=== PATIENT | female | born 1940 | race Caucasian/White ===

== ENCOUNTER → 2021-08-29 07:08 | Outpatient (REF) | payer MEDICARE, SELFPAY | LOC: ANHLAB 07:08 | PROVIDERS: PCP Internal Medicine; Visit Provider Nurse Practitioner | DX: C44.622 Squamous cell carcinoma of skin of right upper limb, including shoulder (principal); C44.629 Squamous cell carcinoma of skin of left upper limb, including shoulder | CPT/HCPCS: 88305; 88331 ==

== ENCOUNTER → 2021-12-07 10:56 | Outpatient (CLI) | payer MEDICARE, SELFPAY ==
--- NOTE | ~2021-12-07 | XR_ITS ---
XR hip LT min 2V 12/07/2021 11:30 Indication: Left hip pain Procedure: 2 views left hip Comparison: No prior studies for comparison. Findings: Mild osteoarthritis of the left hip. There are extensive vascular calcifications. No acute fracture or traumatic malalignment. Impression: 1: Mild osteoarthritis of the left hip. Reviewed, dictated and finalized at location B. Impression: 1: Mild osteoarthritis of the left hip.
== END ==
PROVIDERS: PCP Internal Medicine; Visit Provider Internal Medicine
DX: M06.09 Rheumatoid arthritis without rheumatoid factor, multiple sites (principal); M16.12 Unilateral primary osteoarthritis, left hip
CPT/HCPCS: 73502

== ENCOUNTER 2021-12-24 16:55 | Inpatient (IN) | payer MEDICARE, SELFPAY ==
[2021-12-24] VITALS (21 sets, daily range): BP systolic 154–179; BP diastolic 53–81; PULSE 75–92; RESP 18–30; TEMP 36.2–36.8; O2SAT 89–98; BMI 24.2
--- NOTE | ~2021-12-24 | US_ITS ---
EXAMINATION: US venous doppler [facility] DATE: 12/25/2021 07:52 INDICATION: Lower limb edema. TECHNIQUE: Grayscale ultrasound images without and with compression and Doppler ultrasound images of the bilateral lower extremity veins were obtained. COMPARISON: None. FINDINGS: The visualized portions of right common femoral vein, profunda (deep) femoral vein, femoral vein, pop liteal vein, peroneal veins, posterior tibial veins, and greater saphenous vein outflow are patent. T here is a moderate-sized Barber's cyst on the right. The visualized portions of left common femoral vein, profunda femoral vein, femoral vein, popliteal v ein, peroneal veins, posterior tibial veins, and greater saphenous vein outflow are patent. There is a small Barber's cyst on the left. IMPRESSION: 1. No deep venous thrombosis. 2. Moderate-sized Barber's cyst. Small left Barber's cyst. Reviewed, dictated and finalized at location A.
--- NOTE | ~2021-12-24 | XR_ITS ---
EXAMINATION: XR chest 2V Exam Date/Time: 12/24/2021 17:43 CDT HISTORY: dyspnea, bilat pedal edema; hx of HTN Comparison: None available. RESULT: Lines, tubes, and devices: None. Lungs and pleura: Senescent change. Diffuse reticular opacities. Linear and subsegmental ill-defined opacities in the lung bases, greater on the left. Minimal bilateral angle blunting. Cardiomediastinal silhouette: Stable. Other: No acute osseous or upper abdominal finding. IMPRESSION: Pulmonary opacities may reflect mild interstitial edema overlying senescent change. Bibasilar atelect asis/consolidation worse on the left. Small left and trace right effusions versus chronic pleural jeanne nting. Reviewed, dictated and finalized at location K. IMPRESSION: Pulmonary opacities may reflect mild interstitial edema overlying senescent rio nge. Bibasilar atelectasis/consolidation worse on the left. Small left and trac e right effusions versus chronic pleural blunting.
--- NOTE | 2021-12-24 17:11 | ECG_ITS ---
Measurements Intervals [place] Rate: 85 P: 37 TX: 146 QRS: -26 QRSD: 141 T: 105 QT: 412 QTc: 492 Interpretive Statements SINUS RHYTHM LEFT ATRIAL ENLARGEMENT LEFT BUNDLE BRANCH BLOCK BASELINE ARTIFACT- I, II, III, AVR, AVL, AVF, V2 ABNORMAL ECG NO PREVIOUS ECG AVAILABLE FOR COMPARISON Electronically Signed On 12-24-2021 18:47:05 CDT by Flynn Batres D.O.
--- NOTE | 2021-12-24 17:27 | ED.SOB ---
HPI - SOB/Dyspnea General Chief Complaint: Shortness of Breath/Dyspnea Stated Complaint: bilateral feet and leg swelling, sob Time Seen by Provider: 12/24/21 17:19 History of Present Illness HPI Narrative: 81-year-old female history of hypertension and atrial fibrillation presents the emergency room with a sudden onset of shortness of breath and bilateral lower extremity swelling. Patient states that she woke up this morning and was experiencing some mild shortness of breath. Also endorses bilateral lower extremity edema. She does report an occasional lower extremity edema, but that usually resolves. Has a history of atrial fibrillation, stating that she had an ablation 40 years ago, and is being managed with Cardizem. Denies any chest pain. No known history of CHF. Denies fever. Has a productive cough. Related Data Home Medications Medication Instructions Recorded Confirmed abatacept (with maltose) 250 mg IV 09/28/20 09/28/20 intravenous solution (Orencia (with maltose)) acetaminophen 500 mg capsule 500 mg PO TID 09/28/20 09/28/20 amlodipine 10 mg tablet 10 mg PO DAILY 09/28/20 09/28/20 aspirin 81 mg tablet,delayed 81 mg PO DAILY 09/28/20 09/28/20 release atorvastatin 10 mg tablet 10 mg PO DAILY 09/28/20 09/28/20 cephalexin 500 mg capsule 500 mg PO Q8H 09/28/20 09/28/20 citalopram 40 mg tablet 20 mg PO DAILY 09/28/20 09/28/20 digoxin 125 mcg (0.125 mg) tablet 125 mcg PO .EVERY OTHER DAY 09/28/20 09/28/20 leflunomide 20 mg tablet 20 mg PO DAILY 09/28/20 09/28/20 losartan 100 1 tablet PO DAILY 09/28/20 09/28/20 mg-hydrochlorothiazide 12.5 mg tablet metformin 500 mg tablet 500 mg PO TID 09/28/20 09/28/20 montelukast 10 mg tablet 10 mg PO DAILY 09/28/20 09/28/20 nebivolol 10 mg tablet (Bystolic) 10 mg PO DAILY 09/28/20 09/28/20 prednisone 2.5 mg tablet 2.5 mg PO TID 09/28/20 09/28/20 tramadol 50 mg tablet 50 mg PO Q6H PRN 09/28/20 09/28/20 trazodone 50 mg tablet 50 mg PO QHS PRN 09/28/20 09/28/20 venlafaxine 75 mg tablet 75 mg PO DAILY 09/28/20 09/28/20 vibegron 75 mg tablet (Gemtesa) 75 mg PO DAILY 09/28/20 09/28/20 Allergies Allergy/AdvReac Type Severity Reaction Status Date / Time ciprofloxacin [From Cipro] Allergy Mild Rash Verified 09/08/21 14:13 Review of Systems Review of Systems: CONSTITUTIONAL: Denies fever, chills, or sweats. EYES: Denies visual changes, redness, or discharge. ENT: Denies rhinorrhea, congestion, sore throat, or otalgia. CARDIOVASCULAR: Denies chest pain, palpitations. Reports lower extremity edema RESPIRATORY: Reports shortness of breath and cough GASTROINTESTINAL: Denies abdominal pain, nausea, vomiting, or diarrhea. GENITOURINARY: Denies dysuria or hematuria. SKIN: Denies rash or itching. MUSCULOSKELETAL: Denies back pain, joint pain, or myalgia. NEUROLOGIC: Denies headache, numbness, dizziness, or weakness. PSYCHIATRIC: Denies anxiety or depression. [facility] Past Medical History Medical History Hypertension Surgical History Surgical History History of bladder repair surgery History of foot surgery History of hysterectomy History of knee surgery Social History Social History Smoking status: Never smoker Alcohol intake: never Substance use: never Exam Narrative: GENERAL: Well-appearing, well-nourished, no physical limitations, and in no acute distress. HEAD: Normocephalic, atraumatic. EYES: Conjunctivae normal, PERRLA and EOMI. NECK: No carotid bruits or JVD CHEST: Crackles at bases HEART: Regular rate and rhythm. No murmur heard. Normal peripheral pulses. EXTREMITIES: Normal range of motion. +2 pitting edema bilateral lower extremities SKIN: Warm, dry, no rash. No noted wounds NEURO: No focal deficits. Alert and oriented x3. MAEW. CN's II-XI intact bilaterally, normal gait PSYCH: Cooperative. N
[2021-12-24 17:37] LABS: Basophils Percent Auto 0.4 % (0.2-1.2); Eosinophils Absolute Auto 0.1 K/mm3 (0-0.3); Eosinophils Percent Auto 0.9 % (0-4.4); Hematocrit 37.9 % (37.0-47.0); Hemoglobin 12.1 g/dL (12.0-15.0); Immature Granulocyte Absolute 0.03 K/mm3 (0.00-0.031); Immature Granulocyte Percent A 0.4 % (0-0.5); Lymphocytes Absolute Auto 1.38 K/mm3 (0.9-3.2); Lymphocytes Percent Auto 18.5 % (18.3-44.2); Mean Corpuscular HGB Conc 31.9 g/dl (32-36); Mean Corpuscular Hemoglobin 29.3 pg (26-34); Mean Corpuscular Volume 91.8 fl (80-100); Mean Platelet Volume 10.9 fl (7.4-10.4); Monocytes Absolute Auto 0.7 K/mm3 (0.1-0.6); Neutrophils Absolute Auto 5.3 K/mm3 (1.3-6.7); Neutrophils Percent Auto 70.8 % (45.5-73.1); Platelet Count Result 167 k/mm3 (150-375); Red Blood Count 4.13 M/mm3 (4.2-5.4); Red Cell Distribution Width 13.1 % (11.5-14.5); White Blood Count 7.5 K/mm3 (4.5-10.0)
[2021-12-24 17:44] LABS: Alanine Aminotransferase 34 U/L (6-35); Albumin Level 3.9 g/dL (3.5-5.1); Alkaline Phosphatase 74 U/L (38-126); Anion Gap 12 mmol/L (8-16); Aspartate Amino Transferase 38 U/L (14-36); Bilirubin,Total 0.3 mg/dL (0.2-1.3); Blood Urea Nitrogen 15 mg/dL (7-17); Calcium 8.8 mg/dL (8.4-10.2); Carbon Dioxide 31 mmol/L (22-30); Chloride 93 mmol/L (98-107); Estimated CRCL calculation 38 ml/min; Estimated Glomerular Filt Rate > 60; Glucose 141 mg/dL (65-110); Potassium 3.6 mmol/L (3.4-5.0); Sodium 136 mmol/L (137-145)
[2021-12-24 17:51] LABS: INR 1.1; Prothrombin Time 13.7 Seconds (11.1-14.7)
[2021-12-24 17:53] LABS: Partial Thromboplastin Time 27.9 SECONDS (22.3-36.8)
[2021-12-24 17:57] LABS: NT Pro B Type Natriuretic Pept 6320 pg/mL (5-100); Troponin I 0.015 ng/mL (0.000-0.034)
[2021-12-24] MEDS: FUROSEMIDE INJ 40 MG/4 ML VIAL IV PUSH (18:12)
--- NOTE | 2021-12-24 19:49 | ADMGEN ---
This patient, Chelsea Zamarripa, was admitted to Medical Room 342-01. Patient/family oriented to hospital policies and general routines including ID bracelet, bed and alarms, visiting hours, pain management, procedures, bathroom and other care routines, personal items, smoking policy, room service/diet, and visiting hours. Information on how to activate the Rapid Response Team has been discussed. Patient/Family are encouraged to report perceived risks to care and to ask questions if they do not understand what they are told or what they should do.
--- NOTE | 2021-12-24 20:15 | PM.IMHP ---
H&P: HPI History of Present Illness Date/Time: 12/24/21 20:15 Chief Complaint: Shortness of breath and lower extremity swelling. Narrative: This is a very pleasant 81-year-old female with hypertension, hyperlipidemia, paroxysmal atrial fibrillation, and rheumatoid arthritis who presented to the emergency department for evaluation of shortness of breath and lower extremity swelling. The last several days she has noticed swelling in her ankles and progressive dyspnea on lesser and lesser exertion. This morning she was wakened from sleep at about 05:30 with feelings of shortness of breath; she felt much better when she was sitting up and leaning forward. On presentation to the emergency department she was tachypneic though in no respiratory distress and her blood pressures have been running pretty consistently in the 160s to 170s. X-ray showed findings of probable interstitial edema and her BNP was elevated at 6320. EKG showed sinus rhythm with a left bundle branch block and her initial troponin was normal. She has never had EKGs done at this facility before thus it is unclear whether not this bundle branch block is old. She has no known history of coronary artery disease and reports that her only cardiac issue was that of paroxysmal atrial fibrillation for which she was cardioverted 40 years ago. She has remained on digoxin since that time and she has never had recurrence to her knowledge. According to the patient she had an echocardiogram done in September [address] Harvey's office prior to him retiring and she was never told that there were any significant abnormalities. She has not had any episodes of chest pain or discomfort, nausea, vomiting, sweats, syncope, or presyncope. of note, she has had several medication changes recently related to her rheumatoid arthritis. Her prednisone dose has been tapered, leflunomide discontinued, and her biologic has changed from Orencia to Aria of which she had her 1st dose a couple of weeks ago. Review of Systems Review of Systems: 12 systems were reviewed. No recent cold or flu symptoms. No sick contacts. No sensations of racing heart and palpitations. Orthopnea as detailed above. No paroxysmal nocturnal dyspnea. Appetite has been okay, may be a bit decreased. Except as documented, all other systems were reviewed and are negative. [facility] Past Medical History Medical History (Updated 12/24/21 @ 21:27 by Irina Ace PA-C) Chronic pain syndrome Hyperlipidemia Hypertension Paroxysmal atrial fibrillation Prediabetes Rheumatoid arthritis Squamous cell carcinoma of skin Surgical History Surgical History (Updated 12/24/21 @ 21:22 by Irina Ace PA-C) History of bladder repair surgery History of foot surgery History of hysterectomy History of knee surgery History of squamous cell carcinoma excision Social History Social History (Updated 12/24/21 @ 21:23 by Irina Ace PA-C) Social History: Surrogate medical decision maker: Marci Zacarias, daughter. Code status: Full code. Smoking status: Never smoker Alcohol intake: never Substance use: never Additional living arrangements comments: with 3 grown daughters. Lives in her own home in [place]. Meds Home Medications and Allergies Home Medications Medication Instructions Recorded Confirmed Type abatacept (with maltose) 250 mg See Rx Instructions .Route .COMPLEX 09/28/20 09/28/20 History intravenous solution (Orencia (with maltose)) amlodipine 10 mg tablet 10 mg PO DAILY 09/28/20 12/24/21 History aspirin 81 mg tablet,delayed 81 mg PO DAILY 09/28/20 12/24/21 History release atorvastatin 10 mg tablet 10 mg PO DAILY 09/28/20 12/24/21 History cephalexin 500 mg capsule 500 mg PO QHS 09/28/20 12/24/21 History citalopram 40 mg tablet 40 mg PO DAILY 09/28/20 12/24/21 History digoxin 125 mcg (0.125 mg) tablet 125 mcg PO .EVERY OTHER DAY 09/28/20 12/24/21 History losartan 100 1 tablet PO DAILY 09/28/20
[2021-12-25] VITALS (12 sets, daily range): BP systolic 141–162; BP diastolic 57–72; PULSE 69–86; RESP 16–18; TEMP 35.8–36.7; O2SAT 91–97
[2021-12-25 05:26] LABS: Hematocrit 37.2 % (37.0-47.0); Hemoglobin 11.8 g/dL (12.0-15.0); Mean Corpuscular HGB Conc 31.7 g/dl (32-36); Mean Corpuscular Hemoglobin 29.6 pg (26-34); Mean Corpuscular Volume 93.2 fl (80-100); Mean Platelet Volume 10.2 fl (7.4-10.4); Platelet Count Result 169 k/mm3 (150-375); Red Blood Count 3.99 M/mm3 (4.2-5.4); Red Cell Distribution Width 13.2 % (11.5-14.5); White Blood Count 9.1 K/mm3 (4.5-10.0)
[2021-12-25 05:41] LABS: Hemoglobin A1C 5.7 % (<5.7)
[2021-12-25 05:46] LABS: Anion Gap 10 mmol/L (8-16); Blood Urea Nitrogen 14 mg/dL (7-17); Calcium 8.6 mg/dL (8.4-10.2); Carbon Dioxide 35 mmol/L (22-30); Chloride 91 mmol/L (98-107); Estimated CRCL calculation 43 ml/min; Estimated Glomerular Filt Rate > 60; Glucose 134 mg/dL (65-110); Magnesium 1.1 mg/dL (1.6-2.3); Potassium 3.2 mmol/L (3.4-5.0); Sodium 136 mmol/L (137-145)
[2021-12-25] MEDS: FUROSEMIDE INJ 40 MG/4 ML VIAL 20 MG IV PUSH ×2 (06:15→17:07)
[2021-12-25 06:20] LABS: Digoxin < 0.4 ng/mL (0.8-2.0)
[2021-12-25] MEDS: POTASSIUM CHLORIDE 20 MEQ TABLET.ER PO (08:38)
[2021-12-25] MEDS: ATORVASTATIN 10 MG TABLET PO (08:39)
[2021-12-25] MEDS: CITALOPRAM HYDROBROMIDE 20 MG TABLET 40 MG PO (08:41)
[2021-12-25] MEDS: ASPIRIN 81 MG ENTERIC TABLET PO (08:41)
[2021-12-25] MEDS: predniSONE 2.5 MG TABLET PO (08:41)
[2021-12-25] MEDS: amLODIPine BESYLATE 5 MG TABLET 10 MG PO (08:41)
[2021-12-25] MEDS: DIGOXIN TAB 125 MCG TABLET PO (08:42)
[2021-12-25] MEDS: MONTELUKAST SODIUM 10 MG TABLET PO (08:42)
[2021-12-25] MEDS: LOSARTAN POTASSIUM 100 MG TABLET PO (08:42)
[2021-12-25] MEDS: VENLAFAXINE HCL 75 MG TABLET PO (08:42)
[2021-12-25 08:59] LABS: Glucose Point of Care 140 mg/dl (65-105)
[2021-12-25] MEDS: POTASSIUM CHLORIDE 20 MEQ TABLET PO (10:48)
--- NOTE | 2021-12-25 12:29 | PM.CNCAR ---
Assessment and Plan Assessment and plan (1) CHF (congestive heart failure): Code(s): I50.9 - Heart failure, unspecified Status: Acute (2) Left bundle branch block: Code(s): I44.7 - Left bundle-branch block, unspecified Status: Acute Plan This is an 81 year lady with longstanding hypertension presenting with findings of congestive heart failure for the 1st time in her life. It is unknown to us whether her left bundle branch block is acute or chronic. She has not had any previous care delivered at this hospital. She is feeling better after treatment with intravenous furosemide since admission last evening. She clearly is in no distress at this time. I will order an echocardiogram for our review tomorrow. At manager radiation is not available on Sunday to perform this exam. We will recommend further medical adjustment and or workup as indicated based on those findings. Owen Delgado MD [facility] History of Present Illness History of Present Illness Consult date/time: 12/25/21 12:29 Reason For Visit: CHF exacerbation Narrative: This is an 81-year-old woman I am seeing at the request of the hospitalist because of diagnosed occur of congestive heart failure which would be a new problem for this patient. She does not generally come to [facility] her her medical care. She came here yesterday afternoon/evening because of symptoms of shortness of breath that has been coming for about 7-10 days. She says that she notices shortness of breath in the early intervention specialist hours that tend to awaken her from sleep in the morning. She interestingly does not have the symptoms during the day after she gets up and sits up for a while. She also noticed over the same period of time some noticeable lower extremity edema. She does not have any chest pain she does not have any history of palpitations or syncope. She states she has never been known to have a cardiac problem in the past other than atrial fibrillation which she states occurred about 40 years ago but not since then. She was followed by another physician in [place] who has retired recently and has generally been doing well in good health to the best of her knowledge. She does have longstanding hypertension for which she takes a multi-drug regimen and 4th treatment including amlodipine, losartan with hydrochlorothiazide, nebivolol. She has never had palpitations or syncope. On arrival in the emergency room last evening for evaluation she appeared to be in mild distress with shortness of breath she was given some intravenous furosemide. Chest x-ray shows modest enlargement of her cardiac silhouette on x-ray and some very subtle interstitial edema. She has been given some intravenous furosemide last night and this morning she feels better today she is sitting bedside chair eating her lunch visiting with family she does not believe there is any edema present at this time at all. Electrocardiogram shows sinus rhythm with a left bundle branch block. There are no old ECGs available in our record for comparison. Review of Systems Constitutional: Constitutional: Reports no additional constitutional complaints Eyes: Eyes: Reports no additional eye complaints ENT: Reports system reviewed and no additional complaints, except as documented Cardiovascular: Cardiovascular: Reports as per HPI Respiratory: Respiratory: Reports dyspnea Comments: Early warning dyspnea as per above Gastrointestinal: Gastrointestinal: Reports no additional gastrointestinal complaints Musculoskeletal: Musculoskeletal: Reports no additional musculoskeletal complaints Integumentary/Breasts: Skin/Breast: Reports system reviewed and no additional complaints, except as docu Neurologic: Reports system reviewed and no additional complaints, except as documented Endocrine: Endocrine: Reports no additional endocrine complaints Hematologic/Lymphatic: Hematologic/Lymphatic: Reports no additional hemato
[2021-12-25 12:31] LABS: Glucose Point of Care 148 mg/dl (65-105)
[2021-12-25] MEDS: MORPHINE SULFATE (*CRX) 15 MG TABCR PO ×2 (12:36→20:14)
[2021-12-25 17:53] LABS: Glucose Point of Care 133 mg/dl (65-105)
--- NOTE | 2021-12-25 17:59 | PM.IMPN ---
Progress Note: A&P Assessment and Plan (1) Acute exacerbation of congestive heart failure: Code(s): I50.9 - Heart failure, unspecified Status: Acute Assessment and Plan: The patient presented for evaluation of shortness of breath, lower extremity edema, and orthopnea. BNP 6320 and CXR showing probably interstitial edema. Workup consistent with CHF exacerbation. She was started on IV lasix and clinically feels better. Wean off O2 as toelrated. Started PT/OT. Daily weights. CHF teaching. Echo ordered. Cardiology consulted. (2) Left bundle branch block: Code(s): I44.7 - Left bundle-branch block, unspecified Status: Acute Assessment and Plan: She has not had an EKG tracing done at this facility before. She has no known history of coronary artery disease and she gives no history to suggest a recent cardiac event. Echo ordered as above. Records requested from Dr. Harvey is office (he recently retired) for review as she reportedly had an EKG and echocardiogram done several months ago. She plans to follow up with new Automobile Salesman here. (3) Hypertension: Code(s): I10 - Essential (primary) hypertension Status: Acute Assessment and Plan: Blood pressures have been running in the 150-170s systolic and hopefully these will improve with diuresis. Continue antihypertensives (except HCTZ) and monitor closely. Adjustments will be made accordingly. (4) Paroxysmal atrial fibrillation: Code(s): I48.0 - Paroxysmal atrial fibrillation Status: Acute Assessment and Plan: Patient reports having a cardioversion 40 years ago and to her knowledge she has never been back in AFib. She was reportedly very symptomatic and she feels that she would be aware if she was in an irregular heart rhythm. Dig level <0.4. Continue digoxin. Continue tele. (5) Hyperlipidemia: Code(s): E78.5 - Hyperlipidemia, unspecified Status: Acute Assessment and Plan: LFTs okay. We continued atorvastatin. (6) Rheumatoid arthritis: Code(s): M06.9 - Rheumatoid arthritis, unspecified Status: Acute Assessment and Plan: She has had several recent changes to her medication regimen. She is being tapered off of prednisone and her leflunomide was discontinued. She had her 1st infusion of golimumab 2 weeks ago which has replaced Orencia. She has also been started on morphine 15 mg b.i.d. due to chronic pain related to such. Golimumab can contribute to CHF. (7) Prediabetes: Code(s): R73.03 - Prediabetes Status: Acute Assessment and Plan: A1c 5.7. Glucose well controlled. Continue to hold metformin while hospitalized. Continue sliding scale insulin, Accu-Cheks, and hypoglycemic protocol. Plan DVT Prophylaxis: Lovenox Code status: Full Diet: Diab Disposition: Home. Add PT/OT Subjective Date/time seen: 12/25/21 17:59 Interval history: 81yo female with pAFib, HTn and RA here for SOB and LE edema. Patient feels well today. She does not wear oxygen at home. Shortness of breath is improved. She denies any cough or chest pain. She does admit to adhering to a high salt diet Exam Narrative: AF 96.5 152/65 74 16 97% 2L Gen - NARD sitting at the side of the bed Chest - few basilar rhonchi. nml RR CV - RRR S1/S2 Abd - Soft, NT/ND, Positive BS Ext - trace-1+pedal edema Psych - Nml mood and affect Skin - Warm and dry Objective Data Vital Signs Vital Signs: Vital Signs - 24 hr 12/24/21 18:00 12/24/21 18:14 12/24/21 18:15 Temperature Pulse Rate 83 81 81 Respiratory Rate 26 H 26 H 26 H Blood Pressure 166/81 H Pulse Oximetry 94 91 93 Oxygen Delivery Oxygen Flow Rate 12/24/21 18:16 12/24/21 18:30 12/24/21 18:32 Temperature Pulse Rate 83 83 81 Respiratory Rate 30 H 20 24 H Blood Pressure 178/78 H 179/81 H Pulse Oximetry 92 91 94 Oxygen Delivery Oxygen Flow Rate 12/24/21 18:45 09/0
[2021-12-25] MEDS: ENOXAPARIN 40 MG/0.4 ML SYRINGE SUB-Q (19:15)
[2021-12-25] MEDS: NEBIVOLOL HCL 5 MG TABLET 20 MG PO (20:13)
[2021-12-25] MEDS: CEPHALEXIN 500 MG CAPSULE PO (20:14)
[2021-12-25] MEDS: traZODone HCL 50 MG TABLET PO (20:14)
[2021-12-25] MEDS: MAGNESIUM SULF 2 GM/WATER 50ML 2 GM/50 ML BAG IVPB (20:16)
[2021-12-25 21:27] LABS: Glucose Point of Care 160 mg/dl (65-105)
[2021-12-26] VITALS (10 sets, daily range): BP systolic 112–144; BP diastolic 51–82; PULSE 62–86; RESP 14–18; TEMP 36.7; O2SAT 92–96
[2021-12-26] MEDS: FUROSEMIDE INJ 40 MG/4 ML VIAL 20 MG IV PUSH (05:05)
[2021-12-26 06:03] LABS: Basophils Absolute Auto 0.1 K/mm3 (0.0-0.1); Basophils Percent Auto 0.7 % (0.2-1.2); Eosinophils Absolute Auto 0.2 K/mm3 (0-0.3); Eosinophils Percent Auto 2.8 % (0-4.4); Hematocrit 36.4 % (37.0-47.0); Hemoglobin 11.4 g/dL (12.0-15.0); Immature Granulocyte Absolute 0.02 K/mm3 (0.00-0.031); Immature Granulocyte Percent A 0.3 % (0-0.5); Lymphocytes Absolute Auto 2.26 K/mm3 (0.9-3.2); Mean Corpuscular HGB Conc 31.3 g/dl (32-36); Mean Corpuscular Hemoglobin 29.2 pg (26-34); Mean Corpuscular Volume 93.3 fl (80-100); Mean Platelet Volume 11.6 fl (7.4-10.4); Neutrophils Percent Auto 53.2 % (45.5-73.1); Platelet Count Result 155 k/mm3 (150-375); Red Cell Distribution Width 13.3 % (11.5-14.5); White Blood Count 7.5 K/mm3 (4.5-10.0)
[2021-12-26 08:15] LABS: Glucose Point of Care 112 mg/dl (65-105)
[2021-12-26 09:13] LABS: Albumin Level 3.4 g/dL (3.5-5.1); Anion Gap 10 mmol/L (8-16); Blood Urea Nitrogen 15 mg/dL (7-17); Calcium 8.8 mg/dL (8.4-10.2); Carbon Dioxide 36 mmol/L (22-30); Chloride 89 mmol/L (98-107); Estimated CRCL calculation 38 ml/min; Estimated Glomerular Filt Rate > 60; Glucose 119 mg/dL (65-110); Magnesium 1.6 mg/dL (1.6-2.3); Phosphorus 4.2 mg/dL (2.5-4.5); Potassium 3.2 mmol/L (3.4-5.0); Sodium 135 mmol/L (137-145)
[2021-12-26] MEDS: ASPIRIN 81 MG ENTERIC TABLET PO (09:36)
[2021-12-26] MEDS: ATORVASTATIN 10 MG TABLET PO (09:36)
[2021-12-26] MEDS: VENLAFAXINE HCL 75 MG TABLET PO (09:36)
[2021-12-26] MEDS: POTASSIUM CHLORIDE 20 MEQ TABLET.ER PO (09:36)
[2021-12-26] MEDS: predniSONE 2.5 MG TABLET PO (09:36)
[2021-12-26] MEDS: LOSARTAN POTASSIUM 100 MG TABLET PO (09:36)
[2021-12-26] MEDS: MONTELUKAST SODIUM 10 MG TABLET PO (09:37)
[2021-12-26] MEDS: ENOXAPARIN 40 MG/0.4 ML SYRINGE SUB-Q (09:37)
[2021-12-26] MEDS: amLODIPine BESYLATE 5 MG TABLET 10 MG PO (09:37)
[2021-12-26] MEDS: CITALOPRAM HYDROBROMIDE 20 MG TABLET 40 MG PO (09:37)
[2021-12-26 11:39] LABS: Glucose Point of Care 104 mg/dl (65-105)
--- NOTE | 2021-12-26 12:22 | PM.PNCARD ---
Progress Note: A&P Assessment and Plan (1) Acute exacerbation of congestive heart failure: Code(s): I50.9 - Heart failure, unspecified Status: Acute Plan 81-year-old lady with longstanding hypertension now presents with heart failure. Echocardiogram gives her diagnosis of heart failure with reduced ejection fraction. I am going to suggest the following changes: Transition her beta-dimple from nebivolol to Coreg Discontinue amlodipine Transition from losartan to Entresto Will discontinue IV furosemide as she appears to be euvolemic at this time Start spironolactone Expected keep this patient in the hospital at least another 24-48 hours while we make these wholesale changes in her regimen. Owen Delgado MD [facility] Subjective Date/time seen: Date of service: 12/26/21 12:22 Interval history: Follow-up visit in this 81-year-old woman with: New onset of congestive heart failure with left bundle branch block. Patient feels well today and does not describe any residual shortness of breath. Enjoying her lunch in visiting with her family. Discussed with the patient and the family the results of this morning's echocardiogram. She has significant systolic left ventricular dysfunction and will need significant changes in her medical regimen to establish appropriate guideline directed medical therapy for this. Exam Const: General: comfortable and no acute distress Other: Very pleasant elderly lady comfortable eating her lunch HENMT: Mouth: Yes moist mucous membranes Eyes: Sclera: sclerae normal Neck: Neck: supple and no JVD Cardio: Rate: regular rate Rhythm: regular rhythm Other: S3 is audible GI: GI Palp: Yes Soft to palpation Auscultation: normal bowel sounds Skin: General skin exam: normal color Neuro: Other: Alert and oriented x3 Extrem: Other: No residual edema Objective Data Vital Signs Vital Signs: Vital Signs - 24 hr 12/25/21 16:30 12/25/21 16:00 12/25/21 19:39 Temperature 35.8 C L 36.5 C Pulse Rate 74 72 69 Respiratory Rate 16 18 Blood Pressure 152/65 H 141/57 H Pulse Oximetry 97 94 Oxygen Flow Rate 12/25/21 20:13 12/25/21 20:00 12/26/21 00:00 Temperature Pulse Rate 71 69 62 Respiratory Rate Blood Pressure Pulse Oximetry Oxygen Flow Rate 12/26/21 04:00 12/26/21 06:00 12/26/21 09:37 Temperature 36.7 C Pulse Rate 69 65 Respiratory Rate 18 Blood Pressure 144/51 H Pulse Oximetry 93 93 Oxygen Flow Rate 1 12/26/21 08:00 12/26/21 12:00 Temperature Pulse Rate 72 86 Respiratory Rate Blood Pressure Pulse Oximetry Oxygen Flow Rate Intake/Output Intake/Output: Intake & Output 12/23/21 12/24/21 12/25/21 12/26/21 23:59 23:59 23:59 23:59 Intake Total 720 240 Output Total 2350 550 Balance -1630 -310 Meds/Results Medications: Active Medications Generic Name Dose Route Start Last Admin Trade Name Freq PRN Reason Stop Dose Admin Aspirin 81 mg 12/25/21 09:00 12/26/21 09:36 Aspirin 81 Mg Enteric Tablet PO 81 mg DAILY JENNY Administration Atorvastatin Calcium 10 mg 12/25/21 09:00 12/26/21 09:36 Atorvastatin 10 Mg Tablet PO 10 mg DAILY JENNY Administration Carvedilol 25 mg 12/26/21 21:00 Carvedilol 25 Mg Tablet PO Q12HR JENNY Cephalexin HCl 500 mg 12/24/21 21:45 12/25/21 20:14 Cephalexin 500 Mg Capsule PO 500 mg QHS JENNY Administration Citalopram Hydrobromide 40 mg 12/25/21 09:00 12/26/21 09:37 Citalopram Hydrobromide 20 Mg Tablet PO 40 mg DAILY JENNY Administration Dextrose 12.5 gm 12/24/21 21:35 Dextrose 50% 25 Gm/50 Ml Syringe IV PUSH PRN PRN Hypoglycemia Protocol Enoxaparin Sodium 40 mg 12/26/21 09:00 12/26/21 09:37 Enoxaparin 40 Mg/0.4 Ml Syringe SUB-Q 40 mg DAILY JENNY Administration Glucagon 1 mg 12/24/21 21:35 Glucagon For Inj 1 Mg Vial IM PRN PRN Hypoglycemia Protocol Glucose 1
--- NOTE | 2021-12-26 12:36 | PM.IMPN ---
Progress Note: A&P Assessment and Plan (1) Acute exacerbation of congestive heart failure: Code(s): I50.9 - Heart failure, unspecified Status: Acute Assessment and Plan: The patient presented for evaluation of shortness of breath, lower extremity edema, and orthopnea. BNP 6320 and CXR showing probably interstitial edema. Workup consistent with CHF exacerbation. She was started on IV lasix and clinically feels better. Echocardiogram has returned showing EF of 25-30% with grade 1 diastolic dysfunction. Wean off O2 as tolerated. Continue daily weights. Cardiology following and appreciate their input. Medications to be adjusted. Potassium is low which will replace. IV Lasix stopped. Monitor to see if she will need oral Lasix at discharge (2) Left bundle branch block: Code(s): I44.7 - Left bundle-branch block, unspecified Status: Acute Assessment and Plan: She has not had an EKG tracing done at this facility before. She has no known history of coronary artery disease and she gives no history to suggest a recent cardiac event. Echo as above. Records requested from Dr. Harvey is office (he recently retired) for review. She plans to follow up with new Band Scroll Saw Operator here. (3) Hypertension: Code(s): I10 - Essential (primary) hypertension Status: Acute Assessment and Plan: Blood pressures have been running in the 140-160s systolic and hopefully these will improve with diuresis and adjustment of her medications. Adjustments will be made accordingly. (4) Paroxysmal atrial fibrillation: Code(s): I48.0 - Paroxysmal atrial fibrillation Status: Acute Assessment and Plan: Patient reports having a cardioversion 40 years ago and states she has never been back in AFib. She was reportedly very symptomatic and she feels that she would be aware if she was in an irregular heart rhythm. Dig level <0.4. Digoxin stopped. Bystolic changed to Coreg. Continue tele. (5) Hyperlipidemia: Code(s): E78.5 - Hyperlipidemia, unspecified Status: Acute Assessment and Plan: LFTs okay. We continued atorvastatin. (6) Rheumatoid arthritis: Code(s): M06.9 - Rheumatoid arthritis, unspecified Status: Acute Assessment and Plan: She has had several recent changes to her medication regimen. She is being tapered off of prednisone and her leflunomide was discontinued. She had her 1st infusion of golimumab 2 weeks ago which has replaced Orencia. She has also been started on morphine 15 mg b.i.d. due to chronic pain. Golimumab can contribute to CHF. (7) Prediabetes: Code(s): R73.03 - Prediabetes Status: Acute Assessment and Plan: A1c 5.7. Glucose well controlled. Continue to hold metformin while hospitalized. Continue sliding scale insulin, Accu-Cheks, and hypoglycemic protocol. Plan DVT Prophylaxis: Lovenox Code status: Full Diet: Diab Disposition: Home. Continue PT/OT Subjective Date/time seen: 12/26/21 12:36 Interval history: 81yo female with pAFib, HTN and RA here for CHF exacerbation. Shortness of breath is better. No chest pain. Slept well. No orthopnea. Feeling better overall. Exam Narrative: AF 98.1 144/51 86 18 93% 1L Gen - NARD Chest -decreased breath sounds in the bases otherwise clear. CV - RRR S1/S2 with a II/ systolic murmur heard loudest at right upper sternal border Abd - Soft, NT/ND, Positive BS Ext - trace pedal edema Psych - Nml mood and affect Skin - Warm and dry Objective Data Vital Signs Vital Signs: Vital Signs - 24 hr 12/25/21 16:30 12/25/21 16:00 12/25/21 19:39 Temperature 96.5 F L 97.7 F Pulse Rate 74 72 69 Respiratory Rate 16 18 Blood Pressure 152/65 H 141/57 H Pulse Oximetry 97 94 Oxygen Flow Rate 12/25/21 20:13 12/25/21 20:00 12/26/21 00:00 Temperature Pulse Rate 71 69 62 Respiratory Rate Blood Pressure Pulse Oximetry
[2021-12-26] MEDS: MORPHINE SULFATE (*CRX) 15 MG TABCR PO ×2 (13:06→20:32)
[2021-12-26] MEDS: MAGNESIUM SULF 2 GM/WATER 50ML 2 GM/50 ML BAG IVPB (13:30)
[2021-12-26] MEDS: POTASSIUM CHLORIDE 20 MEQ TABLET PO (13:30)
[2021-12-26 16:43] LABS: Glucose Point of Care 118 mg/dl (65-105)
[2021-12-26] MEDS: CEPHALEXIN 500 MG CAPSULE PO (20:32)
[2021-12-26] MEDS: traZODone HCL 50 MG TABLET PO (20:32)
[2021-12-26 20:37] LABS: Glucose Point of Care 133 mg/dl (65-105)
--- NOTE | 2021-12-26 21:35 | ECHO_ITS ---
Patient Info Name: Chelsea Zamarripa Age: 81 years : 1940 Gender: Female Ht: 62 in Wt: 132 lbs BSA: 1.63 m2 HR: 70 bpm BP: 144 / 51 mmHg Heart Rhythm: Sinus Rhythm Technical Quality: Good Exam Date: 12/26/2021 8:01 AM Exam Location: [facility] Exam Room: 342 Patient Status: Inpatient Admit Date: 12/24/2021 Staff Ordering Physician: Irina Ace PA-C Material Handler: Shira Fung RDCS Attending Provider: Fernando Rueda MD Referring Physician: Db PHAM; Exam Type: CA echo doppler color flow Study Info Indications - LBBB HTN AFIB CHF Complete two-dimensional, color flow and Doppler transthoracic echocardiogram is performed. Summary 1. Complete two-dimensional, color flow and Doppler transthoracic echocardiogram is performed. 2. Left ventricular chamber dimension is moderately enlarged. 3. Left ventricular systolic function is severely reduced, estimated at 25-30%. 4. Left atrial chamber dimension is moderately enlarged. 5. There is mild mitral valve regurgitation. Left Ventricle Left ventricular chamber dimension is moderately enlarged. Left ventricular systolic function is severely reduced, estimated at 25-30%. There is mild concentric increased left ventricular wall thickness. The left ventricular diastolic function is grade I diastolic dysfunction. Right Ventricle Right ventricular chamber dimension is normal. Left Atria Left atrial chamber dimension is moderately enlarged. Right Atria Right atrial chamber dimension is normal. Aortic Valve The aortic valve is normal. Pulmonic Valve The pulmonic valve is normal. There is trace pulmonic regurgitation. Mitral Valve The mitral valve has normal leaflets. There is mild mitral valve regurgitation. Tricuspid Valve The tricuspid valve leaflets are normal. There is mild tricuspid valve regurgitation. Pericardium/Pleural The pericardium appears increased echogenicity of the pericardium. Aorta The aortic root size at the sinus of Valsalva is normal. Left Ventricular Outflow Tract Name Value Normal LVOT 2D LVOT Diameter 2.0 cm LVOT Doppler LVOT Peak Gradient 5 mmHg LVOT Mean Gradient 3 mmHg LVOT VTI 22 cm LVOT VTI/AV VTI Ratio 0.8 LVOT Stroke Volume 71 ml LVOT CO 15.2 l/min LVOT CI 9.3 l/min/m2 Pulmonic Valve Name Value Normal PV Doppler PV Peak Gradient 2 mmHg Mitral Valve Name Value Normal MV Doppler
[2021-12-26] MEDS: SACUBITRIL/VALSARTAN 24-26 MG TABLET 1 TAB PO (22:00)
[2021-12-26] MEDS: carvediloL 25 MG TABLET PO (22:00)
[2021-12-27] VITALS (7 sets, daily range): BP systolic 126–148; BP diastolic 51–60; PULSE 67–74; RESP 16–18; TEMP 36.5–36.6; O2SAT 95–96
[2021-12-27 05:59] LABS: Albumin Level 2.9 g/dL (3.5-5.1); Anion Gap 9 mmol/L (8-16); Blood Urea Nitrogen 15 mg/dL (7-17); Calcium 8.1 mg/dL (8.4-10.2); Carbon Dioxide 33 mmol/L (22-30); Chloride 92 mmol/L (98-107); Estimated CRCL calculation 43 ml/min; Estimated Glomerular Filt Rate > 60; Glucose 119 mg/dL (65-110); Magnesium 1.9 mg/dL (1.6-2.3); Potassium 3.3 mmol/L (3.4-5.0); Sodium 134 mmol/L (137-145)
[2021-12-27 08:06] LABS: Glucose Point of Care 112 mg/dl (65-105)
--- NOTE | 2021-12-27 08:54 | PM.IMPN ---
Progress Note: A&P Assessment and Plan (1) Acute exacerbation of congestive heart failure: Code(s): I50.9 - Heart failure, unspecified Status: Acute Assessment and Plan: The patient presented for evaluation of shortness of breath, lower extremity edema, and orthopnea. BNP 6320 and CXR showing probably interstitial edema. Workup consistent with Acute on chronic systolic and diastolic CHF exacerbation. She was started on IV lasix and clinically improved. Echo has returned showing EF of 25-30% with grade 1 diastolic dysfunction. Weaned off O2 now. Continue daily weights. Cardiology following and appreciate their input. Medications have been adjusted. Potassium is low end of normal which will replace. IV Lasix stopped. Continue to monitor to see if she will need oral Lasix at discharge. Continue Coreg, Entresto and Aldactone. (2) Left bundle branch block: Code(s): I44.7 - Left bundle-branch block, unspecified Status: Acute Assessment and Plan: She has not had an EKG tracing done at this facility before. She has no known history of coronary artery disease and she gives no history to suggest a recent cardiac event. Echo as above. Records requested from Dr. Harvey is office (he recently retired) for review. She plans to follow up with new Light Out Examiner here. (3) Hypertension: Code(s): I10 - Essential (primary) hypertension Status: Acute Assessment and Plan: Blood pressures have been running in the 140's systolic mostly (112 last night). She appears to be toelrating the changes in her medications. Continue to follow. (4) Paroxysmal atrial fibrillation: Code(s): I48.0 - Paroxysmal atrial fibrillation Status: Acute Assessment and Plan: Patient reports having a cardioversion 40 years ago and states she has never been back in AFib. She was reportedly very symptomatic and she feels that she would be aware if she was in an irregular heart rhythm. Dig level <0.4. Digoxin stopped. Bystolic changed to Coreg. Continue tele. (5) Hyperlipidemia: Code(s): E78.5 - Hyperlipidemia, unspecified Status: Acute Assessment and Plan: LFTs okay. We continued atorvastatin. (6) Rheumatoid arthritis: Code(s): M06.9 - Rheumatoid arthritis, unspecified Status: Acute Assessment and Plan: She has had several recent changes to her medication regimen. She is being tapered off of prednisone and her leflunomide was discontinued. She had her 1st infusion of golimumab 2 weeks ago which has replaced Orencia. She has also been started on morphine 15 mg b.i.d. due to chronic pain. Golimumab can contribute to CHF. Follow (7) Prediabetes: Code(s): R73.03 - Prediabetes Status: Acute Assessment and Plan: A1c 5.7. Glucose well controlled. Continue to hold metformin while hospitalized. Continue sliding scale insulin, Accu-Cheks, and hypoglycemic protocol. Plan DVT Prophylaxis: Lovenox Code status: Full Diet: Diab Disposition: Home. Continue PT/OT Subjective Date/time seen: 12/27/21 08:54 Interval history: 81yo female with pAFib, HTN and RA here for CHF exacerbation. Feels well today. No complaints today. She came off oxygen last night. No problems overnight. Denies chest pain or shortness of breath. No nausea or vomiting. Exam Narrative: AF 97.9 148/60 74 16 96% ra Gen - NARD sitting up in a chair Chest -clear to auscultation bilaterally. CV - RRR S1/S2. Telemetry showing no alarms Abd - Soft, NT/ND, Positive BS Ext - no pedal edema Psych - Nml mood and affect Skin - Warm and dry Objective Data Vital Signs Vital Signs: Vital Signs - 24 hr 12/26/21 09:37 12/26/21 12:00 12/26/21 14:00 Temperature 98.1 F Pulse Rate 86 76 Respiratory Rate 14 Blood Pressure 140/51 L Pulse Oximetry 93 96 Oxygen Delivery Oxygen Flow Rate 1 12/26/21 20:00 12/26/21 20:00 12/26/21
[2021-12-27] MEDS: carvediloL 25 MG TABLET PO (08:58)
[2021-12-27] MEDS: VENLAFAXINE HCL 75 MG TABLET PO (09:00)
[2021-12-27] MEDS: ATORVASTATIN 10 MG TABLET PO (09:00)
[2021-12-27] MEDS: CITALOPRAM HYDROBROMIDE 20 MG TABLET 40 MG PO (09:00)
[2021-12-27] MEDS: ENOXAPARIN 40 MG/0.4 ML SYRINGE SUB-Q (09:00)
[2021-12-27] MEDS: MONTELUKAST SODIUM 10 MG TABLET PO (09:00)
[2021-12-27] MEDS: predniSONE 2.5 MG TABLET PO (09:00)
[2021-12-27] MEDS: ASPIRIN 81 MG ENTERIC TABLET PO (09:00)
[2021-12-27] MEDS: SACUBITRIL/VALSARTAN 24-26 MG TABLET 1 TAB PO (09:00)
[2021-12-27] MEDS: POTASSIUM CHLORIDE 20 MEQ TABLET 40 MEQ PO (09:00)
[2021-12-27] MEDS: SPIRONOLACTONE 25 MG TABLET PO (10:28)
[2021-12-27 12:10] LABS: Glucose Point of Care 134 mg/dl (65-105)
[2021-12-27] MEDS: MORPHINE SULFATE (*CRX) 15 MG TABCR PO (12:29)
--- NOTE | 2021-12-27 15:03 | PM.PNCARD ---
Progress Note: A&P Assessment and Plan (1) Acute exacerbation of congestive heart failure: Code(s): I50.9 - Heart failure, unspecified Status: Acute Assessment and Plan: Systolic CHF: Continue carvedilol, Entresto, spironolactone, furosemide. Will increase her Entresto to 49/51 mg p.o. b.i.d. She needs outpatient ischemic workup. She may eventually benefit for resynchronization (2) Left bundle branch block: Code(s): I44.7 - Left bundle-branch block, unspecified Status: Acute Assessment and Plan: As detailed above. Possible candidate for resynchronization in the future depending on how she response to the above treatment strategy (3) Paroxysmal atrial fibrillation: Code(s): I48.0 - Paroxysmal atrial fibrillation Status: Acute (4) Hypertension: Code(s): I10 - Essential (primary) hypertension Status: Acute Assessment and Plan: Reasonably controlled Subjective Date/time seen: 12/27/21 15:03 Interval history: 81yo female with pAFib, HTN and RA here for CHF exacerbation. Feels well today. No complaints today. She came off oxygen last night. No problems overnight. Denies chest pain or shortness of breath. No nausea or vomiting. Date of service 12/27/2021: She feels well and wants to go home. No chest pain, shortness of breath, syncope Review of Systems Constitutional: Constitutional: Reports no additional constitutional complaints Eyes: Eyes: Reports no additional eye complaints ENT: Reports system reviewed and no additional complaints, except as documented Cardiovascular: Cardiovascular: Reports as per HPI and Reports dyspnea Respiratory: Respiratory: Reports dyspnea Gastrointestinal: Gastrointestinal: Reports no additional gastrointestinal complaints Musculoskeletal: Musculoskeletal: Reports no additional musculoskeletal complaints Integumentary/Breasts: Skin/Breast: Reports system reviewed and no additional complaints, except as docu Neurologic: Reports system reviewed and no additional complaints, except as documented Endocrine: Endocrine: Reports no additional endocrine complaints Hematologic/Lymphatic: Hematologic/Lymphatic: Reports no additional hematologic/lymphatic complaints Allergic/Immunologic: Allergic/Immunologic: Reports no additional allergic/immunologic complaints Exam Const: General: comfortable and no acute distress Other: Very pleasant elderly lady comfortable eating her lunch HENMT: Mouth: Yes moist mucous membranes Eyes: Sclera: sclerae normal Pupils: Equal, round and reactive pupils present Neck: Neck: supple and no JVD Other: Carotid impulses are intact bilaterally normal in character no bruits, no significant JVD Resp: Effort & Inspection: normal respiratory effort Other: This time I do not appreciate any pulmonary rales or wheezing Cardio: Rate: regular rate Rhythm: regular rhythm Other: S3 is audible GI: Auscultation: normal bowel sounds Skin: General skin exam: normal color Neuro: Cranial nerves: Yes Equal, round and reactive pupils present Other: Alert and oriented x3 Extrem: Other: No residual edema Objective Data Vital Signs Vital Signs: Vital Signs - 24 hr 12/26/21 20:00 12/26/21 20:00 12/26/21 21:39 Temperature 36.7 C Pulse Rate 81 78 Respiratory Rate 16 Blood Pressure 112/82 Pulse Oximetry 92 95 Oxygen Delivery Room Air 12/26/21 22:00 12/27/21 00:00 12/27/21 04:00 Temperature Pulse Rate 72 71 70 Respiratory Rate Blood Pressure Pulse Oximetry Oxygen Delivery 12/27/21 06:00 12/27/21 08:58 12/27/21 08:00 Temperature 36.6 C Pulse Rate 74 67 71 Respiratory Rate 16 Blood Pressure 148/60 H Pulse Oximetry 96 Oxygen Delivery 12/27/21 12:00 Temperature Pulse Rate 67 Respiratory Rate Blood Pressure Pulse Oximetry Oxygen Delivery Intake/Output Intake/Output: Intake & Output 12/24/21
[2021-12-27 17:02] LABS: Glucose Point of Care 132 mg/dl (65-105)
--- NOTE | 2021-12-27 18:15 | PM.DS ---
DS: Admitting Diagnosis Discharge Date 12/27/21 Admitting Diagnosis Shortness of breath and lower extremity swelling. DS: Discharge Diagnosis Discharge Diagnosis (1) Acute exacerbation of congestive heart failure: Code(s): I50.9 - Heart failure, unspecified Status: Acute (2) Left bundle branch block: Code(s): I44.7 - Left bundle-branch block, unspecified Status: Acute (3) Hypertension: Code(s): I10 - Essential (primary) hypertension Status: Acute (4) Paroxysmal atrial fibrillation: Code(s): I48.0 - Paroxysmal atrial fibrillation Status: Acute (5) Hyperlipidemia: Code(s): E78.5 - Hyperlipidemia, unspecified Status: Acute (6) Rheumatoid arthritis: Code(s): M06.9 - Rheumatoid arthritis, unspecified Status: Acute (7) Prediabetes: Code(s): R73.03 - Prediabetes Status: Acute DS: Summary Hospital Course Reason for hospitalization: 81yo female with pAFib, HTN and RA here for CHF exacerbation. Please see H&P for details Hospital Course: The patient presented for evaluation of shortness of breath, lower extremity edema, and orthopnea. BNP 6320 and CXR showing probably interstitial edema. Workup consistent with?Acute on chronic systolic and diastolic CHF exacerbation. She was started on IV lasix and clinically improved.? Echo has returned showing EF of 25-30% with grade 1 diastolic dysfunction.? Weaned off O2.? Cardiology following and appreciate their input.? Medications were adjusted.?Left BBB noted. She has not had an EKG tracing done at this facility before. She has no known history of coronary artery disease and she gives no history to suggest a recent cardiac event. Blood pressures have been stable and she tolerated the changes in her medications. Patient has a hx of AFib and reports having a cardioversion 40 years ago and states she has never been back in AFib.? She was reportedly very symptomatic and she feels that she would be aware if she was in an irregular heart rhythm. Digoxin was stopped. Bystolic changed to Coreg. She had clinical improvement. She overall did well was able discharged home on 12/27/2021 Status at Discharge Cognitive/behavioral status at discharge: Stable Time Spent with Patient Time attestation: Total time spent providing and/or coordinating discharge services: 34 minutes Time spent: Greater than 30 minutes Exam Narrative: AF 97.9 148/60 74 16 96% ra Gen - NARD sitting up in a chair Chest -clear to auscultation bilaterally. CV - RRR S1/S2. Telemetry showing no alarms Abd - Soft, NT/ND, Positive BS Ext - no pedal edema Psych - Nml mood and affect Skin - Warm and dry DS: Data Data Completed and Pending Labs on day of discharge: Labs from last 24 hours 12/27/21 12/27/21 12/27/21 16:57 11:59 08:01 Sodium Potassium Chloride Carbon Dioxide Anion Gap BUN Creatinine Estim Creat Clear Calc Estimated GFR Glucose POC Capillary Glucose 132 H 134 H 112 H Calcium Phosphorus Magnesium Albumin 12/27/21 12/26/21 05:25 20:24 Sodium 134 L Potassium 3.3 L Chloride 92 L Carbon Dioxide 33 H Anion Gap 9 BUN 15 Creatinine 0.70 Estim Creat Clear Calc 43 Estimated GFR > 60 Glucose 119 H POC Capillary Glucose 133 H Calcium 8.1 L Phosphorus 4.0 Magnesium 1.9 Albumin 2.9 L Discharge Plan Discharge Attending physician on discharge: Fernando Rueda Consulting providers: Nyaeli Cabrales Discharging Clinician: Fernando Rueda Anticipated Discharge Date/Time: 12/27/21 18:19 Patient Disposition: Home, Self-Care Activity: as tolerated Diet: heart healthy and diabetic Discharge Instructions: Please check glucose before meals and before bed. Record and bring into your doctor for review. Check blood pressure 1 to 2 times a day. Record and bring into your doctor for revie
== END 2021-12-27 18:00 | disposition home or self-care (01) | DRG 291 ==
LOC: ANHED 18:17 → ANH3MED 18:35
PROVIDERS: Emergency Medicine; Physician Assistant; Admitting Provider Internal Medicine; Emergency Provider Nurse Practitioner Family; PCP Internal Medicine; Visit Provider Internal Medicine
DX: I11.0 Hypertensive heart disease with heart failure (principal); I50.43 Acute on chronic combined systolic (congestive) and diastolic (congestive) heart failure; I44.7 Left bundle-branch block, unspecified; I48.0 Paroxysmal atrial fibrillation; E78.5 Hyperlipidemia, unspecified; M06.9 Rheumatoid arthritis, unspecified; R73.03 Prediabetes; G89.4 Chronic pain syndrome; Z79.82 Long term (current) use of aspirin; Z79.52 Long term (current) use of systemic steroids; Z85.828 Personal history of other malignant neoplasm of skin; Z90.710 Acquired absence of both cervix and uterus
CPT/HCPCS: 36415; 71046; 80048; 80053; 80069; 80162; 82948; 83036; 83735; 83880; 84443; 84484; 85025; 85027; 85610; 85730; 93005; 93306; 93970; 97161; 97165; 99285; A9270; J1650; J1940; J3475

== ENCOUNTER 2021-12-30 10:52 | Outpatient (CLI) | payer MEDICARE, SELFPAY ==
[2021-12-30 12:13] LABS: Anion Gap 10 mmol/L (8-16); Blood Urea Nitrogen 16 mg/dL (7-17); Calcium 8.5 mg/dL (8.4-10.2); Carbon Dioxide 29 mmol/L (22-30); Chloride 99 mmol/L (98-107); Estimated Glomerular Filt Rate 60; Glucose 122 mg/dL (65-110); Sodium 138 mmol/L (137-145)
== END 2021-12-30 10:53 | disposition home or self-care (01) ==
LOC: ANHLAB 10:56
PROVIDERS: PCP Internal Medicine; Referring Provider Specialist; Visit Provider Internal Medicine
DX: I50.9 Heart failure, unspecified (principal)
CPT/HCPCS: 36415; 80048

== ENCOUNTER 2021-12-31 18:14 | Emergency (ER) | payer MEDICARE, SELFPAY ==
[2021-12-31] VITALS (20 sets, daily range): BP systolic 145–161; BP diastolic 56–68; PULSE 72–83; RESP 14–27; TEMP 36.5; O2SAT 92–100
--- NOTE | ~2021-12-31 | XR_ITS ---
EXAMINATION: XR chest 2V Exam Date/: 12/31/2021 19:15 CDT HISTORY: chest tightness,HX CHF Comparison: 12/24/2021. RESULT: Lines, tubes, and devices: None. Lungs and pleura: Senescent change. Minimal bibasilar linear opacities, with improved aeration of th e lung bases to the left. Minimal bilateral angle blunting. Cardiomediastinal silhouette: Stable. Other: No acute osseous or upper abdominal finding. IMPRESSION: Small bilateral pleural effusions versus chronic pleural blunting and mild bibasilar scar/atelectasis . Reviewed, dictated and finalized at [facility]. IMPRESSION: Small bilateral pleural effusions versus chronic pleural blunting and mild biba silar scar/atelectasis.
--- NOTE | 2021-12-31 19:13 | ED.GENADULT ---
HPI - General Adult General Chief complaint: Unspecified Stated complaint: lower extremity swelling Time Seen by Provider: 12/31/21 18:55 History of Present Illness HPI narrative: 81-year-old female with history of congestive heart failure presented to the emergency department for evaluation of lower extremity edema. Patient had a recent hospitalization last week for fluid overload. Patient had been started on Lasix and has significant improvement. Patient was started on spironolactone. Patient states that when she was first admitted her legs were extremely swollen but did improve during her hospital stay. Patient states that this afternoon her legs were more swollen but they have since improved. Patient denies any current chest pain or shortness of breath at this time. Patient has history of congestive heart failure, hyperlipidemia, diabetes and a left bundle branch, paroxysmal atrial fibrillation Related Data Home Medications Medication Instructions Recorded Confirmed abatacept (with maltose) 250 mg See Rx Instructions .Route .COMPLEX 09/28/20 12/25/21 intravenous solution (Orencia (with maltose)) aspirin 81 mg tablet,delayed 81 mg PO DAILY 09/28/20 12/24/21 release atorvastatin 10 mg tablet 10 mg PO DAILY 09/28/20 12/24/21 cephalexin 500 mg capsule 500 mg PO QHS 09/28/20 12/24/21 citalopram 40 mg tablet 40 mg PO DAILY 09/28/20 12/24/21 metformin 500 mg tablet 500 mg PO BID 09/28/20 12/24/21 montelukast 10 mg tablet 10 mg PO DAILY 09/28/20 12/24/21 prednisone 2.5 mg tablet 2.5 mg PO DAILY 09/28/20 12/24/21 trazodone 50 mg tablet 50 mg PO QHS PRN Insomnia 09/28/20 12/24/21 venlafaxine 75 mg tablet 75 mg PO DAILY 09/28/20 12/24/21 Allergies Allergy/AdvReac Type Severity Reaction Status Date / Time ciprofloxacin [From Cipro] Allergy Mild Rash Verified 12/24/21 20:50 Review of Systems Review of Systems: CONSTITUTIONAL: Denies fever, chills, or sweats. EYES: Denies visual changes, redness, or discharge. ENT: Denies rhinorrhea, congestion, sore throat, or otalgia. CARDIOVASCULAR: See HPI RESPIRATORY: Denies cough or dyspnea. GASTROINTESTINAL: Denies abdominal pain, nausea, vomiting, or diarrhea. GENITOURINARY: Denies dysuria or hematuria. SKIN: Denies rash or itching. MUSCULOSKELETAL: Lower extremity edema NEUROLOGIC: Denies headache, numbness, or weakness. [facility] Past Medical History Medical History (Updated 01/01/22 @ 00:00 by Steven Lindsey) Chronic pain syndrome Hyperlipidemia Hypertension Paroxysmal atrial fibrillation Prediabetes Rheumatoid arthritis Squamous cell carcinoma of skin Surgical History Surgical History (Updated 12/24/21 @ 21:22 by Irina Ace PA-C) History of bladder repair surgery History of foot surgery History of hysterectomy History of knee surgery History of squamous cell carcinoma excision Family History Family History (Updated 12/24/21 @ 23:42 by Ara Shin RN) Other Unknown family medical history Social History Social History (Updated 12/24/21 @ 21:23 by Irina Ace PA-C) Social History: Surrogate medical decision maker: Marci Zacarias, daughter. Code status: Full code. Smoking status: Never smoker Alcohol intake: never Substance use: never Additional living arrangements comments: with 3 grown daughters. Lives in her own home in [place]. Spiritual care concerns: No Exam Narrative: APPEARANCE: Well appearing, no pain, no distress, well-nourished. HEAD: normocephalic, atraumatic. EYES: PERRLA/EOMI, conjunctivae clear. NOSE: Normal no drainage THROAT: Pharynx clear, no exudate. NECK: Supple. No adenopathy, no masses. RESPIRATORY: Airway patent, respirations nonlabored. Clear to auscultation bilaterally, no rales, rhonchi, wheezing. CARDIOVASCULAR: Regular rate and rhythm without murmurs rubs or gallops. ABDOMINAL: Soft, nontender, nondistended, normal bowel sounds MUSCULOSKELETAL: Moves all extremities
[2021-12-31 19:33] LABS: Basophils Percent Auto 0.6 % (0.2-1.2); Eosinophils Absolute Auto 0.2 K/mm3 (0-0.3); Eosinophils Percent Auto 2.1 % (0-4.4); Hemoglobin 10.9 g/dL (12.0-15.0); Immature Granulocyte Absolute 0.02 K/mm3 (0.00-0.031); Immature Granulocyte Percent A 0.3 % (0-0.5); Lymphocytes Absolute Auto 1.66 K/mm3 (0.9-3.2); Lymphocytes Percent Auto 23.3 % (18.3-44.2); Mean Corpuscular HGB Conc 32.1 g/dl (32-36); Mean Corpuscular Hemoglobin 29.9 pg (26-34); Mean Corpuscular Volume 93.2 fl (80-100); Mean Platelet Volume 10.2 fl (7.4-10.4); Monocytes Absolute Auto 0.7 K/mm3 (0.1-0.6); Monocytes Percent Auto 9.7 % (2.6-8.5); Neutrophils Absolute Auto 4.6 K/mm3 (1.3-6.7); Platelet Count Result 179 k/mm3 (150-375); Red Blood Count 3.65 M/mm3 (4.2-5.4); Red Cell Distribution Width 13.2 % (11.5-14.5); White Blood Count 7.1 K/mm3 (4.5-10.0)
[2021-12-31 19:53] LABS: Alanine Aminotransferase 19 U/L (6-35); Albumin Level 3.2 g/dL (3.5-5.1); Alkaline Phosphatase 65 U/L (38-126); Anion Gap 7 mmol/L (8-16); Aspartate Amino Transferase 24 U/L (14-36); Bilirubin,Total 0.2 mg/dL (0.2-1.3); Blood Urea Nitrogen 17 mg/dL (7-17); Calcium 8.8 mg/dL (8.4-10.2); Carbon Dioxide 26 mmol/L (22-30); Chloride 101 mmol/L (98-107); Estimated CRCL calculation 34 ml/min; Estimated Glomerular Filt Rate 60; Glucose 127 mg/dL (65-110); NT Pro B Type Natriuretic Pept 5420 pg/mL (5-100); Potassium 4.6 mmol/L (3.4-5.0); Sodium 134 mmol/L (137-145)
--- NOTE | 2021-12-31 20:57 | PC.NURSE ---
2054 Road test performed with pt with 1 lap around the RN station. Pt oxygen sat started off at 94% dropped to 90% 1/[address] around the station. Pt HR remained in the 85-90, but was symptomatic after the test. Dr. Elias was informed of the results.
== END 2021-12-31 22:10 | disposition home or self-care (01) ==
PROVIDERS: Emergency Provider Emergency Medicine; PCP Internal Medicine
DX: R60.0 Localized edema (principal); I50.9 Heart failure, unspecified; E78.5 Hyperlipidemia, unspecified; E11.9 Type 2 diabetes mellitus without complications; I44.7 Left bundle-branch block, unspecified; I48.0 Paroxysmal atrial fibrillation; M06.9 Rheumatoid arthritis, unspecified; G89.4 Chronic pain syndrome; Z79.52 Long term (current) use of systemic steroids; Z79.82 Long term (current) use of aspirin
CPT/HCPCS: 36415; 71046; 80053; 83880; 85025; 99283

== ENCOUNTER 2022-01-24 14:34 | Outpatient (RCR) | payer MEDICARE, SELFPAY ==
[2022-01-24 15:04] VITALS: PULSE 78
== END 2022-01-25 10:17 | disposition home or self-care (01) ==
LOC: ANHCPREHAB 14:34
PROVIDERS: PCP Internal Medicine; Visit Provider Specialist
DX: I50.89 Other heart failure (principal)
CPT/HCPCS: 93798

== ENCOUNTER 2022-02-23 13:11 | Emergency (ER) | payer MEDICARE, SELFPAY ==
[2022-02-23] VITALS (33 sets, daily range): BP systolic 138–159; BP diastolic 58–84; PULSE 73–105; RESP 13–24; TEMP 36.8; O2SAT 93–100
--- NOTE | ~2022-02-23 | CT_ITS ---
EXAMINATION: CT abdomen pelvis w con DATE: 02/23/2022 15:11 INDICATION: Left lower quadrant abdominal pain, nausea. Covid-positive one week ago. History of bladd er repair surgery. TECHNIQUE: Computed tomography (CT) of the abdomen and pelvis was performed with 100 CC Omnipaque 350 intravenous contrast. Automated exposure control and iterative reconstruction technique were employe d. Exam dose: 276.42 mGy-cm total exam DLP. COMPARISON: 10/16/2016 CT abdomen pelvis FINDINGS: There is chronic mild discoid atelectasis or scarring at the bases of the lower lobes. Mini mal dependent bilateral lower lobe atelectasis. Heart size is within normal range. No pericardial or pleural effusion. Small sliding hiatal hernia. The gallbladder is contracted., Spleen, pancreas and adrenal glands are unremarkable. No bile duct or pancreatic duct dilatation. A very small cyst of each kidney is noted. No suspicious renal mass lesion or urinary tract calculus or hydroureteronephrosis is detected. The urinary bladder is unremarkable. Status post hysterectomy. There is prominent atherosclerotic calcification of the abdominal aorta and calcification at the orig ins of the celiac and superior mesenteric and renal arteries. No abdominal aortic aneurysm. No intrap eritoneal or retroperitoneal or pelvic mass lesion or adenopathy or ascites. No bowel obstruction, bowel wall thickening, pneumatosis or intraperitoneal free air. Very small fat-containing umbilical hernia. There is severe degenerative disc disease throughout the lumbar spine with associated mild retrolisth esis at L1-2, L2-3, L3-4. There is severe degenerative changes apophyseal joints with associated grade 1 anterolisthesis at L4- 5. Bilateral hip osteoarthritis. No suspicious osteolytic or osteoblastic lesions are noted. Probable bone island of the right acetabu lum. IMPRESSION: Small sliding hiatal hernia Very small cyst of each kidney Status post hysterectomy Reviewed, dictated and finalized at [facility]. Reviewed, dictated and finalized at location [facility].
[2022-02-23 14:16] LABS: Basophils Percent Auto 0.1 % (0.2-1.2); Eosinophils Absolute Auto 0.1 K/mm3 (0-0.3); Hematocrit 35.4 % (37.0-47.0); Hemoglobin 11.5 g/dL (12.0-15.0); Immature Granulocyte Absolute 0.02 K/mm3 (0.00-0.031); Immature Granulocyte Percent A 0.3 % (0-0.5); Lymphocytes Absolute Auto 1.65 K/mm3 (0.9-3.2); Lymphocytes Percent Auto 23.1 % (18.3-44.2); Mean Corpuscular HGB Conc 32.5 g/dl (32-36); Mean Corpuscular Hemoglobin 29.3 pg (26-34); Mean Corpuscular Volume 90.3 fl (80-100); Mean Platelet Volume 10.8 fl (7.4-10.4); Monocytes Absolute Auto 0.6 K/mm3 (0.1-0.6); Monocytes Percent Auto 8.3 % (2.6-8.5); Neutrophils Absolute Auto 4.8 K/mm3 (1.3-6.7); Neutrophils Percent Auto 67.2 % (45.5-73.1); Platelet Count Result 142 k/mm3 (150-375); Red Blood Count 3.92 M/mm3 (4.2-5.4); Red Cell Distribution Width 14.1 % (11.5-14.5); White Blood Count 7.1 K/mm3 (4.5-10.0)
[2022-02-23 14:26] LABS: Alanine Aminotransferase 25 U/L (6-35); Albumin Level 3.9 g/dL (3.5-5.1); Alkaline Phosphatase 66 U/L (38-126); Anion Gap 10 mmol/L (8-16); Aspartate Amino Transferase 29 U/L (14-36); Bilirubin,Total 0.4 mg/dL (0.2-1.3); Blood Urea Nitrogen 13 mg/dL (7-17); Carbon Dioxide 25 mmol/L (22-30); Chloride 94 mmol/L (98-107); Estimated CRCL calculation 31 ml/min; Estimated Glomerular Filt Rate 53; Glucose 103 mg/dL (65-110); Lipase 114 U/L (23-300); Potassium 4.3 mmol/L (3.4-5.0); Sodium 129 mmol/L (137-145)
--- NOTE | 2022-02-23 14:45 | ED.NAVMDI ---
HPI - Nausea/Vomiting/Diarrhea General Chief complaint: Nausea/Vomiting/Diarrhea Stated complaint: Vomiting, Diarrhea x 1 week Time Seen by Provider: 02/23/22 14:06 History of Present Illness HPI Narrative: Patient is an 81-year-old female with a history of rheumatoid arthritis, hypertension, hyperlipidemia, diabetes presenting with abdominal pain. Patient states that she was diagnosed with COVID-19 approximately 8 days ago. Her PCP prescribed her antivirals which she started taking about 7 days ago. States that around this time she developed persistent nausea. States she has not actually vomited but she has had decreased oral intake. Today she had several episodes of diarrhea so she came in for evaluation. She also complains of left lower quadrant pain. No fevers or chills, headache, chest pain, shortness of breath, cough, lightheadedness, dysuria, urinary frequency, leg swelling. Related Data Home Medications Medication Instructions Recorded Confirmed aspirin 81 mg tablet,delayed 81 mg PO DAILY 09/28/20 01/24/22 release atorvastatin 10 mg tablet 10 mg PO DAILY 09/28/20 01/24/22 cephalexin 500 mg capsule 500 mg PO QHS 09/28/20 01/24/22 citalopram 40 mg tablet 40 mg PO DAILY 09/28/20 01/24/22 metformin 500 mg tablet 500 mg PO BID 09/28/20 01/24/22 montelukast 10 mg tablet 10 mg PO DAILY 09/28/20 01/24/22 prednisone 2.5 mg tablet 2.5 mg PO DAILY 09/28/20 01/24/22 trazodone 50 mg tablet 50 mg PO QHS PRN Insomnia 09/28/20 01/24/22 venlafaxine 75 mg tablet 75 mg PO DAILY 09/28/20 01/24/22 carvedilol 25 mg tablet (Coreg) 25 mg PO DAILY 01/24/22 01/24/22 loratadine 10 mg tablet (Claritin) 10 mg PO DAILY 01/24/22 01/24/22 Allergies Allergy/AdvReac Type Severity Reaction Status Date / Time ciprofloxacin [From Cipro] Allergy Mild Rash Verified 02/25/22 10:28 Review of Systems Review of Systems: All systems reviewed & are unremarkable except as noted in HPI and below PMFSH Past Medical History Medical History Chronic pain syndrome Hyperlipidemia Hypertension Paroxysmal atrial fibrillation Prediabetes Rheumatoid arthritis Squamous cell carcinoma of skin Surgical History Surgical History History of bladder repair surgery History of foot surgery History of hysterectomy History of knee surgery History of squamous cell carcinoma excision Family History Family History Mother Heart disease Heart attack Ovarian cancer Father Emphysema lung Social History Social History Social History: Surrogate medical decision maker: Marci Zacarias, daughter. Code status: Full code. Smoking packs per day: 1 Smoking cigarettes per day: 20.0 Years smoked: 12 Smoking pack-years: 12.00 Smoking status: Former smoker Tobacco type: cigarettes Alcohol intake: never Substance use: never Additional living arrangements comments: with 3 grown daughters. Lives in her own home in [place]. Spiritual care concerns: No Exam Narrative: GENERAL: Well-appearing, well-nourished, and in no acute distress. HEAD: Normocephalic, atraumatic. EYES: PERRLA and EOMI. ENT: Nares clear, no rhinorrhea or epistaxis. Mucous membranes moist. NECK: Supple. CHEST: Clear to auscultation. No respiratory distress. HEART: Regular rate and rhythm. No murmur heard. Normal peripheral pulses. ABDOMEN: Soft, + left lower quadrant tenderness, no rebound or guarding, nondistended, normal active bowel sounds. EXTREMITIES: Normal range of motion. No edema. SKIN: Warm, dry, no rash. NEURO: No focal deficits. Alert and oriented x3. PSYCH: Normal mood and affect. Course Course Emergency Course: Patient is an 81-year-old female presenting with left lower quadrant pain, nausea, and diarrhea. Vitals are within
[2022-02-23 14:49] LABS: Appearance Urine Clear (Clear); Bilirubin Urine Negative (Negative); Blood Urine Negative (Negative); Color Urine Yellow (Yellow); Glucose Urine UA Negative (Negative); Ketones Urine Negative (Negative); Leukocyte Esterase Ur Negative LEU/UL (Negative); Nitrate Urine Negative (Negative); Protein Urine 3+ mg/dL (Negative); Urobilinogen Urine 0.2 mg/dL (<2.0); pH Urine 8.5 (5.0-9.0)
[2022-02-23 14:52] LABS: Bacteria Urine Trace /hpf; Mucus Urine Rare /lpf; RBC Urine 0-2 /hpf (0-2); Squamous Epithelial Cell Urine Few /hpf (Few); WBC Urine 0-3 /hpf
[2022-02-23 14:53] LABS: Add Urine Microscopic? YES
[2022-02-23] MEDS: SODIUM CHLORIDE 0.9% IV 1,000 ML 999 ML IV CONT (15:41)
[2022-02-23] MEDS: ONDANSETRON INJ 4 MG/2 ML VIAL IV PUSH (15:41)
== END 2022-02-23 18:19 | disposition home or self-care (01) ==
PROVIDERS: Emergency Medicine; Emergency Provider Emergency Medicine; PCP Internal Medicine
DX: R11.2 Nausea with vomiting, unspecified (principal); E86.0 Dehydration; E87.1 Hypo-osmolality and hyponatremia; E78.5 Hyperlipidemia, unspecified; I10 Essential (primary) hypertension; I48.0 Paroxysmal atrial fibrillation; M06.9 Rheumatoid arthritis, unspecified; Z85.828 Personal history of other malignant neoplasm of skin; Z79.82 Long term (current) use of aspirin; Z87.891 Personal history of nicotine dependence
CPT/HCPCS: 36415; 74177; 80053; 81001; 83690; 85025; 96361; 96365; 96375; 99284; J0131; J2405; J7030; Q9967

== ENCOUNTER 2022-02-25 08:04 | Inpatient (IN) | payer MEDICARE, SELFPAY ==
[2022-02-25] VITALS (15 sets, daily range): BP systolic 134–175; BP diastolic 79–87; PULSE 77–103; RESP 14–20; TEMP 36.4–36.8; O2SAT 95–100; BMI 22.8
--- NOTE | ~2022-02-25 | CT_ITS ---
EXAMINATION: CTA chest PE protocol DATE: 02/25/2022 10:22 INDICATION: Shortness of breath TECHNIQUE: Computed tomography angiography (CTA) of the chest was performed with 100 mL Omnipaque-350 intravenous contrast timed to evaluate the pulmonary arteries. Coronal maximum intensity projection 3D-reconstructions were created by the technologist. Automated exposure control and iterative reconst ruction technique were employed. Exam dose: 203.36 mGy-cm total exam DLP. COMPARISON: 02/25/2022 portable AP chest FINDINGS: There is diagnostic contrast enhancement of the pulmonary arteries and no evidence of pulmo nary embolism. No thoracic aortic aneurysm. No hilar or mediastinal mass lesion or lymphadenopathy. Calcified right hilar nodes, consistent with old granulomatous disease. Heart size is within normal range. No pericardial effusion. There are mild bilateral pleural effusions. Mild primarily dependent bilateral lower lobe atelectasis. Normal morphology of the adrenal glands. Left shoulder synovial osteochondromatosis. Prominent degenerative disc disease in the lower cervical spine. Prominent degenerative disc disease of the upper lumbar spine. No suspicious osteolytic or osteoblastic lesions are noted. IMPRESSION: No evidence of pulmonary embolism Mild bilateral pleural effusions and mild primarily dependent bilateral lower lobe atelectasis Reviewed, dictated and finalized at [facility]. Reviewed, dictated and finalized at location [facility]. IMPRESSION: No evidence of pulmonary embolism Mild bilateral pleural effusions and mild primarily dependent bilateral lower l obe atelectasis
--- NOTE | ~2022-02-25 | XR_ITS ---
XR chest 1V portable DATE: 02/25/2022 09:12 INDICATION: Cough TECHNIQUE: Portable upright AP chest on 02/25/2022 at 0907 hours COMPARISON: PA and lateral chest on 12/31/2021 FINDINGS: There is mild infiltrate or atelectasis at the lung bases. Heart size appears within upper limits of normal. Is aortic calcification. Slight pleural effusions are suggested. No pulmonary vascular congestion or pneumothorax. Left shoulder synovial osteochondromatosis and bilateral glenohumeral osteoarthritis. Osteopenia. Scoliosis and degenerative change of the thoracic and lumbar spine. IMPRESSION: Mild infiltrate or atelectasis at the lung bases and small pleural effusions Borderline heart size Little interval change since 12/2021 Reviewed, dictated and finalized at location [facility].
--- NOTE | 2022-02-25 08:23 | ECG_ITS ---
Measurements Intervals [place] Rate: 84 P: 61 WI: 176 QRS: -42 QRSD: 138 T: 170 QT: 420 QTc: 497 Interpretive Statements SINUS RHYTHM ATRIAL PREMATURE COMPLEX LEFT AXIS DEVIATION LEFT BUNDLE BRANCH BLOCK BASELINE ARTIFACT- I, II, III, AVR, AVL ABNORMAL ECG COMPARED TO ECG 12/24/2021 17:14:09 NO SIGNIFICANT CHANGES Electronically Signed On 02-25-2022 12:18:40 CDT by Flynn Batres D.O.
--- NOTE | 2022-02-25 08:24 | ED.GENADULT ---
HPI - General Adult General Chief complaint: Shortness of Breath/Dyspnea Stated complaint: SOB,BACK PAIN,NAUSEA Time Seen by Provider: 02/25/22 08:09 Source: RN notes reviewed History of Present Illness HPI narrative: Patient presents emergency room from home for shortness of breath. Patient states she began to feel short of breath last night. She states that at times she feels like she can just not take a deep breath and has to sit upright. She denies any fevers or chills she denies any cough states that she has recently been dealing with nausea vomiting and diarrhea and been in the emergency department 2 days ago for her nausea and vomiting and was dehydrated that time states the nausea is improved at this time but has been having diarrhea she denies any abdominal pain. States she did just get over COVID with her COVID diagnosis on February 14 Related Data Home Medications Medication Instructions Recorded Confirmed aspirin 81 mg tablet,delayed 81 mg PO DAILY 09/28/20 01/24/22 release atorvastatin 10 mg tablet 10 mg PO DAILY 09/28/20 01/24/22 cephalexin 500 mg capsule 500 mg PO QHS 09/28/20 01/24/22 citalopram 40 mg tablet 40 mg PO DAILY 09/28/20 01/24/22 metformin 500 mg tablet 500 mg PO BID 09/28/20 01/24/22 montelukast 10 mg tablet 10 mg PO DAILY 09/28/20 01/24/22 prednisone 2.5 mg tablet 2.5 mg PO DAILY 09/28/20 01/24/22 trazodone 50 mg tablet 50 mg PO QHS PRN Insomnia 09/28/20 01/24/22 venlafaxine 75 mg tablet 75 mg PO DAILY 09/28/20 01/24/22 carvedilol 25 mg tablet (Coreg) 25 mg PO DAILY 01/24/22 01/24/22 loratadine 10 mg tablet (Claritin) 10 mg PO DAILY 01/24/22 01/24/22 Allergies Allergy/AdvReac Type Severity Reaction Status Date / Time ciprofloxacin [From Cipro] Allergy Mild Rash Verified 02/25/22 10:28 Review of Systems Review of Systems: Gen.: Denies fevers or chills ENT: Denies congestion Respiratory: See HPI CV: Denies chest pain or palpitations GI: Denies abdominal pain nausea, emesis reports diarrhea Musculoskeletal: Denies back pain or muscle pain Neuro: Denies numbness, tingling, weakness or focal weakness Skin: Denies rash Except as documented, all other systems reviewed and negative [facility] Past Medical History Medical History Chronic pain syndrome Hyperlipidemia Hypertension Paroxysmal atrial fibrillation Prediabetes Rheumatoid arthritis Squamous cell carcinoma of skin Surgical History Surgical History History of bladder repair surgery History of foot surgery History of hysterectomy History of knee surgery History of squamous cell carcinoma excision Family History Family History Mother Heart disease Heart attack Ovarian cancer Father Emphysema lung Social History Social History Social History: Surrogate medical decision maker: Marci Zacarias, daughter. Code status: Full code. Smoking packs per day: 1 Smoking cigarettes per day: 20.0 Years smoked: 12 Smoking pack-years: 12.00 Smoking status: Former smoker Tobacco type: cigarettes Alcohol intake: never Substance use: never Additional living arrangements comments: with 3 grown daughters. Lives in her own home in [place]. Spiritual care concerns: No Course Course Emergency Course: Discussed with Dr. Hope presentation work-up agrees with consult Discussed with Dr. Real presentation work-up agrees with admission Discussed with patient and family results of workup and diagnosis. Discussed need for admission. Patient and family understand and agree to current treatment plan Vital Signs Vital signs: Vital Signs Temperature 98.2 F 02/25/22 08:11 Pulse Rate 83 02/25/22 08:11 Respiratory Rate 18 02/25/22 08:11 Blood Pressure 164/79 H 02/25/22 08:11
[2022-02-25 08:58] LABS: Basophils Percent Auto 0.2 % (0.2-1.2); Eosinophils Absolute Auto 0.1 K/mm3 (0-0.3); Eosinophils Percent Auto 2.2 % (0-4.4); Hematocrit 32.3 % (37.0-47.0); Hemoglobin 10.6 g/dL (12.0-15.0); Immature Granulocyte Absolute 0.02 K/mm3 (0.00-0.031); Immature Granulocyte Percent A 0.4 % (0-0.5); Immature Platelet Fraction Pct 5.7 % (0.9-11.2); Lymphocytes Absolute Auto 1.43 K/mm3 (0.9-3.2); Lymphocytes Percent Auto 25.9 % (18.3-44.2); Mean Corpuscular HGB Conc 32.8 g/dl (32-36); Mean Corpuscular Hemoglobin 29.8 pg (26-34); Mean Corpuscular Volume 90.7 fl (80-100); Mean Platelet Volume 10.8 fl (7.4-10.4); Monocytes Absolute Auto 0.7 K/mm3 (0.1-0.6); Monocytes Percent Auto 12.1 % (2.6-8.5); Neutrophils Absolute Auto 3.3 K/mm3 (1.3-6.7); Neutrophils Percent Auto 59.2 % (45.5-73.1); Platelet Count Result 131 k/mm3 (150-375); Red Blood Count 3.56 M/mm3 (4.2-5.4); Red Cell Distribution Width 14.3 % (11.5-14.5); White Blood Count 5.5 K/mm3 (4.5-10.0)
[2022-02-25 09:08] LABS: INR 1.2
[2022-02-25 09:09] LABS: Partial Thromboplastin Time 30.3 SECONDS (22.3-36.8)
[2022-02-25 09:11] LABS: Alanine Aminotransferase 33 U/L (6-35); Albumin Level 3.9 g/dL (3.5-5.1); Alkaline Phosphatase 64 U/L (38-126); Anion Gap 14 mmol/L (8-16); Aspartate Amino Transferase 34 U/L (14-36); Bilirubin,Total 0.4 mg/dL (0.2-1.3); Blood Urea Nitrogen 12 mg/dL (7-17); Calcium 8.5 mg/dL (8.4-10.2); Carbon Dioxide 21 mmol/L (22-30); Chloride 101 mmol/L (98-107); Estimated CRCL calculation 34 ml/min; Estimated Glomerular Filt Rate 60; Glucose 121 mg/dL (65-110); Lipase 93 U/L (23-300); Magnesium 1.2 mg/dL (1.6-2.3); Potassium 3.7 mmol/L (3.4-5.0); Sodium 136 mmol/L (137-145)
[2022-02-25 09:24] LABS: NT Pro B Type Natriuretic Pept 11600 pg/mL (5-100); Troponin I 0.049 ng/mL (0.000-0.034)
[2022-02-25] MEDS: MAGNESIUM SULF 2 GM/WATER 50ML 2 GM/50 ML BAG IVPB (10:57)
[2022-02-25] MEDS: ASPIRIN 81 MG CHEWABLE TABLET 324 MG PO (11:01)
--- NOTE | 2022-02-25 14:00 | PM.IMHP ---
H&P: HPI History of Present Illness Date/Time: 02/25/22 14:00 Chief Complaint: Shortness of breath. Narrative: This is a pleasant 81-year-old female with heart failure with reduced ejection fraction (recent EF of 25-30% and grade 1 diastolic dysfunction) hypertension, hyperlipidemia, paroxysmal atrial fibrillation, and rheumatoid arthritis who presented to the emergency department for evaluation of shortness of breath. She was diagnosed with COVID about 10 days ago and was prescribed Paxlovid. Since that time she has been persistently nauseated and several days ago she started to have diarrhea. She has not been eating or drinking much but has been taking Pedialyte to prevent dehydration. She was eventually seen in the ED on 02/23/2022 for evaluation of presumed dehydration at which time she was found to have a sodium of 129 and chloride of 94. She was given a couple of liters of fluid and Zofran and she felt significantly better with that. She was offered admission to the hospital however declined and chose to follow-up with her primary care provider on an outpatient basis. Not long after returning home she had several other episodes of diarrhea. Last night she had difficulties getting comfortable and she did not sleep well due to feelings of shortness of breath with exertion and while lying flat. Workup in the ER was significant for a mild [place] [address] which is doubled from labs drawn last month, and small pleural effusions noted on imaging. Her magnesium was also low and has since been replaced. She is being admitted overnight for cautious diuresis. At the time my evaluation she still has some mild orthopnea but is otherwise resting comfortably. She denies fever, chills, sweats, chest pain, pleuritic pain, palpitations, resting shortness of breath, nausea, vomiting, and diarrhea since arrival. Review of Systems Review of Systems: Twelve systems were reviewed and are negative except for as per HPI. [facility] Past Medical History Medical History (Updated 02/25/22 @ 19:35 by Irina Ace PA-C) Chronic pain syndrome Combined systolic and diastolic congestive heart failure Hyperlipidemia Hypertension Paroxysmal atrial fibrillation Prediabetes Rheumatoid arthritis Squamous cell carcinoma of skin Surgical History Surgical History History of bladder repair surgery History of foot surgery History of hysterectomy History of knee surgery History of squamous cell carcinoma excision Family History Family History Mother Heart disease Heart attack Ovarian cancer Father Emphysema lung Social History Social History Social History: Surrogate medical decision maker: Marci Zacarias, daughter. Code status: Full code. Smoking packs per day: 1 Smoking cigarettes per day: 20.0 Years smoked: 12 Smoking pack-years: 12.00 Smoking status: Former smoker Tobacco type: cigarettes Alcohol intake: never Substance use: never Has the Lack of Transportation Kept You From Medical Appointments or From Getting Medications?: No Within the Past 12 Months, Were You Worried Whether Your Food Would Run Out Before You Got Money to Buy More?: Never True What is Your Housing Situation Today?: I Have Housing Are You Worried That in the Next 2 Months, You May Not Have Your Own Housing to Live In?: No Do You Have Trouble Paying Your Heating Or Electricity Bill?: No Do You Have Trouble Paying For Medicines?: No Are You Currently Unemployed and Looking for Work?: No Highest Level of Education Completed: High School Diploma/GED Do You Have Trouble With Childcare or the Care of a Family Member?: No Additional living arrangements comments: with 3 grown daughters. Lives in her own home in [place]. Spiritual care concerns: No
[2022-02-25] MEDS: FUROSEMIDE INJ 40 MG/4 ML VIAL 20 MG IV PUSH (16:37)
--- NOTE | 2022-02-25 17:16 | ADMGEN ---
This patient, Chelsea Zamarripa, was admitted to IMU Room 203-01 at 1708. Patient/family oriented to hospital policies and general routines including ID bracelet, bed and alarms, visiting hours, pain management, procedures, bathroom and other care routines, personal items, smoking policy, room service/diet, and visiting hours. Information on how to activate the Rapid Response Team has been discussed. Patient/Family are encouraged to report perceived risks to care and to ask questions if they do not understand what they are told or what they should do.
[2022-02-25 17:37] LABS: Troponin I 0.107 ng/mL (0.000-0.034)
[2022-02-25] MEDS: traZODone HCL 50 MG TABLET PO (21:46)
[2022-02-25] MEDS: CEPHALEXIN 500 MG CAPSULE PO (21:46)
[2022-02-25] MEDS: SACUBITRIL/VALSARTAN 49-51 MG TABLET 1 TABLET PO (21:46)
[2022-02-25] MEDS: MORPHINE SULFATE (*CRX) 15 MG TABCR PO (21:48)
[2022-02-25 21:49] LABS: Anion Gap 10 mmol/L (8-16); Blood Urea Nitrogen 14 mg/dL (7-17); Calcium 8.7 mg/dL (8.4-10.2); Carbon Dioxide 24 mmol/L (22-30); Chloride 99 mmol/L (98-107); Estimated CRCL calculation 31 ml/min; Estimated Glomerular Filt Rate 53; Glucose 120 mg/dL (65-110); Magnesium 1.8 mg/dL (1.6-2.3); Potassium 3.9 mmol/L (3.4-5.0); Sodium 133 mmol/L (137-145)
[2022-02-26] VITALS (12 sets, daily range): BP systolic 131–196; BP diastolic 64–78; PULSE 75–113; RESP 16–18; TEMP 36.4–36.6; O2SAT 90–100
--- NOTE | 2022-02-26 01:04 | PC.NURSE ---
Daylight Savings Time For Daylight Savings Time Ending in the Fall - Clocks are moved back. For Daylight Savings Time Beginning in the Spring - Clocks are moved ahead. For [facility], the time of change occurs at 0200 hrs. Time is taken from the room service food server. This entry on the patient's chart recognizes the change in time reflected during documentation. Example: 2 entries for vital signs may be charted for 0200 hrs.
[2022-02-26 05:43] LABS: Basophils Percent Auto 0.4 % (0.2-1.2); Eosinophils Absolute Auto 0.2 K/mm3 (0-0.3); Eosinophils Percent Auto 1.7 % (0-4.4); Hematocrit 35.7 % (37.0-47.0); Hemoglobin 11.6 g/dL (12.0-15.0); Immature Granulocyte Absolute 0.03 K/mm3 (0.00-0.031); Immature Granulocyte Percent A 0.3 % (0-0.5); Lymphocytes Absolute Auto 1.89 K/mm3 (0.9-3.2); Lymphocytes Percent Auto 20.3 % (18.3-44.2); Mean Corpuscular HGB Conc 32.5 g/dl (32-36); Mean Corpuscular Hemoglobin 29.7 pg (26-34); Mean Corpuscular Volume 91.3 fl (80-100); Mean Platelet Volume 11.6 fl (7.4-10.4); Monocytes Absolute Auto 1.3 K/mm3 (0.1-0.6); Monocytes Percent Auto 13.5 % (2.6-8.5); Neutrophils Absolute Auto 5.9 K/mm3 (1.3-6.7); Neutrophils Percent Auto 63.8 % (45.5-73.1); Platelet Count Result 140 k/mm3 (150-375); Red Blood Count 3.91 M/mm3 (4.2-5.4); White Blood Count 9.3 K/mm3 (4.5-10.0)
[2022-02-26 05:50] LABS: Alanine Aminotransferase 31 U/L (6-35); Albumin Level 3.8 g/dL (3.5-5.1); Alkaline Phosphatase 66 U/L (38-126); Anion Gap 14 mmol/L (8-16); Aspartate Amino Transferase 28 U/L (14-36); Bilirubin,Total 0.6 mg/dL (0.2-1.3); Blood Urea Nitrogen 12 mg/dL (7-17); Calcium 8.7 mg/dL (8.4-10.2); Carbon Dioxide 24 mmol/L (22-30); Chloride 98 mmol/L (98-107); Estimated CRCL calculation 34 ml/min; Estimated Glomerular Filt Rate 60; Glucose 128 mg/dL (65-110); Magnesium 1.7 mg/dL (1.6-2.3); Potassium 3.7 mmol/L (3.4-5.0); Sodium 136 mmol/L (137-145)
[2022-02-26] MEDS: SPIRONOLACTONE 25 MG TABLET PO (08:12)
[2022-02-26] MEDS: VENLAFAXINE HCL 75 MG TABLET PO (08:12)
[2022-02-26] MEDS: ATORVASTATIN 10 MG TABLET PO (08:12)
[2022-02-26] MEDS: SACUBITRIL/VALSARTAN 49-51 MG TABLET 1 TABLET PO ×2 (08:12→20:59)
[2022-02-26] MEDS: MONTELUKAST SODIUM 10 MG TABLET PO (08:12)
[2022-02-26] MEDS: LORATADINE 10 MG TABLET PO (08:12)
[2022-02-26] MEDS: CITALOPRAM HYDROBROMIDE 20 MG TABLET 40 MG PO (08:12)
[2022-02-26] MEDS: carvediloL 25 MG TABLET PO (08:12)
[2022-02-26] MEDS: ENOXAPARIN 40 MG/0.4 ML SYRINGE SUB-Q (08:13)
[2022-02-26] MEDS: FUROSEMIDE INJ 40 MG/4 ML VIAL 20 MG IV PUSH (08:13)
[2022-02-26] MEDS: ASPIRIN 81 MG ENTERIC TABLET PO (08:13)
[2022-02-26] MEDS: predniSONE 2.5 MG TABLET PO (08:13)
--- NOTE | 2022-02-26 11:41 | PM.IMPN ---
Progress Note: A&P Assessment and Plan (1) Acute on chronic combined systolic (congestive) and diastolic (congestive) heart failure: Code(s): I50.43 - Acute on chronic combined systolic (congestive) and diastolic (congestive) heart failure Status: Acute Assessment and Plan: Breathing is much better after diuretics. Patient does have ongoing lower extremity edema. Will give another dose of Lasix today. (2) Elevated troponin: Code(s): R77.8 - Other specified abnormalities of plasma proteins Status: Acute Assessment and Plan: Troponin is mildly elevated and they will be trended. Cardiology was consulted by the ED physician and their input is appreciated. (3) Left bundle branch block: Code(s): I44.7 - Left bundle-branch block, unspecified Status: Acute Assessment and Plan: A chronic finding for this patient. (4) Hypertension: Code(s): I10 - Essential (primary) hypertension Status: Acute Assessment and Plan: Monitor (5) Prediabetes: Code(s): R73.03 - Prediabetes Status: Acute Assessment and Plan: Recent A1c was 5.7%. (6) Rheumatoid arthritis: Code(s): M06.9 - Rheumatoid arthritis, unspecified Status: Acute Assessment and Plan: Continue low-dose prednisone 2.5 milligrams daily. (7) Paroxysmal atrial fibrillation: Code(s): I48.0 - Paroxysmal atrial fibrillation Status: Acute (8) Hypomagnesemia: Code(s): E83.42 - Hypomagnesemia Status: Acute Assessment and Plan: Magnesium will be replaced and monitored. Subjective Date/time seen: 02/26/22 11:41 breathing is much improved. Still has some lower extremity edema. Exam Const: Other: Well-developed, nontoxic-appearing female sitting up in bed. Weight: 56.7 kilograms. BMI: 22.9. HENMT: Other: Normocephalic, atraumatic. Moist mucous membranes. Eyes: Other: Pupils reactive, extraocular motions intact. Wearing corrective lenses. Neck: Other: Supple. No significant JVD. Resp: Other: Respirations are nonlabored and she is speaking in full sentences. Lung sounds are a bit diminished at the bases but are otherwise clear to auscultation. Cardio: Other: Regular rate and rhythm with normal S1 and split S2. 2/6 systolic murmur at the lower sternal border/apex. GI: Other: Abdomen is soft, nontender, and nondistended with positive bowel sounds. Skin: Other: Warm and dry. Bruising to the dorsum of the left hand. Neuro: Other: Alert and oriented. Cranial nerves 2-12 grossly intact. No focal deficits to casual conversation. Extrem: Other: No cyanosis or clubbing. Trace chapo ankle edema bilaterally. Arthritic changes of the fingers. Psych: Other: Pleasant and cooperative with appropriate mood and affect. Objective Data Vital Signs Vital Signs: Vital Signs - 24 hr 02/25/22 13:27 02/25/22 16:00 02/25/22 16:56 Temperature Pulse Rate 88 92 94 Respiratory Rate 18 18 18 Blood Pressure 165/85 H 134/85 165/82 H Pulse Oximetry 98 96 96 Oxygen Delivery 02/25/22 17:35 02/25/22 17:30 02/25/22 17:30 Temperature 98.3 F Pulse Rate 98 98 Respiratory Rate 16 Blood Pressure 175/82 H Pulse Oximetry 95 Oxygen Delivery Room Air 02/25/22 18:00 02/25/22 20:00 02/25/22 20:00 Temperature 97.6 F Pulse Rate 101 H 103 H Respiratory Rate 14 Blood Pressure 148/85 H Pulse Oximetry 97 Oxygen Delivery Room Air 02/25/22 20:00 02/25/22 22:00 02/26/22 00:00 Temperature 97.8 F Pulse Rate 101 H 91 94 Respiratory Rate 16 Blood Pressure 196/70 H Pulse Oximetry 90 Oxygen Delivery 02/26/22 00:00 02/26/22 00:00 02/26/22 02:00 Temperature Pulse Rate 93 93 Respiratory Rate Blood Pressure Pulse Oximetry Oxygen Delivery Room Air 02/26/22 04:00 02/26/22 04:00 02/26/22 04:00 Temperature 97.6 F Pulse Rate 99 95 Respirato
--- NOTE | 2022-02-26 13:03 | PM.CNCAR ---
Assessment and Plan Assessment and plan (1) Acute on chronic combined systolic (congestive) and diastolic (congestive) heart failure: Code(s): I50.43 - Acute on chronic combined systolic (congestive) and diastolic (congestive) heart failure Status: Acute Assessment and Plan: Likely exacerbated secondary to IV fluid boluses in the setting of dehydration related poor oral intake, nausea vomiting diarrhea several days prior to admission with no cardiovascular reserve given severe LV systolic dysfunction. Patient is now clinically euvolemic with minimal IV Lasix and tolerating oral medical therapy. At length we discussed options including exacerbation later recent COVID, IV fluid boluses and complicated clinical status of late in conjunction with severe LV systolic dysfunction. Discussed results of her stress test in likelihood of underlying CAD however no ischemia was identified. We discussed the risks and benefits of invasive angiography for delineation of coronary anatomy and the unlikely but possible chance revascularization may be feasible. However, based on the stress test and the lack of clear anginal symptoms this would seem unlikely and elevated troponin is most likely demand ischemia in setting of decompensated heart failure. After extensive discussion with the patient and her daughter patient states she wishes to follow a conservative path an to continue improved clinically on medical therapy and to follow up as an outpatient. She does not wish to proceed with any invasive procedures at this time. We did discuss this at length and she was comfortable with the plan of care. She will notify the office or return to the ER if any new concerns or symptoms arise. In addition to her previous home medical therapy patient is at risk for dehydration as well concerns with regards to adding low-dose Lasix but may consider 20 mg daily. However, given her recent admissions and presentation for dehydration she will continue monitor her weight daily, reports symptoms as counseled and necessary we will add additional diuretic therapy as the more likely reason for her exacerbation of heart failure was related to IV fluid boluses. We did discuss at length how ischemia can also precipitate heart failure decompensations and admission in this regard. If troponin downward trending and patient is asymptomatic and hemodynamically stable consider discharge home to follow-up in the office within the next 1-2 weeks with outpatient BMP in 1 week. (2) Elevated troponin: Code(s): R77.8 - Other specified abnormalities of plasma proteins Status: Acute Assessment and Plan: Mild troponin elevation. Repeat troponin to establish trend. Continue aspirin for now. (3) Cardiomyopathy: Code(s): I42.9 - Cardiomyopathy, unspecified Status: Acute Assessment and Plan: We discussed at length increased risk for sudden cardiac secondary to ventricular tachycardia and or ventricular fibrillation and the role for ICD in this regard. As previously discussed resynchronization therapy may also be consideration. They are aware of these risks. (4) Left bundle branch block: Code(s): I44.7 - Left bundle-branch block, unspecified Status: Acute Assessment and Plan: Chronic. (5) COVID: Code(s): U07.1 - COVID-19 Status: Acute Assessment and Plan: Patient is now 11 days out from initial diagnosis. She received Paxlovid. (6) Paroxysmal atrial fibrillation: Code(s): I48.0 - Paroxysmal atrial fibrillation Status: Acute Assessment and Plan: currently maintaining sinus rhythm. She is not on systemic anticoagulation at this History of Present Illness History of Present Illness Consult date/time: Date of service:02/26/22 13:03 Requesting physician: Irina Ace PA-C Consult reason: congestive heart failure Reason For Visit: CHF, elevated troponin Narrat
[2022-02-26 13:57] LABS: Troponin I 0.325 ng/mL (0.000-0.034)
[2022-02-26] MEDS: MORPHINE SULFATE (*CRX) 15 MG TABCR PO ×2 (14:08→21:00)
[2022-02-26] MEDS: traZODone HCL 50 MG TABLET PO (21:00)
[2022-02-26] MEDS: CEPHALEXIN 500 MG CAPSULE PO (21:00)
[2022-02-27] VITALS (9 sets, daily range): BP systolic 127–150; BP diastolic 53–62; PULSE 70–86; RESP 16–18; TEMP 36.3–37.2; O2SAT 93–100
[2022-02-27] MEDS: CITALOPRAM HYDROBROMIDE 20 MG TABLET 40 MG PO (08:42)
[2022-02-27] MEDS: ASPIRIN 81 MG ENTERIC TABLET PO (08:43)
[2022-02-27] MEDS: ATORVASTATIN 10 MG TABLET PO (08:43)
[2022-02-27] MEDS: SPIRONOLACTONE 25 MG TABLET PO (08:43)
[2022-02-27] MEDS: VENLAFAXINE HCL 75 MG TABLET PO (08:43)
[2022-02-27] MEDS: MONTELUKAST SODIUM 10 MG TABLET PO (08:43)
[2022-02-27] MEDS: LORATADINE 10 MG TABLET PO (08:43)
[2022-02-27] MEDS: predniSONE 2.5 MG TABLET PO (08:43)
[2022-02-27] MEDS: SACUBITRIL/VALSARTAN 49-51 MG TABLET 1 TABLET PO (08:43)
[2022-02-27] MEDS: carvediloL 25 MG TABLET PO (08:43)
[2022-02-27] MEDS: ENOXAPARIN 40 MG/0.4 ML SYRINGE SUB-Q (08:44)
[2022-02-27] MEDS: FUROSEMIDE INJ 40 MG/4 ML VIAL 20 MG IV PUSH (08:44)
--- NOTE | 2022-02-27 11:38 | PM.DS ---
DS: Admitting Diagnosis Discharge Date 02/27/22 Admitting Diagnosis chf DS: Discharge Diagnosis Discharge Diagnosis (1) Acute on chronic combined systolic (congestive) and diastolic (congestive) heart failure: Code(s): I50.43 - Acute on chronic combined systolic (congestive) and diastolic (congestive) heart failure Status: Acute Assessment and Plan: Breathing is much better after diuretics. Patient does have ongoing lower extremity edema. Will give another dose of Lasix today. (2) Elevated troponin: Code(s): R77.8 - Other specified abnormalities of plasma proteins Status: Acute Assessment and Plan: Troponin is mildly elevated and they will be trended. Cardiology was consulted by the ED physician and their input is appreciated. (3) Left bundle branch block: Code(s): I44.7 - Left bundle-branch block, unspecified Status: Acute Assessment and Plan: A chronic finding for this patient. (4) Hypertension: Code(s): I10 - Essential (primary) hypertension Status: Acute Assessment and Plan: Monitor (5) Prediabetes: Code(s): R73.03 - Prediabetes Status: Acute Assessment and Plan: Recent A1c was 5.7%. (6) Rheumatoid arthritis: Code(s): M06.9 - Rheumatoid arthritis, unspecified Status: Acute Assessment and Plan: Continue low-dose prednisone 2.5 milligrams daily. (7) Paroxysmal atrial fibrillation: Code(s): I48.0 - Paroxysmal atrial fibrillation Status: Acute (8) Hypomagnesemia: Code(s): E83.42 - Hypomagnesemia Status: Acute Assessment and Plan: Magnesium will be replaced and monitored. DS: Summary Hospital Course Hospital Course: admitted for acute on chronic systolic chf given iv diuretics, cardiology consult for elevated trop which had fallen after being in hospital no cp no catheterization planned patient can be dc home will give few additional days of lasix on dc fu cardiology Time Spent with Patient Time attestation: Total time spent providing and/or coordinating discharge services: Exam Const: Other: Well-developed, nontoxic-appearing female sitting up in bed. Weight: 56.7 kilograms. BMI: 22.9. HENMT: Other: Normocephalic, atraumatic. Moist mucous membranes. Eyes: Other: Pupils reactive, extraocular motions intact. Wearing corrective lenses. Neck: Other: Supple. No significant JVD. Resp: Other: Respirations are nonlabored and she is speaking in full sentences. Lung sounds are a bit diminished at the bases but are otherwise clear to auscultation. Cardio: Other: Regular rate and rhythm with normal S1 and split S2. 2/6 systolic murmur at the lower sternal border/apex. GI: Other: Abdomen is soft, nontender, and nondistended with positive bowel sounds. Skin: Other: Warm and dry. Bruising to the dorsum of the left hand. Neuro: Other: Alert and oriented. Cranial nerves 2-12 grossly intact. No focal deficits to casual conversation. Extrem: Other: No cyanosis or clubbing. Trace chapo ankle edema bilaterally. Arthritic changes of the fingers. Psych: Other: Pleasant and cooperative with appropriate mood and affect. DS: Data Data Completed and Pending Labs on day of discharge: Labs from last 24 hours 02/27/22 02/26/22 04:22 13:22 Troponin I 0.140 H* 0.325 H* Discharge Plan Discharge Attending physician on discharge: Owen Donaldson Consulting providers: Juan Hope Discharging Clinician: Owen Donaldson Patient Disposition: Home, Self-Care Activity: no preference Diet: as tolerated Patient Instructions: Antibiotic Form, Heart Failure (DC), Heart Healthy Diet (DC), High Troponin Levels (GEN) Stand Alone Forms: General Discharge Information Follow-up/Referrals: Carol,Nando Fernandez MD [Primary Care Provider] - Discharge Medications: New furosemide 20 mg
== END 2022-02-27 13:15 | disposition home or self-care (01) | DRG 291 ==
LOC: ANHED 14:37 → ANHIMU 17:04
PROVIDERS: Internal Medicine Cardiovascular Disease; Physician Assistant; Admitting Provider Family Medicine; Emergency Provider Emergency Medicine; PCP Internal Medicine; Visit Provider Chiropractor
DX: I11.0 Hypertensive heart disease with heart failure (principal); I50.43 Acute on chronic combined systolic (congestive) and diastolic (congestive) heart failure; R77.8 Other specified abnormalities of plasma proteins; I44.7 Left bundle-branch block, unspecified; R73.03 Prediabetes; M06.9 Rheumatoid arthritis, unspecified; I48.0 Paroxysmal atrial fibrillation; E83.42 Hypomagnesemia; E78.5 Hyperlipidemia, unspecified; Z28.21 Immunization not carried out because of patient refusal; Z79.82 Long term (current) use of aspirin; Z79.84 Long term (current) use of oral hypoglycemic drugs; Z86.16 Personal history of COVID-19; Z87.891 Personal history of nicotine dependence
CPT/HCPCS: 36415; 71045; 71275; 74177; 80048; 80053; 81001; 83605; 83690; 83735; 83880; 84484; 85025; 85055; 85610; 85730; 93005; 96361; 96365; 96372; 96375; 96376; 99284; 99285; A9270; G0378; J0131; J1650; J1940; J2405; J3475; J7030; Q9967

== ENCOUNTER → 2022-06-20 13:21 | Outpatient (CLI) | payer MEDICARE, SELFPAY ==
--- NOTE | ~2022-06-20 | MR_ITS ---
MRI of the lumbar spine Clinical History: Radiculopathy Technique: Axial T2-weighted images, and sagittal T1-weighted, T2-weighted, and T2 fat-sat images wer e acquired. Findings: There is no fracture of the lumbar spine. 4 mm retrolisthesis of L1 over L2 present. 3 mm r etrolisthesis of L2 over L3 present. 7 mm retrolisthesis of L3 over L4 noted. 8 mm anterolisthesis of L4 over L5 present. No suspicious bone marrow signal reality seen. There are reactive marrow signal changes due to underlying degenerative disc disease, particularly about the L3-L4 disc space. At L1-L2, there is severe degenerative disc narrowing. There is a small central disc herniation. Ther e is mild facet joint hypertrophy. There is minimal central canal stenosis. There is severe right izabel ral foraminal narrowing. There is mild left neural foraminal narrowing. At L2-L3, there is severe degenerative disc narrowing. Diffuse disc bulge is present with facet arthr opathy. There is moderate central canal stenosis. There is bilateral lateral recess stenosis. There i s severe bilateral neural foraminal narrowing. At L3-L4, there is diffuse disc bulge and facet arthropathy, with focal moderate central canal stenos is/thecal sac compression. There is marked lateral recess stenosis on the left side. There is severe bilateral neural foraminal narrowing, left worse than right. At L4-L5, disc uncovering/bulge and facet arthropathy contribute to focal severe spinal canal stenosi s/thecal sac compression. There is severe bilateral neural foraminal narrowing. There is prominent bi lateral lateral recess stenosis. At L5-S1, there is mild diffuse disc bulge with severe degenerative disc narrowing. There is mild fac et arthropathy. There is right lateral recess stenosis. There is severe right neural foraminal narrow ing and moderate left neural foraminal narrowing. Paravertebral soft tissues are unremarkable. Impression: Severe degenerative spondylosis, as detailed above. There is multilevel neural foraminal narrowing, l ateral recess stenosis, and central canal stenosis, probably worst at L4-L5. Multiple listheses of the lumbar spine, as detailed above. Reviewed, dictated and finalized at location . [employer] Impression: Severe degenerative spondylosis, as detailed above. There is multilevel neural foraminal narrowing, lateral recess stenosis, and central canal stenosis, proba josh worst at L4-L5. Multiple listheses of the lumbar spine, as detailed above.
== END ==
PROVIDERS: PCP Internal Medicine; Visit Provider Nurse Practitioner Family
DX: M51.16 Intervertebral disc disorders with radiculopathy, lumbar region (principal); M43.06 Spondylolysis, lumbar region; M48.061 Spinal stenosis, lumbar region without neurogenic claudication
CPT/HCPCS: 72148

== ENCOUNTER 2023-12-21 08:16 | Emergency (ER) | payer MEDICARE, SELFPAY ==
--- NOTE | ~2023-12-21 | XR_ITS ---
Right Shoulder Technique: AP and scapular Y views were obtained. Clinical History: Pain Findings: No fracture or dislocation is seen. Osseous alignment is anatomic. The glenohumeral and acr omioclavicular joints demonstrate moderate degenerative change. Soft tissues are unremarkable. Impression: Moderate degenerative change, as above. Reviewed, dictated and finalized at location . Impression: Moderate degenerative change, as above.
--- NOTE | ~2023-12-21 | XR_ITS ---
Portable chest x-ray Comparison: 02/25/2022 Clinical History: Pain Findings: Lungs are clear, without focal consolidation or pleural effusion. Cardiomediastinal silho uette is stable. Bones and soft tissues are unremarkable, aside from loose body at the left subscapul jil recess. Impression: Clear lungs. Reviewed, dictated and finalized at location . Impression: Clear lungs.
--- NOTE | ~2023-12-21 | XR_ITS ---
Left Shoulder Technique: AP and scapular Y views were obtained. Clinical History: Pain Findings: No fracture or dislocation is seen. Osseous alignment is anatomic. There is mild to moderat e glenohumeral joint degenerative change. There is a 1.9 cm loose body in the subscapularis recess. S oft tissues are unremarkable. Impression: Degenerative changes of glenohumeral joint, with 1.9 cm loose body at the subscapularis recess. Reviewed, dictated and finalized at location M. Impression: Degenerative changes of glenohumeral joint, with 1.9 cm loose body at the subsc apularis recess.
[2023-12-21 08:21] VITALS: BP 185/98; PULSE 77; RESP 16; TEMP 37.1; O2SAT 96
[2023-12-21 08:25] VITALS: BP 185/98; O2SAT 94
--- NOTE | 2023-12-21 08:28 | ECG_ITS ---
Test Date: 2023-12-21 08:39:13 Measurements Intervals [place] Rate: 71 P: 58 NE: 179 QRS: -32 QRSD: 146 T: 253 QT: 433 QTc: 473 Interpretive Statements SINUS RHYTHM WITH SINUS ARRHYTHMIA MARKED LEFT AXIS DEVIATION [QRS AXIS < -30] INTRAVENTRICULAR CONDUCTION DELAY [130+ ms QRS DURATION] No previous ECG available for comparison Electronically Signed On 12-22-2023 14:18:55 CDT by Yoav Daly M.D.
--- NOTE | 2023-12-21 08:36 | ED.EXTPRO ---
HPI - Extremity Problem General Chief complaint: Extremity Problem,Nontraumatic Stated complaint: BILATERAL SHOULDER PAIN R>L Time Seen by Provider: 12/21/23 08:19 History of Present Illness HPI Narrative: 83-year-old female presents to the emergency department for evaluation for right shoulder pain. Patient does have history of osteoarthritis and does have chronic left shoulder pain. Patient states when she woke up she started having right shoulder pain. Patient denies any chest pain or shortness of breath with this. Patient denies any falls or injuries. Patient does already take OxyContin for her arthritic pain. Patient states Tylenol does not help her. Related Data Home Medications Medication Instructions Recorded Confirmed aspirin 81 mg tablet,delayed 81 mg PO DAILY 09/28/20 02/25/22 release atorvastatin 10 mg tablet 10 mg PO DAILY 09/28/20 02/25/22 cephalexin 500 mg capsule 500 mg PO QHS 09/28/20 02/25/22 citalopram 40 mg tablet 40 mg PO DAILY 09/28/20 02/25/22 metformin 500 mg tablet 500 mg PO DAILY 09/28/20 02/25/22 montelukast 10 mg tablet 10 mg PO DAILY 09/28/20 02/25/22 prednisone 2.5 mg tablet 2.5 mg PO DAILY 09/28/20 02/25/22 trazodone 50 mg tablet 50 mg PO QHS 09/28/20 02/25/22 venlafaxine 75 mg tablet 75 mg PO DAILY 09/28/20 02/25/22 carvedilol 25 mg tablet (Coreg) 25 mg PO DAILY 01/24/22 02/25/22 loratadine 10 mg tablet (Claritin) 10 mg PO DAILY 01/24/22 02/25/22 metformin 500 mg tablet 1,000 mg PO HS 02/25/22 02/25/22 morphine 15 mg tablet,extended 15 mg PO DIRECTED 02/25/22 02/25/22 release Allergies Allergy/AdvReac Type Severity Reaction Status Date / Time ciprofloxacin [From Cipro] Allergy Mild Rash Verified 02/25/22 10:28 Review of Systems Review of Systems: All systems reviewed & are unremarkable except as noted in HPI and below PMFSH Past Medical History Medical History Chronic pain syndrome Combined systolic and diastolic congestive heart failure Hyperlipidemia Hypertension Paroxysmal atrial fibrillation Prediabetes Rheumatoid arthritis Squamous cell carcinoma of skin Surgical History Surgical History History of bladder repair surgery History of foot surgery History of hysterectomy History of knee surgery History of squamous cell carcinoma excision Family History Family History Mother Heart disease Heart attack Ovarian cancer Father Emphysema lung Social History Social History Social History: Surrogate medical decision maker: Marci Zacarias, daughter. Code status: Full code. Smoking packs per day: 1 Smoking cigarettes per day: 20.0 Years smoked: 12 Smoking pack-years: 12.00 Smoking status: Former smoker Tobacco type: cigarettes Alcohol intake: never Substance use: never Lack of Transportation: No Lack of Food: Never True Current Housing: I Have Housing Concerned About Future Housing: No Difficulty Paying Gas/Electric Bills: No Difficulty Paying for Meds: No Currently Unemployed: No Education: High School Diploma/GED Difficulty w/ Childcare or Family Care: No Additional living arrangements comments: with 3 grown daughters. Lives in her own home in [place]. Spiritual care concerns: No Exam Narrative: APPEARANCE: Well appearing, no pain, no distress, well-nourished. HEAD: normocephalic, atraumatic. EYES: PERRLA/EOMI, conjunctivae clear. NOSE: Normal no drainage EARS:TMS clear with good light reflex. THROAT: Pharynx clear, no exudate. NECK: Supple. No adenopathy, no masses. RESPIRATORY: Airway patent, respirations nonlabored. Clear to auscultation bilaterally, no rales, rhonchi, wheezing. CARDIOVASCULAR: Regular rate and rhythm without murmurs rubs or gallops. ABDOMINAL: Soft, nonten
[2023-12-21 08:47] VITALS: BP 180/79; O2SAT 96
[2023-12-21 09:02] VITALS: BP 162/70; O2SAT 98
[2023-12-21] MEDS: HYDROcodone/acetaminophen (*CRX) 5-325 MG TABLET 1 TAB PO (09:28)
[2023-12-21] MEDS: CYCLOBENZAPRINE HCL 10 MG TABLET PO (09:28)
--- NOTE | 2023-12-21 09:39 | PC.NURSE ---
0930 Spoke with poison control and gave updated pt vitals. She states she will clear pt after the 12 hour binh.
== END 2023-12-21 10:05 | disposition home or self-care (01) ==
PROVIDERS: Emergency Provider Emergency Medicine; PCP Internal Medicine
DX: M25.511 Pain in right shoulder (principal); I48.0 Paroxysmal atrial fibrillation; I11.0 Hypertensive heart disease with heart failure; I50.30 Unspecified diastolic (congestive) heart failure; E78.5 Hyperlipidemia, unspecified; M06.9 Rheumatoid arthritis, unspecified; G89.4 Chronic pain syndrome; R73.03 Prediabetes; M19.90 Unspecified osteoarthritis, unspecified site; Z85.828 Personal history of other malignant neoplasm of skin; Z87.891 Personal history of nicotine dependence; Z90.710 Acquired absence of both cervix and uterus; I45.9 Conduction disorder, unspecified; Z79.84 Long term (current) use of oral hypoglycemic drugs; Z79.899 Other long term (current) drug therapy; Z79.82 Long term (current) use of aspirin; Z79.891 Long term (current) use of opiate analgesic
CPT/HCPCS: 71045; 73030; 93005; 99284; A9270

== ENCOUNTER 2024-10-26 12:41 | Emergency (ER) | payer MEDICARE, SELFPAY ==
--- NOTE | ~2024-10-26 | CT_ITS ---
EXAMINATION: CT abdomen pelvis wo con DATE: 10/26/2024 14:05 INDICATION: Hematuria and flank pain TECHNIQUE: Computed tomography (CT) of the abdomen and pelvis was performed without intravenous contr ast. Automated exposure control and iterative reconstruction technique were employed. The dose-length product was 409.91 mGy-cm. COMPARISON: 02/23/2022. FINDINGS: Lower thorax: Heavy coronary artery calcification. Aortic valve calcification. Right lower lobe granu sylvain. Liver: Normal. Biliary/Gallbladder: Gallbladder is normal. No bile duct dilation. Pancreas: No mass or duct dilation. Spleen: Normal. Adrenals:No mass. Kidneys: No suspicious mass, obstructing stone, or hydronephrosis. GI tract: Small hiatal hernia. No small or large bowel dilation. Normal appendix. Mesentery/Peritoneum: No ascites, mass, or free air. Retroperitoneum: No mass. Atherosclerotic calcifications of intra-abdominal arterial vessels. Pelvis: Normal urinary bladder. Absent uterus. Bilateral ovaries not confidently identified. Soft Tissues: Small fat-containing uncomplicated umbilical hernia. Bones: No acute osseous finding. Multilevel degenerative listheses and severe degenerative disc dise ase in the lumbar spine. IMPRESSION: No acute abdominopelvic process detected. Reviewed, dictated and finalized at location K.
--- OUTSIDE RECORDS SUMMARY | 2024-10-26 12:43 | XMS_ITS | Continuity of Care Document ---
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, [address], [place], [place], [id number], [place] tel:[phone] [facility] No Information 2 3-201 0 Doijessy Ni. [facility] , [address], [place], [address], [place]. tel:[phone] [facility], [address], [place], [place], [id number], [place] tel:[phone] SEC [facility] [place] No Information 0 2-200 9 Avila Ni. [address] [place], [place] [address]ate Center , [address], [place], [address], [place]. tel:[phone] [facility] Eye [facility], [address] [place] [address] [address], [place], [place], [address], [place] tel:[phone] SEC [facility] [place] No Information 200 9 [employer]. [address] [facility], [address], [place], [id number], [place]. tel:[phone] Referring Provider: Last Waters, [address] [place], [place] [address]ate Center [address], [place], [address]. tel:[phone] sulting Provider: Shalom Palencia, [address] [place], [place] [address]ate [facility], [place], [address]. tel:[phone] [facility] Eye [facility], [address] [facility] [address], [place], [place], [id number], [place] tel:[phone] SEC [facility] [place] No Information 1200 9 [employer]. [address] [facility], [address], [place], [place], [id number], [place]. tel:[phone] Referring Provider: Last Waters, [address] [place], [place] [address]ate Center [address], [place], [address]. tel:[phone] sulting Provider: Shalom Palencia, [address] [place], [place] [address]ate [facility], [place], [address]. tel:[phone] [facility], [address] [place] [address] [address], [place], [place], [id number], tel:[phone] SEC [facility] [place] No Information 0 [phone] 8 Avila Ni. [address] [facility] [place] , [address], [place], [place], [facility], . tel:[phone] Office/outpat ient Visit, [facility] Eye [facility], [address] [place] [address] [address], [place], [place], [id number], tel:[phone] SEC [facility] No Information 8200 8 Krishnasamy Cole. [address] [place] [address] [place], [place], [facility], . tel:[phone] Office/outpat ient Visit, [facility], [address] [place] [address] [address], [place], [place], [id number], tel:[phone] SEC [facility] No Information 5200 8 Krishnasamy Cole. [address] [place] [address] [place], [place], [facility], . tel:[phone] [facility], [address] [place] [address] [address], [place], [place], [address], tel:[phone] SEC [facility] No Information 200 7 Avila Ni. [facility] , [address], [place], [place], [facility], . tel:[phone] Family History Family Member Type Diagnosis Age At Onset No Information Payers Payer name Insurance type Covered alliance party ID Authoriza tion(s) Medicare [facility] [id number] [employer] [place] [id number] Social History Type Description Quantity Date Captured [...]
--- OUTSIDE RECORDS SUMMARY | 2024-10-26 12:43 | XMS_ITS | Data Portability ---
Author Organization [facility] [employer], Main Office Address [address] [place] [address] Care Team Providers Care Watermaster Name Role Phone TIGRE MEDINA Primary Care Provider TIGRE MEDINA Referring Provider [phone] BARRY PINEDA Primary Care Provider TOPHER STOKES Referring Provider [phone] Assessment No assessment recorded. Plan of Treatment Reminders Order Date Submit Date Provider Last Modified By Organization Details Last Modified Time Details Appointments Medicare Wellness 15 2024 10:15A M Tigre Medina MD Not available Not available Not available Any 15 2024 10:45A M Tigre Medina MD Not available Not available Not available Lab CBC w/ auto diff 2024 025 [facility] (Lab), [address] [place], [address], 05/27/2024 13:00:10 glycohemo globin, total, blood [address] (Lab), [address] [place], [address], 06/04/2024 14:55:49 CMP, serum or plasma [address] (Lab), [address] [place], [address], 06/04/2024 14:55:49 microalbu min, urine 2024 025 [facility] (Lab), [address] [place], [address], 06/02/2024 12:01:45 lipid panel, serum 2024 025 [email or web address] [facility] (Lab), [address] [place], [address], 06/04/2024 14:55:49 Referral rheumatol ogist referral - Please call patient to schedule an appointme nt. Thank you. 2024 025 LINDA Collier MD, [address] [place], [address], 10/21/2024 09:47:21 Procedures None recorded. Surgeries None recorded. Imaging None recorded. Medication Orders OneTouch Ultra Test strips 2024 [facility]25 [id number], [address] [place], [place], [id number], 05/12/2024 13:09:32 Patient TargetsNo targets recorded. Patient Instructions Encounter Date Encounter Id Patient Instructions Last Modified By Organization Details Last Modified Time 01/15/2024 [id number] dementia rating scale-2* Not available 01/15/2024 15:22:08 alcohol misuse* Not available 01/15/2024 15:22:09 depression screening* Not available 01/15/2024 15:22:09 Timed Up and Go test (TUG)* Not available 01/15/2024 15:22:08 multi-dimensiona health assessment questionnaire* Not available 01/15/2024 15:22:08 advance directiv es: care instructions Not available 01/15/2024 15:22:09 advance care planning: care instructions Not available 01/15/2024 15:22:09 [place] Advance Directives Not available 01/15/2024 15:22:09 Personalized Health Plan and Screening Recommendations Advance Directives - Do you have one? No You have indicated that you are capable of preparing your advance care directive Advance Directives - Do we have your advance directive on file in your health record? No, please bring in a copy at your earliest convenience Primary Prevention/Interven tion (prevents or decreases the chance of common diseases from occurring) Smoking Risk: Non Smoker Alcohol Misuse Screening: Negative Weight: Overweight try to lose 10% of your body weight Physical activity: Appropriate physical activity decrease sitting time to no more than 5hr/day Nutrition: Average Fall Risk (screened today): Intermediate Vaccines Pneumococcal: No further needed Influenza: Your next one in the fall of this year Chronic Disease Risks Stroke: Intermediate Risk Active diagnosis, Continue current treatment plan Heart Attack: Intermediate Risk Active diagnosis, Continue current treatment plan Clogging of the Arteries: Intermediate Risk Active diagnosis, Continue current treatment plan Diabetes: Intermediate Risk Active diagnosis, Continue current treatment plan Secondary Prevention/Interven tion (detects treatable diseases before they may cause symptoms, disability, or ) Breast Cancer Screening with mammogram: No screening necessary Cervical/Uterine/Ov jacques Cancer Screening: No screening necessary Osteoporosis Screening: No screening necessary Date Screening Last Performed: Colon Cancer Screening: No screening necessary Date Screening Last Performed: Eye Disease Screening: No Eye exam necessary Dementia Risk: Low I have no recommendations Depression Screening: Negative I have no recommendations. 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 Thank you. Referring Physician: Tigre Medina, Internal Medicine, Encounter Date: 09/22/2024 Results Created Date Observation Date Name Description Value Unit Range Abnormal Flag Note LastModifiedBy Organization Detail LastModifiedTime 06/02/1906/02/2024 MICRO ALBUM IN RANDO M URINE microalbumin , urine 133.2 mg/L 0.0-16 .6 high Not Available [facility] (Lab) [address] [place], [address], 06/02/2024 12:01:45 10/08/19 24 10/08/2023 DEXA, axial skele ton [facility] [address] [place] [address] [address] Patien t Name: JOEY SMITH Access ion #: [id number] Sex: F : 1939 0 Dictat ed By: Diego Mills Attend ing Physic grace: ZANE MEDINA Ordergriselda ng Physic grace: ZANE MEDINA ER Exam Date: 2023 09:25 AM Exam Name: XR DEXA-H IPS PELVIS SPINE Admitt ing Diagno sis(es ): INDICA TION: 83 years old, Female ; postme nopaus al. DEXA SCAN: BONE DENSIT Y REPORT : AP SPINE (L1-L4 ) : T Score: 1.7 LEFT HIP TOTAL : T Score: -2.7 RT HIP TOTAL : T Score: -2.4 TOTAL BILAT HIP AVG: T Score: -2.6 10 YEAR FRACTU RE RISK* Not report ed IMPRES DAVID: osteop erosis left hip osteop enia right hip Normal spine ------ ------ ------ ------ ------ ------ ------ ------ ----- *FRAX versio n 3.08. Fractu re probab ility calcul ated for an untrea isaura patien t. Fractu re probab ility may be lower if the patien t has receiv ed treatm ent. T-scor e: compar dwain by brie pozo ion (SD) to a young adult popula tion, Page 1 [facility] [address], [place] [id number] Patien t Name: JOEY SMITH Access ion #: [id number] Sex: F : 1939 0 Dictat ed By: Diego Mills Attend ing Physic grace: ROLF CARBAJAL Ordergriselda ng Physic grace: ZANE MEDINA ER Exam Date: 2023 09:25 AM Exam Name: XR DEXA-H IPS PELVIS SPINE Admitt ing Diagno sis(es ): matche d for sex and ethnic ity (used for postme nopaus al women and men >50 years) and classi fied by WHO criter ia. -1.0: normal <-1.0 to >-2.5: osteop enia -2.5: osteop orosis -2.5 plus fragil ity fractu re: severe osteop orosis Z-scor e: compar ed by SD to an age, sex, and ethnic ity popula tion (used for premen opausa l women, men <50 years, and childr en instea d of T-scor e WHO criter ia 4) <-2.0: below expect ed range/ low bone densit y for age, and a cause should be sought Electr onical ly Signed by: Diego Mills at 2023 10:09: 52 AM Page 2 [email or web address] [facility] (Imaging) [address] [place], [address], 10/09/2023 13:53:13 12/26/19 24 12/21/2023 XR, shoul joe No observ ation record ed. BARCODE Not Available 2023 17:48:11 Result Notes None recorded. Problems Name Problem SNOMED Code Status Onset Date Resolution Date Notes Provider Name and Address Organization Details Recorded Time Bilateral carpal tunnel syndrome 26579881452 277068 Active Not Available [facility] 3 18:03:56 Chronic back pain 723095857 Active 2021 Not Available [facility] 3 18:03:57 Constipat ion 30605949 Active 2021 Not Available [facility] 3 18:03:57 Mammograp hy abnormal 581102694 Active Not Available [facility] 3 18:03:57 Insomnia 082884788 Active 2021 Not Available [facility] 3 18:03:57 Recurrent urinary tract infection 798526362 Active 2021 Not Available [facility] 3 18:03:57 Localized , primary osteoarth ritis of the shoulder region 078137197 Active Not Available [facility] 3 18:03:57 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 Not Available [facility] 3 18:03:57 Lichen sclerosus et atrophicu s Active Not Available [facility] 3 18:03:57 Shoulder joint pain 805755043 Completed Not Available [facility] 3 00:58:43 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 119641819 Completed Not Available [facility] 3 00:58:43 Microalbu minuria 021615575 Active 2021 Not Available [facility] 3 18:03:57 Pain of left hip joint 44123384371 9100 Active 2022 Not Available [facility] 3 18:03:57 Vitamin D deficienc y 20782976 Active 2021 Not Available [facility] 3 18:03:57 Depressiv e disorder 55226668 Active 2021 Not Available [facility] 3 18:03:57 Cervical spondylos is 082886954 Active Not Available [facility] 3 18:03:57 Osteoarth ritis 573548926 Active Not Available [facility] 3 18:03:57 Disorder of rotator cuff 810914519 Completed Not Available [facility] 3 00:58:44 Nausea 237229320 Completed 202103/01/2022 Not Available [facility] 3 00:58:44 Congestiv e heart failure 73992514 Active 2021 Not Available [facility] 3 18:03:57 Anxiety 19147914 Active 2021 Not Available [facility] 3 18:03:57 Hyperlipi demia 56789288 Active 2021 Not Available [facility] 3 18:03:57 Disorder of bursa of shoulder region 05531809 Completed Not Available [facility] 3 00:58:44 Carpal tunnel syndrome 70293723 Active Not Available [facility] 3 18:03:57 Essential hypertens ion 54745692 Active 2021 Not Available [facility] 3 18:03:57 Allergic rhinitis 03775742 Active 2021 Not Available [facility] 3 18:03:57 Degenerat ion of cervical intervert ebral disc 83891818 Completed Not Available [facility] 3 00:58:45 Rheumatoi d arthritis 54956226 Active 2021 Not Available [facility] 3 18:03:57 Brachial neuritis 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 Active Not Available [facility] 3 18:03:57 Diabetes mellitus 16072681 Active 2021 YUDITH Martino, [employer] 5 12:42:17 Degenerat ion of intervert ebral disc 64089940 Active Not Available [facility] 3 18:03:57 Neck pain 54253434 Completed 201810/28/2021 Not Available [facility] 3 00:58:45 Aseptic necrosis of head of humerus 01727081 Completed Not Available [facility] 3 00:58:45 Spinal stenosis in cervical region 54664411 Active Not Available [facility] 3 18:03:57 COVID-19 386223753 Active 2021 Not Available [facility] 3 18:03:57 COVID-19 920073864 Completed 202103/01/2022 Not Available [facility] 3 00:58:46 Pain in limb 42012406 Completed Not Available [facility] 3 00:58:46 Pain of left knee joint 71260778091 4107 Active 2022 Not Available [facility] 3 18:03:57 Urinary symptoms 378742045 Active 2022 Not Available [facility] 3 18:03:57 Type 2 diabetes mellitus 11152375 Active 2022 YUDITH Martino, [facility] [employer] 5 11:09:51 Kidney disease 47800452 Active 2022 Tigre Medina MD [address], [place], [address] , [facility] 3 12:25:00 Type 2 diabetes mellitus without complicat ion 710852537 Active 2022 Orin Tripp CMA null, [place] - [facility] 3 17:03:05 Vaginitis 03154327 Active 2022 Orin Tripp CMA null, [place] - [facility] 3 15:50:54 Incontine nce of feces 00316941 Active 2022 Tigre Medina MD [address], [address], [place], [address] , [facility] 3 14:46:51 Pain of bilateral knee joints 63805063290 4104 Active 2023 GAB Ocasio null, [place] - [facility] 4 10:25:23 Pain of left shoulder joint 68437698145 631845 Active 2023 Martina Jauregui CMA null, [facility] 4 11:22:20 Osteoporo sis 39692032 Active 2023 Shana Springer LPN null, [facility] 4 13:53:28 Pain of shoulder region 27393327 Active 2023 Bee Jane [facility] null, [facility] 4 15:07:51 Candidias is of vagina 92257130 Active 2024 Marci Borrero MA null, [facility] 5 17:21:41 Liver function test above reference range 206274261 Active 2024 Tigre Medina MD [address], [place], [address] , [facility] 5 14:25:16 Problem Notes None recorded. Procedures Surgical History Date Name Laterality Status Provider Name and Address Organization Details Recorded Time 05/12/19 Medicare Wellness CPT Code, subsequent completed Jeannie Black Jt [facility] 05/12/2024 11:54:34 05/12/19 Advanced Care Planning completed Jeannie Black Jt [facility] 05/12/2024 11:54:34 01/15/20 Medicare Wellness CPT Code, subsequent completed Lyndsay Tabor RN [facility] 01/15/2024 13:58:39 01/15/20 Advanced Care Planning completed Lyndsay Tabor RN [facility] 01/15/2024 14:09:52 11/29/19 Chronic care management services completed Bee Jane [facility] 11/29/2023 15:51:29 10/29/19 Chronic care management services completed Bee Jane [facility] 11/21/2023 14:39:00 11/10/19 Medicare Wellness CPT Code, Initial completed Rupal Trujillo RN [facility] 11/09/2022 12:35:47 09/06/19 Most Recent Mammogram completed Not Available [facility] 06/21/2022 00:53:15 05/15/19 17 Cataract Surgery completed Not Available [facility] 06/21/2022 00:53:19 06/17/19 15 Date of Last Colonoscopy completed Not Available [facility] 06/21/2022 00:53:15 04/23/18 98 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 Procedure Notes None recorded. Medical Equipment None Reported. Allergies Allergen ID Allergen Name Allergen Category Reaction Reaction Severity Criticality Documentation Date Start Date Code Code System Note Provider Name and Address Organization Details Recorded Time 1606 Substance with sulfonami de structure and antibacte rial mechanism of action (substanc e) medicatio n rash Not available Not available 06/21/2022 04297 8003 SNOMED Not Available [facility] 3 01:09:07 1607 Cipro medicatio n rash Not available Not available 06/21/2022 63825 3 RxNorm Not Available [facility] 3 01:09:07 Medications Name Sig Start Date Stop Date Status Note LastModified by Organization Details LastModified Time Prescript ion - Change 11/21 completed Not Available Not Available Not Available quetiapin e 25 mg tablet TAKE 1 TO 3 TABLETS BY MOUTH AT BEDTIME 06/13 completed Not Available Not Available Not Available celecoxib 200 mg capsule 03/02 completed Not Available Not Available Not Available cyclobenz aprine 10 mg tablet TAKE 1 TABLET BY MOUTH THREE TIMES DAILY NEEDED 09/23 completed Not Available Not Available Not Available amoxicill in 500 mg capsule TAKE 1 CAPSULE BY MOUTH 3 TIMES A DAY FOR 8 DAYS 11/02 completed Not Available Not Available Not Available fluconazo le 100 mg tablet active Not Available Not Available Not Available buspirone 5 mg tablet TAKE 1 TABLET BY MOUTH TWICE A DAY 09/23 completed Not Available Not Available Not Available silver sulfadiaz ine 1 % topical cream 06/13 completed Not Available Not Available Not Available metformin 500 mg tablet TAKE 1 TABLET BY MOUTH AFTER LUNCH AND 2 TABLETS AT BEDTIME 11/09 completed Not Available Not Available Not Available terconazo le 0.4 % vaginal cream active Not Available Not Available Not Available carvedilo l 25 mg tablet TAKE 1 TABLET BY MOUTH EVERY 12 HOURS active Not Available Not Available No t Available nystatin 100,000 unit/mL oral suspensio n SHAKE LIQUID AND TAKE 4 ML BY MOUTH FOUR TIMES DAILY FOR 10 DAYS active Not Available Not Available No t Available venlafaxi ne ER 75 mg capsule,e xtended release 24 hr active Not Available Not Available Not Available nitrofura ntoin macrocrys aravind 50 mg capsule TAKE 1 CAPSULE TWICE A DAY FOR 7 DAYS, THEN 1 CAPSULE DAILY THEREAFT ER. 04/21 completed Not Available Not Available Not Available cefuroxim e axetil 250 mg tablet TAKE ONE TABLET TWICE DAILY UNTIL ALL TAKEN active Not Available Not Available No t Available venlafaxi ne 75 mg tablet TAKE 1 TABLET BY MOUTH EVERY DAY active Not Available Not Available No t Available clonidine 0.1 mg/24 hr weekly transderm al patch active Not Available Not Available Not Available citalopra m 40 mg tablet TAKE 1 TABLET BY MOUTH EVERY DAY 11/09 completed Not Available Not Available Not Available trazodone 50 mg tablet TAKE 2 TABLETS EVERY NIGHT AT BEDTIME active Not Available Not Available No t Available cetirizin e 10 mg tablet TK 1 T PO QD FOR 10 DAYS 06/12 completed Not Available Not Available Not Available atorvasta tin 10 mg tablet TAKE 1 TABLET BY MOUTH EVERY DAY active Not Available Not Available No t Available oxybutyni n chloride ER 10 mg tablet,ex tended release 24 hr TK 1 T PO HS active Not Available Not Available No t Available azithromy rocio 250 mg tablet active Not Available Not Available No t Available alprazola m 1 mg tablet TAKE ONE TABLET TWICE DAILY 06/13 completed Not Available Not Available Not Available fluconazo le 150 mg tablet TAKE 1 TABLET BY MOUTH FOR 1 DAY DIRECTED 09/22 completed Not Available Not Available Not Available cephalexi n 250 mg capsule TAKE 1 CAPSULE AT BEDTIME 04/21 completed Not Available Not Available Not Available hydrocodo ne 5 mg-acetam inophen 325 mg tablet 06/13 completed Not Available Not Available Not Available ondansetr on HCl 4 mg tablet Take 1 tablet 3 times a day by oral route as needed. active Not Available Not Available No t Available alendrona te 70 mg tablet TAKE 1 TABLET BY MOUTH EVERY WEEK active Not Available Not Available No t Available prednison e 5 mg tablet TAKE 1 TO 3 TABLETS BY MOUTH DAILY NEEDED 11/09 completed Not Available Not Available Not Available sulfasala zine 500 mg tablet,de layed release TAKE 2 TABLETS BY MOUTH TWICE DAILY 04/07 completed Not Available Not Available Not Available glipizide ER 5 mg tablet, extended release 24 hr TAKE 1 TABLET BY MOUTH TWICE DAILY 06/12 completed Not Available Not Available Not Available clobetaso l 0.05 % topical cream APPLY TO THE AFFECTED AREA TWICE DAILY NEEDED (HAND RASH) active Not Available Not Available No t Available diphenoxy late-atro pine 2.5 mg-0.025 mg tablet active Not Available Not Available No t Available potassium chloride ER 10 mEq tablet,ex tended release TAKE 1 TABLET BY MOUTH TWICE DAILY 11/02 completed Not Available Not Available Not Available azathiopr ine 50 mg tablet TAKE 2 TABLETS BY MOUTH DAILY 09/10 completed Not Available Not Available Not Available levofloxa rocio 250 mg tablet 06/12 completed Not Available Not Available Not Available trimethop rim 100 mg tablet TAKE 1 TABLET BY MOUTH EVERYDAY AT BEDTIME 02/17 completed Not Available Not Available Not Available sulfameth oxazole 800 mg-trimet hoprim 160 mg tablet 06/13 completed Not Available Not Available Not Available hydrocodo ne 10 mg-acetam inophen 325 mg tablet TAKE 1 TABLET EVERY SIX HOURS NEEDED 06/13 completed Not Available Not Available Not Available leflunomi de 20 mg tablet TAKE 1 TABLET BY MOUTH EVERY DAY DIRECTED 06/13 completed Not Available Not Available Not Available tramadol 50 mg tablet TAKE 1 TABLET BY MOUTH THREE TIMES DAILY NEEDED 09/10 completed Not Available Not Available Not Available quetiapin e 100 mg tablet active Not Available Not Available Not Available triamcino lone acetonide 0.1 % topical cream 09/10 completed Not Available Not Available Not Available spironola ctone 25 mg tablet TAKE 1 TABLET BY MOUTH EVERY MORNING 11/09 completed Not Available Not Available Not Available mycopheno late mofetil 500 mg tablet Take 2 tablets twice a day by oral route. active Not Available Not Available No t Available meloxicam 7.5 mg tablet TAKE 1 TABLET BY MOUTH DAILY FOR 7 DAYS FOR FLARE UPS OF ARTHRITI S 02/17 completed Not Available Not Available Not Available losartan 100 mg-hydroc hlorothia zide 25 mg tablet TAKE 1 TABLET BY MOUTH EVERY DAY 01/03 completed Not Available Not Available Not Available hydrocodo ne 10 mg-acetam inophen 500 mg tablet active Not Available Not Available Not Available famotidin e 20 mg tablet TAKE 1 TABLET BY MOUTH EVERY DAY DIRECTED 02/17 completed Not Available Not Available Not Available methotrex ate sodium 2.5 mg tablet TAKE 8 TABLETS BY MOUTH EVERY 7 DAYS 06/24 completed Not Available Not Available Not Available oxycodone -acetamin ophen 10 mg-325 mg tablet TAKE 1 TABLET BY MOUTH 3 TIMES A DAY NEEDED X30 DAYS active Not Available Not Available No t Available [employer] Ultra Test strips USE DIRECTED TO TEST BLOOD SUGAR TWICE DAILY active Not Available Not Available No t Available Kenalog 10 mg/mL suspensio n for injection In office injectio n administ ered by the provider 06/27 completed [facility]: [id number] [id number] Not Available Not Available Not Available baclofen 10 mg tablet TAKE 1/2 TO 1 TABLET TWICE DAILY NEEDED 06/12 completed Not Available Not Available Not Available amlodipin e 10 mg tablet TAKE 1 TABLET BY MOUTH EVERY DAY 01/03 completed Not Available Not Available Not Available desoximet asone 0.25 % topical ointment active Not Available Not Available Not Available glipizide ER 2.5 mg tablet, extended release 24 hr TAKE 1 TABLET BY MOUTH TWICE A DAY active Not Available Not Available No t Available hydrocodo ne 7.5 mg-acetam inophen 325 mg tablet TAKE 1 TABLET BY MOUTH THREE TIMES DAILY FOR 21 DAYS NEEDED 11/02 completed Not Available Not Available Not Available prednison e 2.5 mg tablet TAKE 3 TABLETS BY MOUTH DAILY DIRECTED active Not Available Not Available No t Available cephalexi n 500 mg capsule TAKE 1 CAPSULE BY MOUTH EVERY DAY AT BEDTIME 09/22 completed Not Available Not Available Not Available venlafaxi ne 37.5 mg tablet 06/13 completed Not Available Not Available Not Available ferrous sulfate 325 mg (65 mg iron) tablet TAKE ONE TABLET DAILY . WILL MAKE STOOLS BLACK 02/02 completed Not Available Not Available Not Available metformin 1,000 mg tablet TK 1 T PO D active Not Available Not Available No t Available nitrofura ntoin macrocrys aravind 100 mg capsule TK ONE C PO BID active Not Available Not Available No t Available hydrochlo rothiazid e 12.5 mg capsule 02/02 completed Not Available Not Available Not Available betametha sone dipropion ate 0.05 % topical cream APPLY TO THE AFFECTED AREA 2 TIMES DAILY NEEDED FOR RASH 06/08 completed Not Available Not Available Not Available diclofena c sodium 75 mg tablet,de layed release 04/21 completed Not Available Not Available Not Available cephalexi n 500 mg tablet Take 1 tablet every 6 hours by oral route. 06/27 completed Not Available Not Available Not Available folic acid 1 mg tablet TAKE ONE TABLET DAILY 01/13 completed Not Available Not Available Not Available hydrocort isone 2.5 % topical cream APPLY TO AFFECTED AREA ONCE A DAY AT BEDTIME NEEDED FOR RASH OR ITCH. active Not Available Not Available No t Available amoxicill in 250 mg capsule 06/13 completed Not Available Not Available Not Available monteluka st 10 mg tablet TAKE 1 TABLET BY MOUTH EVERY DAY active Not Available Not Available No t Available hydroxyzi ne HCl 25 mg tablet active Not Available Not Available No t Available morphine ER 15 mg tablet,ex tended release TAKE 1 TABLET BY MOUTH TWICE DAILY 06/08 completed Not Available Not Available Not Available codeine 10 mg-guaife nesin 100 mg/5 mL oral liquid TAKE 1 TEASPOON FUL (5 ML) BY MOUTH 3 TIMES DAILY NEEDED FOR COUGH 11/02 completed Not Available Not Available Not Available clonidine 0.3 mg/24 hr weekly transderm al patch active Not Available Not Available Not Available mupirocin 2 % topical ointment APPLY TOPICALL Y TO THE AFFECTED AREA TWICE DAILY FOR 10 DAYS APPLY A THIN LAYER TO THE AFFECTED AREA ON TO RIGHT EAR 11/09 completed Not Available Not Available Not Available digoxin 125 mcg (0.125 mg) tablet TAKE 1 TABLET BY MOUTH EVERY OTHER DAY 06/08 completed Not Available Not Available Not Available zolpidem 5 mg tablet TAKE 1 TABLET EVERY NIGHT AT BEDTIME 04/21 completed Not Available Not Available Not Available furosemid e 20 mg tablet TAKE 1 TABLET BY MOUTH EVERY DAY active Not Available Not Available No t Available ergocalci ferol (vitamin D2) 1,250 mcg (50,000 unit) capsule TAKE 1 CAPSULE every week for 12 weeks active Not Available Not Available No t Available hydroxych loroquine 200 mg tablet TAKE 2 TABLETS (400MG) BY MOUTH EVERY DAY active Not Available Not Available No t Available cefuroxim e axetil 500 mg tablet active Not Available Not Available Not Available oxycodone -acetamin ophen 7.5 mg-325 mg tablet TAKE 1 TABLET BY MOUTH TWICE DAILY NEEDED 09/22 completed Not Available Not Available Not Available methylpre dnisolone 4 mg tablets in a dose pack TAKE 6 TABLETS ON DAY 1 DIRECTED ON PACKAGE AND DECREASE BY 1 TAB EACH DAY FOR A TOTAL OF 6 DAYS 09/22 completed Not Available Not Available Not Available colchicin e 0.6 mg tablet TAKE ONE TABLET TWICE DAILY active Not Available Not Available No t Available ketoconaz ole 2 % topical cream APPLY TO RASHY NOSE AREA TWICE A DAY NEEDED 09/22 completed Not Available Not Available Not Available fluocinon torie 0.05 % topical cream 06/13 completed Not Available Not Available Not Available methadone 5 mg tablet TAKE 1 TABLET BY ORAL ROUTE THREE TIMES DAILY NEEDED FOR PAIN 11/02 completed Not Available Not Available Not Available clobetaso l 0.05 % scalp solution 06/12 completed Not Available Not Available Not Available Lanoxin 250 mcg (0.25 mg) tablet active Not Available Not Available Not Available metformin ER 500 mg tablet,ex tended release 24 hr TAKE 1 TABLET BY MOUTH TWICE DAILY IN THE MORNING 09/28 completed Not Available Not Available Not Available doxycycli ne hyclate 100 mg tablet TAKE 1 TABLET BY MOUTH TWICE DAILY FOR 7 DAYS WITH A MEAL 09/28 completed Not Available Not Available Not Available loratadin e 10 mg tablet TAKE 1 TABLET BY MOUTH EVERY DAY 11/02 completed Not Available Not Available Not Available glipizide 5 mg tablet that one tablet in the am and 2 in the pm 04/28 completed pt takes the 2.5mg dose Not Available Not Available Not Available amoxicill in 875 mg-potass ium clavulana te 125 mg tablet 04/21 completed Not Available Not Available Not Available Vitamin B-12 1,000 mcg tablet TAKE ONE TABLET DAILY 02/02 completed Not Available Not Available Not Available amoxicill in 500 mg-potass ium clavulana te 125 mg tablet 04/21 completed Not Available Not Available Not Available Estrace 0.01% (0.1 mg/gram) vaginal cream INSERT 04/26 APPLICAT ORFUL VAGINALL Y EVERY OTHER DAY 06/13 completed Not Available Not Available Not Available escitalop toma 10 mg tablet TAKE 1 TABLET BY MOUTH EVERY DAY active Not Available Not Available No t Available Zetia 10 mg tablet active Not Available Not Available No t Available methotrex ate sodium (PF) 25 mg/mL injection solution INJECT 0.5 ML INTO THE SKIN TWICE WEEKLY ON SUNDAY AND SUNDAY (SINGLE USE VIAL DISCARD AFTER USE) 02/17 completed Not Available Not Available Not Available Restasis 0.05 % eye drops in a dropperet te INSTILL 1 DROP IN BOTH EYES TWICE DAILY active Not Available Not Available No t Available Vigamox 0.5 % eye drops 06/12 completed Not Available Not Available Not Available mirtazapi ne 7.5 mg tablet TAKE 1 TABLET BY MOUTH EVERY NIGHT AT BEDTIME 11/09 completed Not Available Not Available Not Available nitrofura ntoin monohydra te/macroc rystals 100 mg capsule TAKE 1 CAPSULE BY MOUTH TWICE DAILY FOR 5 DAYS 07/07 completed Not Available Not Available Not Available losartan 100 mg-hydroc hlorothia zide 12.5 mg tablet 06/24 completed Not Available Not Available Not Available morphine 06/27 completed Not Available Not Available Not Available aspirin 2022 active Not Available Not Available Not Avai lable Zyrtec 09/22 completed Not Available Not Available Not Available lubiprost one 24 mcg capsule 09/22 completed Not Available Not Available Not Available lidocaine (PF) 10 mg/mL (1 %) injection solution In office injectio n administ ered by the provider 04/18 completed [facility]: [id number] 10-07 Not Available Not Available Not Available BD Ultra-Fin e Short Pen Needle 31 gauge x /16 USE ONCE DAILY WITH TRESIBA active Not Available Not Available No t Available Orencia (with maltose) 250 mg intraveno us solution Inject by intraven ous route. 11/02 completed Not Available Not Available Not Available Januvia 50 mg tablet 02/02 completed Not Available Not Available Not Available Januvia 100 mg tablet 04/07 completed Not Available Not Available Not Available Bystolic 5 mg tablet active Not Available Not Available Not Available nebivolol 10 mg tablet TAKE 1 TABLET BY MOUTH DAILY 11/02 completed Not Available Not Available Not Available nebivolol 20 mg tablet TAKE 1 TABLET BY MOUTH DAILY IN THE EVENING active Not Available Not Available No t Available ropivacai ne (PF) 5 mg/mL (0.5 %) injection solution In office injectio n administ ered by the provider 06/27 completed [facility] [id number] 07-22 Not Available Not Available Not Available mirabegro n ER 25 mg tablet,ex tended release 24 hr TAKE 1 TABLET BY MOUTH DAILY 09/23 completed Maria Guadalupe garcia Not Available Not Available Not Available BD Insulin Syringe Ultra-Fin e 1 mL 31 gauge x /16 USE DIRECTED TWICE WEEKLY WITH METHOTRE XATE 02/17 completed Not Available Not Available Not Available Invokana 100 mg tablet TAKE 1 TABLET BY MOUTH IN THE MORNING active Not Available Not Available No t Available Farxiga 5 mg tablet TAKE 1 TABLET BY MOUTH EVERY DAY IN THE MORNING active Not Available Not Available No t Available Monovisc 88 mg/4 mL intra-art icular syringe Injectio ns given in the office by the doctor 01/13 completed ND: [id number] Not Available Not Available Not Available Jardiance 10 mg tablet One daily 12/06 completed Not Available Not Available Not Available Movantik 25 mg tablet TAKE 1 TABLET BY MOUTH EVERY DAY IN THE MORNING active Not Available Not Available No t Available Entresto 49 mg-51 mg tablet TAKE 1 TABLET BY MOUTH EVERY 12 HOURS active Not Available Not Available No t Available Tresiba FlexTouch U-100 insulin 100 unit/mL (3 mL) subcutane ous pen INJECT 6 UNITS EVERY DAY BY SUBCUTAN EOUS ROUTE. DISCARD PEN 56 DAYS AFTER USE active Not Available Not Available No t Available naloxone 4 mg/actuat ion nasal spray CALL 911. SPR CONTENTS OF ONE SPRAYER (0.1ML) INTO ONE NOSTRIL. REPEAT IN 2-3 MIN IF SYMPTOMS OF OPIOID EMERGENC Y PERSIST, ALTERNAT E NOSTRILS active Not Available Not Available No t Available Xtampza ER 13.5 mg capsule sprinkle TAKE 1 CAPSULE BY MOUTH EVERY 12 HOURS 06/08 completed Not Available Not Available Not Available Relistor 150 mg tablet 09/23 completed Not Available Not Available Not Available OneTouch Ultra Blue Test Strip TEST BLOOD SUGAR FOUR TIMES A WEEK 06/08 completed Not Available Not Available Not Available Tremfya 100 mg/mL subcutane ous auto-inje ctor INJECT 100MG UNDER THE SKIN EVERY 8 WEEKS 10/28 completed Not Available Not Available Not Available Gemtesa 75 mg tablet TAKE 1 TABLET BY MOUTH EVERY DAY 2024 active Not Available Not Available Not Avai yusuf Squires COVID-19 Ag Self Test kit TEST DIRECTED TODAY 11/09 completed Not Available Not Available Not Available Paxlovid 300 mg (150 mg x 2)-100 mg tablets in a dose pack TK 2 NIRMATRE LVIR TS AND 1 RITONAVI R T TOGETHER PO BID FOR 5 DAYS BID FOR 5 DAYS 06/27 completed Not Available Not Available Not Available Vitals Date Recorded Body weight Body mass index (BMI) Body height Body temperature Heart rate Oxygen saturation Oxygen saturation in Arterial blood by Pulse oximetry Systolic And Diastolic Provider Name and Address Organization Details Last Updated DateTime 5 43089.2 6 g 28.2 kg/m2 154.94 cm 97.4 [degF] 60 /min 94 % 94 % 118/60 mm[Hg] Jeannie calderon [facility] [employer] [facility] [employer] 5 12:00:44 Date Recorded Body height Body mass index (BMI) Body weight Body temperature Heart rate Oxygen saturation Oxygen saturation in Arterial blood by Pulse oximetry Systolic And Diastolic Provider Name and Address Organization Details Last Updated DateTime 5 154.94 cm 29.9 kg/m2 95880.5 9 g 97.4 [degF] 87 /min 93 % 93 % 156/74 mm[Hg] Jeannie calderon Jt [employer] [facility] [employer] 5 11:50:04 Date Recorded Body height Provider Name an d Address Organization Details Last Updated DateTime 10/29/2023 154.94 cm Bee Jane [facility] [employer] [facility] [employer] 10/29/2023 15:16:37 Date Recorded Body height Provider Name an d Address Organization Details Last Updated DateTime 11/29/2023 154.94 cm Bee Jane [facility] [employer] [facility] [employer] [facility] 11/29/2023 15:29:08 Date Recorded Body height Body mass index (BMI) Body weight Body temperature Heart rate Oxygen saturation Oxygen saturation in Arterial blood by Pulse oximetry Systolic And Diastolic Provider Name and Address Organization Details Last Updated DateTime 4 154.94 cm 30.4 kg/m2 79338.3 7 g 97.2 [degF] 74 /min 97 % 97 % 118/70 mm[Hg] GAB Lopez [place] - [facility] [employer] [facility] 12:13:41 Social History Question Answer Notes LastModified by Organization Details LastModified Time Tobacco Smoking Status Former Smoker quit 1972 Not Available [employer] 06/21/2022 00:45:40 Do You Have An Advance Directive? No Paperwork Provided 01/15/2024 [email or web address] Information not available 01/15/2024 Do You Wear A Helmet When Biking? No Covarrubias Not Ride Bicycle [email or web address] Information not available 01/15/2024 Are You Blind Or Do You Have Difficulty Seeing? No Wears Glasses [email or web address] Information not available 01/15/2024 Is Blood Transfusion Acceptable In An Emergency? Yes [email or web address] Information not available 01/15/2024 What Is Your Level Of Caffeine Consumption? None MIGRATION.030 [id number] Information not available 06/21/2022 In The 14 Days Before Symptom Onset, Have You Had Close Contact With A Laboratory-conf irmed COVID-19 While That Case Was Ill? No Not Applicable [email or web address] Information not available 01/15/2024 In The 14 Days Before Symptom Onset, Have You Had Close Contact With A Person Who Is Under Investigation For COVID-19 While That Person Was Ill? No Not Applicable [email or web address] Information not available 01/15/2024 Are You Deaf Or Do You Have Serious Difficulty Hearing? No MIGRATION.0301 [id number] Information not available 06/21/2022 What Type Of Diet Are You Following? REGULAR MIGRATION.030 071746 Information not available 06/21/2022 Which Illicit Or Recreational Drugs Have You Used? None MIGRATION.030 619506 Information not available 06/21/2022 What Is The Highest Grade Or Level Of School You Have Completed Or The Highest Degree You Have Received? [id number] MIGRATION.030 [id number] Information not available 06/21/2022 How Many Days Of Moderate To Strenuous Exercise, Like A Brisk Walk, Did You Do In The Last 7 Days? 0 [email or web address] Information not available 01/15/2024 Have There Been Any Changes To Your Family Or Social Situation? No MIGRATION.0301 [id number] Information not available 06/21/2022 What Is The Fluoride Status Of Your Home? Fluoridated [email or web address] Information not available 01/15/2024 When Did You Quit Smoking? 16+yearssincelastc igarette Information not available 11/09/2022 Are There Any Guns Present In Your Home? No MIGRATION.0301 [id number] Information not available 06/21/2022 Do You Use Insect Repellent Routinely? Yes MIGRATION.0301 [id number] Information not available 06/21/2022 Where Do You Live? SingleLevelHouse Information not available 10/29/2023 Presence Of Domestic Violence No [email or web address] Information not available 11/09/2022 Are You Able To Care For Yourself? Yes [email or web address] Information not available 11/09/2022 Are You Blind Or Do Yo Have Difficulty Seeing? No Wears Glasses [email or web address] Information not available 11/09/2022 Are You Deaf Or Do You Have Serious Difficulty Hearing? No Information not available 11/09/2022 General Stress Level? Moderate [email or web address] Information not available 01/15/2024 Live Alone Of With Others? Alone [email or web address] Information not available 11/09/2022 Do You Have A Medical Power Of Career Technical Supervisor? No [email or web address] Information not available 01/15/2024 What Was The Date Of Your Most Recent Tobacco Screening? 01/15/2024 [email or web address] Information not available 01/15/2024 How Many Children Do You Have? 3 [email or web address] Information not available 01/15/2024 What Is Your Current Pack Years? 10packyears [email or web address] Information not available 01/15/2024 Do You Have Any Pets? No MIGRATION.0301 [id number] Information not available 06/21/2022 What Is Your Relationship Status? MIGRATION.0301 [id number] Information not available 06/21/2022 Do You Use Your Seat Belt Or Car Seat Routinely? Yes MIGRATION.0301 [id number] Information not available 06/21/2022 Are You Sexually Active? No [email or web address] Information not available 01/15/2024 Do You Have Smoke And Carbon Monoxide Detectors In Your Home? Yes MIGRATION.0301 924053 Information not available 06/21/2022 At What Age Did You Start Smoking Tobacco? 21 [email or web address] Information not available 01/15/2024 Are You Passively Exposed To Smoke? No MIGRATION.0301 [id number] Information not available 06/21/2022 Are There Any Smokers In Your House? No MIGRATION.0301 939132 Information not available 06/21/2022 How Much Tobacco Do You Smoke? 1 PPW [email or web address] Information not available 01/15/2024 What Types Of Sporting Activities Do You Participate In? None [email or web address] Information not available 01/15/2024 Do You Use Sunscreen Routinely? Yes MIGRATION.0301 [id number] Information not available 06/21/2022 Has Tobacco Cessation Counseling Been Provided? No [email or web address] Information not available 01/15/2024 How Many Years Have You Smoked Tobacco? 10 [email or web address] Information not available 01/15/2024 Have You Recently Traveled Abroad? No MIGRATION.0301 [id number] Information not available 06/21/2022 Do You Have Difficulty Walking Or Climbing Stairs? No MIGRATION.0301 [id number] Information not available 06/21/2022 Do You Have Any Dietary Restrictions? No MIGRATION.0301 801805 Information not available 06/21/2022 Sex: Unknown Functional Status Question Answer Note LastModified by [employer] Details LastModified Time Do you use any illicit or recreational drugs? No [email or web address] Information not available 01/15/2024 Do you or have you ever used any other forms of tobacco or nicotine? No [email or web address] Information not available 01/15/2024 What is your level of alcohol consumption? None MIGRATION.48058 48061 Information not available 06/21/2022 Are you currently employed? No Information not available 10/29/2023 Do you have transportation difficulties? No family gives rides Information not available 11/29/2023 Are you able to walk? [email or web address] Information not available 11/29/2023 Do you have difficulty doing errands alone? No MIGRATION.61502 37965 Information not available 06/21/2022 Are you able to care for yourself? Yes MIGRATION.60955 80399 Information not available 06/21/2022 What is your occupation? retired MIGRATION.35704 90522 Information not available 06/21/2022 Do you have difficulty dressing or bathing? No MIGRATION.25969 67077 Information not available 06/21/2022 Do you or have you ever used e-cigarettes or vape? Never used electronic cigarettes MIGRATION.86936 17596 Information not available 06/21/2022 What is your exercise level? None MIGRATION.65814 28812 Information not available 06/21/2022 Mental Status Question Answer Note LastModified by Organizat ion Details LastModified Time Do you feel stressed (tense, restless, nervous, or anxious, or unable to sleep at night)? [id number] [email or web address] Information not available 01/15/2024 Do you have difficulty concentrating, remembering or making decisions? No MIGRATION.[id number] 26 Information not available 06/21/2022 Family History Relationship Description Onset Age of this Age Resolved Age Notes LastModified by Organization Details LastModified Time Mother Family history of malignant neoplasm MIGRATION.564 [id number] Not available 06/21/2022 00:53:20 Mother Heart disease MIGRATION.332 [id number] Not available 06/21/2022 00:53:20 Daughter Factor V deficiency MIGRATION.445 [id number] Not available 06/21/2022 00:53:20 Daughter Malignant tumor of breast MIGRATION.056 [id number] Not available 06/21/2022 00:53:20 Notes:FAMILY HISTORY OF DIAB ETIES AND HYPERTENTION Medical History Condition Response HEART ARRHYTHMIA Y HIGH CHOLESTEROL / HYPERLIPIDEMIA Y BOWEL PROBLEMS DEPRESSION (INCLUDING POST ) Y URINARY/BLADDER/KIDNEY PROBLEMS Y ARTHRITIS Y DIABETES, TYPE Y SKIN PROBLEMS Y HEART DISEASE/HEART PROBLEMS Y HYPERTENSION Y ANXIETY DISORDER ATRIAL FIBRILLATION Y Gynecological History Statement/Question Response Abnormal Pap Y Date of Last Colonoscopy 06/17/2014 Date of Last Pap Smear Current Control Method Hysterectom y Age at Menarche 12 Most Recent Mammogram 09/05/2018 Obstetrics History GPAL:G 3 P 3 0 0 3 Type Value Full Term 3 Living 3 Total 3 Immunizations Vaccine Type Date Status Note Provider Nam e and Address Organization Details Recorded Time Influenza, high-dose, quadrivalent, PF 01/29/2021 completed Bee Jane CCM null, [facility] [employer] [facility] 10/29/2023 15:17:09 Influenza, high-dose, quadrivalent, PF 02/03/2022 completed Bee Jane CCM null, [facility] [employer] [facility] 10/29/2023 15:17:09 COVID-19, mRNA, LNP-S, PF, 100 mcg/0.5mL dose or 50 mcg/0.25mL dose 06/01/2020 completed Bee Jane CCM null, [facility] [employer] [facility] 10/29/2023 15:17:09 COVID-19, mRNA, LNP-S, PF, 100 mcg/0.5mL dose or 50 mcg/0.25mL dose 06/29/2020 completed Bee Jane CCM null, [facility] [employer] [facility] 10/29/2023 15:17:09 COVID-19, mRNA, LNP-S, PF, 100 mcg/0.5mL dose or 50 mcg/0.25mL dose 11/01/2021 completed Bee Jane CCM null, [place] [employer] [facility] [employer] [facility] 10/29/2023 15:17:09 COVID-19, mRNA, LNP-S, PF, 100 mcg/0.5mL dose or 50 mcg/0.25mL dose 02/23/2021 completed Bee Jane CCM null, [facility] [employer] [facility] 10/29/2023 15:17:09 COVID-19, mRNA, LNP-S, bivalent, PF, 30 mcg/0.3 mL dose 02/10/2022 completed Bee Jane CCM null, [facility] [employer] [facility] 10/29/2023 15:17:09 Influenza, high-dose, quadrivalent, PF 02/06/2023 completed Tigre Medina MD [address] [place] [address], [id number], [facility] [employer] [facility] 02/06/2023 11:06:10 COVID-19, mRNA, LNP-S, PF, 100 mcg/0.5mL dose or 50 mcg/0.25mL dose 05/27/2020 completed Not Available [facility] 18:03:57 Past Encounters Encounter ID Performer Location Encounter Start Date Encounter Closed Date Diagnosis/Indication Diagnosis SNOMED-CT Code Diagnosis ICD10 Code Diagnosis Note [id number] [facility] _ATHENA_M IGRATION_ DEFAULT_1 _1 , 06/24/2020 00:00:00 06/24/2020 15:51:28 [id number] Topher Stokes MD [facility] [address] [place] [address] 01/13/2021 00:00:00 02/06/2021 20:08:10 [id number] Topher Stokes MD [facility] [address] [place] [address] 02/17/2021 00:00:00 02/20/2021 16:50:55 [id number] Topher Stokes MD [facility] [address] [address] 03/03/2021 00:00:00 03/03/2021 16:02:25 [id number] Tigre Medina MD [facility] [address] [address] 11/02/2021 00:00:00 11/02/2021 13:17:22 [id number] Tigre Medina MD [facility] [address] [address] 12/12/2021 00:00:00 12/12/2021 13:36:39 [id number] Tigre Medina MD [facility] [address] [address] 01/03/2022 00:00:00 01/03/2022 15:11:04 [id number] Tigre Medina MD [facility] [address] [address] 03/02/2022 00:00:00 03/02/2022 15:06:25 [id number] Tigre Medina MD [facility] [address] [address] 04/07/2022 00:00:00 04/07/2022 12:46:26 [id number] Topher Stokes MD [facility] [address] [address] 06/08/2022 00:00:00 06/08/2022 11:41:54 [id number] Topher Stokes MD [facility] [address] [place] [address] 06/22/2022 11:53:05 06/22/2022 12:46:40 Pain of left knee joint 8344020002 83208 M25.562 [id number] Tigre Medina MD [facility] Internal Med [facility] [address] [place] [address] 06/27/2022 14:13:59 06/27/2022 14:51:23 Urinary symptoms 506562214 R39.9 possible uti [id number] Tigre Medina MD S_[facility] Internal Med [address] [place] [address] 07/07/2022 11:52:07 07/07/2022 12:27:34 Essential hypertension 06126820 I10 under control Anxiety 43213527 F41.9 under control Depressive disorder 3548 9007 F32.A under control Allergic rhinitis 299442 04 J30.9 otc Rheumatoid arthritis 698 61675 M06.9 seeing Rheumatolo gist Insomnia 117526646 G47.0 0 under control Hyperlipidemia 07463717 E78.5 labs good Chronic back pain 222475 002 G89.29 seeing pain mangement Recurrent urinary tract infection 620003198 N39.0 better since taking daily meds Diabetes mellitus 275546 09 E11.9 cut down the metformin, watch accu checks Congestive heart failure 65860155 I50.9 under control Adult heal th examination 498811796 Z00.00 Mammo-04/24 023 Dexa-NOT DUE Pap- no more needed- hysterecto my COVID- has had 2 shots and 2 boosters Flu- 2021 [id number] Tigre Medina MD S_[facility] Internal Med [facility] [address] [place] [address] 11/09/2022 11:33:37 11/09/2022 12:37:34 Essential hypertension 11028232 I10 under control Anxiety 58136220 F41.9 under control Depressive disorder 3548 9007 F32.A under control Allergic rhinitis 565831 04 J30.9 otc Rheumatoid arthritis 698 58052 M06.9 seeing Rheumatolo gist Insomnia 905400921 G47.0 0 under control with high dose trazodone Hyperlipidemia 74869947 E78.5 labs good Chronic back pain 439502 002 G89.29 seeing pain management Recurrent urinary tract infection N39.0 better since taking daily meds Diabetes mellitus 076349 09 E11.9 stop metformin due to kidney disease, start Farxiga Congestive heart failure 94873771 I50.9 under control Adult heal th examination 059222978 Z00.00 Mammo-04/24 023 Dexa-NOT DUE Pap- no more needed- hysterecto my COVID- has had 2 shots and 2 boosters Flu- 2021 Kidney disease 15156804 N08 start Farxiga Screening for disorder 102703072 Z13.9 [id number] Tigre Medina MD [facility] Internal Med [facility] [address] [place] [address] 12/21/2022 11:39:45 12/21/2022 12:45:46 Diabetes mellitus 37075487 E11.9 UNCONTROLL EDcould not afford Farxigawil l ^ glipizide to bid, keep taking Invokana ( too expensive per pt )send accu checks every 2 weeks to adjust medsinsuli n if not better [id number] Tigre Medina MD [facility] Internal Med [facility] [address] [place] [address] 02/06/2023 10:27:32 02/06/2023 11:36:57 Essential hypertension 58457738 I10 under control Anxiety 24891137 F41.9 under control Depressive disorder 3548 9007 F32.A under control Allergic rhinitis 099632 04 J30.9 [facility] Rheumatoid arthritis 698 71870 M06.9 seeing Rheumatolo gist , fair Insomnia 019269767 G47.0 0 under control with high dose trazodone Hyperlipidemia 55365412 E78.5 labs good Chronic back pain 548078 002 G89.29 was seeing pain management , not any more Recurrent urinary tract infection 434473985 N39.0 better since taking daily meds Diabetes mellitus 673233 09 E11.9 still not under control, need to control better, start Tresiba 10 units daily, sample pen given, first dose given here in the office and pt teaching donesend accu check record every 2 weeks to adjust dosage Congestive heart failure 81601813 I50.9 under control Adult heal th examination 946826983 Z00.00 Mammo-04/24 023Dexa-NO T DUEPap- no more needed- hysterecto myCOVID- has had 2 shots and 2 boostersFl 2021 Kidney disease 88899177 [address] Flores Administra tion of influenza vaccine 66992796 Z23 Incontinence of feces 72 588402 R15.9 metamucil bid [id number] Tigre Medina MD [facility] Internal Med [facility] [address] [place] [address] 2023 11:08:04 2023 11:50:49 Diabetes mellitus 51102549 E11.9 take glipizide to ER bid, ^ tresiba to 14eat dinner at 7 pm [id number] Tigre Medina MD [facility] Internal Med [facility] [address] [place] [address] 06/12/2023 11:54:33 06/12/2023 13:03:50 Diabetes mellitus 04058603 E11.9 getting better, change Glipizide 2.5 bid, take Tresiba 10 units in am INSTEAD of pm Essential hypertension 99021120 I10 under control Anxiety 89257627 F41.9 under control Depressive disorder 3548 9007 F32.A under control Allergic rhinitis 630359 04 J30.9 otc Rheumatoid arthritis 698 64776 M06.9 seeing Rheumatolo gist , Insomnia 427735990 G47.0 0 under control Hyperlipidemia 89937827 E78.5 labs good Chronic back pain 928899 002 G89.29 was seeing pain management , not any more meds Recurrent urinary tract infection 610875244 N39.0 better since taking daily meds Congestive heart failure 37226405 I50.9 under control Adult heal th examination 754366662 Z00.00 Mammo-04/24 023Dexa-Pa p- no more needed- hysterecto myCOVID- has had 2 shots and 2 boostersFl u- 02/06/2023 Kidney disease 04951460 N08 stable GFR Incontinence of feces 72 551635 R15.9 metamucil bid [id number] Topher Stokes MD [facility] Ortho Benita Calvin [address] [place] [address] 06/13/2023 09:50:48 06/18/2023 10:01:07 Pain of bilateral knee joints 1331720511 66656 M25.561 M25.562 Pain of le ft shoulder joint [id number] 7185778 M25.756 [id number] Tigre Medina MD [facility] Internal Med [facility] [address] [place] [address] 09/11/2023 11:52:52 09/11/2023 12:37:44 Diabetes mellitus 00190327 E11.9 getting better Essential hypertension 03990408 I10 under control Anxiety 60570974 F41.9 under control Depressive disorder 3548 9007 F32.A under control Allergic rhinitis 123161 04 J30.9 otc Rheumatoid arthritis 698 02129 M06.9 seeing Rheumatolo gist , Insomnia 604488951 G47.0 0 under control Hyperlipidemia 78730191 E78.5 under control Chronic back pain 024959 002 G89.29 was seeing pain management , not any more meds Recurrent urinary tract infection 509277127 N39.0 better since taking daily meds Congestive heart failure 60108431 I50.9 under control, needs echo, she will discuss with her cardiologi [facility] examination 811473181 Z00.00 Mammo-04/24 023Dexa-Pa p- no more needed- hysterecto myCOVID- has had 2 shots and 2 boostersFl u- 02/06/2023 Kidney disease 36343334 N08 GFR 46 Incontinence of feces 72 461981 R15.9 metamucil bid Postmenopausal state 764 34923 Z78.0 [id number] Tigre Medina MD [facility] Internal Med [facility] [address] [place] [address] 10/29/2023 15:14:59 01/02/2024 17:40:08 Pain of shoulder region 16758809 M25.519 Type 2 shhazad betes mellitus 90386088 E11.9 [id number] Tigre Medina MD [facility] Internal Med [facility] [address] [place] [address] 11/29/2023 15:19:43 01/08/2024 13:15:57 Pain of shoulder region 94766359 M25.519 Rheumatoid arthritis 698 34663 M06.9 Diabetes mellitus 439806 09 E11.9 [id number] Tigre Medina MD [facility] Internal Med [facility] [address] [place] [address] 01/15/2024 11:55:46 01/15/2024 14:03:03 Diabetes mellitus 75655598 E11.9 getting better, cut down the dose to 8 units, take glipizide bid not 2 once a day Essential hypertension 45505090 I10 under control Anxiety 22338577 F41.9 under control Depressive disorder 3548 9007 F32.A under control Allergic rhinitis 488569 04 J30.9 otc Rheumatoid arthritis 698 90775 M06.9 seeing Rheumatolo gist , off prednisone Insomnia 732885753 G47.0 0 under control Hyperlipidemia 36235482 E78.5 under control Chronic back pain 434309 002 G89.29 seeing pain management , Recurrent urinary tract infection 455984618 N39.0 better since taking daily meds Congestive heart failure 00576174 I50.9 under control, Adult heal th examination 842769301 Z00.00 Mammo-04/24 023Dexa- 10/08/23Pa p- no more needed- hysterecto myCOVID- has had 2 shots and 2 boostersFl u- 02/06/2023 Kidney disease 90156417 N08 GFR 44 Incontinence of feces 72 597135 R15.9 BETTER Screening for disorder 657232193 Z13.9 [id number] Tigre Medina MD [facility] Internal Med [address] [place] [address] 05/12/2024 11:42:22 05/12/2024 12:44:46 Diabetes mellitus 17702023 E11.9 much better Essential hypertension 24233559 I10 under control Anxiety 59729091 F41.9 under control Depressive disorder 3548 9007 F32.A under control Allergic rhinitis 778733 04 J30.9 otc Rheumatoid arthritis 698 08053 M06.9 seeing Rheumatolo gist , off prednisone Insomnia 031714343 G47.0 0 under control Hyperlipidemia 46849376 E78.5 under control Chronic back pain 643454 002 G89.29 seeing pain management , Recurrent urinary tract infection 805953351 N39.0 better since taking daily meds Congestive heart failure 06059446 I50.9 under control, to get echo at cardiology Adult [facility] examination 974062626 Z00.00 Mammo-04/24 023Dexa- 10/08/23Pa p- no more needed- hysterecto myCOVID- has had 2 shots and 2 boostersFl u- 2023 Kidney disease 05992008 N08 GFR 48, stable Incontinence of feces 72 148720 R15.9 BETTER [id number] Tigre Medina MD [facility] Internal Med [address] [place] [address] 09/22/2024 11:34:53 09/22/2024 12:52:47 Diabetes mellitus 69613623 E11.9 under control Essential hypertension 73275730 I10 high due to pain Anxiety 95017519 F41.9 under control Depressive disorder 3548 9007 F32.A under control Allergic rhinitis 560717 04 J30.9 otc Rheumatoid arthritis 698 48173 M06.9 wants to see different Rheumatolo gist , Insomnia 099174245 G47.0 0 under control Hyperlipidemia 35722647 E78.5 under control Chronic back pain 248059 002 G89.29 seeing pain management , Recurrent urinary tract infection 682691980 N39.0 better since taking daily meds Congestive heart failure 99305371 I50.9 under control, gets echo at cardiology , EF 35% Adult [facility] examination 740609041 Z00.00 Mammo-2 023Dexa- 10/08/23Pa p- no more needed- hysterecto myCOVID- has had 2 shots and 2 boostersFl u- 2023 Kidney disease 17727429 N08 GFR stable Incontinence of feces 72 597534 R15.9 BETTER Goals Section Goal Description Progress Status Start Date LastModified by Organization Details LastModified Time Patient states improved pain level Finished physical therapy NoChange active 2023 Bee Jane [facility] Information not available 11/29/2023 19:23:50 Patient maintains a blood glucose level at baseline Continue to have normal blood glucose levels, maintain diabetic diet NoChange active 2023 Bee JaneYONG Information not available 11/29/2023 19:24:26 Health Concerns Section Related Observation LastModified by Organization Detai ls LastModified Time None Recorded Concern Status LastModified by Organization Details LastModified Time Type 2 diabetes mellitus Active Bee Jane [facility] Not Available 10/29/2023 19:13 :25 Shoulder pain Active Bee Jane [facility] Not Available 11/2023 19:10:35 Rheumatoid arthritis Active Bee Jane [facility] Not Availa ble 11/29/2023 19:22:33 Advance Directives Directive N: paperwork provided 024 Payers Insurance Date Sequence Insurance Name Policy Number Policy Strong Covered Member ID Strong Member ID Guarantor Name 09/22/2024 2 [place] [id number] Chelsea Zamarripa [id number] Chelsea Zamarripa 09/22/2024 1 [place] Chelsea Zamarripa [id number] Chelsea Zamarripa 09/22/2024 2 [place]) [id number] Chelsea Zamarripa [id number] Chelsea Zamarripa 09/22/2024 [employer] - DMEPOS ASSIGNED (MEDICARE DME REGION B) Chelsea Zamarripa [id number] Chelsea Zamarripa Notes Date Note Type Note Provider Name and Address Organization Details Recorded Time 4 text/html Pt is here today for a routine check up, doing fine, complaint to medsPT IS NOT FASTINGMedicare Wellness Exam C/o arthritis pain, using walker, hard to get up from sitting Ex-smoker- quit in 1971HTN- under controlMed- Carvedilol 25 bidDM-accu checks range from 50's-170, A1c 6.8 (07/07/22)ACCU CHECKS ARE BETTER SINCE OFF PREDNISONEHas had a few in the 50'sMed- Glipizide 5 mg bid , Invokana 100 mg qd, Tresiba 10u daily H/o Afib s/p cardioversion , seen Dr Valdivia, digoxin, losartan , amlodipine has been stoppedAllergic Rhinitis- betterMeds- Montelukast 10 mg, ZyrtecDepression- under control, under control , no anxietyMed- Escitalopram, Venlafaxine 75mgInsomnia- Trazadone 50 mg did not help, on pain meds which gives her good sleephyperlipidemia - on meds, watching diet, labs 01/12med-Atorvastatin 10mgRheumatoid arthritis- better with meds , SEEING Dr. Evans Last seen last week. No longer taking Azathioprine due to upset stomachWas taking Tremfya had her last injection , now on KevzaraMed-Prednisone 7.5mg was stoppedOveractive bladder/ recurrent uti- seen urology, on daily abx, ceftinMeds- was on Gemtesa 75mg daily, did not helpChronic back pain- spinal stenosis, seen neuro surgeon, seeing pain management , Tramadol did not help. on oxycodone any more for few yearsCHF- EF 25%, no symptoms, seen cardiology Had bilateral ankle swelling and is better but still taking medMeds- Furosemide 20mg daily Left hip pain, seeing ortho, had shots Kidney disease-Her kidneys functions are stable 44 Tigre Medina MD [address] [facility] [facility] [address], [place], [address], [place] [facility] [facility] 01/15/2024 15:22:15 5 text/html Pt is here today for a routine check up, doing fine, complaint to medsPT IS NOT FASTING ( Medicare/BCBS ) C/o arthritis pain, using walker, hard to get up from sitting Ex-smoker- quit in 1971HTN- under control with medsMed- Carvedilol 25 bid Osteoporosis- On medMeds- Alendronate 75mg once a weekDM-accu checks range from 80's-107, A1c 6.8 (07/07/22)ACCU CHECKS ARE BETTER SINCE OFF PREDNISONEHas had a few in the 50'sHAS LOST 12 LBS by watching dietMed- Glipizide 5 mg bid , Farxiga 5mg daily, Tresiba 6u daily H/o Afib s/p cardioversion , seen Dr Valdivia, was on digoxin, losartan , amlodipineAllergic Rhinitis- betterMeds- Montelukast 10 mg, ZyrtecDepression- under control, under control , no anxietyMed- Escitalopram, Venlafaxine 75mgInsomnia- Trazadone 50 mg help, on pain meds which gives her good sleephyperlipidemia - on meds, watching diet, labs 01/12med-Atorvastatin 10mgRheumatoid arthritis- better with meds , was SEEING Dr. Evans Last seen last week. No longer taking Azathioprine due to upset stomachWas taking Tremfya had her last injection ,Was given a round of MDPOveractive bladder/ recurrent uti- seen urology, on daily abx, ceftinMeds- was on Gemtesa 75mg daily, did not help now takesMirabegron ER 25mgChronic back pain- spinal stenosis, seen neuro surgeon, seeing pain management , Tramadol did not help. on oxycodone for few yearsCHF- EF 25%, no symptoms, seen cardiology Had bilateral ankle swelling and is better but still taking medMeds- Furosemide 20mg daily Left hip pain, seeing ortho, had shots Kidney disease-Her kidneys functions are stable 48, on Farxiga, Dr Rita Medina MD [address] [facility] [facility] [address], [place], [address], [facility] 05/12/2024 12:46:03 5 text/html Pt is here today for a routine check up, doing fine, complaint to medsPT IS NOT FASTING ( Medicare/BCBS )Pt brought updated med list C/o left shoulder/arm pain. using walker, hard to get up from sittingStates that she has some swelling on the left side pf neck and feels some swelling under the arm. Has been going on for a while Ex-smoker- quit in 1971HTN- under control with medsMed- Carvedilol 25 bid Osteoporosis- On medMeds- Alendronate 75mg once a weekDM-accu checks range from 100-140, A1c 6.1 (05/2024)ACCU CHECKS ARE BETTER SINCE OFF PREDNISONELast eye exam was 05/2024 (Not in chart)Has gained 9 lbsMed- Glipizide 5 mg bid , Farxiga 5mg daily, Tresiba 6u daily H/o Afib s/p cardioversion , seen Dr Valdivia, was on digoxin, losartan , amlodipineAllergic Rhinitis- betterMeds- Montelukast 10 mg, ZyrtecDepression- under control, under control , no anxietyMed- Escitalopram, Venlafaxine 75mgInsomnia- Trazadone 50 mg help, on pain meds which gives her good sleephyperlipidemia - on meds, watching diet, labs 01/12med-Atorvastatin 10mgRheumatoid arthritis- MEDS NOT WORKING, LOOKING FOR NEW ONEbetter with meds , was SEEING Dr. Evans. No longer taking Azathioprine due to upset stomachWas taking Tremfya had her last injection ,Was given a round of MDPMeds- infusions once a month, Mycophenolate 500mg 2 tabs BID. Overactive bladder/ recurrent uti- seen urology, on daily abx, ceftinMeds- was on Gemtesa 75mg daily, did not help now takesMirabegron ER 25mgChronic back pain- spinal stenosis, seen neuro surgeon, seeing pain management , Tramadol did not help. on oxycodone for few yearsCHF- EF 25%, no symptoms, seen cardiology Had bilateral ankle swelling and is better but still taking medMeds- Furosemide 20mg daily Left hip pain, seeing ortho, had shots Kidney disease-Her kidneys functions are stable 48, on Farxiga, Dr Rita Medina MD [address] [facility] [facility] [address], [place], [address], [place] [facility] [employer] [facility] 09/22/2024 12:25:08 OBGyn Episode No OBEpisode recorded.
--- OUTSIDE RECORDS SUMMARY | 2024-10-26 12:43 | XMS_ITS | Encounter Summary ---
Author Organization [facility] Health Address [address] [place] [address] Care Team Providers Care Scrap Kettle Tender Name Role Phone Raheel Harvey MD Primary Care Provider Steve banegas Encounter Details Date Type Department Care Team (Late st Contact Info) Description 01/27/2022 Lab Requisition [facility] DermPath Lab [address] [facility] [place] [address] Burt Regan MD [address] [facility] [place] [address] Social History Tobacco Use Types Packs/Day Years Used Date Smoking Tobacco: Never Assessed Comments Unknown Sex and Gender Information Value Date Recorded Sex Assigned at Not on file 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 Gender Identity Not on file Sexual Orientation Not on file documented as of this encounter Plan of Treatment Not on file documented as of this encounter Procedures Procedure Name Priority Date/Time Associated Diagnosis Comments DERMATOPATHOLOGY Routine 01/25/2022 12:0 0 AM CDT documented in this encounter Results * DERMATOPATHOLOGY (01/25/2022 12:00 AM CDT) Case Report Dermatopathology Report Case: [id number] Authorizing Provider: Burt Regan MD Collected: 01/25/2022 12:00 AM Ordering Location: [facility] DermPath Lab Received: 01/27/2022 09:41 AM Pathologist: Cherry Lunsford MD Specimen: Skin, right lower forearm 4:13 PM CDT DERMATOPATHOLOGY LABORATORY Final Diagnosis Specimen A. SKIN, right lower forearm: HYPERPLASTIC (HYPERTROPHIC) ACTINIC KERATOSIS; EXTENDING TO THE BASE OF THE SPECIMEN, ARISING IN A BENIGN VERRUCOUS KERATOSIS, INFLAMED (L57.0) (see microscopic description and comment) 4:13 PM T DERMATOPATHOLOGY LABORATORY at 1613 CDT 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 Path# [id number] 4:13 PM CDT DERMATOPATHOLOGY LABORATORY Gross Description Specimen A: Received is one formalin filled container labeled with the patient's name and designated right lower forearm. The specimen consists of a shave biopsy measuring [id number]. Jar 0. 4:13 PM T DERMATOPATHOLOGY LABORATORY Microscopic Description Specimen A. SKIN, right lower forearm: There is hyperkeratosis alternating with parakeratosis. There is epidermal hyperplasia with disorderly maturation of keratinocytes with nuclear pleomorphism confined to the lower half of the epidermis. This process extends to the base of the specimen. There is adjacent hyperkeratosis, papillomatosis, hypergranulosis, and acanthosis. Inflammatory cells are present within the dermis. Additional deeper sections were obtained and reviewed. COMMENT: A squamous cell carcinoma cannot be ruled out. 4:13 PM CDT DERMATOPATHOLOGY LABORATORY Disclaimer An external and internal positive and negative controls are appropriate for the histochemical, immunohistochemical and immunofluorescence stain(s) in this case (if any), except where stated explicitly. The performance characteristics of the stain(s) cited in this report were developed and its performance characteristic determined by the Dermatopathology Laboratory at [facility], directed by Dr. Celestine Limon. These tests need not be, and therefore are not, approved by the [place] Food and Drug Administration. The tests are used for clinical purposes. Billing Codes Specimen Charges Stain Charges 55744 1 4:13 PM CDT DERMATOPATHOLOGY LABORATORY Embedded Images 4:13 PM CDT DERMATOPATHOLOGY LABORATORY Pathology/Cytolog y TISSUE SPECIMEN FROM SKIN / Unknown 01/25/2022 01/27/2022 9:41 AM CDT us Burt Regan MD LAB - PATHOLOGY/CYTOLOGY ORDER LUX Final Result DERMATOPATHOLOGY LABORATORY [facility] - Department of Dermatology [facility] Specialized Medicine [address] [place] [address], [address] [phone] documented in this encounter Visit Diagnoses Not on filedocumented in this encounter Care Teams Scrap Kettle Tender Relationship Specialty Start Date End Date Raheel Harvey MD PCP - General 08/31/21 documented as of this encounter
--- OUTSIDE RECORDS SUMMARY | 2024-10-26 12:44 | XMS_ITS | Encounter Summary ---
Author Organization [facility] Health Address [address] [facility] [place] [address] Care Team Providers Care Paper Sheeter Name Role Phone Raheel Harvey MD Primary Care Provider Steve banegas Encounter Details Date Type Department Care Team (Late st Contact Info) Description 01/30/2020 Lab Requisition [facility] DermPath Lab [address] [facility] [place] [address] Burt Regan MD [address] [place] [address] Social History Tobacco Use Types Packs/Day Years Used Date Smoking Tobacco: Never Assessed Comments Unknown Sex and Gender Information Value Date Recorded Sex Assigned at Not on file 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 Gender Identity Not on file Sexual Orientation Not on file documented as of this encounter Plan of Treatment Not on file documented as of this encounter Procedures Procedure Name Priority Date/Time Associated Diagnosis Comments DERMATOPATHOLOGY Routine 01/28/2020 12:0 0 AM CDT documented in this encounter Results * DERMATOPATHOLOGY (01/28/2020 12:00 AM CDT) Case Report Dermatopathology Report Case: [id number] Authorizing Provider: Burt Regan MD Collected: 01/28/2020 12:00 AM Ordering Location: [facility] DermPath Lab Received: 01/30/2020 06:59 AM Pathologist: Ghazal Parmar MD Specimen: Skin, left forearm 0 1:53 PM CDT DERMATOPATHOLOGY LABORATORY Final Diagnosis Specimen A. 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 Path# [id number] 0 1:53 PM CDT DERMATOPATHOLOGY LABORATORY Gross Description Specimen A: Received is one formalin filled container labeled with the patient's name and designated left forearm. The specimen consists of a shave biopsy measuring 9x8x2 mm. Jar 0. 0 1:53 PM CDT DERMATOPATHOLOGY LABORATORY Microscopic Description Specimen A. SKIN, left forearm: The epidermis shows parakeratosis, full thickness disorderly maturation of keratinocytes, mitoses at different levels, and dyskeratotic cells. The lesion extends to the base of the biopsy. COMMENT: An invasive squamous cell carcinoma cannot be ruled out. 0 1:53 PM CDT DERMATOPATHOLOGY LABORATORY Disclaimer An external and internal positive and negative controls are appropriate for the histochemical, immunohistochemical and immunofluorescence stain(s) in this case (if any), except where stated explicitly. The performance characteristics of the stain(s) cited in this report were developed and its performance characteristic determined by the Dermatopathology Laboratory at [facility], directed by Dr. Celestine Limon. These tests need not be, and therefore are not, approved by the [place] Food and Drug Administration. The tests are used for clinical purposes. Billing Codes Specimen Charges Stain Charges 04150 1 0 1:53 PM CDT DERMATOPATHOLOGY LABORATORY Embedded Images 0 1:53 PM CDT DERMATOPATHOLOGY LABORATORY Pathology/Cytolog y TISSUE SPECIMEN FROM SKIN / Unknown 01/28/2020 01/30/2020 6:59 AM CDT us Burt Regan MD LAB - PATHOLOGY/CYTOLOGY ORDER LUX Final Result DERMATOPATHOLOGY LABORATORY [facility] - Department of Dermatology [address], [address] [phone] documented in this encounter Visit Diagnoses Not on filedocumented in this encounter Care Teams Paper Sheeter Relationship Specialty Start Date End Date Harvey, Raheel M, MD PCP - General 08/31/21 documented as of this encounter
--- OUTSIDE RECORDS SUMMARY | 2024-10-26 12:44 | XMS_ITS | Clinical Summary ---
Author Organization [facility] Address [address] [facility] [place] [address] Care Team Providers Care Hazard Mitigation Officer Name Role Phone Raheel Harvey MD Primary Care Provider Steve banegas Source Comments [facility],non-owned Affiliates and Associated Physician Practices is amultiple site organization consisting of ambulatory clinics and hospital sitesin [place], [place], [place] and [place]. This disclosure is being madepursuant to the Care Everywhere program and may not contain all information available regarding this patient. Last updated 18.[facility] Allergies Active Allergy Reactions Criticality Noted Date Comments Ciprofloxacin Hcl Rash Medium 10/09/2023 Medications * Be aware that medications may not be up to date on this document. Alwaysverify current medications with the patient. amLODIPine (Norvasc) 10 MG tabletIndication s:Hypertension Take 10 mg by mouth once daily. Indications: High Blood Pressure Disorder 10/09/19 24 Active Aspirin 81 MG CAPSIndications: Arthritis Take 81 mg by mouth once. Indications: Arthritis 10/09/19 24 Active atorvastatin (Lipitor) 10 MG tabletIndication s:Hyperlipidemia Take 10 mg by mouth once daily. Indications: High Amount of Fats in the Blood 10/09/19 24 Active canagliflozin (Invokana) 100 MG tabletIndication s:Type 2 Diabetes Mellitus Take 100 mg by mouth daily before breakfast. Indications: Type 2 Diabetes 10/09/19 24 Active Multiple Vitamins-Mineral s (Centrum Silver 50+Women) TABSIndications: Other vitamin deficiencies Take 100 mg by mouth every morning. Indications: Other vitamin deficiencies 10/09/19 24 Active sacubitril-valsa rtan (Entresto) 49-51 MG tabletIndication s:Heart Failure Take 1 tablet by mouth 2 times daily. Indications: Cardiac Failure 10/09/19 24 Active escitalopram (Lexapro) 10 MG tabletIndication s:Major Depressive Disorder Take 10 mg by mouth once daily. Indications: Major Depressive Disorder 10/09/19 24 Active furosemide (Lasix) 20 MG tabletIndication s:Heart Failure Take 20 mg by mouth once daily. Indications: Cardiac Failure 10/09/19 24 Active vibegron (Gemtesa) 75 MG tabletIndication s:Urinary Incontinence Take 75 mg by mouth once daily. Indications: Urinary Incontinence 10/09/19 24 Active glipiZIDE (Glucotrol) 5 MG tabletIndication s:Type 2 Diabetes Mellitus Take 5 mg by mouth every evening. Indications: Type 2 Diabetes 10/09/19 24 Active montelukast (Singulair) 10 MG tabletIndication s:Seasonal Allergic Rhinitis Take 10 mg by mouth once daily. Indications: Hayfever 10/09/19 24 Active potassium chloride ER (Klor-Con M) 10 MEQ tabletIndication s:Hypokalemia Take 10 mEq by mouth 3 times daily. Indications: Low Amount of Potassium in the Blood 10/09/19 24 Active predniSONE (Deltasone) 5 MG tabletIndication s:Acute Gouty Arthritis Take 5 mg by mouth once daily. Indications: Acute Joint Inflammation in Gout 10/09/19 24 Active traZODone (Desyrel) 50 MG tabletIndication s:Major Depressive Disorder Take 150 mg by mouth at bedtime. Indications: Major Depressive Disorder 10/09/19 24 Active insulin degludec (Tresiba) 100 UNIT/ML vialIndications: Type 2 Diabetes Mellitus Inject 14 Units subcutaneously once daily. Indications: Type 2 Diabetes 10/09/19 24 Active venlafaxine (Effexor) 75 MG tabletIndication s:Major Depressive Disorder Take 75 mg by mouth once daily. Indications: Major Depressive Disorder 10/09/19 24 Active alendronate (Fosamax) 70 MG tabletIndication s:Osteoporosis Take 70 mg by mouth every 7 days before meal. taking one tablet every dahy Indications: Osteoporosis 10/10/19 24 Active Sarilumab (Kevzara) 200 MG/1.14ML SOAJIndications: Rheumatoid Arthritis Inject 200 mg subcutaneously. once every two weeks. Indications: Rheumatoid Arthritis 11/01/19 24 Active Social History Tobacco Use Types Packs/Day Years Used Date Smoking Tobacco: Never Assessed OASIS D0700: Social Isolation Answer Da te Recorded Frequency of experiencing loneliness or isolatio n Never 11/08/2023 OASIS A1250: Transportation Answer Date Recorded Lack of Transportation (Medical) No 11/08/2023 Lack of Transportation (Non-Medical) No 11/08/2023 Patient Unable or Declines to Respond No 11/08/2023 OASIS B1300: Health Literacy Answer Raj e Recorded Frequency of needing help to read materials from doctor or pharmacy Never 11/08/2023 Comments Unknown Sex and Gender Information Value Date Recorded Sex Assigned at Not on file 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 Gender Identity Not on file Sexual Orientation Not on file Last Filed Vital Signs Vital Sign Reading Time Taken Comments Blood Pressure 118/66 11/08/2023 2:08 PM CDT Pulse 76 11/08/2023 2:08 PM CDT Temperature 36.6 C (97.8 F) 11/08/2023 2:08 PM CDT Respiratory Rate 16 11/08/2023 2:08 PM CDT Oxygen Saturation 98% 11/08/2023 2:08 PM CDT Inhaled Oxygen Concentration - - Weight - - Height - - Body Mass Index - - Plan of Treatment Health Maintenance Due Date Last Done Comments BONE DENSITY TESTING 1940 MEDICARE AWV 12 MONTHS 1940 DTAP/TDAP/TD VACCINES (1 - Tdap) 1959 PNEUMOCOCCAL VACCINE 50+ (1 of 1 - PCV) 1990 ZOSTER VACCINE (1 of 2) 1990 Respiratory Syncytial Virus (RSV) Vaccine Pt: or over 60 yrs (1 - 1-dose 75+ series) 2015 COVID-19 VACCINE ( season) 2023 02/10/2022, 11/01/2021, 02/23/2021, Additional history exists DEPRESSION SCREENING 04/23/2024 INFLUENZA VACCINE (Season Ended) 2024 HEPATITIS B VACCINE Aged Out No longe r eligible based on patient's age to complete this topic HIB VACCINE Aged Out No longer eligi ble based on patient's age to complete this topic HPV VACCINE Aged Out No longer eligi ble based on patient's age to complete this topic MENINGOCOCCAL (Group B) VACCINE SHARED DECISION-MAKING Aged Out No longer eligible based on patient's age to complete this topic MENINGOCOCCAL GROUPS A/C/Y/W VACCINE Aged Out No longer eligible based on patient's age to complete this topic Insurance MEDICARE MEDICARE Care Teams Hazard Mitigation Officer Relationship Specialty Start Date End Date Raheel Harvey MD PCP - General 08/31/21
--- OUTSIDE RECORDS SUMMARY | 2024-10-26 12:44 | XMS_ITS | Encounter Summary ---
Author Organization [facility] Address [address] [place] [address] Care Team Providers Care Lavatory Attendant Name Role Phone Raheel Harvey MD Primary Care Provider Steve banegas Encounter Details Date Type Department Care Team (Late st Contact Info) Description 02/09/2021 Lab Requisition [facility] [address] [place] [address] Burt Regan MD [address] [place] [address] Social History Tobacco Use Types Packs/Day Years Used Date Smoking Tobacco: Never Assessed Comments Unknown Sex and Gender Information Value Date Recorded Sex Assigned at Not on file 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 Gender Identity Not on file Sexual Orientation Not on file documented as of this encounter Plan of Treatment Not on file documented as of this encounter Procedures Procedure Name Priority Date/Time Associated Diagnosis Comments DERMATOPATHOLOGY Routine 02/07/2021 3:33 AM CDT documented in this encounter Results * DERMATOPATHOLOGY (02/07/2021 3:33 AM CDT) Case Report Dermatopathology Report Case: [id number] Authorizing Provider: Burt Regan MD Collected: 02/07/2021 03:33 AM Ordering Location: [facility] Received: 02/09/2021 06:03 AM Pathologist: Melecio Limon MD Specimens: A) - Skin, left forearm distal B) - Skin, right mastoid 4:23 PM CDT DERMATOPATHOLOGY LABORATORY Final Diagnosis Specimen A. SKIN, left forearm distal: SQUAMOUS CELL CARCINOMA, WELL DIFFERENTIATED (C44.629) Specimen B. SKIN, right mastoid: SQUAMOUS CELL CARCINOMA, WELL DIFFERENTIATED (C44.329) 4:23 PM CDT DERMATOPATHOLOGY LABORATORY at 1623 CDT Clinical History A: [place] vs [facility]. Path # [id number]. B: AK vs [facility]A. Path # [id number]. 4:23 PM CDT DERMATOPATHOLOGY LABORATORY Gross Description Specimen A: Received is one formalin filled container labeled with the patient's name and designated left forearm distal. The specimen consists of a shave biopsy measuring [id number]. Jar 0. Specimen B: Received is one formalin filled container labeled with the patient's name and designated right mastoid. The specimen consists of a shave biopsy measuring [id number]. Jar 0. 4:23 PM CDT DERMATOPATHOLOGY LABORATORY Microscopic Description Specimen A. SKIN, left forearm distal: Arising in the epidermis and extending into the dermis there are irregularly shaped aggregates of keratinocytes showing evidence of premature cornification. Specimen B. SKIN, right mastoid: Arising in the epidermis and extending into the dermis there are irregularly shaped aggregates of keratinocytes showing evidence of premature cornification. 4:23 PM CDT DERMATOPATHOLOGY LABORATORY Disclaimer An external and internal positive and negative controls are appropriate for the histochemical, immunohistochemical and immunofluorescence stain(s) in this case (if any), except where stated explicitly. The performance characteristics of the stain(s) cited in this report were developed and its performance characteristic determined by the Dermatopathology Laboratory at [facility], directed by Dr. Celestine Limon. These tests need not be, and therefore are not, approved by the [place] Food and Drug Administration. The tests are used for clinical purposes. Billing Codes Specimen Charges Stain Charges 74941 92502 1 1 4:23 PM CDT DERMATOPATHOLOGY LABORATORY Embedded Images 4:23 PM CDT DERMATOPATHOLOGY LABORATORY Pathology/Cytology TISSUE SPECIMEN FROM SKIN / Unknown 02/07/2021 3:33 AM CDT 02/09/2021 6:03 AM CDT Miscellaneous samples (specimen) TISSUE SPECIMEN FROM SKIN / Unknown 02/07/2021 3:33 AM CDT 02/09/2021 6:03 AM CDT us Burt Regan MD LAB - PATHOLOGY/CYTOLOGY ORDER LUX Final Result DERMATOPATHOLOGY LABORATORY [facility] - Department of Dermatology [facility] [address] [place] [address], [address] [phone] documented in this encounter Visit Diagnoses Not on filedocumented in this encounter Care Teams Lavatory Attendant Relationship Specialty Start Date End Date Raheel Harvey MD PCP - General 08/31/21 documented as of this encounter
--- OUTSIDE RECORDS SUMMARY | 2024-10-26 12:44 | XMS_ITS | Encounter Summary ---
Author Organization [facility] Address [address] [facility] [place] [address] Care Team Providers Care Manager Program Name Role Phone Raheel Harvey MD Primary Care Provider Steve banegas Encounter Details Date Type Department Care Team (Late st Contact Info) Description 07/19/2021 Lab Requisition [facility] [address] [facility] [place] [address] Burt Regan MD [address] [place] [address] Social History Tobacco Use Types Packs/Day Years Used Date Smoking Tobacco: Never Assessed Comments Unknown Sex and Gender Information Value Date Recorded Sex Assigned at Not on file 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 Gender Identity Not on file Sexual Orientation Not on file documented as of this encounter Plan of Treatment Not on file documented as of this encounter Procedures Procedure Name Priority Date/Time Associated Diagnosis Comments DERMATOPATHOLOGY Routine 07/18/2021 12:0 0 AM CDT documented in this encounter Results * DERMATOPATHOLOGY (07/18/2021 12:00 AM CDT) Case Report Dermatopathology Report Case: [id number] Authorizing Provider: Burt Regan MD Collected: 07/18/2021 12:00 AM Ordering Location: [facility] Received: 07/19/2021 03:44 PM Pathologist: Li Diaz MD Specimens: A) - Skin, left forearm B) - Skin, right hand 12:20 PM CDT DERMATOPATHOLOGY LABORATORY Final Diagnosis Specimen A. SKIN, left forearm: SUPERFICIAL ASPECT OF SQUAMOUS CELL CARCINOMA ARISING IN A SQUAMOUS CELL CARCINOMA IN SITU, VERRUCOUS-HYPERTROP HIC TYPE (C44.629) (see microscopic description) Specimen B. SKIN, right hand: SQUAMOUS CELL CARCINOMA, WELL DIFFERENTIATED (C44.622) 2 12:20 PM T DERMATOPATHOLOGY LABORATORY at 1220 CDT Clinical History A: SCCA. Path # [id number]. B: SCCA. Path # [id number]. 2 12:20 PM CDT DERMATOPATHOLOGY LABORATORY Gross Description Specimen A: Received is one formalin filled container labeled with the patient's name and designated left forearm. The specimen consists of a shave biopsy measuring [id number]. Jar 0. Specimen B: Received is one formalin filled container labeled with the patient's name and designated right hand. The specimen consists of a shave biopsy measuring [id number], bisected. Jar 0. 2 12:20 PM T DERMATOPATHOLOGY LABORATORY Microscopic Description Specimen A. SKIN, left forearm: The epidermis is acanthotic and shows full thickness disorderly maturation of keratinocytes, mitoses at different levels, and dyskeratotic cells. There is overlying parakeratosis and hyperkeratosis. Focal nests are present in the dermis. Specimen B. SKIN, right hand: Arising in the epidermis and extending into the dermis there are irregularly shaped aggregates of keratinocytes showing evidence of premature cornification. 2 12:20 PM CDT DERMATOPATHOLOGY LABORATORY Disclaimer An external and internal positive and negative controls are appropriate for the histochemical, immunohistochemical and immunofluorescence stain(s) in this case (if any), except where stated explicitly. The performance characteristics of the stain(s) cited in this report were developed and its performance characteristic determined by the Dermatopathology Laboratory at [facility], directed by Dr. Celestine Limon. These tests need not be, and therefore are not, approved by the [place] Food and Drug Administration. The tests are used for clinical purposes. Billing Codes Specimen Charges Stain Charges 54154 50033 1 1 2 12:20 PM CDT DERMATOPATHOLOGY LABORATORY Embedded Images 2 12:20 PM CDT DERMATOPATHOLOGY LABORATORY Pathology/Cytology TISSUE SPECIMEN FROM SKIN / Unknown 07/18/2021 07/19/2021 3:44 PM CDT Miscellaneous samples (specimen) TISSUE SPECIMEN FROM SKIN / Unknown 07/18/2021 07/19/2021 3:44 PM CDT us Burt Regan MD LAB - PATHOLOGY/CYTOLOGY ORDER LUX Final Result DERMATOPATHOLOGY LABORATORY [facility] - Department of Dermatology [facility] [address] [place] [address], [address] [phone] documented in this encounter Visit Diagnoses Not on filedocumented in this encounter Care Teams Manager Program Relationship Specialty Start Date End Date Raheel Harvey MD PCP - General 08/31/21 documented as of this encounter
--- OUTSIDE RECORDS SUMMARY | 2024-10-26 12:44 | XMS_ITS | Clinical Summary ---
Author Organization [facility] Address [address] [place] [address], [place] [address] Care Team Providers Care Engine Tester Name Role Phone Unavailable Primary Care Provider Unavailabl e Allergies Active Allergy Reactions Criticality Noted Date Comments Ciprofloxacin Rash Medium 01/02/2022 Sulfa Antibiotics Rash Low 12/18/2022 Medications atorvastatin (LIPITOR) 10 MG tablet Take 1 tablet by mouth 1 (one) time each day Active carvedilol (COREG) 25 MG tablet Take 1 tablet by mouth every 12 (twelve) hours 3 Active escitalopram (LEXAPRO) 10 MG tablet Take 1 tablet by mouth 1 (one) time each day Active furosemide (LASIX) 20 MG tablet Take 1 tablet by mouth 1 (one) time each day Active glipiZIDE (GLUCOTROL) 5 MG tablet TAKE 1 TABLET BY MOUTH EVERY EVENING 30 MINUTES BEFORE SUPPER 3 Active montelukast (SINGULAIR) 10 MG tablet Take 1 tablet by mouth 1 (one) time each day Active predniSONE (DELTASONE) 2.5 MG tablet Take 2.5 mg by mouth in the morning and 2.5 mg at noon and 2.5 mg in the evening. 2 Active sacubitril-valsa rtan (Entresto) 49-51 MG per tablet Take 1 tablet by mouth every 12 (twelve) hours 3 Active traZODone (DESYREL) 50 MG tablet TAKE 3 TABLETS BY MOUTH EVERY NIGHT AT BEDTIME 2 Active venlafaxine (EFFEXOR) 75 MG tablet Take 1 tablet by mouth 1 (one) time each day Active aspirin (ST NABEEL) 81 MG EC tablet Take 81 mg by mouth 1 (one) time each day Active POTASSIUM CHLORIDE PO Take 3 tablets by mouth 1 (one) time each day Active Multiple Vitamins-Mineral s (CENTRUM SILVER 50+WOMEN PO) Take 1 tablet by mouth 1 (one) time each day Active Vibegron (Gemtesa) 75 MG tablet Take 1 tablet by mouth 1 (one) time each day Active Insulin Degludec (Tresiba) 100 UNIT/ML solution Inject 14 Units under the skin 1 (one) time each day Active alendronate (FOSAMAX) 70 MG tablet Take 70 mg by mouth every 7 (seven) days Take in the morning with a full glass of water, on an empty stomach, and do not take anything else by mouth or lie down for the next 30 min. Active oxyCODONE-acetam inophen (PERCOCET) 10-325 MG per tablet Take 1 tablet by mouth in the morning and 1 tablet in the evening. Active Naloxegol Oxalate (Movantik) 25 MG tablet Take 25 mg by mouth 1 (one) time each day Active busPIRone (BUSPAR) 5 MG tablet Take 5 mg by mouth in the morning and 5 mg in the evening. 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 Stage 3a chronic kidney disease 12/18/2022 Type 2 diabetes mellitus without complication 12/18/2022 Congestive heart failure 01/03/2022 023 Microalbuminuria 12/29/2021 12/18/2022 Vitamin D deficiency 12/29/2021 12/18/2022 Essential hypertension 11/02/2021 3 Hyperlipidemia 11/02/2021 12/18/2022 Insomnia 11/02/2021 12/18/2022 Encounters Date Type Department Care Team Description 08/06/2024 Refill [facility], [address] [phone] Librado Flores MD 07/29/2024 11:30 AM CDT Office [facility] [address] [facility] [address] [place] [phone] Librado Flores MD Stage 3a chronic kidney disease (HCC) (Primary Dx); Essential hypertension; Type 2 diabetes mellitus without complication (HCC); Systolic congestive heart failure, not otherwise specified (HCC); Mixed hyperlipidemia; Vitamin D deficiency, not otherwise specified; 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) from Last 3 Months Immunizations Immunization Administration Dates Next Due Moderna SARS-COV-2 05/27/2020 Family History Medical History Relation Comments Heart disease Father Anemia Mother Cancer Mother Heart disease Mother Hypertension Mother Relation Status Comments Father Mother Social History Tobacco Use Types Packs/Day Years Used Date Smoking Tobacco: Former Cigarettes Q uit: 1973 Smokeless Tobacco: Never Tobacco Cessation:Counseling Given: Not Answered Alcohol Use Standard Drinks/Week Comments Never 0 (1 standard drink = 0.6 oz pur e alcohol) Comments Unknown Sex and Gender Information Value Date Recorded Sex Assigned at Not on file Legal Sex Female 12:42 PM EDT Gender Identity Not on file Sexual Orientation Not on file Last Filed Vital Signs Vital Sign Reading Time Taken Comments Blood Pressure 122/70 07/29/2024 12:03 PM CDT Pulse 72 07/29/2024 12:03 PM CDT Temperature 36.1 C (97 F) 07/29/2024 12:03 PM CDT Respiratory Rate 18 07/29/2024 12:03 PM CDT Oxygen Saturation 97% 07/29/2024 12:03 PM CDT Inhaled Oxygen Concentration - - Weight 70.8 kg (156 lb) 07/29/2024 12:03 PM CDT Height 157.5 cm (5' 2) 05/29/2023 11:08 AM 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 Body Mass Index 28.53 05/29/2023 11:08 AM SCENIC DESIGNER Plan of Treatment Upcoming Encounters Date Type Department Care Team (Late st Contact Info) Description 02/03/2025 10:30 AM CDT Office Visit [place] [facility] [address] [facility] [address] [place] [phone] [place] [address] [place] [address] [address] [place] [address] Health Maintenance Due Date Last Done Comments Pneumococcal Vaccine: 50+ Years (1 of 2 - PCV) 1959 Diabetes: Ophthalmology Exam 11/16/2022 Diabetes: Pedal Pulse Checked 11/16/2022 Diabetes: Sensory Foot Exam 11/16/2022 Diabetes: Visual Foot Exam 11/16/2022 Diabetes: Hemoglobin A1C 08/30/2024 025, 02/11/2024, 10/08/2023, Additional history exists Influenza Vaccine (Season Ended) 2024 Hepatitis B Vaccine Aged Out No longe r eligible based on patient's age to complete this topic Procedures Procedure Name Priority Date/Time Associated Diagnosis Comments EXT RESULT ENTRY Routine 06/02/2024 from Last 3 Months or Most Recently Relevant to Health Maintenance Results * (ABNORMAL) EXT RESULT ENTRY (06/02/2024) WBC 7.8 3.3 - 10.0 10*3/ML Red Blood Cell Count 4.39 Hemoglobin 14.2 12.0 - 16.0 Hematocrit 43.1 36.0 - 46.0 Platelets 188 150 - 399 10*3/UL MCV 98.2 82.0 - 108.0 Sodium 137 137 - 147 Potassium 4.0 3.4 - 5.5 Chloride 103.0 99.0 - 108.0 Carbon Dioxide 31 mmol/L Anion Gap 7.0 <=30 MMOL/L Glucose 99 60 - 200 BUN 30(A) 4 - 21 mg/dL Creatinine 0.83 0.50 - 1.10 mg/dL Total Protein 6.1(A) 6.4 - 8.2 G/DL Albumin 3.9 3.5 - 5.0 g/dL Calcium 9.3 8.7 - 10.7 mg/dL Phosphorus, Serum 3.7 eGFR Non-Afr Afghan >60 PTH 117.7(H) PG/ML Vitamin D, 25-OH, Total 44.5 ng/mL Hemoglobin A1C 6.1(A) 4.0 - 6.0 Protein Urine Random 34(H) Creatinine, Urine Random 53.70 mg/dL Urine Protein/Creatini ne Ratio 0.6(H) mg/g creat Bilirubin, UA Negative Ketones, UA Negative Urine Specific [place] 1.014 Blood, UA Negative Daniel/ul pH, UA 6.5 Urobilinogen, UA Normal Nitrite, UA Negative Leukocytes, UA 75 WBC, Urine None Seen None Seen, Occasional, 0-2 /HPF RBC, Urine None Seen None Seen, Occasional, 1-5 /HPF Epithelial Cells in Urine Moderate /HPF Bacteria, Urine Occasional None Seen, Occasional /HPF Triglycerides 69 Cholesterol, Total 144 HDL 80 mg/dL LDL-Calculated 50 Protein, Ur 20 Glucose, Urine 150 06/02/2024 us Historical Provider LAB BLOOD ORDERABLES Eunice l Result from Last 3 Months or Most Recently Relevant to Health Maintenance Insurance Medicare [facility]
[2024-10-26 12:49] VITALS: BP 160/64; PULSE 84; RESP 14; O2SAT 97
[2024-10-26 12:57] VITALS: BP 160/64; PULSE 84; RESP 14; O2SAT 97
[2024-10-26 13:31] LABS: Add Urine Microscopic? YES; Appearance Urine Cloudy (Clear); Glucose Urine UA 3+ mg/dL (Negative); Leukocyte Esterase Ur 3+ LEU/UL (Negative); Need Manual Microscopic Reviewed; Nitrate Urine Negative (Negative); Non Pathogenic Casts 0-2; Specific Grav Ur 1.012 (1.001-1.035)
--- OUTSIDE RECORDS SUMMARY | 2024-10-26 13:42 | XMS_ITS | Continuity of Care Document ---
Author Organization Located within [facility] Address [address] [place] [address] Exec [address] [place] [address] Phone Care Team Providers Care Senior Software Quality Engineer Name Role Phone Last Gramajo Unavailable Unavailable [...] Copied on Encounter Office/outpat ient Visit, Est [facility], [address], [place], [place], [id number], [place] tel:[phone] SEC [facility] No Information 2 3-201 0 Doijessy Ni. [facility] , [address], [place], [address], [place]. tel:[phone] [facility], [address], [place], [place], [id number], [place] tel:[phone] SEC [facility] [place] No Information 0 2-200 9 Avila Ni. [address] [place], [place] [address]ate Center , [address], [place], [address], [place]. tel:[phone] [facility], [address] [place] [address] [address], [place], [place], [id number], [place] tel:[phone] SEC [facility] [place] No Information 200 9 [employer]. [address] [facility], [address], [place], [address], [place]. tel:[phone] Referring Provider: Last Waters, [address] [place], [place] [address]ate Center [address], [place], [address]. tel:[phone] sulting Provider: Shalom Palencia, [address] [place], [place] [address]ate [facility], [place], [address]. tel:[phone] [facility] Eye [facility], [address] [facility] [address], [place], [place], [address], [place] tel:[phone] SEC [facility] [place] No Information 1200 9 [employer]. [address] [facility], [address], [place], [place], [address], [place]. tel:[phone] Referring Provider: Last Waters, [address] [place], [place] [address]ate Center [address], [place], [address]. tel:[phone] sulting Provider: Shalom Palencia, [address] [place], [place] [address]ate [facility], [place], [address]. tel:[phone] [facility], [address] [place] [address] [address], [place], [place], [address], tel:[phone] SEC [facility] [place] No Information 0 8200 8 Avila Ni. [address] [facility] [place] , [address], [place], [place], [facility], . tel:[phone] Office/outpat ient Visit, [facility] Eye [facility], [address] [place] [address] [address], [place], [place], [address], tel:[phone] SEC [facility] No Information 8200 8 Krishnasamy Cole. [address] [place] [address], [place], [facility], . tel:[phone] Office/outpat ient Visit, [facility], [address] [place] [address] [address], [place], [place], [address], tel:[phone] SEC [facility] No Information 5200 8 Krishnasamy Cole. [address] [place] [address], [place], [facility], . tel:[phone] [facility], [address] [place] [address] [address], [place], [place], [address], tel:[phone] SEC [facility] No Information 200 7 Avila iN. [facility] , [address], [place], [facility], . tel:[phone] Family History Family Member Type Diagnosis Age At Onset No Information Payers Payer name Insurance type Covered republican ID Authoriza tion(s) Medicare [facility] [id number] [place] [id number] Social History Type Description Quantity Date Captured [...]
--- OUTSIDE RECORDS SUMMARY | 2024-10-26 13:42 | XMS_ITS | Encounter Summary ---
Author Organization [facility] Address [address] [facility] [place] [address] Care Team Providers Care Warranty Clerk Name Role Phone Raheel Harvey MD Primary Care Provider Steve banegas Encounter Details Date Type Department Care Team (Late st Contact Info) Description 01/27/2022 Lab Requisition [facility] DermPath Lab [address] [facility] [place] [address] Burt Regan MD [address] [facility] [place] [address] Social History Tobacco Use Types Packs/Day Years Used Date Smoking Tobacco: Never Assessed Comments Unknown Sex and Gender Information Value Date Recorded Sex Assigned at Not on file 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 Gender Identity Not on file Sexual Orientation Not on file documented as of this encounter Plan of Treatment Not on file documented as of this encounter Procedures Procedure Name Priority Date/Time Associated Diagnosis Comments DERMATOPATHOLOGY Routine 01/25/2022 12:0 0 AM CDT documented in this encounter Results * DERMATOPATHOLOGY (01/25/2022 12:00 AM CDT) Case Report Dermatopathology Report Case: [id number] Authorizing Provider: Burt Regan MD Collected: 01/25/2022 12:00 AM Ordering Location: [facility] DermPath Lab Received: 01/27/2022 09:41 [...] CDT 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 Path# [id number] 4:13 PM CDT DERMATOPATHOLOGY LABORATORY Gross Description Specimen A: Received is one formalin filled container labeled with the patient's name and designated right lower forearm. The specimen consists of a shave biopsy measuring [id number]. Jar 0. 4:13 PM T DERMATOPATHOLOGY LABORATORY [...] characteristic determined by the Dermatopathology Laboratory at [facility], directed by Dr. Celestine Limon. These tests need not be, and therefore are not, approved by the [place] Food and Drug Administration. The tests are used for clinical purposes. Billing Codes Specimen Charges Stain Charges 91135 1 4:13 PM CDT DERMATOPATHOLOGY LABORATORY Embedded Images 4:13 PM CDT DERMATOPATHOLOGY LABORATORY Pathology/Cytolog y TISSUE SPECIMEN FROM SKIN / Unknown 01/25/2022 01/27/2022 9:41 AM CDT us Burt Regan MD LAB - PATHOLOGY/CYTOLOGY ORDER LUX Final Result DERMATOPATHOLOGY LABORATORY [facility] - Department of Dermatology Specialized Medicine [address] [place] [address], [address] [phone] documented in this encounter Visit Diagnoses Not on filedocumented in this encounter Care Teams Warranty Clerk Relationship Specialty Start Date End Date Raheel Harvey MD PCP - General 08/31/21 documented as of this encounter
--- OUTSIDE RECORDS SUMMARY | 2024-10-26 13:43 | XMS_ITS | Encounter Summary ---
Author Organization [facility] Address [address] [facility] [place] [address] Care Team Providers Care Manager Law Name Role Phone Raheel Harvey MD Primary Care Provider Steve banegas Encounter Details Date Type Department Care Team (Late st Contact Info) Description 02/09/2021 Lab Requisition [facility] DermPath Lab [address] [facility] [place] [address] Burt Regan MD [address] [facility] [facility] [place] [address] Social History Tobacco Use Types Packs/Day Years Used Date Smoking Tobacco: Never Assessed Comments Unknown Sex and Gender Information Value Date Recorded Sex Assigned at Not on file 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 Gender Identity Not on file Sexual Orientation Not on file documented as of this encounter Plan of Treatment Not on file documented as of this encounter Procedures Procedure Name Priority Date/Time Associated Diagnosis Comments DERMATOPATHOLOGY Routine 02/07/2021 3:33 AM CDT documented in this encounter Results * DERMATOPATHOLOGY (02/07/2021 3:33 AM CDT) Case Report Dermatopathology Report Case: [id number] Authorizing Provider: Burt Regan MD Collected: 02/07/2021 03:33 AM Ordering Location: [facility] DermPath Lab Received: 02/09/2021 06:03 AM Pathologist: [...] History A: AK vs SCCA. Path # [id number]. B: AK vs SCCA. Path # [id number]. 4:23 PM CDT DERMATOPATHOLOGY LABORATORY Gross Description Specimen A: Received is one formalin filled container labeled with the patient's name and designated left forearm distal. The specimen consists of a shave biopsy measuring [id number]. Jar 0. Specimen B: Received is one formalin filled container labeled with the patient's name and designated right mastoid. The specimen consists of a shave biopsy measuring [id number]. Jar 0. 4:23 PM CDT DERMATOPATHOLOGY LABORATORY [...] characteristic determined by the Dermatopathology Laboratory at [facility], directed by Dr. Celestine Limon. These tests need not be, and therefore are not, approved by the [place] Food and Drug Administration. The tests are used for clinical purposes. Billing Codes Specimen Charges Stain Charges 38368 49360 1 1 4:23 PM CDT DERMATOPATHOLOGY LABORATORY Embedded Images 4:23 PM CDT DERMATOPATHOLOGY LABORATORY Pathology/Cytology TISSUE SPECIMEN FROM SKIN / Unknown 02/07/2021 3:33 AM CDT 02/09/2021 6:03 AM CDT Miscellaneous samples (specimen) TISSUE SPECIMEN FROM SKIN / Unknown 02/07/2021 3:33 AM CDT 02/09/2021 6:03 AM CDT us Burt eRgan MD LAB - PATHOLOGY/CYTOLOGY ORDER LUX Final Result DERMATOPATHOLOGY LABORATORY [facility] - Department of Dermatology [facility] Medicine [address] [place] [address], [address] [phone] documented in this encounter Visit Diagnoses Not on filedocumented in this encounter Care Teams Manager Law Relationship Specialty Start Date End Date Raheel Harvey MD PCP - General 08/31/21 documented as of this encounter
--- OUTSIDE RECORDS SUMMARY | 2024-10-26 13:43 | XMS_ITS | Encounter Summary ---
Author Organization [facility] Address [address] [place] [address] Care Team Providers Care Life Skills Consultant Name Role Phone Raheel Harvey MD Primary Care Provider Steve banegas Encounter Details Date Type Department Care Team (Late st Contact Info) Description 01/30/2020 Lab Requisition [facility] DermPath Lab [address] [facility] [place] [address] Burt Regan MD [address] [facility] [place] [address] Social History Tobacco Use Types Packs/Day Years Used Date Smoking Tobacco: Never Assessed Comments Unknown Sex and Gender Information Value Date Recorded Sex Assigned at Not on file 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 Gender Identity Not on file Sexual Orientation Not on file documented as of this encounter Plan of Treatment Not on file documented as of this encounter Procedures Procedure Name Priority Date/Time Associated Diagnosis Comments DERMATOPATHOLOGY Routine 01/28/2020 12:0 0 AM CDT documented in this encounter Results * DERMATOPATHOLOGY (01/28/2020 12:00 AM CDT) Case Report Dermatopathology Report Case: [id number] Authorizing Provider: Burt Regan MD Collected: 01/28/2020 12:00 AM Ordering Location: [facility] DermPath Lab Received: 01/30/2020 [...] 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 Path# [id number] 0 1:53 PM CDT DERMATOPATHOLOGY LABORATORY Gross [...] characteristic determined by the Dermatopathology Laboratory at [facility], directed by Dr. Celestine Limon. These tests need not be, and therefore are not, approved by the [place] Food and Drug Administration. The tests are used for clinical purposes. Billing Codes Specimen Charges Stain Charges 73293 1 0 1:53 PM CDT DERMATOPATHOLOGY LABORATORY Embedded Images 0 1:53 PM CDT DERMATOPATHOLOGY LABORATORY Pathology/Cytolog y TISSUE SPECIMEN FROM SKIN / Unknown 01/28/2020 01/30/2020 6:59 AM CDT us Burt Regan MD LAB - PATHOLOGY/CYTOLOGY ORDER LUX Final Result DERMATOPATHOLOGY LABORATORY [facility] - Department of Dermatology [address], [address] [phone] documented in this encounter Visit Diagnoses Not on filedocumented in this encounter Care Teams Life Skills Consultant Relationship Specialty Start Date End Date Harvey, Raheel M, MD PCP - General 08/31/21 documented as of this encounter
--- OUTSIDE RECORDS SUMMARY | 2024-10-26 13:43 | XMS_ITS | Clinical Summary ---
Author Organization [facility] Address [address] [place] [address] Care Team Providers Care Horse Farm Manager Name Role Phone Raheel Harvey MD Primary Care Provider Steve banegas Source Comments [facility],non-owned Affiliates and Associated Physician Practices is amultiple site organization consisting of ambulatory clinics and hospital sitesin [place], [place] and [place]. This disclosure is being madepursuant to the Care Everywhere program and may not contain all information available regarding this patient. 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
--- OUTSIDE RECORDS SUMMARY | 2024-10-26 13:43 | XMS_ITS | Clinical Summary ---
Author Organization [facility] Address [address] [place] [address], [place] [address] Care Team Providers Care Parquetry Layer Name Role Phone Unavailable Primary Care Provider [...] Type Department Care Team Description 08/06/[address] [facility], [address] [address] Librado Flores MD 07/29/2024 11:30 AM CDT Office [facility] [address] [facility] [address] [place] [phone] Librado Flores MD Stage 3a chronic kidney [...] 157.5 cm (5' 2) 05/29/2023 11:08 AM SIGNAL TOWER DIRECTOR Body Mass Index 28.53 05/29/2023 11:08 AM SIGNAL TOWER DIRECTOR Plan of Treatment Upcoming Encounters Date Type Department Care Team (Late st Contact Info) Description 02/03/2025 10:30 AM CDT Office Visit [facility], [facility] [address] [facility] [address] [place] [address] [place] [address] [place] [address] 1 [place] [address] Health Maintenance Due Date Last [...] 10.7 mg/dL Phosphorus, Serum 3.7 eGFR Non-Afr Kittitian >60 PTH 117.7(H) PG/ML Vitamin D, 25-OH, Total 44.5 ng/mL Hemoglobin A1C 6.1(A) 4.0 - 6.0 Protein Urine Random 34(H) Creatinine, Urine Random 53.70 mg/dL Urine Protein/Creatini ne Ratio 0.6(H) mg/g creat Bilirubin, UA Negative Ketones, UA Negative Urine Specific [place] 1.014 Blood, UA Negative Daniel/ul pH, UA [...] Recently Relevant to Health Maintenance Insurance Medicare [facility]
--- OUTSIDE RECORDS SUMMARY | 2024-10-26 13:43 | XMS_ITS | Encounter Summary ---
Author Organization [facility] Health Address [address] [place] [address] Care Team Providers Care Computer Numerical Control Operator Name Role Phone Raheel Harvey MD Primary Care Provider Steve banegas Encounter Details Date Type Department Care Team (Late st Contact Info) Description 07/19/2021 Lab Requisition [facility] DermPath Lab [address] [address] Burt Regan MD [address] [facility] [place] [address] Social History Tobacco Use Types Packs/Day Years Used Date Smoking Tobacco: Never Assessed Comments Unknown Sex and Gender Information Value Date Recorded Sex Assigned at Not on file 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 Gender Identity Not on file Sexual Orientation Not on file documented as of this encounter Plan of Treatment Not on file documented as of this encounter Procedures Procedure Name Priority Date/Time Associated Diagnosis Comments DERMATOPATHOLOGY Routine 07/18/2021 12:0 0 AM CDT documented in this encounter Results * DERMATOPATHOLOGY (07/18/2021 12:00 AM CDT) Case Report Dermatopathology Report Case: [id number] Authorizing Provider: Burt Regan MD Collected: 07/18/2021 12:00 AM Ordering Location: [facility] DermPath Lab Received: 07/19/2021 03:44 PM Pathologist: [...] CDT Clinical History A: SCCA. Path # [id number]. B: SCCA. Path # [id number]. 2 12:20 PM CDT DERMATOPATHOLOGY LABORATORY Gross Description Specimen A: Received is one formalin filled container labeled with the patient's name and designated left forearm. The specimen consists of a shave biopsy measuring 9b3h2sm. Jar 0. Specimen B: Received is one formalin filled container labeled with the patient's name and designated right hand. The specimen consists of a shave biopsy measuring [id number], bisected. Jar 0. 2 12:20 PM T [...] characteristic determined by the Dermatopathology Laboratory at [facility], directed by Dr. Celestine Limon. These tests need not be, and therefore are not, approved by the [place] Food and Drug Administration. The tests are used for clinical purposes. Billing Codes Specimen Charges Stain Charges 93890 16905 1 1 2 12:20 PM CDT DERMATOPATHOLOGY LABORATORY Embedded Images 2 12:20 PM CDT DERMATOPATHOLOGY LABORATORY Pathology/Cytology TISSUE SPECIMEN FROM SKIN / Unknown 07/18/2021 07/19/2021 3:44 PM CDT Miscellaneous samples (specimen) TISSUE SPECIMEN FROM SKIN / Unknown 07/18/2021 07/19/2021 3:44 PM CDT us Burt Regan MD LAB - PATHOLOGY/CYTOLOGY ORDER LUX Final Result DERMATOPATHOLOGY LABORATORY [facility] - Department of Dermatology [facility] Specialized Medicine [address] [place] [address], [address] [phone] documented in this encounter Visit Diagnoses Not on filedocumented in this encounter Care Teams Computer Numerical Control Operator Relationship Specialty Start Date End Date Raheel Harvey MD PCP - General 08/31/21 documented as of this encounter
[2024-10-26 14:25] LABS: Hematocrit 44.2 % (37.0-47.0); Hemoglobin 14.1 g/dL (12.0-15.0); Immature Granulocyte Percent A 0.5 % (0-0.5); Lymphocytes Absolute Auto 1.40 K/mm3 (0.9-3.2); Mean Corpuscular HGB Conc 31.9 g/dl (32-36); Mean Corpuscular Hemoglobin 30.7 pg (26-34); Mean Corpuscular Volume 96.3 fl (80-100); Nucleated Red Blood Cells Absolute Auto 0.000 K/mm3 (0.0-0.012); Nucleated Red Blood Cells Perc 0.0 % (0.0-0.2); Platelet Count Result 122 k/mm3 (150-375); Red Blood Count 4.59 M/mm3 (4.2-5.4); White Blood Count 11.4 K/mm3 (4.5-10.0)
[2024-10-26 14:35] LABS: Alanine Aminotransferase 60 U/L (6-35); Albumin Level 4.0 g/dL (3.5-5.1); Alkaline Phosphatase 82 U/L (38-126); Anion Gap 8 mmol/L (4-12); Aspartate Amino Transferase 40 U/L (14-36); Bilirubin,Total 0.6 mg/dL (0.2-1.3); Blood Urea Nitrogen 29 mg/dL (7-17); Calcium 9.1 mg/dL (8.4-10.2); Carbon Dioxide 31 mmol/L (22-30); Chloride 99 mmol/L (98-107); Estimated CRCL calculation 34 ml/min; Estimated Glomerular Filt Rate 53; Glucose 237 mg/dL (65-110); Potassium 4.1 mmol/L (3.4-5.0); Sodium 138 mmol/L (137-145); Total Protein 6.6 g/dL (6.3-8.2)
--- NOTE | 2024-10-26 15:18 | ED.GENADULT ---
HPI - General Adult General Chief complaint: Urogenital-Female Stated complaint: hematuria Time Seen by Provider: 10/26/24 13:33 History of Present Illness HPI narrative: 84 old female present to the emergency department for evaluation for dysuria and hematuria. Patient has been following up with Urology for hematuria and urinary tract infections. Patient have been on Keflex low dose daily for extended period of time in urology stop this in September. Patient then developed a urinary tract infection with blood in her urine and then patient was restarted on the Keflex. Patient had follow-up with Urology again was still found to have blood in her urine and patient did a course of Macrobid on October 16. Patient has since completed this but was having painful urination today. Patient does have follow-up with Urology tomorrow for a cystogram in urogram Related Data Home Medications ?Medication ?Instructions ?Recorded ?Confirmed ?Last Taken ?Type aspirin 81 mg tablet,delayed 81 mg PO DAILY 09/28/20 02/25/22 12/24/21 History release atorvastatin 10 mg tablet 10 mg PO DAILY 09/28/20 02/25/22 12/24/21 History cephalexin 500 mg capsule 500 mg PO QHS 09/28/20 02/25/22 12/24/21 History citalopram 40 mg tablet 40 mg PO DAILY 09/28/20 02/25/22 12/24/21 History metformin 500 mg tablet 500 mg PO DAILY 09/28/20 02/25/22 12/24/21 History montelukast 10 mg tablet 10 mg PO DAILY 09/28/20 02/25/22 12/24/21 History prednisone 2.5 mg tablet 2.5 mg PO DAILY 09/28/20 02/25/22 12/24/21 History trazodone 50 mg tablet 50 mg PO QHS 09/28/20 02/25/22 12/24/21 History venlafaxine 75 mg tablet 75 mg PO DAILY 09/28/20 02/25/22 12/24/21 History carvedilol 25 mg tablet (Coreg) 25 mg PO DAILY 01/24/22 02/25/22 Unknown History loratadine 10 mg tablet (Claritin) 10 mg PO DAILY 01/24/22 02/25/22 Unknown History metformin 500 mg tablet 1,000 mg PO HS 02/25/22 02/25/22 Unknown History morphine 15 mg tablet,extended 15 mg PO DIRECTED 02/25/22 02/25/22 Unknown History release Allergies Allergy/AdvReac Type Severity Reaction Status Date / Time ciprofloxacin (From Cipro) Allergy Mild Rash Verified 10/26/24 12:58 Review of Systems Review of Systems: All systems reviewed & are unremarkable except as noted in HPI and below PMFSH Past Medical History Medical History Chronic pain syndrome Combined systolic and diastolic congestive heart failure Hyperlipidemia Hypertension Paroxysmal atrial fibrillation Prediabetes Rheumatoid arthritis Squamous cell carcinoma of skin Surgical History Surgical History History of bladder repair surgery History of foot surgery History of hysterectomy History of knee surgery History of squamous cell carcinoma excision Family History Family History Mother Heart disease Heart attack Ovarian cancer Father Emphysema lung Social History Social History Social History: Surrogate medical decision maker: Marci Zacarias, daughter. Code status: Full code. Smoking packs per day: 1 Smoking cigarettes per day: 20.0 Years smoked: 12 Smoking pack-years: 12.00 Smoking status: Former smoker Tobacco type: cigarettes Alcohol intake: never Substance use: never Lack of Transportation: No Lack of Food: Never True Current Housing: I Have Housing Concerned About Future Housing: No Difficulty Paying Gas/Electric Bills: No Difficulty Paying for Meds: No Currently Unemployed: No Education: High School Diploma/GED Difficulty w/ Childcare or Family Care: No Additional living arrangements comments: with 3 grown daughters. Lives in her own home in [place]. Spiritual care concerns: No Exam Narrative: APPEARANCE: Well appearing, no pain, no distress, well-nourished. HEAD: normocephalic, atraumatic. EYES: PERRLA/EOMI, conjunctivae clear. NOSE: Normal no drainage EARS:TMS clear with good light reflex. THROAT: Pharynx clear, no exudate. NECK: Supple. No adenopathy, no masses. RESPIRATORY: Airway patent, respirations nonlabored. Clear to auscultation bilaterally, no rales, rhonchi, wheezing. CARDIOVASCULAR: Regular rate and rhythm without murmurs rubs or gallops. ABDOMINAL: Soft, nontender, nondistended, normal bowel sounds MUSCULOSKELETAL: Moves all extremities. Strength/ROM intact, No edema, No calf tenderness. NEURO: Alert. Cranial nerves II through XII intact. Good gait. Good coordination SKIN: Warm, dry. Normal Color Course Vital Signs Vital signs: Vital Signs Pulse Rate 84 10/26/24 12:49 Respiratory Rate 14 10/26/24 12:49 Blood Pressure 160/64 H 10/26/24 12:49 Pulse Oximetry 97 10/26/24 12:49 Oxygen Delivery Room Air 10/26/24 12:49 Pulse Rate 84 10/26/24 12:57 Respiratory Rate 14 10/26/24 12:57 Blood Pressure 160/64 H 10/26/24 12:57 Pulse Oximetry 97 10/26/24 12:57 Oxygen Delivery Room Air 10/26/24 12:49 Medical Decision Making [facility] Narrative Medical decision making narrative: [age] old female presents emergency department evaluation for urinary symptoms. Patient did have a UA done as outpatient a few weeks ago but no urine culture is present in our system. Patient began having dysuria symptoms today. Patient is currently afebrile but does have a leukocytosis of 11.4 hemoglobin 14.1. Patient has kidney function similar to her baseline. Patient does have elevated blood glucose of 237 with no other acute abnormalities on her CMP UA was positive for blood, leukocyte esterase and white blood cells. No bacteria are were seen. Urine culture was ordered. Patient was started on antibiotics the emergency department for complaints of dysuria, recent urinary tract infections. Patient did have a negative CT scan without contrast emergency department which showed no ureteral calculi. Patient does have follow-up with Urology tomorrow to have a urogram ends to g. Patient was started on Bactrim in the emergency department discharged home on Bactrim. All questions concerns were addressed. Differential Diagnosis Differential Diagnosis: Ureteral calculi, urinary tract infection, hematuria, bladder mass Vital Signs Vital Signs: Vital Signs Pulse Rate 84 10/26/24 12:49 Respiratory Rate 14 10/26/24 12:49 Blood Pressure 160/64 H 10/26/24 12:49 Pulse Oximetry 97 10/26/24 12:49 Oxygen Delivery Room Air 10/26/24 12:49 Pulse Rate 84 07/06/25 12:57 Respiratory Rate 14 10/26/24 12:57 Blood Pressure 160/64 H 10/26/24 12:57 Pulse Oximetry 97 10/26/24 12:57 Oxygen Delivery Room Air 10/26/24 12:49 Lab Data Lab results reviewed: Yes I reviewed the patient's lab results. 10/26/24 14:19 10/26/24 14:19 Labs: Lab Results 10/26/24 10/26/24 Range/Units 13:11 14:19 WBC 11.4 H (4.5-10.0) K/mm3 RBC 4.59 (4.2-5.4) M/mm3 Hgb 14.1 (12.0-15.0) g/dL Hct 44.2 (37.0-47.0) % MCV 96.3 (80-100) fl MCH 30.7 (26-34) pg MCHC 31.9 L (32-36) g/dl RDW 12.8 (11.5-14.5) % Plt Count 122 L (150-375) k/mm3 MPV 9.2 (7.4-10.4) fl Immature Gran % (Auto) 0.5 (0-0.5) % Neut % (Auto) 77.9 H (45.5-73.1) % Lymph % (Auto) 12.3 L (18.3-44.2) % Mcdonough % (Auto) 7.9 (2.6-8.5) % Eos % (Auto) 1.1 (0-4.4) % Baso % (Auto) 0.3 (0.2-1.2) % Lymph # (Auto) 1.40 (0.9-3.2) K/mm3 Mcdonough # (Auto) 0.9 H (0.1-0.6) K/mm3 Eos # (Auto) 0.1 (0-0.3) K/mm3 Baso # (Auto) 0.0 (0.0-0.1) K/mm3 Abs Immat Gran (auto) 0.06 H (0.00-0.031) K/mm3 Absolute Neuts (auto) 8.9 H (1.3-6.7) K/mm3 Absolute Nucleated RBC 0.000 (0.0-0.012) K/mm3 Nucleated RBC % 0.0 (0.0-0.2) % Sodium 138 (137-145) mmol/L Potassium 4.1 (3.4-5.0) mmol/L Chloride 99 (98-107) mmol/L Carbon Dioxide 31 H (22-30) mmol/L Anion Gap 8 (4-12) mmol/L BUN 29 H D (7-17) mg/dL Creatinine 0.99 (0.7-1.0) mg/dL Estim Creat Clear Calc 34 ml/min Estimated GFR 53 L (59 - ) Glucose 237 H (65-110) mg/dL Calcium 9.1 (8.4-10.2) mg/dL Total Bilirubin 0.6 (0.2-1.3) mg/dL AST 40 H (14-36) U/L ALT 60 H (6-35) U/L Alkaline Phosphatase 82 (38-126) U/L Total Protein 6.6 (6.3-8.2) g/dL Albumin 4.0 (3.5-5.1) g/dL Urine Color Light red H (Yellow) Urine Appearance Cloudy H (Clear) Urine pH 7.0 (5.0-9.0) Ur Specific Woodruff 1.012 (1.001-1.035) Urine Protein 2+ H (Negative) mg/dL Urine Glucose (UA) 3+ H (Negative) mg/dL Urine Ketones Negative (Negative) mg/dL Ur Blood (Man) 3+ H (Negative) Urine Nitrate Negative (Negative) Urine Bilirubin Negative (Negative) Urine Urobilinogen 0.2 (<2.0) mg/dL Add Ur Microanalysis Reviewed Leukocyte Esterase Rfl 3+ H (Negative) SHONDA/UL Urine RBC >100 H (0-2) /hpf Urine WBC >100 H (0-3) /hpf Ur Squamous Epith Cells None seen (Few) /hpf Urine Bacteria None seen /hpf Urine Casts 0-2 Imaging Data Radiologist's impression: Impressions Abdomen/Pelvis CT 10/26/24 14:09 IMPRESSION: No acute abdominopelvic process detected. Discharge Plan Discharge Clinical Impression: Hematuria, Dysuria, Abnormal urinalysis Clinical Impression: (Ruled Out): Diabetes Patient Disposition: Home Condition: Stable Instructions: Antibiotic Form, Hematuria (ED), Dysuria (ED) Additional Instructions: Antibiotic as directed until completed for suspected urinary tract infection. Continue to have close follow-up with Urology as scheduled tomorrow. If you have any worsening symptoms then please call or return to the emergency department. Patient Language: Cymro Prescriptions: New sulfamethoxazole-trimethoprim [Bactrim DS] 800-160 mg tablet 1 tablet PO Q12H 7 Days Qty: 14 0RF No Action cephalexin 500 mg capsule 500 mg PO QHS aspirin 81 mg tablet,delayed release (DR/EC) 81 mg PO DAILY atorvastatin 10 mg tablet 10 mg PO DAILY citalopram 40 mg tablet 40 mg PO DAILY metformin 500 mg tablet 500 mg PO DAILY montelukast 10 mg tablet 10 mg PO DAILY prednisone 2.5 mg tablet 2.5 mg PO DAILY venlafaxine 75 mg tablet 75 mg PO DAILY trazodone 50 mg tablet 50 mg PO QHS metformin 500 mg tablet 1,000 mg PO HS morphine 15 mg tablet extended release 15 mg PO DIRECTED Rx Instructions: 1330 and 2130 furosemide 20 mg tablet 20 mg PO DAILY Qty: 14 0RF spironolactone 25 mg Tablet 25 mg PO QAM Qty: 30 2RF Entresto 49-51 mg Tablet 1 tablet PO Q12HR Qty: 60 2RF loratadine [Claritin] 10 mg Tablet 10 mg PO DAILY carvedilol [Coreg] 25 mg tablet 25 mg PO DAILY cyclobenzaprine 10 mg tablet 10 mg PO BID PRN (Reason: muscle spasm) Qty: 14 0RF Follow-up/Referrals: Carol,Nando Fernandez MD [Primary Care Provider] -
[2024-10-26] MEDS: SULFAMETHOXAZOLE/TRIMETHOPRIM 800/160 MG DS TABLET 1 TAB PO (15:30)
== END 2024-10-26 15:48 | disposition home or self-care (01) ==
PROVIDERS: Emergency Provider Emergency Medicine; PCP Internal Medicine
DX: R31.9 Hematuria, unspecified (principal); R30.0 Dysuria; R82.90 Unspecified abnormal findings in urine; E78.5 Hyperlipidemia, unspecified; I50.40 Unspecified combined systolic (congestive) and diastolic (congestive) heart failure; I48.0 Paroxysmal atrial fibrillation; M06.9 Rheumatoid arthritis, unspecified; I11.0 Hypertensive heart disease with heart failure; R73.03 Prediabetes; Z87.891 Personal history of nicotine dependence
CPT/HCPCS: 36415; 74176; 80053; 81001; 85025; 87086; 99284; A9270

== ENCOUNTER 2024-10-27 06:31 | Outpatient (CLI) | payer MEDICARE, SELFPAY ==
--- NOTE | ~2024-10-27 | CT_ITS ---
CT of the Abdomen and Pelvis: Indication: Hematuria Technique: 2.5 mm axial scans were obtained through the abdomen and pelvis prior to and following in travenous administration of 130 cc of Omnipaque 350. Dose reduction technique was used on this scan b y utilizing automated exposure control and iterative reconstruction technique. The dose-length produc t (DLP) was 1928.66 mGy-cm. COMPARISON: 10/26/2024 Findings: Scans through the lung bases are unremarkable. The liver, spleen, pancreas, gallbladder, adrenals and kidneys are within normal limits. There are at herosclerotic calcifications of the aorta. No lymphadenopathy. No bowel obstruction or bowel wall thickening. There is no evidence to suggest acute appendicitis. Images through the pelvis were performed. Urinary bladder unremarkable. No pelvic mass seen. No ascit es. Probable prior hysterectomy. Advanced degenerative change of the lumbar spine present. Impression: No acute abnormality. No etiology for hematuria identified. Reviewed, dictated and finalized at location . Impression: No acute abnormality. No etiology for hematuria identified.
--- OUTSIDE RECORDS SUMMARY | 2024-10-27 06:35 | XMS_ITS | Encounter Summary ---
Author Organization [facility] Health Address [address] [place] [address] Care Team Providers Care Darkroom Technician Name Role Phone Raheel Harvey MD Primary Care Provider Steve banegas Encounter Details Date Type Department Care Team (Late st Contact Info) Description 01/27/2022 Lab Requisition [facility] Lab [address] [place] [address] Burt Regan MD [address] [facility] [address] [address] [place] [address] Social History Tobacco Use Types Packs/Day Years Used Date Smoking Tobacco: Never Assessed Comments Unknown Sex and Gender Information Value Date Recorded Sex Assigned at Not on file 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 Gender Identity Not on file Sexual Orientation Not on file documented as of this encounter Plan of Treatment Not on file documented as of this encounter Procedures Procedure Name Priority Date/Time Associated Diagnosis Comments DERMATOPATHOLOGY Routine 01/25/2022 12:0 0 AM CDT documented in this encounter Results * DERMATOPATHOLOGY (01/25/2022 12:00 AM CDT) Case Report Dermatopathology Report Case: [id number] Authorizing Provider: Burt Regan MD Collected: 01/25/2022 12:00 AM Ordering Location: [facility] Lab Received: 01/27/2022 09:41 AM Pathologist: [...] CDT 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 Path# [id number] 4:13 PM CDT DERMATOPATHOLOGY LABORATORY Gross Description Specimen A: Received is one formalin filled container labeled with the patient's name and designated right lower forearm. The specimen consists of a shave biopsy measuring [id number]. Jar 0. 4:13 PM T DERMATOPATHOLOGY LABORATORY [...] characteristic determined by the Dermatopathology Laboratory at [facility], directed by Dr. Celestine Limon. These tests need not be, and therefore are not, approved by the [place] Food and Drug Administration. The tests are used for clinical purposes. Billing Codes Specimen Charges Stain Charges 22694 1 4:13 PM CDT DERMATOPATHOLOGY LABORATORY Embedded Images 4:13 PM CDT DERMATOPATHOLOGY LABORATORY Pathology/Cytolog y TISSUE SPECIMEN FROM SKIN / Unknown 01/25/2022 01/27/2022 9:41 AM CDT us Burt Regan MD LAB - PATHOLOGY/CYTOLOGY ORDER LUX Final Result DERMATOPATHOLOGY LABORATORY [facility] - Department of Dermatology [facility] [address] [place] [address], [address] [phone] documented in this encounter Visit Diagnoses Not on filedocumented in this encounter Care Teams Darkroom Technician Relationship Specialty Start Date End Date Raheel Harvey MD PCP - General 08/31/21 documented as of this encounter
--- OUTSIDE RECORDS SUMMARY | 2024-10-27 06:35 | XMS_ITS | Encounter Summary ---
Author Organization [facility] Health Address [address] [place] [address] Care Team Providers Care Planning Feeder Name Role Phone Raheel Harvey MD Primary Care Provider Steve banegas Encounter Details Date Type Department Care Team (Late st Contact Info) Description 01/30/2020 Lab Requisition [facility] [address] [address] Burt Regan MD [address] [place] [address] Social History Tobacco Use Types Packs/Day Years Used Date Smoking Tobacco: Never Assessed Comments Unknown Sex and Gender Information Value Date Recorded Sex Assigned at Not on file 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 Gender Identity Not on file Sexual Orientation Not on file documented as of this encounter Plan of Treatment Not on file documented as of this encounter Procedures Procedure Name Priority Date/Time Associated Diagnosis Comments DERMATOPATHOLOGY Routine 01/28/2020 12:0 0 AM CDT documented in this encounter Results * DERMATOPATHOLOGY (01/28/2020 12:00 AM CDT) Case Report Dermatopathology Report Case: [id number] Authorizing Provider: Burt Regan MD Collected: 01/28/2020 12:00 AM Ordering Location: [facility] Received: 01/30/2020 06:59 AM Pathologist: Ghazal Parmar MD Specimen: Skin, left forearm 0 1:53 PM CDT DERMATOPATHOLOGY LABORATORY Final Diagnosis Specimen A. 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 Path# [id number] 0 1:53 PM CDT DERMATOPATHOLOGY LABORATORY Gross [...] characteristic determined by the Dermatopathology Laboratory at [facility], directed by Dr. Celestine Limon. These tests need not be, and therefore are not, approved by the [place] Food and Drug Administration. The tests are used for clinical purposes. Billing Codes Specimen Charges Stain Charges 39666 1 0 1:53 PM CDT DERMATOPATHOLOGY LABORATORY Embedded Images 0 1:53 PM CDT DERMATOPATHOLOGY LABORATORY Pathology/Cytolog y TISSUE SPECIMEN FROM SKIN / Unknown 01/28/2020 01/30/2020 6:59 AM CDT us Burt Regan MD LAB - PATHOLOGY/CYTOLOGY ORDER LUX Final Result DERMATOPATHOLOGY LABORATORY [facility] - Department of Dermatology [address], [address] [phone] documented in this encounter Visit Diagnoses Not on filedocumented in this encounter Care Teams Planning Feeder Relationship Specialty Start Date End Date Harvey, Raheel M, MD PCP - General 08/31/21 documented as of this encounter
--- OUTSIDE RECORDS SUMMARY | 2024-10-27 06:35 | XMS_ITS | Continuity of Care Document ---
Author Organization [facility] Address [address] [place] [address] [address] [place] [address] Phone Care Team Providers Care Shaft Repairer Name Role Phone Last Gramajo Unavailable Unavailable [...] Copied on Encounter Office/outpat ient Visit, Est [facility], [address], [place], [place], [id number], [place] tel:[phone] [facility] No Information 2 [phone] 0 Doijessy Ni. [facility] , [address], [place], [address], [place]. tel:[phone] [facility], [address], [place], [place], [id number], [place] tel:[phone] [facility] [place] No Information 0 [phone] 9 Avila Ni. [address] [place], [place] [address]ate Center , [address], [place], [address], [place]. tel:[phone] [facility], [address] [place] [address] [address], [place], [place], [id number], [place] tel:[phone] [facility] [place] No Information 200 9 [employer]. [address] [facility], [address], [place], [id number], [place]. tel:[phone] Referring Provider: Last Waters, [address] [place], [place] [address]ate Center [address], [place], [address]. tel:[phone] sulting Provider: Shalom Palencia, [address] [place], [place] [address]ate [facility], [place], [address]. tel:[phone] [facility], [address], [place], [place], [address], [place] tel:[phone] [facility] [place] No Information 1200 9 [employer]. [address] [facility], [address], [place], [place], [id number], [place]. tel:[phone] Referring Provider: Last Waters, [address] [place], [place] [address]ate Center [address], [place], [address]. tel:[phone] sulting Provider: Shalom Plaencia, [address] [place], [place] [address]ate [facility], [place], [address]. tel:[phone] [facility], [address] [place] [address] [address], [place], [place], [id number], tel:[phone] [facility] [place] No Information 0 [phone] 8 Avila Ni. [address] [facility] [place] , [address], [place], [place], [facility], . tel:[phone] Office/outpat ient Visit, [facility], [address] [place] [address] [address], [place], [place], [id number], tel:[phone] SEC [facility] No Information 8200 [address] Krishnasamy Cole. [address] [place] [address], [place], [facility], . tel:[phone] Office/outpat ient Visit, [facility], [address] [place] [address] [address], [place], [place], [id number], tel:[phone] SEC [facility] No Information 5200 8 Krishnasamy Cole. [address] [place] [address], [place], [facility], . tel:[phone] [facility], [address] [place] [address] [address], [place], [place], [address], tel:[phone] SEC [facility] No Information 200 7 Avila Ni. [facility] , [address], [place], [place], [facility], . tel:[phone] Family History Family Member Type Diagnosis Age At Onset No Information Payers Payer name Insurance type Covered republican ID Authoriza tion(s) Medicare [facility] [id number] [place] [id number] Social History Type Description Quantity Date Captured [...]
--- OUTSIDE RECORDS SUMMARY | 2024-10-27 06:35 | XMS_ITS | Encounter Summary ---
Author Organization [facility] Health Address [address] [facility] [place] [address] Care Team Providers Care Microfiche Camera Operator Name Role Phone Raheel Harvey MD Primary Care Provider Steve banegas Encounter Details Date Type Department Care Team (Late st Contact Info) Description 02/09/2021 Lab Requisition [facility] DermPath Lab [address] [facility] [place] [address] Burt Regan MD [address] [facility] [address] [address] [place] [address] Social History Tobacco Use Types Packs/Day Years Used Date Smoking Tobacco: Never Assessed Comments Unknown Sex and Gender Information Value Date Recorded Sex Assigned at Not on file 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 Gender Identity Not on file Sexual Orientation Not on file documented as of this encounter Plan of Treatment Not on file documented as of this encounter Procedures Procedure Name Priority Date/Time Associated Diagnosis Comments DERMATOPATHOLOGY Routine 02/07/2021 3:33 AM CDT documented in this encounter Results * DERMATOPATHOLOGY (02/07/2021 3:33 AM CDT) Case Report Dermatopathology Report Case: [id number] Authorizing Provider: Burt Regan MD Collected: 02/07/2021 03:33 AM Ordering Location: [facility] Derm[facility] Lab Received: 02/09/2021 06:03 AM Pathologist: [...] History A: [place] vs [facility]. Path # [id number]. B: [place] vs [facility]. Path # [id number]. 4:23 PM CDT DERMATOPATHOLOGY LABORATORY Gross Description Specimen A: Received is one formalin filled container labeled with the patient's name and designated left forearm distal. The specimen consists of a shave biopsy measuring [id number]. Jar 0. Specimen B: Received is one formalin filled container labeled with the patient's name and designated right mastoid. The specimen consists of a shave biopsy measuring 9b1s1tm. Jar 0. 4:23 PM CDT DERMATOPATHOLOGY LABORATORY [...] characteristic determined by the Dermatopathology Laboratory at [facility], directed by Dr. Celestine Limon. These tests need not be, and therefore are not, approved by the [place] Food and Drug Administration. The tests are used for clinical purposes. Billing Codes Specimen Charges Stain Charges 37860 97281 1 1 4:23 PM CDT DERMATOPATHOLOGY LABORATORY Embedded Images 4:23 PM CDT DERMATOPATHOLOGY LABORATORY Pathology/Cytology TISSUE SPECIMEN FROM SKIN / Unknown 02/07/2021 3:33 AM CDT 02/09/2021 6:03 AM CDT Miscellaneous samples (specimen) TISSUE SPECIMEN FROM SKIN / Unknown 02/07/2021 3:33 AM CDT 02/09/2021 6:03 AM CDT us Burt Regan MD LAB - PATHOLOGY/CYTOLOGY ORDER LUX Final Result DERMATOPATHOLOGY LABORATORY [facility] - Department of Dermatology [facility] Medicine [address] [place] [address], [address] [phone] documented in this encounter Visit Diagnoses Not on filedocumented in this encounter Care Teams Microfiche Camera Operator Relationship Specialty Start Date End Date Raheel Harvey MD PCP - General 08/31/21 documented as of this encounter
--- OUTSIDE RECORDS SUMMARY | 2024-10-27 06:35 | XMS_ITS | Clinical Summary ---
Author Organization [facility] [employer] Address [address] [place] [address] Care Team Providers Care Nut Dehydrator Operator Name Role Phone Raheel Harvey MD Primary Care Provider Steve banegas Source Comments [facility] [employer],non-owned Affiliates and Associated Physician Practices is amultiple site organization consisting of ambulatory clinics and hospital sitesin [place], [place], [place] and [place]. This disclosure is being madepursuant to the Care Everywhere program and may not contain all information available regarding this patient. 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
--- OUTSIDE RECORDS SUMMARY | 2024-10-27 06:35 | XMS_ITS | Encounter Summary ---
Author Organization [facility] Health Address [address] [place] [address] Care Team Providers Care Hydrogen Power Plant Manager Name Role Phone Raheel Harvey MD Primary Care Provider Steve banegas Encounter Details Date Type Department Care Team (Late st Contact Info) Description 07/19/2021 Lab Requisition [facility] DermPath Lab [address] [facility] [place] [address] Burt Regan MD [address] [facility] [place] [address] Social History Tobacco Use Types Packs/Day Years Used Date Smoking Tobacco: Never Assessed Comments Unknown Sex and Gender Information Value Date Recorded Sex Assigned at Not on file 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 Gender Identity Not on file Sexual Orientation Not on file documented as of this encounter Plan of Treatment Not on file documented as of this encounter Procedures Procedure Name Priority Date/Time Associated Diagnosis Comments DERMATOPATHOLOGY Routine 07/18/2021 12:0 0 AM CDT documented in this encounter Results * DERMATOPATHOLOGY (07/18/2021 12:00 AM CDT) Case Report Dermatopathology Report Case: [id number] Authorizing Provider: Burt Regan MD Collected: 07/18/2021 12:00 AM Ordering Location: [facility] DermPath Lab Received: 07/19/2021 03:44 PM [...] CDT Clinical History A: SCCA. Path # [id number]. B: SCCA. Path # [id number]. 2 12:20 PM CDT DERMATOPATHOLOGY LABORATORY Gross Description Specimen A: Received is one formalin filled container labeled with the patient's name and designated left forearm. The specimen consists of a shave biopsy measuring 3s5y6nc. Jar 0. Specimen B: Received is one formalin filled container labeled with the patient's name and designated right hand. The specimen consists of a shave biopsy measuring 16c9s0bv, bisected. Jar 0. 2 12:20 PM T [...] characteristic determined by the Dermatopathology Laboratory at [facility], directed by Dr. Celestine Limon. These tests need not be, and therefore are not, approved by the [place] Food and Drug Administration. The tests are used for clinical purposes. Billing Codes Specimen Charges Stain Charges 42422 [id number] 1 1 2 12:20 PM CDT DERMATOPATHOLOGY LABORATORY Embedded Images 2 12:20 PM CDT DERMATOPATHOLOGY LABORATORY Pathology/Cytology TISSUE SPECIMEN FROM SKIN / Unknown 07/18/2021 07/19/2021 3:44 PM CDT Miscellaneous samples (specimen) TISSUE SPECIMEN FROM SKIN / Unknown 07/18/2021 07/19/2021 3:44 PM CDT us Burt Regan MD LAB - PATHOLOGY/CYTOLOGY ORDER LUX Final Result DERMATOPATHOLOGY LABORATORY [facility] - Department of Dermatology [facility] [address] [place] [address], [address] [phone] documented in this encounter Visit Diagnoses Not on filedocumented in this encounter Care Teams Hydrogen Power Plant Manager Relationship Specialty Start Date End Date Raheel Harvey MD PCP - General 08/31/21 documented as of this encounter
--- OUTSIDE RECORDS SUMMARY | 2024-10-27 06:35 | XMS_ITS | Clinical Summary ---
Author Organization [facility] Facility Address [address] [place] [address], [place] [address] Care Team Providers Care Healthcare Technician Name Role Phone Unavailable Primary Care Provider [...] Type Department Care Team Description 08/06/2024 Refill [facility], [address] [address] Librado Flores MD 07/29/2024 11:30 AM CDT [facility] [address] [facility] [address] [place] [phone] Librado Flores MD Stage 3a chronic kidney [...] 157.5 cm (5' 2) 05/29/2023 11:08 AM WOOD VENEER TAPER Body Mass Index 28.53 05/29/2023 11:08 AM WOOD VENEER TAPER Plan of Treatment Upcoming Encounters Date Type Department Care Team (Late st Contact Info) Description 02/03/2025 10:30 AM CDT Office Visit [facility], [facility] [address] [facility] [address] [place] [phone] [place] [address] [place] [address] [address] [place] [address] Health Maintenance Due Date Last [...] 10.7 mg/dL Phosphorus, Serum 3.7 eGFR Non-Afr [place] >60 PTH 117.7(H) PG/ML Vitamin D, 25-OH, Total 44.5 ng/mL Hemoglobin A1C 6.1(A) 4.0 - 6.0 Protein Urine Random 34(H) Creatinine, Urine Random 53.70 mg/dL Urine Protein/Creatini ne Ratio 0.6(H) mg/g creat Bilirubin, UA Negative Ketones, UA Negative Urine Specific [place] 1.014 Blood, UA Negative Daniel/ul pH, UA [...] Recently Relevant to Health Maintenance Insurance Medicare [facility]
== END 2024-10-27 06:32 | disposition home or self-care (01) ==
PROVIDERS: PCP Internal Medicine; Visit Provider Physician Assistant
DX: R31.0 Gross hematuria (principal)
CPT/HCPCS: 74178; Q9967

== ENCOUNTER 2025-01-27 09:39 | Inpatient (IN) | payer MEDICARE, SELFPAY ==
--- OUTSIDE RECORDS SUMMARY | 2009-12-13 07:45 | XMS_ITS | Continuity of Care Document ---
Author Organization 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 Name Role Phone Last Gramajo Unavailable Unavailable Procedures Procedure Date Office/outpatient Visit, Est Dilated Retinal Exam W Interpretation Au Dilated Macular Or Fundus Exam Findings Communicat Macular Or Fundus Exam Performed 2009 Communication Performed Eye Exam & Treatment Dilated Retinal Exam W Interpretation No Dilated Macular Or Fundus Exam Findings Communicat Macular Or Fundus Exam Performed 2008 Communication Performed No Script Progressive Lens, Plastic Tax - Medical Progressive Lens, Plastic Frames Deluxe Tax - Medical Eye Exam & Treatment Dilated Retinal Exam W Interpretation Se Dilated Macular Or Fundus Exam Findings Communicat Macular Or Fundus Exam Performed 2007 Communication Performed Refraction Office/outpatient Visit, Est Office/outpatient Visit, Est Eye Exam & Treatment Visual Functional Status Assessed Macular Or Fundus Exam Performed 2006 Dilated Macular Or Fundus Exam Findings Communicat Advance Directives Directive Yes / No Effective Date File Name No Information Encounters Encounter Description Practice Location Reason(s) For Visit Diagnoses Date Provider Providers Copied on Encounter Office/outpat ient Visit, Est [facility], [address], [place], [place], [id number], [place] tel:[phone] SEC [facility] No Information 2 [phone] Doijessy Ni. [facility] , [address], [place], [address], [place]. tel:[phone] [facility], [address], [place], [place], [id number], [place] tel:[phone] SEC [facility] [place] No Information 0 2-200 9 Avila Ni. [address] [place], [place] [address]ate Center , [address], [place], [address], [place]. tel:[phone] [facility], [address] [place] [address] [address], [place], [place], [id number], [place] tel:[phone] SEC [facility] [place] No Information 200 9 [employer]. [address] [facility], [address], [place], [id number], [place]. tel:[phone] Referring Provider: Last Waters, [address] [place], [place] [address]ate Center [address], [place], [address]. tel:[phone] sulting Provider: Shalom Palencia, [address] [place], [place] [address]ate [facility], [place], [address]. tel:[phone] [facility], [address] [facility] [address], [place], [place], [id number], [place] tel:[phone] SEC [facility] [place] No Information 1200 9 [employer]. [address] [facility], [address], [place], [place], [id number], [place]. tel:[phone] Referring Provider: Last Waters, [address] [place], [place] [address]ate Center [address], [place], [address]. tel:[phone] sulting Provider: Shalom Palencia, [address] [place], [place] [address]ate [facility], [place], [address]. tel:[phone] [facility], [address] [place] [address] [address], [place], [place], [id number], tel:[phone] SEC [facility] [place] No Information 0 [phone] 8 Avila Ni. [address] [facility] [place] , [address], [place], [place], [facility], . tel:[phone] Office/outpat ient Visit, [facility], [address] [place] [address] [address], [place], [place], [id number], tel:[phone] SEC [facility] No Information 8200 8 Krishnasamy Cole. [address] [place] [address], [place], [facility], . tel:[phone] Office/outpat ient Visit, [facility], [address] [place] [address] [address], [place], [place], [id number], tel:[phone] SEC [facility] No Information 5200 8 Krishnasamy Cole. [address] [place] [address], [place], [facility], . tel:[phone] [facility], [address] [place] [address] [address], [place], [place], [id number], tel:[phone] SEC [facility] No Information 200 7 Avila Ni. [facility] , [address], [place], [place], [facility], . tel:[phone] Family History Family Member Type Diagnosis Age At Onset No Information Payers Payer name Insurance type Covered alliance party ID Authoriza tion(s) Medicare [facility] [id number] [place]BS [place] Commercial [place] [id number] Social History Type Description Quantity Date Captured Comments Sex Female Smoking Status No Information Chief Complaint And Reason For Visit No Information Reason For Referral Reason For Referral No Information History Of Present Illness Encounter Date Complaint History Of Prese nt Illness No Information Functional Status Date Functional Assessmen t No Information Instructions Date Instruction Additional Infor mation No Information Assessments Type Assessment Date No Information Patient Care Teams Name Effective Dates (start - stop) Status Members No Information
[2025-01-27] VITALS (11 sets, daily range): BP systolic 143–176; BP diastolic 75–90; PULSE 82–94; RESP 15–21; TEMP 36.6–36.7; O2SAT 91–98; BMI 28.8
--- NOTE | ~2025-01-27 | XR_ITS ---
EXAMINATION: XR chest 2V, 01/27/2025 10:25 CDT HISTORY: SOB WHEEZING WORSE SINCE LAST NIGHT COMPARISON: No comparisons available. Technique: 2 views obtained. Findings: Small basilar infiltrates. No pneumothorax. Heart is normal size. Mediastinal and hilar contours are within normal limits. Bony thorax no acute abnormality. Impression: Early bilateral pneumonia Reviewed, dictated and finalized at location P. Impression: Early bilateral pneumonia
--- NOTE | 2025-01-27 09:51 | ECG_ITS ---
Test Date: 2025-01-27 09:54:47 Measurements Intervals [place] Rate: 84 P: 46 UT: 175 QRS: -39 QRSD: 158 T: 141 QT: 415 QTc: 492 Interpretive Statements SINUS RHYTHM LEFT AXIS DEVIATION LEFT ATRIAL ENLARGEMENT LEFT BUNDLE BRANCH BLOCK BASELINE ARTIFACT- I, II, AVR, AVL, AVF ABNORMAL ECG Compared to ECG 12/21/2023 08:39:13 NO SIGNIFICANT CHANGE Electronically Signed On 01-27-2025 09:57:37 CDT by Flynn Batres D.O.
--- NOTE | 2025-01-27 10:05 | ED.SOB ---
HPI - SOB/Dyspnea General Chief Complaint: Shortness of Breath/Dyspnea Stated Complaint: SOB since last night Time Seen by Provider: 01/27/25 09:50 Source: patient Mode of arrival: ambulatory Limitations: no limitations History of Present Illness HPI Narrative: Patient is an 84-year-old female, with PMH of CHF, HTN, RA, pAFIB not on anticoagulation, who presents the ED with report of shortness of breath. Patient reports having intermittent shortness of breath over the past 1 week, states he became worse last night. Is worse with lying flat. Is unsure if shortness of breath is worse with exertion. Has had a mild cough recently. Denies congestion, fevers, chest pain, pain or swelling in legs. States she has been in increased pain with her arthritis over the past week as she underwent multiple x-rays for her arthritis recently at [facility]. Related Data Home Medications ?Medication ?Instructions ?Recorded ?Confirmed ?Last Taken ?Type aspirin 81 mg tablet,delayed 81 mg PO DAILY 09/28/20 11/24/24 12/24/21 History release atorvastatin 10 mg tablet 10 mg PO DAILY 09/28/20 11/24/24 12/24/21 History montelukast 10 mg tablet 10 mg PO DAILY 09/28/20 11/24/24 12/24/21 History trazodone 50 mg tablet 50 mg PO QHS 09/28/20 11/24/24 12/24/21 History venlafaxine 75 mg tablet 75 mg PO DAILY 09/28/20 11/24/24 12/24/21 History carvedilol 25 mg tablet (Coreg) 25 mg PO DAILY 01/24/22 11/24/24 Unknown History loratadine 10 mg tablet (Claritin) 10 mg PO DAILY 01/24/22 11/24/24 Unknown History alendronate 70 mg tablet 70 mg PO WEEKLY 11/24/24 11/24/24 Unknown History cyclosporine 0.05 % eye drops in a 1 drp EACH EYE Q12H 11/24/24 11/24/24 Unknown History dropperette (Restasis) dapagliflozin propanediol 5 mg 5 mg PO DAILY 11/24/24 11/24/24 Unknown History tablet (Farxiga) escitalopram oxalate 10 mg tablet 10 mg PO DAILY 11/24/24 11/24/24 Unknown History glipizide 2.5 mg tablet 2.5 mg PO BID 11/24/24 11/24/24 Unknown History insulin degludec 100 unit/mL (3 10 unit subcut DAILY 11/24/24 11/24/24 Unknown History mL) subcutaneous pen (Tresiba FlexTouch U-100 insulin) multivitamin with minerals-folic 1 tablet PO DAILY 11/24/24 11/24/24 Unknown History acid 120 mcg chewable tablet (Centrum Adult 50 Plus Fresh-Fruity) naloxegol 25 mg tablet (Movantik) 25 mg PO QAM 11/24/24 11/24/24 Unknown History nitrofurantoin 100 mg capsule 100 mg PO Q12H 11/24/24 11/24/24 Unknown History oxycodone-acetaminophen 10 mg-325 1 tablet PO Q8H PRN 11/24/24 11/24/24 Unknown History mg tablet Allergies Allergy/AdvReac Type Severity Reaction Status Date / Time ciprofloxacin (From Cipro) Allergy Mild Rash Verified 01/27/25 09:55 Review of Systems Review of Systems: All systems reviewed & are unremarkable except as noted in HPI. All systems reviewed & are unremarkable except as noted in HPI and below PMFSH Past Medical History Medical History Combined systolic and diastolic congestive heart failure Prediabetes Chronic pain syndrome Hyperlipidemia Rheumatoid arthritis Paroxysmal atrial fibrillation Squamous cell carcinoma of skin Hypertension Surgical History Surgical History History of squamous cell carcinoma excision History of knee surgery History of foot surgery History of bladder repair surgery History of hysterectomy Family History Family History Mother Heart disease Heart attack Ovarian cancer DVT (deep venous thrombosis) Father Emphysema lung Social History Social History Social History: Surrogate medical decision maker: Marci Zacarias, daughter. Code status: Full code. Smoking packs per day: 1 Smoking cigarettes per day: 20.0 Years smoked: 12 Smoking pack-years: 12.00 Smoking status: Former smoker Tobacco type: cigarettes Alcohol intake: never Substance use: never Lack of Transportation: No Lack of Food: Never True Current Housing: I Have Housing Concerned About Future Housing: No Difficulty Paying Gas/Electric Bills: No Difficulty Paying for Meds: No Currently Unemployed: No Education: High School Diploma/GED Difficulty w/ Childcare or Family Care: No Additional living arrangements comments: with 3 grown daughters. Lives in her own home in [place]. Spiritual care concerns: No Exam Narrative: GENERAL: Elderly, well appearing, well-nourished, non-toxic, in no acute distress. HEAD: Normocephalic, atraumatic. RESPIRATORY: Airway patent, respirations nonlabored. Mild rhonchi RLL, otherwise CTA, no wheezing CARDIOVASCULAR: Regular rate and rhythm without murmurs, rubs, or gallops. MUSCULOSKELETAL: Moves all extremities. No gross deformities. Trace carli peripheral edema. No calf tenderness. SKIN: Warm, dry, normal color. NEURO: A&O X3. Speech clear. Cranial nerves II-XII grossly intact. Steady gait. No ataxic movements. PSYCHIATRIC: Intermittently tearful. Normal interaction. Course Vital Signs Vital signs: Vital Signs Temperature 98.1 F 01/27/25 09:51 Pulse Rate 92 01/27/25 09:51 Respiratory Rate 21 H 01/27/25 09:51 Blood Pressure 162/90 H 01/27/25 09:51 Pulse Oximetry 97 01/27/25 09:51 Oxygen Delivery Room Air 01/27/25 09:51 Temperature 98.1 F 01/27/25 09:51 Pulse Rate 82 01/27/25 10:52 Respiratory Rate 20 01/27/25 10:52 Blood Pressure 143/76 H 01/27/25 10:52 Pulse Oximetry 96 01/27/25 10:52 Oxygen Delivery Room Air 01/27/25 09:51 MDM - SOB/Dyspnea MDM Narrative Medical decision making narrative: Patient presented to ED with increased shortness of breath since last night. Worse with lying flat. Reports recent mild cough. Does have history of CHF. Vital signs are stable upon arrival. O2 stable on room air. Patient in no acute distress. Cbc without leukocytosis or anemia. Chronic mild thrombocytopenia, consistent previous records. CMP is unremarkable. EKG with chronic left bundle. Appears consistent with previous records. Patient denying chest pain. Troponin 0.016. Will continue to trend. D-dimer age [place] [address]. Patient is on Lasix 20 mg daily. Will give dose of IV Lasix now. CXR with evidence of early bilateral pneumonia. Given recent increased shortness breath with recent cough, will treat for such. Blood cultures obtained. Rocephin and azithromycin started in the ED. Patient will be admitted for continued management. Discussed case with Joaquin hospitalist, accepted patient for admission. Patient and family in agreement with plan. Medical Records Attestation: I reviewed the patient's medical records. Lab Data Attestation: I reviewed the patient's lab results. 01/27/25 09:56 01/27/25 09:56 Labs: Lab Results 01/27/25 01/27/25 Range/Units 09:56 10:04 WBC 6.5 (4.5-10.0) K/mm3 RBC 4.24 (4.2-5.4) M/mm3 Hgb 13.0 (12.0-15.0) g/dL Hct 41.1 (37.0-47.0) % MCV 96.9 (80-100) fl MCH 30.7 (26-34) pg MCHC 31.6 L (32-36) g/dl RDW 12.7 (11.5-14.5) % Plt Count 125 L (150-375) k/mm3 MPV 11.3 H (7.4-10.4) fl Immature Gran % (Auto) 0.2 (0-0.5) % Neut % (Auto) 62.6 (45.5-73.1) % Lymph % (Auto) 24.5 (18.3-44.2) % [place] % (Auto) 9.9 H (2.6-8.5) % Eos % (Auto) 2.3 (0-4.4) % Baso % (Auto) 0.5 (0.2-1.2) % Lymph # (Auto) 1.59 (0.9-3.2) K/mm3 [place] # (Auto) 0.6 (0.1-0.6) K/mm3 Eos # (Auto) 0.2 (0-0.3) K/mm3 Baso # (Auto) 0.0 (0.0-0.1) K/mm3 Abs Immat Gran (auto) 0.01 (0.00-0.031) K/mm3 Absolute Neuts (auto) 4.1 (1.3-6.7) K/mm3 Absolute Nucleated RBC 0.000 (0.0-0.012) K/mm3 Nucleated RBC % 0.0 (0.0-0.2) % % Immature Plt Fraction 6.0 (0.9-11.2) % PT 14.4 (11.1-14.7) Seconds INR 1.1 APTT 29.2 (22.3-36.8) Seconds D-Dimer 0.70 H (<0.48) ug/mL Sodium 139 (137-145) mmol/L Potassium 4.0 (3.4-5.0) mmol/L Chloride 100 (98-107) mmol/L Carbon Dioxide 33 H (22-30) mmol/L Anion Gap 6 (4-12) mmol/L BUN 22 H (7-17) mg/dL Creatinine 0.89 (0.7-1.0) mg/dL Estim Creat Clear Calc 38 ml/min Estimated GFR 60 (59 - ) Glucose 106 (65-110) mg/dL Calcium 8.8 (8.4-10.2) mg/dL Total Bilirubin 0.6 (0.2-1.3) mg/dL AST 35 (14-36) U/L ALT 27 (6-35) U/L Alkaline Phosphatase 67 (38-126) U/L Troponin I 0.016 (0.000-0.034) ng/mL NT-Pro-B Natriuret Pep 83466 H (19.9-100) pg/mL Total Protein 6.7 (6.3-8.2) g/dL Albumin 4.1 (3.5-5.1) g/dL Influenza A (RT-PCR) Pending Influenza B (RT-PCR) Pending RSV (RT-PCR) Pending SARS-CoV-2 RNA (RT-PCR) Pending Imaging Data Attestation: I personally reviewed and interpreted this imaging study as follows: Radiologist's impression: ITS Impressions Chest X-Ray 01/27/25 10:35 Impression: Early bilateral pneumonia ECG Data EKG #1: Attestation: I personally reviewed and interpreted this ECG as follows: ECG completion date: 01/27/25 ECG completion time: 09:54 Prior ECG tracings: available for review (LBBB chronic from 02/2022) EKG Interpretation: normal rate (84), sinus rhythm, non-specific ST changes and LBBB Discharge Plan Discharge Clinical Impression: SOB (shortness of breath), Orthopnea Acute exacerbation of CHF (congestive heart failure) Qualifiers: Heart failure type: unspecified Qualified Code(s): I50.9 - Heart failure, unspecified Pneumonia Qualifiers: Pneumonia type: due to unspecified organism Laterality: bilateral Lung location: unspecified part of lung Qualified Code(s): J18.9 - Pneumonia, unspecified organism Patient Disposition: Still a Patient Condition: Stable Patient Language: Kinyarwanda Prescriptions: No Action escitalopram oxalate 10 mg tablet 10 mg PO DAILY dapagliflozin propanediol [Farxiga] 5 mg tablet 5 mg PO DAILY glipizide 2.5 mg tablet 2.5 mg PO BID insulin degludec [Tresiba FlexTouch U-100] 100 unit/mL (3 mL) insulin pen 10 unit subcut DAILY alendronate 70 mg tablet 70 mg PO WEEKLY cyclosporine [Restasis] 0.05 % dropperette 1 drp EACH EYE Q12H oxycodone-acetaminophen 10-325 mg tablet 1 tablet PO Q8H PRN Movantik 25 mg tablet 25 mg PO QAM Rx Instructions: must be taken on empty stomach; no food 1 hr after or 2-3 hrs before dose multivit with min-folic acid [Centrum Adult 50 Fresh-Fruity] 120 mcg tablet,chewable 1 tablet PO DAILY nitrofurantoin 100 mg capsule 100 mg PO Q12H Rx Instructions: must administer with a meal/food aspirin 81 mg tablet,delayed release (DR/EC) 81 mg PO DAILY atorvastatin 10 mg tablet 10 mg PO DAILY montelukast 10 mg tablet 10 mg PO DAILY venlafaxine 75 mg tablet 75 mg PO DAILY trazodone 50 mg tablet 50 mg PO QHS furosemide 20 mg tablet 20 mg PO DAILY Qty: 14 0RF Entresto 49-51 mg Tablet 1 tablet PO Q12HR Qty: 60 2RF loratadine [Claritin] 10 mg Tablet 10 mg PO DAILY carvedilol [Coreg] 25 mg tablet 25 mg PO DAILY Follow-up/Referrals: Carol,Nando Fernandez MD [Primary Care Provider, Unknown]
[2025-01-27 10:08] LABS: Hematocrit 41.1 % (37.0-47.0); Hemoglobin 13.0 g/dL (12.0-15.0); Immature Granulocyte Percent A 0.2 % (0-0.5); Immature Platelet Fraction Pct 6.0 % (0.9-11.2); Lymphocytes Absolute Auto 1.59 K/mm3 (0.9-3.2); Mean Corpuscular HGB Conc 31.6 g/dl (32-36); Mean Corpuscular Hemoglobin 30.7 pg (26-34); Mean Corpuscular Volume 96.9 fl (80-100); Nucleated Red Blood Cells Absolute Auto 0.000 K/mm3 (0.0-0.012); Nucleated Red Blood Cells Perc 0.0 % (0.0-0.2); Platelet Count Result 125 k/mm3 (150-375); Red Blood Count 4.24 M/mm3 (4.2-5.4); White Blood Count 6.5 K/mm3 (4.5-10.0)
--- OUTSIDE RECORDS SUMMARY | 2025-01-27 10:14 | XMS_ITS | Data Portability ---
Author Organization [place] [facility] [employer], Main Office Address [address] [place] [address] Care Team Providers Care Manager Mechanical Name Role Phone TIGRE MEDINA Primary Care Provider TIGRE MEDINA Referring Provider JOANN COLLIER OTHER BARRY PINEDA Primary Care Provider TOPHER STOKES Referring Provider [phone] Assessment No assessment recorded. Plan of Treatment Reminders Order Date Submit Date Provider Last Modified By Organization Details Last Modified Time Details Appointments Any 15 2025 10:30A M Tigre Medina MD Not available Not available Not available Lab glycohemo globin, total, blood 2024 025 [facility] (Lab), [address] [place], [address], 01/21/2025 20:49:39 CBC w/ auto diff 2024 025 [facility] (Lab), [address] [place], [address], 05/27/2024 13:00:10 glycohemo globin, total, blood [address] (Lab), [address] [place], [address], 06/04/2024 14:55:49 CMP, serum or plasma [address] (Lab), [address] [place], [address], 06/04/2024 14:55:49 microalbu min, urine 2024 025 LINDA [facility] (Lab), [address] [place], [address], 06/02/2024 12:01:45 lipid panel, serum 2024 025 [email or web address] [facility] (Lab), [address] [place], [address], 06/04/2024 14:55:49 Referral rheumatol ogist referral - Please call patient to schedule an appointme nt. Thank you. 2024 025 LINDA Collier MD, [address] [place], [address], 10/21/2024 09:47:21 Procedures None recorded. Surgeries None recorded. Imaging None recorded. Medication Orders OneTouch Ultra Test strips 2024 025 [id number], [address] , [place], [place], [id number], 05/12/2024 13:09:32 Patient TargetsNo targets recorded. Patient Instructions Encounter Date Encounter Id Patient Instructions Last Modified By Organization Details Last Modified Time 01/15/2024 [id number] dementia rating scale-2* Not available 01/15/2024 15:22:08 alcohol misuse* Not available 01/15/2024 15:22:09 depression screening* Not available 01/15/2024 15:22:09 Timed Up and Go test (TUG)* Not available 01/15/2024 15:22:08 multi-dimensiona l health assessment questionnaire* Not available 01/15/2024 15:22:08 advance directiv es: care instructions Not available 01/15/2024 15:22:09 advance care planning: care instructions Not available 01/15/2024 15:22:09 [place] Advance Directives Not available 01/15/2024 15:22:09 Personalized [...] Depression Screening: Negative I have no recommendations. [email or web address] Not available 01/15/2024 14:15:56 01/21/2025 [id number] dementia rating scale-2* LINDA Not available 01/21/2025 16:04:35 multi-dimensiona l health assessment questionnaire* LINDA Not available 01/21/2025 16:01:43 care plan* LINDA Not available 01/21 16:04:42 advance directiv es: care instructions Not available 01/21/2025 14:12:24 advance care planning: care instructions Not available 01/21/2025 14:12:25 [place] Advance Directives Not available 01/21/2025 14:12:24 Personalized Hea lth Plan and Screening Recommendations Advance Directives - Do you have one? Yes You have indicated that you are capable of preparing your advance care directive Advance Directives - Do we have your advance directive on file in your health record? No, please bring in a copy at your earliest convenience Primary Prevention/Interven tion (prevents or decreases the chance of common diseases from occurring) Smoking Risk: Non Smoker Alcohol Misuse Screening: Negative Weight: Appropriate Physical activity: Need more exercise/physical activity Nutrition: Average Refer to attached handout Heart-Healthy Diet: After Your Visit Fall Risk (screened today): High Refer to attached handout Preventing Falls: After your Visit Vaccines Pneumococcal: Recommended today Influenza: Recommended today Chronic Disease Risks Stroke: Intermediate Risk Active diagnosis, Continue current treatment plan Heart Attack: Intermediate Risk Active diagnosis, Continue current treatment plan Clogging of the Arteries: Intermediate Risk Active diagnosis, Continue current treatment plan Diabetes: High Risk Active diagnosis, Continue current treatment plan Secondary Prevention/Interven tion (detects treatable diseases before they may cause symptoms, disability, or ) Breast Cancer Screening with mammogram: Recommended today Cervical/Uterine/Ov jacques Cancer Screening: No screening necessary Osteoporosis Screening: Recommended today Date Screening Last Performed: __02/10/22 Colon Cancer Screening: No screening necessary Date Screening Last Performed: Eye Disease Screening: Recommended today Dementia Risk: Intermediate Depression Screening: Negative Active diagnosis, Continue current treatment plan [email or web address] Not available 01/21/2025 13:26:06 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 Thank you. Referring Physician: Tigre Medina, Internal Medicine, Encounter Date: 09/22/2024 Results Created Date Observation Date Name Description Value Unit Range Abnormal Flag Note LastModifiedBy Organization Detail LastModifiedTime 06/02/1906/02/2024 MICRO ALBUM IN RANDO M URINE microalbumin , urine 133.2 mg/L 0.0-16 .6 high Not Available [facility] (Lab) [address] [place], [address], 06/02/2024 12:01:45 11/26/19 25 11/25/2024 RHEUM ATOID FACTO R rf 13.5 IU/mL 0.0-11 .9 high Not Available [facility] (Lab) [address] [place], [address], 11/25/2024 16:50:07 11/26/19 25 11/25/2024 SEDIM ENTAT ION RATE erythrocyte sedimentatio n rate 73 mm/HR 0-20 high Not Available [facility] (Lab) [address] [place], [address], 11/25/2024 17:07:47 11/26/19 25 11/26/2024 ANTI- CCP ANTIB ODIES IGG/I GA ccp antibodies IgG/IgA 14 units 0-19 Negat mau <20 Weak posit mau 20 - 39 Moder ate posit mau 40 - 59 Stron g posit mau >59 Perfo rmed at: [facility] [address] [place] [address] Lab Direc tor: Miguel gaffney PhD, Phone : [phone] Not Available [facility] (Lab) [address] [place], [address], 11/26/2024 14:11:32 11/26/19 25 11/26/2024 SHAE SCREE N RFX TITER /ELAINE AMERICA antinuclear antibodies, ifa Negati ve Negat mau <1:80 Borde rline 1:80 Posit mau >1:80 ICAP nomchris brownlee re: AC-0 For more infor simon banuelos about Hep-2 cell patte rns use ANApa ttern s.org , the offic liudmila carpenter te for the Inter natio nal Conse nsus on Antin uclea r Antib isaiah (SHAE) Patte rns (ICAP ). Perfo rmed at: [facility] [address] [place] [address] Lab Direc tor: Miguel gaffney PhD, Phone : [phone] Not Available [facility] (Lab) [address] [place], [address], 11/26/2024 19:09:29 01/22/20 25 01/21/2025 HEMOG LOBIN A1C HA1C 6.0 % 4.0-6. 0 Diabe augusto Scree sky Crite florecita: <5.7% Consi stent with absen ce of diabe augusto 5.7-6 .4% Consi stent with incre ased risk for diabe augusto (pred iabet es) >OR=6 .5% Consi stent with diabe augusto REFER ENCE: Diabe augusto Care 2015, 39(Rocha ppl.1 ):s13 -s22 Not Available [facility] ([facility]) [address] [place], [address], 01/21/2025 20:49:39 12/26/19 24 12/21/2023 XR, shoul joe No observ ation record ed. BARCODE Not Available 2023 17:48:11 10/28/19 25 10/27/2024 CT, abdom en + pelvi s, w/o contr ast No observ ation record ed. Not Available 2024 16:07:21 10/28/19 25 10/27/2024 CT, abdom en + pelvi s, w/wo contr ast No observ ation record ed. Not Available 2024 15:02:23 Result Notes None recorded. 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 Not Available [facility] 3 18:03:57 Lichen sclerosus et atrophicu s Active Not Available [facility] 3 18:03:57 Shoulder joint pain 271176442 Completed Not Available [facility] 3 00:58:43 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 050665682 Completed Not Available [facility] 3 00:58:43 Cervical spondylos is 793995804 Active Not Available [facility] 3 18:03:57 Osteoarth ritis 304817885 Active Not Available [facility] 3 18:03:57 Disorder of rotator cuff 731304134 Completed Not Available [facility] 3 00:58:44 Disorder of bursa of shoulder region 72497716 Completed Not Available [facility] 3 00:58:44 Carpal tunnel syndrome 51328875 Active Not Available [facility] 3 18:03:57 Degenerat ion of cervical intervert ebral disc 56540184 Completed Not Available [facility] 3 00:58:45 Brachial neuritis 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 Not Available [facility] 3 18:03:57 Degenerat ion of intervert ebral disc 79751030 Active Not Available [facility] 3 18:03:57 Aseptic necrosis of head of humerus 12869097 Completed Not Available [facility] 3 00:58:45 Spinal stenosis in cervical region 91333411 Active Not Available [facility] 3 18:03:57 Pain in limb 14762290 Completed Not Available [facility] 3 00:58:46 Neck pain 89303509 Completed 201810/28/2021 Not Available [facility] 3 00:58:45 Chronic back pain 127966409 Active 2021 GAB More null, [facility] 5 11:44:17 Insomnia 817080951 Active 2021 Tigre Medina MD [address], [place] [address], [place], [address] , [facility] 5 12:14:27 Recurrent urinary tract infection 312984171 Active 2021 Tigre Medina MD [address], [address], [place], [address] , [facility] 5 12:16:41 Depressiv e disorder 96285554 Active 2021 Jeannie banuelos RMA null, [facility] 5 11:44:17 Anxiety 73969452 Active 2021 Jeannie banuelos RMA null, [facility] 5 11:44:17 Hyperlipi demia 15585532 Active 2021 Jeannie banuelos RMA null, [facility] 5 11:44:17 Essential hypertens ion 87568428 Active 2021 Tigre Medina MD [address] [facility], [address], [address] , [facility] 5 12:05:30 Allergic rhinitis 08965236 Active 2021 Jeannie banuelos RMA null, [facility] 5 11:44:17 Rheumatoi d arthritis 26545572 Active 2021 Tigre Medina MD [address] [facility], [address], [address] , [facility] 5 12:05:30 Diabetes mellitus 22316438 Active 2021 Jeannie banuelos RMA null, [facility] 5 11:44:17 Microalbu minuria 608980032 Active 2021 Not Available [facility] 3 18:03:57 Vitamin D deficienc y 38467056 Active 2021 Not Available [facility] 3 18:03:57 Congestiv e heart failure 88888556 Active 2021 Jeannie banuelos RMA null, [facility] 5 11:44:17 Nausea 966470100 Completed 202103/01/2022 Not Available [facility] 3 00:58:44 COVID-19 531217294 Completed 202103/01/2022 Not Available [facility] 3 00:58:46 Constipat ion 73056969 Active 2021 Not Available [facility] 3 18:03:57 COVID-19 390439893 Active 2021 Not Available [facility] 3 18:03:57 Pain of left hip joint 51953609188 9100 Active 2022 Not Available [facility] 3 18:03:57 Pain of left knee joint 84029773981 4107 Active 2022 Not Available [facility] 3 18:03:57 Urinary symptoms 172759664 Active 2022 Not Available [facility] 3 18:03:57 Type 2 diabetes mellitus 98867308 Active 2022 Marci Borrero MA null, [place] [facility] [place] [facility] 5 11:09:51 Kidney disease 38942212 Active 2022 GAB More null, [place] [facility] 5 11:44:18 Type 2 diabetes mellitus without complicat ion 626826893 Active 2022 Orin Tripp CMA null, [place] [facility] 3 17:03:05 Vaginitis 81887757 Active 2022 Orin Tripp CMA null, [place] [facility] 3 15:50:54 Incontine nce of feces 92988226 Active 2022 ZACHARY MoreA null, [place] [facility] 5 11:44:18 Pain of bilateral knee joints 75691017982 4104 Active 2023 GAB Ocasio null, [place] [facility] 4 10:25:23 Pain of left shoulder joint 66145850659 835170 Active 2023 Martina Jauregui CMA null, [place] [facility] 4 11:22:20 Osteoporo sis 67314362 Active 2023 Shana Springer LPN null, [place] [employer] [facility] [employer] [facility] 4 13:53:28 Pain of shoulder region 25285895 Active 2023 Bee Jane CCM null, [facility] [employer] [facility] 4 15:07:51 Candidias is of vagina 67537430 Active 2024 Marci Borrero MA null, [place] [employer] [facility] [employer] [facility] 5 17:21:41 Liver function test above reference range 271714054 Active 2024 Tigre Medina MD [address] [place] [address], [address] , [facility] [employer] [facility] 5 14:25:16 Problem Notes None recorded. Procedures Surgical History Date Name Laterality Status Provider Name and Address Organization Details Recorded Time 01/22/20 Medicare Wellness CPT Code, subsequent completed Joselin Jarvis [facility] [employer] [facility] 01/20/2025 11:21:15 05/12/19 25 Medicare Wellness CPT Code, subsequent completed Jeannie Black [facility] [employer] [facility] [employer] [facility] 05/12/2024 11:54:34 05/12/19 25 Advanced Care Planning completed Jeannie Black Law [facility] [employer] [facility] 05/12/2024 11:54:34 01/15/20 24 Medicare Wellness CPT Code, subsequent completed Lyndsay Tabor RN [facility] [employer] [facility] 01/15/2024 13:58:39 01/15/20 24 Advanced Care Planning completed Lyndsay Tabor RN [facility] [employer] [facility] 01/15/2024 14:09:52 11/29/19 24 Chronic care management services completed Bee Jane CCM [facility] [employer] [facility] 11/29/2023 15:51:29 10/29/19 24 Chronic care management services completed Bee Jane [facility] [employer] [facility] 11/21/2023 14:39:00 11/10/19 23 Medicare Wellness CPT Code, Initial completed Rupal Trujillo RN [place] [facility] [place] [employer] [facility] 11/09/2022 12:35:47 09/06/19 19 Most Recent Mammogram completed Not Available [facility] 06/21/2022 00:53:15 05/15/19 17 Cataract Surgery completed Not Available [facility] 06/21/2022 00:53:19 06/17/19 15 Date of Last Colonoscopy completed Not Available [facility] 06/21/2022 00:53:15 04/23/18 98 FORGE TENDER Surgery completed Not Available [facility] 06/22/19 00:53:19 04/23/18 90 FORGE TENDER Surgery completed Not Available [facility] 06/22/19 00:53:19 04/23/18 74 FORGE TENDER Surgery completed Not Available [facility] 06/22/19 00:53:19 Knee Surgery completed Not Available [facility] 06/21/2022 00:53:19 Foot Surgery completed Not Available [facility] 06/21/2022 00:53:19 Imaging Results None recorded. Procedure Notes None recorded. Medical Equipment None Reported. Allergies Allergen ID Allergen Name Allergen Category Reaction Reaction Severity Criticality Documentation Date Start Date Code Code System Note Provider Name and Address Organization Details Recorded Time 1606 Substance with sulfonami de structure and antibacte rial mechanism of action (substanc e) medicatio n rash Not available Not available 06/21/2022 13467 8003 SNOMED Not Available [facility] 3 01:09:07 1607 Cipro medicatio n rash Not available Not available 06/21/2022 27547 3 RxNorm Not Available [facility] 3 01:09:07 Medications Name Sig Start Date [...] BY MOUTH 3 TIMES A DAY NEEDED active Not Available Not Available No t Available amoxicill in 500 mg capsule TAKE [...] TABLET BY MOUTH EVERY DAY 2024 active ABDIRIZAK 09/22/24 NOV 01/21/25 ok to rf Not Available Not Available Not Available oxybutyni n chloride ER 10 mg [...] TAKE 1 TABLET BY MOUTH EVERY WEEK 2024 active ABDIRIZAK 09/22/24 NOV 01/21/25 ok to rf Not Available Not Available Not Available prednison e 5 mg tablet TAKE [...] oxazole 800 mg-trimet hoprim 160 mg tablet TAKE 1 TABLET BY MOUTH EVERY 12 HOURS FOR 7 DAYS 01/12 completed Not Available Not Available Not Available [...] active Not Available Not Available Not Available methenami ne hippurate 1 gram tablet TAKE 1 TABLET BY MOUTH TWICE A DAY active Not Available Not Available No t Available famotidin e 20 mg tablet TAKE 1 TABLET BY MOUTH EVERY DAY DIRECTED 02/17 completed Not Available Not Available Not Available methotrex ate sodium 2.5 mg tablet TAKE 8 TABLETS BY MOUTH EVERY 7 DAYS 06/24 completed Not Available Not Available Not Available oxycodone -acetamin ophen 10 mg-325 mg tablet TAKE 1 TABLET BY MOUTH THREE TIMES A DAY NEEDED active Not Available Not Available No t Available AcrisureToOpenPortal Ultra Test strips USE DIRECTED TO TEST BLOOD SUGAR TWICE DAILY active Not Available Not Available No t Available Kenalog 10 mg/mL suspensio n for injection In office injectio n administ ered by the provider 06/27 completed ND: [id number] Not Available Not Available Not [...] nitrofura ntoin macrocrys aravind 100 mg capsule TAKE 1 CAPSULE BY MOUTH TWICE A DAY 01/12 completed Not Available Not Available Not Available hydrochlo rothiazid e 12.5 mg capsule [...] TABLET BY MOUTH EVERY DAY 2024 active ABDIRIZAK 09/22/24 NOV 01/21/25 ok to rf Not Available Not Available Not Available hydroxyzi ne HCl 25 mg tablet [...] completed Not Available Not Available Not Available estradiol 0.01% (0.1 mg/gram) vaginal cream / APPLICAT OR PER VAGINA CREAM TO VAGINA EVERY OTHER DAY active Not Available Not Available No t Available methylpre dnisolone 4 mg tablets in [...] capsule TAKE 1 CAPSULE BY MOUTH TWICE A DAY 01/12 completed Not Available Not Available Not Available [...] administ ered by the provider 04/18 completed [facility]: 0409-427 10-07 Not Available Not Available Not Available Orencia (with maltose) 250 mg intraveno [...] administ ered by the provider 06/27 completed [facility] 88403-63 4- Not Available Not Available Not Available mirabegro n ER 25 mg tablet,ex tended release 24 hr TAKE 1 TABLET BY MOUTH DAILY 09/23 completed Myrbetri q Not Available Not Available Not Available BD Insulin Syringe Ultra-Fin e 1 mL 31 gauge x 09/05 USE DIRECTED TWICE WEEKLY WITH METHOTRE XATE [...] the office by the doctor 01/13 completed NDC: [id number] Not Available Not Available Not Available [...] Not Available Not Available No t Available BinaxNOW COVID-19 Ag Self Test kit TEST DIRECTED TODAY 11/09 completed Not Available Not Available Not Available Paxlovid 300 mg (150 mg x 2)-100 mg tablets in a dose pack TK 2 NIRMATRE LVIR TS AND 1 RITONAVI R T TOGETHER PO BID FOR 5 DAYS BID FOR 5 DAYS 06/27 completed Not Available Not Available Not Available Ultra-Fin e Pen Needle 31 gauge x 09/05 USE ONCE DAILY WITH TRESIBA active Not Available Not Available No t Available Vitals Date Recorded Body weight Body mass index (BMI) Body height Body temperature Heart rate Oxygen saturation Oxygen saturation in Arterial blood by Pulse oximetry Systolic And Diastolic Provider Name and Address Organization Details Last Updated DateTime 5 39350.2 6 g 28.2 kg/m2 154.94 cm 97.4 [degF] 60 /min 94 % 94 % 118/60 mm[Hg] Jeannie calderon Law [facility] [employer] [facility] 5 12:00:44 Date Recorded Body height Body mass index (BMI) Body weight Body temperature Heart rate Oxygen saturation Oxygen saturation in Arterial blood by Pulse oximetry Systolic And Diastolic Provider Name and Address Organization Details Last Updated DateTime 5 154.94 cm 29.9 kg/m2 20627.5 9 g 97.4 [degF] 87 /min 93 % 93 % 156/74 mm[Hg] Jeannie calderon [facility] [employer] [facility] 5 11:50:04 Date Recorded Body height Provider Name an d Address Organization Details Last Updated DateTime 11/29/2023 154.94 cm Bee Jane CCM [facility] [employer] [facility] 11/29/2023 15:29:08 Date Recorded Body height Body mass index (BMI) Body weight Body temperature Heart rate Oxygen saturation Oxygen saturation in Arterial blood by Pulse oximetry Systolic And Diastolic Provider Name and Address Organization Details Last Updated DateTime 4 154.94 cm 30.4 kg/m2 03423.3 7 g 97.2 [degF] 74 /min 97 % 97 % 118/70 mm[Hg] Jeannie calderon [facility] [employer] [facility] 4 12:13:41 Date Recorded Pain severity - 0-10 verbal numeric rating [Score] - Reported Provider Name and Address Organization Details Last Updated DateTime 01/15/2024 10 Lyndsay Tabor RN [facility] [facility] 01/15/2024 13:58:59 Date Recorded Body height Body mass index (BMI) Body weight Body temperature Heart rate Oxygen saturation Oxygen saturation in Arterial blood by Pulse oximetry Systolic And Diastolic Provider Name and Address Organization Details Last Updated DateTime 5 154.94 cm 30 kg/m2 09935.1 9 g 97 [degF] 76 /min 92 % 92 % 120/70 mm[Hg] Jeannie calderon [facility] 5 11:43:41 Social History Question Answer Notes LastModified by Organization Details LastModified Time Tobacco Smoking Status Former Smoker quit 1972 Not Available [facility] 06/21/2022 00:45:40 Do You Have An Advance Directive? No Paperwork Provided 01/15/2024 [email or web address] Information not available 01/15/2024 Do You Wear A Helmet When Biking? No Cov[place] Not Ride Bicycle [email or web address] Information not available 01/15/2024 Are You Blind Or Do You Have Difficulty Seeing? No Wears Glasses [email or web address] Information not available 01/15/2024 Is Blood Transfusion Acceptable In An Emergency? Yes [email or web address] Information not available 01/15/2024 What Is Your Level Of Caffeine Consumption? None [id number] Information not available 06/21/2022 In The 14 Days Before Symptom Onset, Have You Had Close Contact With A Laboratory-conf irmed COVID-19 While That Case Was Ill? No Not Applicable [email or web address] Information not available 01/15/2024 In The 14 Days Before Symptom Onset, Have You Had Close Contact With A Person Who Is Under Investigation For COVID-19 While That Person Was Ill? No Not Applicable [email or web address] Information not available 01/15/2024 Are You Deaf Or Do You Have Serious Difficulty Hearing? No [id number] Information not available 06/21/2022 What Type Of Diet Are You Following? REGULAR [id number] Information not available 06/21/2022 Which Illicit Or Recreational Drugs Have You Used? None [id number] Information not available 06/21/2022 What Is The Highest Grade Or Level Of School You Have Completed Or The Highest Degree You Have Received? [id number] Information not available 06/21/2022 How Many Days Of Moderate To Strenuous Exercise, Like A Brisk Walk, Did You Do In The Last 7 Days? 0 [email or web address] Information not available 01/15/2024 Have There Been Any Changes To Your Family Or Social Situation? No MIGRATION.0301 [id number] Information not available 06/21/2022 What Is The Fluoride Status Of Your Home? Fluoridated [email or web address] Information not available 01/15/2024 When Did You Quit Smoking? 16+yearssincelastc igarette [email or web address] Information not available 11/09/2022 Are There Any Guns Present In Your Home? No MIGRATION.0301 [id number] Information not available 06/21/2022 Do You Use Insect Repellent Routinely? Yes MIGRATION.0301 [id number] Information not available 06/21/2022 Where Do You Live? SingleLevelHouse Information not available 10/29/2023 Presence Of Domestic Violence No [email or web address] Information not available 11/09/2022 Are You Able To Care For Yourself? Yes [email or web address] Information not available 11/09/2022 Are You Blind Or Do Yo Have Difficulty Seeing? No Wears Glasses [email or web address] Information not available 11/09/2022 Are You Deaf Or Do You Have Serious Difficulty Hearing? No [email or web address] Information not available 11/09/2022 General Stress Level? Moderate [email or web address] Information not available 01/15/2024 Live Alone Of With Others? Alone Information not available 11/09/2022 Do You Have A Medical Power Of Furniture Assembly Supervisor? No [email or web address] Information not available 01/15/2024 What Was The Date Of Your Most Recent Tobacco Screening? 01/15/2024 [email or web address] Information not available 01/15/2024 How Many Children Do You Have? 3 [email or web address] Information not available 01/15/2024 What Is Your Current Pack Years? 10packyears [email or web address] Information not available 01/15/2024 Do You Have Any Pets? No MIGRATION.0301 [id number] Information not available 06/21/2022 What Is Your Relationship Status? MIGRATION.0301 [id number] Information not available 06/21/2022 Do You Use Your Seat Belt Or Car Seat Routinely? Yes MIGRATION.0301 [id number] Information not available 06/21/2022 Are You Sexually Active? No [email or web address] Information not available 01/15/2024 Do You Have Smoke And Carbon Monoxide Detectors In Your Home? Yes MIGRATION.0301 [id number] Information not available 06/21/2022 At What Age Did You Start Smoking Tobacco? 21 [email or web address] Information not available 01/15/2024 Are You Passively Exposed To Smoke? No MIGRATION.0301 [id number] Information not available 06/21/2022 Are There Any Smokers In Your House? No MIGRATION.0301 815709 Information not available 06/21/2022 How Much Tobacco Do You Smoke? 1 PPW [email or web address] Information not available 01/15/2024 What Types Of Sporting Activities Do You Participate In? None [email or web address] Information not available 01/15/2024 Do You Use Sunscreen Routinely? Yes MIGRATION.0301 [id number] Information not available 06/21/2022 Has Tobacco Cessation Counseling Been Provided? No [email or web address] Information not available 01/15/2024 How Many Years Have You Smoked Tobacco? 10 [email or web address] Information not available 01/15/2024 Have You Recently Traveled Abroad? No MIGRATION.0301 086309 Information not available 06/21/2022 Do You Have Difficulty Walking Or Climbing Stairs? No MIGRATION.0301 898545 Information not available 06/21/2022 Do You Have Any Dietary Restrictions? No MIGRATION.0301 223679 Information not available 06/21/2022 Sex: Unknown Functional Status Question Answer Note LastModified by Organizat ion Details LastModified Time Do you use any illicit or recreational drugs? No [email or web address] Information not available 01/15/2024 Do you or have you ever used any other forms of tobacco or nicotine? No [email or web address] Information not available 01/15/2024 What is your level of alcohol consumption? None MIGRATION.79831 22559 Information not available 06/21/2022 Are you currently employed? No Information not available 10/29/2023 Do you have transportation difficulties? No family gives rides Information not available 11/29/2023 Are you able to walk independently without assistance or assistive devices? [email or web address] walker Information not available 11/29/2023 Do you have difficulty doing errands alone? No MIGRATION.76429 80681 Information not available 06/21/2022 Are you able to care for yourself independently? Yes MIGRATION.37003 17987 Information not available 06/21/2022 What is your occupation? retired MIGRATION.56098 23685 Information not available 06/21/2022 Do you have difficulty dressing, bathing, grooming, or toileting? No MIGRATION.27205 96193 Information not available 06/21/2022 Do you or have you ever used e-cigarettes or vape? Never used electronic cigarettes MIGRATION.37394 71619 Information not available 06/21/2022 What is your exercise level? None MIGRATION.35953 21678 Information not available 06/21/2022 Mental Status Question Answer Note LastModified by Organizat ion Details LastModified Time Do you feel stressed (tense, restless, nervous, or anxious, or unable to sleep at night)? [id number] [email or web address] Information not available 01/15/2024 Do you have difficulty concentrating, remembering or making decisions? No MIGRATION.15180372 26 Information not available 06/21/2022 Family History Relationship Description Onset Age of this Age Resolved Age Notes LastModified by Organization Details LastModified Time Mother Family history of malignant neoplasm MIGRATION.554 [id number] Not available 06/21/2022 00:53:20 Mother Heart disease MIGRATION.735 [id number] Not available 06/21/2022 00:53:20 Daughter Factor V deficiency MIGRATION.533 [id number] Not available 06/21/2022 00:53:20 Daughter Malignant neoplasm of breast MIGRATION.606 [id number] Not available 06/21/2022 00:53:20 Notes:FAMILY HISTORY OF DIAB ETIES AND HYPERTENTION Medical History Condition Response ARTHRITIS Y ANXIETY DISORDER ATRIAL FIBRILLATION Y SKIN PROBLEMS Y DIABETES, TYPE Y HEART DISEASE/HEART PROBLEMS Y URINARY/BLADDER/KIDNEY PROBLEMS Y HEART ARRHYTHMIA Y DEPRESSION (INCLUDING POST ) Y BOWEL PROBLEMS HYPERTENSION Y HIGH CHOLESTEROL / HYPERLIPIDEMIA Y Gynecological History Statement/Question Response Abnormal Pap [...] PF 01/29/2021 completed Bee Jane CCM null, [place] [employer] 10/29/2023 15:17:09 Influenza, high-dose, quadrivalent, PF 02/03/2022 completed Bee Jane CCM null, [place] [employer] 10/29/2023 15:17:09 COVID-19, mRNA, LNP-S, PF, 100 mcg/0.5mL dose or 50 mcg/0.25mL dose 06/01/2020 completed Bee Jane CCM null, [facility] 10/29/2023 15:17:09 COVID-19, mRNA, LNP-S, PF, 100 mcg/0.5mL dose or 50 mcg/0.25mL dose 06/29/2020 completed Bee Jane CCM null, [facility] 10/29/2023 15:17:09 COVID-19, mRNA, LNP-S, PF, 100 mcg/0.5mL dose or 50 mcg/0.25mL dose 11/01/2021 completed Bee Jane CCM null, [facility] 10/29/2023 15:17:09 COVID-19, mRNA, LNP-S, PF, 100 mcg/0.5mL dose or 50 mcg/0.25mL dose 02/23/2021 completed Bee Rudolphlaw CCM null, [facility] 10/29/2023 15:17:09 COVID-19, mRNA, LNP-S, bivalent, PF, 30 mcg/0.3 mL dose 02/10/2022 completed Bee Ronnilaw CCM null, [facility] 10/29/2023 15:17:09 Influenza, high-dose, trivalent, PF 03/03/2024 completed Not Available [facility] 2024 11:36:16 Influenza, high-dose, quadrivalent, PF 02/06/2023 completed Tigre Medina MD [address] [place] [address], [address], [facility] 02/06/2023 11:06:10 COVID-19, mRNA, LNP-S, PF, 100 mcg/0.5mL dose or 50 mcg/0.25mL dose 05/27/2020 completed Not Available [facility] 18:03:57 Past Encounters Encounter ID Performer Location Encounter Start Date Encounter Closed Date Diagnosis/Indication Diagnosis SNOMED-CT Code Diagnosis ICD10 Code Diagnosis IMO Codes Diagnosis Note [id number] S_[facility] _ATHENA_M IGRATION_ DEFAULT_1 _1 , 06/24/2020 00:00:00 06/24/2020 15:51:28 [id number] Topher Stokes MD AHS_[facility] [address] [place] [address] 9 01/13/2021 00:00:00 02/06/2021 20:08:10 [id number] Topher Stokes MD S_GMG [address] [address] 02/17/2021 00:00:00 02/20/2021 16:50:55 [id number] Topher Stokes MD S_GMG [address] [address] 03/03/2021 00:00:00 03/03/2021 16:02:25 [id number] Tigre Medina MD [facility] [address] [address] 11/02/2021 00:00:00 11/02/2021 13:17:22 [id number] MD JOSEPH LouS_[facility] [address] [address] 12/12/2021 00:00:00 12/12/2021 13:36:39 [id number] MD PINEDA Lou_[facility] [address] [address] 01/03/2022 00:00:00 01/03/2022 15:11:04 [id number] Tigre Medina MD [facility] [address] [address] 03/02/2022 00:00:00 03/02/2022 15:06:25 [id number] MD PINEDA Lou_[facility] [address] [address] 04/07/2022 00:00:00 04/07/2022 12:46:26 [id number] Topher Stokes MD A[facility] [address] [address] 06/08/2022 00:00:00 06/08/2022 11:41:54 [id number] Topher Stokes MD [facility] [place] [address] [facility], [address] [place] [address] 06/22/2022 11:53:05 06/22/2022 12:46:40 Pain of left knee joint 4927613889 12170 M25.562 [id number] Tigre Medina MD [facility] Internal Med [address] [address] 06/27/2022 14:13:59 06/27/2022 14:51:23 Urinary symptoms 711376029 R39.9 possible uti [id number] Tigre Medina MD [facility] Internal [address] [place] [address] 07/07/2022 11:52:07 07/07/2022 12:27:34 Essential hypertension 16077179 I10 under control Anxiety 21859189 F41.9 under control Depressive disorder 3548 9007 F32.A under control Allergic rhinitis 500701 04 J30.9 otc Rheumatoid arthritis 698 33037 M06.9 seeing Rheumatolo gist Insomnia 277902979 G47.0 0 under control Hyperlipidemia 02435985 E78.5 labs good Chronic back pain 194340 002 G89.29 seeing pain mangement Recurrent urinary tract infection 677433510 N39.0 better since taking daily meds Diabetes mellitus 734210 09 E11.9 cut down the metformin, watch accu checks Congestive heart failure 25926294 I50.9 under control Adult [facility] th examination 725469532 Z00.00 Mammo-04/24 023 Dexa-NOT DUE Pap- no more needed- hysterecto my COVID- has had 2 shots and 2 boosters Flu- 2021 [id number] Tigre Medina MD [facility] Internal Med [address] [address] 11/09/2022 11:33:37 11/09/2022 12:37:34 Essential hypertension 50142829 I10 under control Anxiety 08325743 F41.9 under control Depressive disorder 3548 9007 F32.A under control Allergic rhinitis 862524 04 J30.9 otc Rheumatoid arthritis 698 22952 M06.9 seeing Rheumatolo gist Insomnia 362121342 G47.0 0 under control with high dose trazodone Hyperlipidemia 44049225 E78.5 labs good Chronic back pain 925197 002 G89.29 seeing pain management Recurrent urinary tract infection 337230819 N39.0 better since taking daily meds Diabetes mellitus 403063 09 E11.9 stop metformin due to kidney disease, start Farxiga Congestive heart failure 47603971 I50.9 under control Adult heal th examination 027001214 Z00.00 Mammo-04/24 023 Dexa-NOT DUE Pap- no more needed- hysterecto my COVID- has had 2 shots and 2 boosters Flu- 2021 Kidney disease 03168784 N08 start Farxiga Screening for disorder 468762965 Z13.9 [id number] Tigre Medina MD [facility] Internal Med [address] [facility] [place] [address] 12/21/2022 11:39:45 12/21/2022 12:45:46 Diabetes mellitus 60779608 E11.9 UNCONTROLL EDcould not afford Farxigawil l ^ glipizide to bid, keep taking Invokana ( too expensive per pt )send accu checks every 2 weeks to adjust medsinsuli n if not better [id number] Tigre Medina MD [facility] Internal Med [address] [facility] [place] [address] 02/06/2023 10:27:32 02/06/2023 11:36:57 Essential hypertension 61211107 I10 under control Anxiety 70592440 F41.9 under control Depressive disorder 3548 9007 F32.A under control Allergic rhinitis 132783 04 J30.9 ot Rheumatoid arthritis 698 10137 M06.9 seeing Rheumatolo gist , fair Insomnia 833692800 G47.0 0 under control with high dose trazodone Hyperlipidemia 83486628 E78.5 labs good Chronic back pain 871455 002 G89.29 was seeing pain management , not any more Recurrent urinary tract infection 120745560 N39.0 better since taking daily meds Diabetes mellitus 009771 09 E11.9 still not under control, need to control better, start Tresiba 10 units daily, sample pen given, first dose given here in the office and pt teaching donesend accu check record every 2 weeks to adjust dosage Congestive heart failure 24121241 I50.9 under control Adult [facility] examination 970814215 Z00.00 Mammo-04/24 023Dexa-NO T DUEPap- no more needed- hysterecto myCOVID- has had 2 shots and 2 boostersFl 2021 Kidney disease 73215257 [address] Flores Administra tion of influenza vaccine 83700778 Z23 Incontinence of feces 72 473445 R15.9 metamucil bid [id number] Tigre Medina MD [facility] Internal Med [address] [facility] [place] [address] 2023 11:08:04 2023 11:50:49 Diabetes mellitus 66320729 E11.9 take glipizide to ER bid, ^ tresiba to 14eat dinner at 7 pm [id number] Tigre Medina MD [facility] Internal Med [address] [facility] [place] [address] 06/12/2023 11:54:33 06/12/2023 13:03:50 Diabetes mellitus 61900866 E11.9 getting better, change Glipizide 2.5 bid, take Tresiba 10 units in am INSTEAD of pm Essential hypertension 80723720 I10 under control Anxiety 54880185 F41.9 under control Depressive disorder 3548 9007 F32.A under control Allergic rhinitis 150371 04 J30.9 otc Rheumatoid arthritis 698 01419 M06.9 seeing Rheumatolo gist , Insomnia 063987293 G47.0 0 under control Hyperlipidemia 94506983 E78.5 labs good Chronic back pain 256692 002 G89.29 was seeing pain management , not any more meds Recurrent urinary tract infection 154338069 N39.0 better since taking daily meds Congestive heart failure 44317382 I50.9 under control Adult [facility] examination 364483950 Z00.00 Mammo-04/24 023Dexa-Pa p- no more needed- hysterecto myCOVID- has had 2 shots and 2 boostersFl u- 02/06/2023 Kidney disease 22491482 N08 stable GFR Incontinence of feces 72 550689 R15.9 metamucil bid [id number] Topher Stokes MD [facility] Ortho [place] [address] [place] [address] 06/13/2023 09:50:48 06/18/2023 10:01:07 Pain of bilateral knee joints 8397023367 05756 M25.561 M25.562 Pain of le ft shoulder joint 6462464614 0538353 M25.110 [id number] Tigre Medina MD [facility] Internal Med [address] [facility] [place] [address] 09/11/2023 11:52:52 09/11/2023 12:37:44 Diabetes mellitus 34715965 E11.9 getting better Essential hypertension 71207999 I10 under control Anxiety 92386458 F41.9 under control Depressive disorder 3548 9007 F32.A under control Allergic rhinitis 649703 04 J30.9 otc Rheumatoid arthritis 698 28351 M06.9 seeing Rheumatolo gist , Insomnia 255396550 G47.0 0 under control Hyperlipidemia 70082676 E78.5 under control Chronic back pain 987273 002 G89.29 was seeing pain management , not any more meds Recurrent urinary tract infection 481932672 N39.0 better since taking daily meds Congestive heart failure 44971761 I50.9 under control, needs echo, she will discuss with her cardiologi [facility] examination 263858454 Z00.00 Mammo-04/24 023Dexa-Pa p- no more needed- hysterecto myCOVID- has had 2 shots and 2 boostersFl u- 02/06/2023 Kidney disease 87003980 N08 GFR 46 Incontinence of feces 72 979038 R15.9 metamucil bid Postmenopausal state 764 41806 Z78.0 [id number] Tigre Medina MD [facility] Internal Med [address] [facility] [place] [address] 10/29/2023 15:14:59 01/02/2024 17:40:08 Pain of shoulder region 28852299 M25.519 Type 2 shahzad betes mellitus 04247219 E11.9 [id number] Tigre Medina MD [facility] Internal Med [address] [facility] [place] [address] 11/29/2023 15:19:43 01/08/2024 13:15:57 Pain of shoulder region 13470313 M25.519 Rheumatoid arthritis 698 93210 M06.9 Diabetes mellitus 576810 09 E11.9 [id number] Tigre Medina MD [facility] Internal Med [address] [facility] [place] [address] 01/15/2024 11:55:46 01/15/2024 14:03:03 Diabetes mellitus 06698813 E11.9 getting better, cut down the dose to 8 units, take glipizide bid not 2 once a day Essential hypertension 98537258 I10 under control Anxiety 34801775 F41.9 under control Depressive disorder 3548 9007 F32.A under control Allergic rhinitis 635335 04 J30.9 otc Rheumatoid arthritis 698 03749 M06.9 seeing Rheumatolo gist , off prednisone Insomnia 570599982 G47.0 0 under control Hyperlipidemia 33713703 E78.5 under control Chronic back pain 203587 002 G89.29 seeing pain management , Recurrent urinary tract infection 200395873 N39.0 better since taking daily meds Congestive heart failure 23193311 I50.9 under control, Adult heal th examination 297801415 Z00.00 Mammo-04/24 023Dexa- 10/08/23Pa p- no more needed- hysterecto myCOVID- has had 2 shots and 2 boostersFl u- 02/06/2023 Kidney disease 59819443 N08 GFR 44 Incontinence of feces 72 864714 R15.9 BETTER Screening for disorder 798031862 Z13.9 [id number] Tigre Medina MD [facility] Internal Med [address] [facility] [place] [address] 05/12/2024 11:42:22 05/12/2024 12:44:46 Diabetes mellitus 26667642 E11.9 much better Essential hypertension 19450637 I10 under control Anxiety 94576317 F41.9 under control Depressive disorder 3548 9007 F32.A under control Allergic rhinitis 758601 04 J30.9 otc Rheumatoid arthritis 698 23391 M06.9 seeing Rheumatolo gist , off prednisone Insomnia 822367288 G47.0 0 under control Hyperlipidemia 53505605 E78.5 under control Chronic back pain 962252 002 G89.29 seeing pain management , Recurrent urinary tract infection 160563933 N39.0 better since taking daily meds Congestive heart failure 44388707 I50.9 under control, to get echo at cardiology Adult [facility] examination 249357663 Z00.00 Mammo-/2 023Dexa- 10/08/23Pa p- no more needed- hysterecto myCOVID- has had 2 shots and 2 boostersFl u- 2023 Kidney disease 94564314 N08 GFR 48, stable Incontinence of feces 72 662628 R15.9 BETTER [id number] Tigre Medina MD [facility] Internal Med [facility] [address] [facility] [place] [address] 09/22/2024 11:34:53 09/22/2024 12:52:47 Diabetes mellitus 80960973 E11.9 under control Essential hypertension 02029958 I10 high due to pain Anxiety 11571591 F41.9 under control Depressive disorder 3548 9007 F32.A under control Allergic rhinitis 683562 04 J30.9 ot Rheumatoid arthritis 698 40112 M06.9 wants to see different Rheumatolo gist , Insomnia 473054438 G47.0 0 under control Hyperlipidemia 31744866 E78.5 under control Chronic back pain 409127 002 G89.29 seeing pain management , Recurrent urinary tract infection 901608683 N39.0 better since taking daily meds Congestive heart failure 72017013 I50.9 under control, gets echo at cardiology , EF 35% Adult [facility] examination 092726213 Z00.00 Mammo-/2 023Dexa- 10/08/23Pa p- no more needed- hysterecto myCOVID- has had 2 shots and 2 boostersFl u- 2023 Kidney disease 24702702 N08 GFR stable Incontinence of feces 72 369623 R15.9 BETTER [id number] Tigre eMdina MD [facility] Internal Med [facility] [address] [facility] [place] [address] 01/21/2025 11:34:12 01/21/2025 12:56:30 Adult health examination 138618666 Z00.00 Mammo-04/24 023Dexa- 10/08/23Pa p- no more needed- hysterecto myCOVID- has had 2 shots and 2 boostersFl u- 2023 Screening for disorder 907836904 Z13.9 Diabetes mellitus 058172 09 E11.9 under control Essential hypertension 12088892 I10 under control Anxiety 21952474 F41.9 under control Depressive disorder 3548 9007 F32.A under control Allergic rhinitis 158378 04 J30.9 otc Rheumatoid arthritis 698 05672 M06.9 treatment plan being made Insomnia 858683524 G47.0 0 take 2 trazodone Hyperlipidemia 92600485 E78.5 under control Chronic back pain 893525 002 G89.29 seeing pain management , Recurrent urinary tract infection 259934681 N39.0 better with current meds Congestive heart failure 87165726 I50.9 under control, gets echo at cardiology , EF 35% Kidney disease 43288683 N08 GFR stable Goals Section Goal Description Progress Status Start Date LastModified by Organization Details LastModified Time Patient states improved pain level Finished physical therapy NoChange active 2023 Bee Jane CCM Information not available 11/29/2023 19:23:50 Patient maintains a blood glucose level at baseline Continue to have normal blood glucose levels, maintain diabetic diet NoChange active 2023 Bee Jane CCM Information not available 11/29/2023 19:24:26 Health Concerns [...] Member ID Strong Member ID Guarantor Name 01/21/2025 2 [place] [id number] Chelsea Zamarripa [id number] Chelsea Zamarripa 01/21/2025 1 [place] Chelsea Zamarripa [id number] Chelsea Zamarripa 01/21/2025 2 [place]PPLE[place]) [id number] Chelsea Zamarripa [id number] Chelsea Zamarripa 01/21/2025 [employer] - DMEPOS ASSIGNED (MEDICARE DME REGION B) Chelsea Zamarripa [id number] Chelsea Zamarripa Notes Date Note Type [...] are stable 44 Tigre Medina MD [address], [address], [place], [address], [place] [employer] 01/15/2024 15:22:15 5 text/html Pt is here today for a routine check up, doing fine, complaint to medsPT IS NOT FASTING ( Medicare/[employer] ) C/o arthritis pain, using walker, hard [...] on Farxiga, Dr Rita Medina MD [address], [address], [place], [address], [place] [employer] 05/12/2024 12:46:03 5 text/html Pt is here today for a routine check up, doing fine, complaint to medsPT IS NOT FASTING ( Medicare/[employer] )Pt brought updated med list C/o left [...] on Farxiga, Dr Rita Medina MD [address] [facility], [address], [place], [address], [place] [employer] 09/22/2024 12:25:08 5 text/html Pt is here today for a routine check up, doing fine, complaint to medsPT IS NOT FASTING ( Medicare/BS ) MEDICARE WELLNESS EXAM Ex-smoker- quit in 1971HTN- under control with medsMed- Carvedilol 25 bid Osteoporosis- On medMeds- Alendronate 75mg once a weekDM-accu checks range from 100-140, A1c 6.1 (05/2024 )Last eye exam was 05/2024 (Not in chart)Med- Glipizide 5 mg bid , Farxiga 5mg daily, Tresiba 6u daily H/o Afib s/p cardioversion , seen Dr Valdivia, was on digoxin, losartan , amlodipineAllergic Rhinitis- betterMeds- Montelukast 10 mg, ZyrtecDepression- under control, under control , no anxietyMed- Escitalopram 10 mg qd , Venlafaxine 75mgInsomnia- Trazadone 50 mg help, on pain meds which gives her good sleephyperlipidemia - on meds, watching diet,med-Atorvastatin 10mgRheumatoid arthritis- Seeing Stephany Vargas, INFUSION PHARMACIST ([facility]) No longer taking Azathioprine due to upset stomachWas taking Tremfya had her last injection ,she has w/u being done from new provider then making plansMeds- Not taking any meds Overactive bladder/ recurrent uti- seen urology, on daily abx, ceftinMeds- was on Gemtesa 75mg daily, did not help now takesMirabegron ER 25mgChronic back pain- spinal stenosis, seen neuro surgeon, seeing pain management , on oxycodone for few yearsCHF- EF 25%, no symptoms, seen cardiology Had bilateral ankle swelling and is better but still taking medMeds- Furosemide 20mg daily Left hip pain, seeing ortho, had shots Kidney disease-Her kidneys functions are stable 48, on Farxiga, Dr Salinas Recurrent UTI- was on daily abx, now on methenamine , Dr Gabriella Medina MD [address] [facility], [facility] [address], [place], [address], [place] [facility] [employer] 01/21/2025 14:12:33 OBGyn Episode No OBEpisode recorded.
--- OUTSIDE RECORDS SUMMARY | 2025-01-27 10:15 | XMS_ITS | Clinical Summary ---
Author Organization [facility] Address [address] [place] [address] Care Team Providers Care Machine Set Up Name Role Phone Raheel Harvey MD Primary Care Provider Steve banegas Source Comments [facility],non-owned Affiliates and Associated Physician Practices is amultiple site organization consisting of ambulatory clinics and hospital sitesin [place], [place], [place] and [place]. This disclosure is being madepursuant to the Care Everywhere program and may not contain all information available regarding this patient. 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
--- OUTSIDE RECORDS SUMMARY | 2025-01-27 10:15 | XMS_ITS | Encounter Summary ---
Author Organization [facility] Health Address [address] [facility] [place] [address] Care Team Providers Care Metal Temperer Name Role Phone Raheel Harvey MD Primary Care Provider Steve banegas Encounter Details Date Type Department Care Team (Late st Contact Info) Description 01/27/2022 Lab Requisition [facility] DermPath Lab [address] [facility], [facility] [place] [address] Burt Regan MD [address] [place] [address] Social History Tobacco Use Types Packs/Day Years Used Date Smoking Tobacco: Never Assessed Comments Unknown Sex and Gender Information Value Date Recorded Sex Assigned at Not on file 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 Gender Identity Not on file Sexual Orientation Not on file documented as of this encounter Plan of Treatment Not on file documented as of this encounter Procedures Procedure Name Priority Date/Time Associated Diagnosis Comments DERMATOPATHOLOGY Routine 01/25/2022 12:0 0 AM CDT documented in this encounter Results * DERMATOPATHOLOGY (01/25/2022 12:00 AM CDT) Case Report Dermatopathology Report Case: [id number] Authorizing Provider: Burt Regan MD Collected: 01/25/2022 12:00 AM Ordering Location: [facility] DermPath Lab Received: 01/27/2022 09:41 AM [...] CDT 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 Path# [id number] 4:13 PM CDT DERMATOPATHOLOGY LABORATORY Gross Description Specimen A: Received is one formalin filled container labeled with the patient's name and designated right lower forearm. The specimen consists of a shave biopsy measuring [id number]. Jar 0. 4:13 PM T DERMATOPATHOLOGY LABORATORY [...] carcinoma cannot be ruled out. 4:13 PM T DERMATOPATHOLOGY LABORATORY Disclaimer An external and internal positive and negative controls are appropriate for the histochemical, immunohistochemical and immunofluorescence stain(s) in this case (if any), except where stated explicitly. The performance characteristics of the stain(s) cited in this report were developed and its performance characteristic determined by the Dermatopathology Laboratory at [facility], directed by Dr. Celestine Limon. These tests need not be, and therefore are not, approved by the [place] Food and Drug Administration. The tests are used for clinical purposes. Billing Codes Specimen Charges Stain Charges 60712 1 4:13 PM CDT DERMATOPATHOLOGY LABORATORY Embedded Images 4:13 PM CDT DERMATOPATHOLOGY LABORATORY Pathology/Cytolog y TISSUE SPECIMEN FROM SKIN / Unknown 01/25/2022 01/27/2022 9:41 AM CDT us Burt Regan MD LAB - PATHOLOGY/CYTOLOGY ORDER LUX Final Result DERMATOPATHOLOGY LABORATORY [facility] - Department of Dermatology [facility] Specialized Medicine [address] [place] [address], [address] [phone] documented in this encounter Visit Diagnoses Not on filedocumented in this encounter Care Teams Metal Temperer Relationship Specialty Start Date End Date Raheel Harvey MD PCP - General 08/31/21 documented as of this encounter
--- OUTSIDE RECORDS SUMMARY | 2025-01-27 10:15 | XMS_ITS | Encounter Summary ---
Author Organization [facility] Health Address [address] [facility] [place] [address] Care Team Providers Care Lever Operator Name Role Phone Raheel Harvey MD Primary Care Provider Steve banegas Encounter Details Date Type Department Care Team (Late st Contact Info) Description 07/19/2021 Lab Requisition [facility] DermPath Lab [address] [facility] [place] [address] Burt Regan MD [address] [place] [address] Social History Tobacco Use Types Packs/Day Years Used Date Smoking Tobacco: Never Assessed Comments Unknown Sex and Gender Information Value Date Recorded Sex Assigned at Not on file Legal Sex Female 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 Gender Identity Not on file Sexual Orientation Not on file documented as of this encounter Plan of Treatment Not on file documented as of this encounter Procedures Procedure Name Priority Date/Time Associated Diagnosis Comments DERMATOPATHOLOGY Routine 07/18/2021 12:0 0 AM CDT documented in this encounter Results * DERMATOPATHOLOGY (07/18/2021 12:00 AM CDT) Case Report Dermatopathology Report Case: [id number] Authorizing Provider: Burt Regan MD Collected: 07/18/2021 12:00 AM Ordering Location: [facility] DermPath Lab Received: 07/19/2021 03:44 [...] CARCINOMA, WELL DIFFERENTIATED (C44.622) 2 12:[address] [facility] DERMATOPATHOLOGY LABORATORY at 1220 CDT Clinical History A: SCCA. Path # [id number]. B: SCCA. Path # [id number]. 2 12:[address] [facility] DERMATOPATHOLOGY LABORATORY Gross Description Specimen A: Received is one formalin filled container labeled with the patient's name and designated left forearm. The specimen consists of a shave biopsy measuring [id number]. Jar 0. Specimen B: Received is one formalin filled container labeled with the patient's name and designated right hand. The specimen consists of a shave biopsy measuring 31w7j0ow, bisected. Jar 0. 2 12:[address] [facility] DERMATOPATHOLOGY LABORATORY Microscopic Description Specimen A. SKIN, [...] evidence of premature cornification. 2 12:[address] [facility] DERMATOPATHOLOGY LABORATORY Disclaimer An external and internal positive and negative controls are appropriate for the histochemical, immunohistochemical and immunofluorescence stain(s) in this case (if any), except where stated explicitly. The performance characteristics of the stain(s) cited in this report were developed and its performance characteristic determined by the Dermatopathology Laboratory at [facility], directed by Dr. Celestine Limon. These tests need not be, and therefore are not, approved by the [place] Food and Drug Administration. The tests are used for clinical purposes. Billing Codes Specimen Charges Stain Charges 53751 88775 1 1 2 12:20 PM T DERMATOPATHOLOGY LABORATORY Embedded Images 12:20 PM CDT DERMATOPATHOLOGY LABORATORY Pathology/Cytology TISSUE SPECIMEN FROM SKIN / Unknown 07/18/2021 07/19/2021 3:44 PM CDT Miscellaneous samples (specimen) TISSUE SPECIMEN FROM SKIN / Unknown 07/18/2021 07/19/2021 3:44 PM CDT Burt Regan MD LAB - PATHOLOGY/CYTOLOGY ORDER LUX Final Result DERMATOPATHOLOGY LABORATORY [facility] - Department of Dermatology Specialized Medicine [address] [place] [address], [address] [phone] documented in this encounter Visit Diagnoses Not on filedocumented in this encounter Care Teams Lever Operator Relationship Specialty Start Date End Date Raheel Harvey MD PCP - General 08/31/21 documented as of this encounter
--- OUTSIDE RECORDS SUMMARY | 2025-01-27 10:15 | XMS_ITS | Clinical Summary ---
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 Stage 3a chronic kidney disease 12/18/2022 Type 2 diabetes mellitus without complication 12/18/2022 Congestive heart failure 01/03/2022 023 Microalbuminuria 12/29/2021 12/18/2022 Vitamin D deficiency 12/29/2021 12/18/2022 Essential hypertension 11/02/2021 3 Hyperlipidemia 11/02/2021 12/18/2022 Insomnia 11/02/2021 12/18/2022 Immunizations Immunization Administration Dates Next Due Moderna [...] 157.5 cm (5' 2) 05/29/2023 11:08 AM LEAD PRODUCER Body Mass Index 28.53 05/29/2023 11:08 AM LEAD PRODUCER Plan of Treatment Upcoming Encounters Date Type Department Care Team (Late st Contact Info) Description 03/24/2025 11:15 AM LEAD PRODUCER Office Visit [facility], [facility] [address] [facility] [address] [place] [address] Librado Flores MD [address] [facility] [address] [place] [address] Health Maintenance Due Date Last Done Comments Pneumococcal Vaccine: 50+ Years (2 of 2 - PPSV23, PCV20, or PCV21) 03/25/2020 01/29/2020 Diabetes: Ophthalmology Exam 11/16/2022 Diabetes: Pedal Pulse Checked 11/16/2022 Diabetes: Sensory Foot Exam 11/16/2022 Diabetes: Visual Foot Exam 11/16/2022 Diabetes: Hemoglobin A1C 08/30/2024 02 025, 02/11/2024, 10/08/2023, Additional history exists Influenza Vaccine (#1) 2024 Hepatitis B Vaccine Aged Out No [...] 10.7 mg/dL Phosphorus, Serum 3.7 eGFR Non-Afr Belarusian >60 PTH 117.7(H) PG/ML Vitamin D, 25-OH, Total 44.5 ng/mL Hemoglobin A1C 6.1(A) 4.0 - 6.0 Protein Urine Random 34(H) Creatinine, Urine Random 53.70 mg/dL Urine Protein/Creatini ne Ratio 0.6(H) mg/g creat Bilirubin, UA Negative Ketones, UA Negative Urine Specific [place] 1.014 Blood, UA Negative Daniel/ul pH, UA [...] Protein, Ur 20 Glucose, Urine 150 06/02/2024 Historical Provider LAB BLOOD ORDERABLES Eunice l Result from Last 3 Months or Most Recently Relevant to Health Maintenance [place] [place] [address] Medicare [facility]
--- OUTSIDE RECORDS SUMMARY | 2025-01-27 10:15 | XMS_ITS | Encounter Summary ---
Author Organization [facility] Health Address [address] [place] [address] Care Team Providers Care Websphere Developer Name Role Phone Raheel Harvey MD Primary Care Provider Steve banegas Encounter Details Date Type Department Care Team (Late st Contact Info) Description 01/30/2020 Lab Requisition [facility] DermPath Lab [address] [facility] [place] [address] Burt Regan MD [address] [facility] [place] [address] Social History Tobacco Use Types Packs/Day Years Used Date Smoking Tobacco: Never Assessed Comments Unknown Sex and Gender Information Value Date Recorded Sex Assigned at Not on file 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 Gender Identity Not on file Sexual Orientation Not on file documented as of this encounter Plan of Treatment Not on file documented as of this encounter Procedures Procedure Name Priority Date/Time Associated Diagnosis Comments DERMATOPATHOLOGY Routine 01/28/2020 12:0 0 AM CDT documented in this encounter Results * DERMATOPATHOLOGY (01/28/2020 12:00 AM CDT) Case Report Dermatopathology Report Case: [id number] Authorizing Provider: Burt Regan MD Collected: 01/28/2020 12:00 AM Ordering Location: [facility] DermPath Lab Received: 01/30/2020 06:59 AM Pathologist: Ghazal Parmar MD Specimen: Skin, left forearm 0 1:53 PM CDT DERMATOPATHOLOGY LABORATORY Final Diagnosis Specimen A. 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 Path# [id number] 0 1:53 PM CDT DERMATOPATHOLOGY LABORATORY Gross [...] determined by the Dermatopathology Laboratory at [facility], directed by Dr. Celestine Limon. These tests need not be, and therefore are not, approved by the [place] Food and Drug Administration. The tests are used for clinical purposes. Billing Codes Specimen Charges Stain Charges 41938 1 0 1:53 PM CDT DERMATOPATHOLOGY LABORATORY Embedded Images 0 1:53 PM CDT DERMATOPATHOLOGY LABORATORY Pathology/Cytolog y TISSUE SPECIMEN FROM SKIN / Unknown 01/28/2020 01/30/2020 6:59 AM CDT us Burt Regan MD LAB - PATHOLOGY/CYTOLOGY ORDER LUX Final Result DERMATOPATHOLOGY LABORATORY [facility] - Department of Dermatology [address], [address] [phone] documented in this encounter Visit Diagnoses Not on filedocumented in this encounter Care Teams Websphere Developer Relationship Specialty Start Date End Date Raheel Harvey MD PCP - General 08/31/21 documented as of this encounter
--- OUTSIDE RECORDS SUMMARY | 2025-01-27 10:15 | XMS_ITS | Encounter Summary ---
Author Organization [facility] Health Address [address] [facility] [place] [address] Care Team Providers Care Snow Shoveler Name Role Phone Raheel Harvey MD Primary Care Provider Steve banegas Encounter Details Date Type Department Care Team (Late st Contact Info) Description 02/09/2021 Lab Requisition 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 DermPath Lab Received: 02/09/2021 06:03 AM Pathologist: Melecio Limon MD Specimens: A) - Skin, left forearm distal B) - Skin, right mastoid 4:23 PM CDT DERMATOPATHOLOGY LABORATORY Final Diagnosis Specimen A. SKIN, left forearm distal: SQUAMOUS CELL CARCINOMA, WELL DIFFERENTIATED (C44.629) Specimen B. SKIN, right mastoid: SQUAMOUS CELL CARCINOMA, WELL DIFFERENTIATED (C44.329) 4:23 PM T DERMATOPATHOLOGY LABORATORY at 1623 CDT Clinical History A: AK vs SCCA. Path # [id number]. B: AK vs SCCA. Path # [id number]. 4:23 PM CDT DERMATOPATHOLOGY LABORATORY Gross Description Specimen A: Received is one formalin filled container labeled with the patient's name and designated left forearm distal. The specimen consists of a shave biopsy measuring 66k5p7sp. Jar 0. Specimen B: Received is one formalin filled container labeled with the patient's name and designated right mastoid. The specimen consists of a shave biopsy measuring 2c1l5ss. Jar 0. 4:23 PM T DERMATOPATHOLOGY LABORATORY Microscopic Description Specimen A. SKIN, left forearm distal: Arising in the epidermis and extending into the dermis there are irregularly shaped aggregates of keratinocytes showing evidence of premature cornification. Specimen B. SKIN, right mastoid: Arising in the epidermis and extending into the dermis there are irregularly shaped aggregates of keratinocytes showing evidence of premature cornification. 4:23 PM T DERMATOPATHOLOGY LABORATORY Disclaimer An external and internal positive and negative controls are appropriate for the histochemical, immunohistochemical and immunofluorescence stain(s) in this case (if any), except where stated explicitly. The performance characteristics of the stain(s) cited in this report were developed and its performance characteristic determined by the Dermatopathology Laboratory at [facility], directed by Dr. Celestine Limon. These tests need not be, and therefore are not, approved by the [place] Food and Drug Administration. The tests are used for clinical purposes. Billing Codes Specimen Charges Stain Charges 77916 64517 1 1 4:23 PM CDT DERMATOPATHOLOGY LABORATORY Embedded Images 4:23 PM T DERMATOPATHOLOGY LABORATORY Pathology/Cytology TISSUE SPECIMEN FROM SKIN / Unknown 02/07/2021 3:33 AM CDT 02/09/2021 6:03 AM CDT Miscellaneous samples (specimen) TISSUE SPECIMEN FROM SKIN / Unknown 02/07/2021 3:33 AM CDT 02/09/2021 6:03 AM CDT us Burt Regan MD LAB - PATHOLOGY/CYTOLOGY ORDER LUX Final Result DERMATOPATHOLOGY LABORATORY [facility] - Department of Dermatology [facility] Specialized Medicine [address] [place] [address], [address] [phone] documented in this encounter Visit Diagnoses Not on filedocumented in this encounter Care Teams Snow Shoveler Relationship Specialty Start Date End Date Raehel Harvey MD PCP - General 08/31/21 documented as of this encounter
[2025-01-27 10:18] LABS: INR 1.1; Prothrombin Time 14.4 Seconds (11.1-14.7)
[2025-01-27 10:19] LABS: Partial Thromboplastin Time 29.2 Seconds (22.3-36.8)
[2025-01-27 10:20] LABS: Alanine Aminotransferase 27 U/L (6-35); Albumin Level 4.1 g/dL (3.5-5.1); Alkaline Phosphatase 67 U/L (38-126); Anion Gap 6 mmol/L (4-12); Aspartate Amino Transferase 35 U/L (14-36); Bilirubin,Total 0.6 mg/dL (0.2-1.3); Blood Urea Nitrogen 22 mg/dL (7-17); Calcium 8.8 mg/dL (8.4-10.2); Carbon Dioxide 33 mmol/L (22-30); Chloride 100 mmol/L (98-107); Estimated CRCL calculation 38 ml/min; Estimated Glomerular Filt Rate 60; Glucose 106 mg/dL (65-110); Potassium 4.0 mmol/L (3.4-5.0); Sodium 139 mmol/L (137-145); Total Protein 6.7 g/dL (6.3-8.2)
[2025-01-27 10:29] LABS: NT Pro B Type Natriuretic Pept 15700 pg/mL (19.9-100); Troponin I 0.016 ng/mL (0.000-0.034)
--- OUTSIDE RECORDS SUMMARY | 2025-01-27 11:51 | XMS_ITS | Encounter Summary ---
Author Organization [facility] Health Address [address] [place] [address] Care Team Providers Care C D Reactor Operator Name Role Phone Raheel Harvey MD Primary Care Provider Steve banegas Encounter Details Date Type Department Care Team (Late st Contact Info) Description 02/09/2021 Lab Requisition [facility] DermPath Lab [address] [facility] [address] Burt Regan MD [address] [place] [address] Social History Tobacco Use Types Packs/Day Years Used Date Smoking Tobacco: Never Assessed Comments Unknown Sex and Gender Information Value Date Recorded Sex Assigned at Not on file 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 Gender Identity Not on file Sexual Orientation Not on file documented as of this encounter Plan of Treatment Not on file documented as of this encounter Procedures Procedure Name Priority Date/Time Associated Diagnosis Comments DERMATOPATHOLOGY Routine 02/07/2021 3:33 AM CDT documented in this encounter Results * DERMATOPATHOLOGY (02/07/2021 3:33 AM CDT) Case Report Dermatopathology Report Case: [id number] Authorizing Provider: Burt Regan MD Collected: 02/07/2021 03:33 AM Ordering Location: [facility] DermPath Lab Received: 02/09/2021 06:03 AM Pathologist: [...] History A: AK vs SCCA. Path # [id number]. B: AK vs SCCA. Path # [id number]. 4:23 PM CDT DERMATOPATHOLOGY LABORATORY Gross Description Specimen A: Received is one formalin filled container labeled with the patient's name and designated left forearm distal. The specimen consists of a shave biopsy measuring 37l7x4qd. Jar 0. Specimen B: Received is one formalin filled container labeled with the patient's name and designated right mastoid. The specimen consists of a shave biopsy measuring 9u3d9si. Jar 0. 4:23 PM T DERMATOPATHOLOGY LABORATORY [...] determined by the Dermatopathology Laboratory at [facility], directed by Dr. Celestine Limon. These tests need not be, and therefore are not, approved by the [place] Food and Drug Administration. The tests are used for clinical purposes. Billing Codes Specimen Charges Stain Charges 21058 38376 1 1 4:23 PM CDT DERMATOPATHOLOGY LABORATORY Embedded Images 4:23 PM T DERMATOPATHOLOGY LABORATORY Pathology/Cytology TISSUE SPECIMEN FROM SKIN / Unknown 02/07/2021 3:33 AM CDT 02/09/2021 6:03 AM CDT Miscellaneous samples (specimen) TISSUE SPECIMEN FROM SKIN / Unknown 02/07/2021 3:33 AM CDT 02/09/2021 6:03 AM CDT us Burt Regan MD LAB - PATHOLOGY/CYTOLOGY ORDER LUX Final Result DERMATOPATHOLOGY LABORATORY [facility] - Department of Dermatology [facility] Specialized Medicine [address] [place] [address], [address] [phone] documented in this encounter Visit Diagnoses Not on filedocumented in this encounter Care Teams C D Reactor Operator Relationship Specialty Start Date End Date Raheel Harvey MD PCP - General 08/31/21 documented as of this encounter
--- OUTSIDE RECORDS SUMMARY | 2025-01-27 11:51 | XMS_ITS | Encounter Summary ---
Author Organization [facility] Health Address [address] [facility] [place] [address] Care Team Providers Care Tunnel Kiln Firer Name Role Phone Raheel Harvey MD Primary Care Provider Steve banegas Encounter Details Date Type Department Care Team (Late st Contact Info) Description 01/27/2022 Lab Requisition [facility] DermPath Lab [address] [facility] [place] [address] Burt Regan MD [address] [facility] [place] [address] Social History Tobacco Use Types Packs/Day Years Used Date Smoking Tobacco: Never Assessed Comments Unknown Sex and Gender Information Value Date Recorded Sex Assigned at Not on file 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 Gender Identity Not on file Sexual Orientation Not on file documented as of this encounter Plan of Treatment Not on file documented as of this encounter Procedures Procedure Name Priority Date/Time Associated Diagnosis Comments DERMATOPATHOLOGY Routine 01/25/2022 12:0 0 AM CDT documented in this encounter Results * DERMATOPATHOLOGY (01/25/2022 12:00 AM CDT) Case Report Dermatopathology Report Case: [id number] Authorizing Provider: Burt Regan MD Collected: 01/25/2022 12:00 AM Ordering Location: [facility] DermPath Lab Received: 01/27/2022 09:41 AM [...] CDT 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 Path# [id number] 4:13 PM CDT DERMATOPATHOLOGY LABORATORY Gross Description Specimen A: Received is one formalin filled container labeled with the patient's name and designated right lower forearm. The specimen consists of a shave biopsy measuring 38l56h2ta. Jar 0. 4:13 PM T DERMATOPATHOLOGY LABORATORY [...] determined by the Dermatopathology Laboratory at [facility], directed by Dr. Celestine Limon. These tests need not be, and therefore are not, approved by the [place] Food and Drug Administration. The tests are used for clinical purposes. Billing Codes Specimen Charges Stain Charges 01677 1 4:13 PM CDT DERMATOPATHOLOGY LABORATORY Embedded Images 4:13 PM CDT DERMATOPATHOLOGY LABORATORY Pathology/Cytolog y TISSUE SPECIMEN FROM SKIN / Unknown 01/25/2022 01/27/2022 9:41 AM CDT us Burt Regan MD LAB - PATHOLOGY/CYTOLOGY ORDER LUX Final Result DERMATOPATHOLOGY LABORATORY [facility] - Department of Dermatology [facility] Specialized Medicine [address] [place] [address], [address] [phone] documented in this encounter Visit Diagnoses Not on filedocumented in this encounter Care Teams Tunnel Kiln Firer Relationship Specialty Start Date End Date Raheel Harvey MD PCP - General 08/31/21 documented as of this encounter
--- OUTSIDE RECORDS SUMMARY | 2025-01-27 11:51 | XMS_ITS | Encounter Summary ---
Author Organization [facility] Health Address [address] [place] [address] Care Team Providers Care Lap Layer Name Role Phone Raheel Harvey MD Primary Care Provider Steve banegas Encounter Details Date Type Department Care Team (Late st Contact Info) Description 07/19/2021 Lab Requisition [facility] DermPath Lab [address] [facility] [place] [address] Burt Regan MD [address] [place] [address] Social History Tobacco Use Types Packs/Day Years Used Date Smoking Tobacco: Never Assessed Comments Unknown Sex and Gender Information Value Date Recorded Sex Assigned at Not on file 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 Gender Identity Not on file Sexual Orientation Not on file documented as of this encounter Plan of Treatment Not on file documented as of this encounter Procedures Procedure Name Priority Date/Time Associated Diagnosis Comments DERMATOPATHOLOGY Routine 07/18/2021 12:0 0 AM CDT documented in this encounter Results * DERMATOPATHOLOGY (07/18/2021 12:00 AM CDT) Case Report Dermatopathology Report Case: [id number] Authorizing Provider: Burt Regan MD Collected: 07/18/2021 12:00 AM Ordering Location: [facility] DermPath Lab Received: 07/19/2021 03:44 [...] CARCINOMA, WELL DIFFERENTIATED (C44.622) 2 12:20 PM [facility] DERMATOPATHOLOGY [facility]ORATORY at 1220 CDT Clinical History A: SCCA. Path # [id number]. B: SCCA. Path # [id number]. 2 12:20 PM [facility] DERMATOPATHOLOGY [facility]OR[facility] Gross Description Specimen A: Received is one formalin filled container labeled with the patient's name and designated left forearm. The specimen consists of a shave biopsy measuring [id number]. Jar 0. Specimen B: Received is one formalin filled container labeled with the patient's name and designated right hand. The specimen consists of a shave biopsy measuring [id number], bisected. Jar 0. 2 12:20 PM [facility] DERMATOPATHOLOGY [facility]ORATORY Microscopic Description Specimen A. SKIN, [...] evidence of premature cornification. 2 12:20 PM [facility] DERMATOPATHOLOGY [facility]ORATORY Disclaimer An external and internal positive and negative controls are appropriate for the histochemical, immunohistochemical and immunofluorescence stain(s) in this case (if any), except where stated explicitly. The performance characteristics of the stain(s) cited in this report were developed and its performance characteristic determined by the Dermatopathology Laboratory at [facility], directed by Dr. Celestine Limon. These tests need not be, and therefore are not, approved by the [place] Food and Drug Administration. The tests are used for clinical purposes. Billing Codes Specimen Charges Stain Charges 37042 41779 1 1 2 12:20 PM T DERMATOPATHOLOGY LABORATORY Embedded Images 12:20 PM CDT DERMATOPATHOLOGY LABORATORY Pathology/Cytology TISSUE SPECIMEN FROM SKIN / Unknown 07/18/2021 07/19/2021 3:44 PM CDT Miscellaneous samples (specimen) TISSUE SPECIMEN FROM SKIN / Unknown 07/18/2021 07/19/2021 3:44 PM CDT Burt Regan MD LAB - PATHOLOGY/CYTOLOGY ORDER LUX Final Result DERMATOPATHOLOGY LABORATORY [facility] - Department of Dermatology [facility] [address] [place] [address], [address] [phone] documented in this encounter Visit Diagnoses Not on filedocumented in this encounter Care Teams Lap Layer Relationship Specialty Start Date End Date Raheel Harvey MD PCP - General 08/31/21 documented as of this encounter
--- OUTSIDE RECORDS SUMMARY | 2025-01-27 11:51 | XMS_ITS | Encounter Summary ---
Author Organization [facility] Address [address] [place] [address] Care Team Providers Care Fire Prevention Forester Name Role Phone Raheel Harvey MD Primary Care Provider Steve banegas Encounter Details Date Type Department Care Team (Late st Contact Info) Description 01/30/2020 Lab Requisition [facility] DermPath Lab [address] [facility] [place] [address] Burt Regan MD [address] [place] [address] Social History Tobacco Use Types Packs/Day Years Used Date Smoking Tobacco: Never Assessed Comments Unknown Sex and Gender Information Value Date Recorded Sex Assigned at Not on file 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 Gender Identity Not on file Sexual Orientation Not on file documented as of this encounter Plan of Treatment Not on file documented as of this encounter Procedures Procedure Name Priority Date/Time Associated Diagnosis Comments DERMATOPATHOLOGY Routine 01/28/2020 12:0 0 AM CDT documented in this encounter Results * DERMATOPATHOLOGY (01/28/2020 12:00 AM CDT) Case Report Dermatopathology Report Case: [id number] Authorizing Provider: Burt Regan MD Collected: 01/28/2020 12:00 AM Ordering Location: [facility] DermPath Lab Received: 01/30/2020 06:59 AM Pathologist: Ghazal aPrmar MD Specimen: Skin, left forearm 0 1:53 PM CDT DERMATOPATHOLOGY LABORATORY Final Diagnosis Specimen A. 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 Path# [id number] 0 1:53 PM CDT DERMATOPATHOLOGY LABORATORY Gross [...] determined by the Dermatopathology Laboratory at [facility], directed by Dr. Celestine Limon. These tests need not be, and therefore are not, approved by the [place] Food and Drug Administration. The tests are used for clinical purposes. Billing Codes Specimen Charges Stain Charges 38337 1 0 1:53 PM CDT DERMATOPATHOLOGY LABORATORY Embedded Images 0 1:53 PM CDT DERMATOPATHOLOGY LABORATORY Pathology/Cytolog y TISSUE SPECIMEN FROM SKIN / Unknown 01/28/2020 01/30/2020 6:59 AM CDT us Burt Regan MD LAB - PATHOLOGY/CYTOLOGY ORDER LUX Final Result DERMATOPATHOLOGY LABORATORY [facility] - Department of Dermatology [address], [address] [phone] documented in this encounter Visit Diagnoses Not on filedocumented in this encounter Care Teams Fire Prevention Forester Relationship Specialty Start Date End Date Raheel Harvey MD PCP - General 08/31/21 documented as of this encounter
--- OUTSIDE RECORDS SUMMARY | 2025-01-27 11:51 | XMS_ITS | Clinical Summary ---
Author Organization [facility] Address [address] [place] [address] Care Team Providers Care Java J2Ee Software Engineer Name Role Phone Raheel Harvey MD Primary Care Provider Steve banegas Source Comments [facility],non-owned Affiliates and Associated Physician Practices is amultiple site organization consisting of ambulatory clinics and hospital sitesin [place], [place], [place] and [place]. This disclosure is being madepursuant to the Care Everywhere program and may not contain all information available regarding this patient. 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
--- OUTSIDE RECORDS SUMMARY | 2025-01-27 11:51 | XMS_ITS | Clinical Summary ---
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 [address] [facility] [address] [place] [address] Librado Flores MD [address] [facility] [address] [place] [address] Health Maintenance Due Date Last [...] 10.7 mg/dL Phosphorus, Serum 3.7 eGFR Non-Afr Stateless >60 PTH 117.7(H) PG/ML Vitamin D, 25-OH, Total 44.5 ng/mL Hemoglobin A1C 6.1(A) 4.0 - 6.0 Protein Urine Random 34(H) Creatinine, Urine Random 53.70 mg/dL Urine Protein/Creatini ne Ratio 0.6(H) mg/g creat Bilirubin, UA Negative Ketones, UA Negative Urine Specific [place] 1.014 Blood, UA Negative Daniel/ul pH, UA [...] Relevant to Health [place] [address] [place] [address] Medicare [facility]
[2025-01-27 11:59] LABS: Influenza A QL RT-PCR Negative (Negative); Influenza B QL RT-PCR Negative (Negative); RSV RNA, RT-PCR Negative (Negative); SARS-CoV-2 RNA PCR Negative (Negative)
[2025-01-27] MEDS: FUROSEMIDE INJ 40 MG/4 ML VIAL IV PUSH (12:29)
--- NOTE | 2025-01-27 12:39 | PM.IMHP ---
H&P: HPI History of Present Illness Date/Time: 01/27/25 12:39 Chief Complaint: Shortness of breath Narrative: 84-year-old female with a PMH of HTN, afib (not on anticoagulation), RA, hyperlipidemia, DMII, HFrEF (25-30%) presented to the ED on 01/27/2025 with complaints of intermittent shortness of breath for the past week but started getting worse last night (01/26/25). States dyspnea is worse when lying flat but is unsure if it is worse with exertion. Endorses a mild non-productive cough recently but denies congestion, fevers, chest pain, weight gain, or peripheral edema. She further states she has had increased pain with her arthritis over the past week and has had multiple x-rays recently at [facility]. ED course: Initial VS 162/90, HR 92, 98.1 F, O2 97% on RA. Thromocytopenia at baseline, ECG NSR with known LBBB. Initial troponin 0.016. CBC with no leukocytosis. BUN 22, BNP 53239. Viral PCR negative. Chest x-ray with early bilateral pneumonia. UA added due to hx of frequent UTI's. Lasix 40 mg IVP given. Review of Systems Review of Systems: All systems reviewed & are unremarkable except as noted in HPI and below PMFSH Past Medical History Medical History (Updated 01/27/25 @ 17:27 by Alexandra Ugarte APRN) Diabetes Combined systolic and diastolic congestive heart failure Chronic pain syndrome Hyperlipidemia Rheumatoid arthritis Paroxysmal atrial fibrillation Squamous cell carcinoma of skin Hypertension Surgical History Surgical History History of squamous cell carcinoma excision History of knee surgery History of foot surgery History of bladder repair surgery History of hysterectomy Family History Family History Mother Heart disease Heart attack Ovarian cancer DVT (deep venous thrombosis) Father Emphysema lung Social History Social History Social History: Surrogate medical decision maker: Marci Zacarias, daughter. Code status: Full code. Smoking packs per day: 1 Smoking cigarettes per day: 20.0 Years smoked: 12 Smoking pack-years: 12.00 Smoking status: Former smoker Tobacco type: cigarettes Alcohol intake: never Substance use: never Lack of Transportation: No Lack of Food: Never True Current Housing: I Have Housing Concerned About Future Housing: No Difficulty Paying Gas/Electric Bills: No Difficulty Paying for Meds: No Currently Unemployed: No Education: High School Diploma/GED Difficulty w/ Childcare or Family Care: No Additional living arrangements comments: with 3 grown daughters. Lives in her own home in [place]. Spiritual care concerns: No Meds Home Medications and Allergies Home Medications ?Medication ?Instructions ?Recorded ?Confirmed ?Type aspirin 81 mg tablet,delayed 81 mg PO DAILY 09/28/20 01/27/25 History release atorvastatin 10 mg tablet 10 mg PO DAILY 09/28/20 01/27/25 History montelukast 10 mg tablet 10 mg PO DAILY 09/28/20 01/27/25 History trazodone 50 mg tablet 100 mg PO QHS 09/28/20 01/27/25 History venlafaxine 75 mg tablet 75 mg PO DAILY 09/28/20 01/27/25 History sacubitril 49 mg-valsartan 51 mg 1 tablet PO Q12HR #60 tabs 12/27/21 01/27/25 Rx tablet (Entresto) carvedilol 25 mg tablet (Coreg) 25 mg PO Q12H 01/24/22 01/27/25 History loratadine 10 mg tablet (Claritin) 10 mg PO DAILY 01/24/22 01/27/25 History furosemide 20 mg tablet 20 mg PO DAILY #14 tabs 02/27/22 01/27/25 Rx alendronate 70 mg tablet 70 mg PO WEEKLY 11/24/24 01/27/25 History cyclosporine 0.05 % eye drops in a 1 drp EACH EYE Q12H 11/24/24 01/27/25 History dropperette (Restasis) dapagliflozin propanediol 5 mg 5 mg PO DAILY 11/24/24 01/27/25 History tablet (Farxiga) escitalopram oxalate 10 mg tablet 10 mg PO DAILY 11/24/24 01/27/25 History glipizide 2.5 mg tablet 2.5 mg PO BID 11/24/24 01/27/25 History insulin degludec 100 unit/mL (3 6 unit subcut DAILY 11/24/24 01/27/25 History mL) subcutaneous pen (Tresiba FlexTouch U-100 insulin) multivitamin with minerals-folic 1 tablet PO DAILY 11/24/24 01/27/25 History acid 120 mcg chewable tablet (Centrum Adult 50 Plus Fresh-Fruity) naloxegol 25 mg tablet (Movantik) 25 mg PO QAM 11/24/24 01/27/25 History oxycodone-acetaminophen 10 mg-325 1 tablet PO Q8H PRN pain 11/24/24 01/27/25 History mg tablet methenamine hippurate 1 gram tablet 1 g PO Q12H 01/27/25 01/27/25 History prednisone 2.5 mg tablet 7.5 mg PO Q12H 01/27/25 01/27/25 History Allergies Allergy/AdvReac Type Severity Reaction Status Date / Time ciprofloxacin (From Cipro) Allergy Mild Rash Verified 01/27/25 16:54 Vital Signs Vital Signs - 24 hr 01/27/25 09:51 01/27/25 09:58 01/27/25 10:06 Temperature 98.1 F Pulse Rate 92 85 84 Respiratory Rate 21 H 20 Blood Pressure 162/90 H 150/80 H Pulse Oximetry 97 98 Oxygen Delivery Room Air 01/27/25 10:51 01/27/25 10:52 01/27/25 12:03 Temperature Pulse Rate 82 82 84 Respiratory Rate 20 15 Blood Pressure 143/76 H 171/86 H Pulse Oximetry 96 95 Oxygen Delivery Exam Narrative: GENERAL: non-toxic appearing, in no acute distress. HEAD: Normocephalic, atraumatic. EYES: PERRLA. Conjunctivae clear. EARS: NOSE: Normal no drainage. THROAT: Pharynx clear, no exudate. NECK: Trachea midline. Thyroid not palpable. No adenopathy, no masses. RESPIRATORY: Airway patent, respirations nonlabored. CTA. CARDIOVASCULAR: Regular rate and rhythm without murmurs, rubs, or gallops. BREASTS: Defer GASTROINTESTINAL: Abdomen is soft and nontender. No organomegaly. Bowel sounds normal in all quadrants. GENITOURINARY: Defer MUSCULOSKELETAL: Moves all extremities. No gross deformities. Moves all extremities well. No calf tenderness. SKIN: Warm, dry, normal color. NEURO: A&O X4. Speech clear PSYCHIATRIC: Normal interaction H&P: Results Labs Labs: Short CBC 01/27/25 Range/Units 09:56 WBC 6.5 (4.5-10.0) K/mm3 Hgb 13.0 (12.0-15.0) g/dL Hct 41.1 (37.0-47.0) % Plt Count 125 L (150-375) k/mm3 BMP 01/27/25 09:56 Sodium 139 Potassium 4.0 Chloride 100 Carbon Dioxide 33 H BUN 22 H Creatinine 0.89 Glucose 106 Calcium 8.8 Cardiac Enzymes 01/27/25 Range/Units 09:56 Troponin I 0.016 (0.000-0.034) ng/mL Liver Function 01/27/25 Range/Units 09:56 Total Bilirubin 0.6 (0.2-1.3) mg/dL AST 35 (14-36) U/L ALT 27 (6-35) U/L Alkaline Phosphatase 67 (38-126) U/L Albumin 4.1 (3.5-5.1) g/dL Assessment and Plan Assessment and plan (1) Pneumonia: Qualifiers: Laterality: bilateral Lung location: unspecified part of lung Pneumonia type: due to unspecified organism Qualified Code(s): J18.9 - Pneumonia, unspecified organism Code(s): J18.9 - Pneumonia, unspecified organism Status: Acute Assessment and Plan: Chest x-ray reveals early bilateral pneumonia. No hypoxia on admission. Meets SIRS criteria. Blood cultures drawn -azithromycin 500 mg IVPB daily and ceftriaxone 1 g IVPB daily started in ED -encourage incentive spirometry -supportive care: Mucinex 600 mg q.12 hours scheduled, DuoNeb q.6 hours p.r.n., Tylenol p.r.n. (2) Combined systolic and diastolic congestive heart failure: Qualifiers: Heart failure chronicity: chronic Qualified Code(s): I50.42 - Chronic combined systolic (congestive) and diastolic (congestive) heart failure Code(s): I50.40 - Unspecified combined systolic (congestive) and diastolic (congestive) heart failure Status: Chronic Assessment and Plan: Intermittent shortness of breath x1 week with orthopnea. Increasing symptoms since 1 day prior to admission. BNP markedly elevated at 15,700. 40 mg IV push Lasix given in the ED. takes p.o. 20 mg Lasix daily at home. Most recent documented echo (2021) with EF 25-30%. Pt looks euvolemic on exam. Chest x-ray does not show evidence of fluid overload. -resume home 20 mg Lasix -trend renal function -request most recent echo from Dr. Gallagher office, per pt was about 4 months ago -Monitor I&O -Monitor daily weights (3) Diabetes: Qualifiers: Diabetes mellitus type: type 2 Diabetes mellitus exterminator termite insulin use: unspecified exterminator termite insulin use status Diabetes mellitus complication status: without complication Qualified Code(s): E11.9 - Type 2 diabetes mellitus without complications Code(s): E11.9 - Type 2 diabetes mellitus without complications Status: Chronic Assessment and Plan: - hypoglycemia protocol - POC blood glucose ACHS - home medication: Farxiga 5 mg daily, glipizide 2.5 BID, Tresiba 6 units daily - correct regimen ordered:low dose correction with meals (4) Paroxysmal atrial fibrillation: Code(s): I48.0 - Paroxysmal atrial fibrillation Status: Chronic Assessment and Plan: Not on anticoagulation or rate control medication. ECG the ED read normal sinus rhythm with rate of 84 and chronic left bundle-branch block. (5) Hypertension: Qualifiers: Hypertension type: primary hypertension Qualified Code(s): I10 - Essential (primary) hypertension Code(s): I10 - Essential (primary) hypertension Status: Chronic Assessment and Plan: Chronic: Currently 154/90 -continue home regimen of choroidal Plan Diet: Heart healthy GI prophylaxis: NA DVT prophylaxis: SCD lines/drains: 1 PIV Fluids: None given-diuresing Code status: Full code Hospitalist MIPS Advance Care Plan I have confirmed that the patient's Advanced Care Plan is present, code status is documented, or surrogate decision maker is listed in patient medical record.: Yes Medication Reconciliation I have utilized all available resources to obtain, update and review the patients current medications (includes all prescriptions, OTC, herbals, cannabis, and nutritional supplements).: Yes
[2025-01-27] MEDS: cefTRIAXone 1 GM in SODIUM CHLORIDE 0.9% IV 50 ML 100 ML IVPB (13:31)
--- NOTE | 2025-01-27 13:43 | ADMGEN ---
This patient, Chelsea Zamarripa, was admitted to 2 Medical Room 261-01. Patient/family oriented to hospital policies and general routines including ID bracelet, bed and alarms, visiting hours, pain management, procedures, bathroom and other care routines, personal items, smoking policy, room service/diet, and visiting hours. Information on how to activate the Rapid Response Team has been discussed. Patient/Family are encouraged to report perceived risks to care and to ask questions if they do not understand what they are told or what they should do.
[2025-01-27 13:46] LABS: Troponin I 0.018 ng/mL (0.000-0.034)
[2025-01-27] MEDS: AZITHROMYCIN IV 500 MG in SODIUM CHLORIDE 0.9% IV 250 ML IVPB (15:32)
[2025-01-27 15:59] LABS: Add Urine Microscopic? YES; Appearance Urine Clear (Clear); Glucose Urine UA Trace mg/dL (Negative); Leukocyte Esterase Ur 1+ LEU/UL (Negative); Nitrate Urine Negative (Negative); Non Pathogenic Casts 0-2; Specific Grav Ur 1.006 (1.001-1.035)
[2025-01-27 16:26] LABS: Troponin I 0.025 ng/mL (0.000-0.034)
[2025-01-27] MEDS: oxyCODONE/ACETAMINOPHEN (*CRX) 10-325 MG TABLET 1 TAB PO (17:48)
[2025-01-27] MEDS: guaiFENesin 12 HR 600 MG TABCR PO (21:00)
[2025-01-27] MEDS: SACUBITRIL/VALSARTAN 49-51 MG TABLET 1 TABLET PO (21:01)
[2025-01-27] MEDS: cycloSPORINE 0.4 ML OPHTH SOLUTION 1 DROP EACH EYE (21:01)
[2025-01-28] MEDS: oxyCODONE/ACETAMINOPHEN (*CRX) 10-325 MG TABLET 1 TAB PO ×2 (01:25→09:11)
[2025-01-28 03:24] VITALS: BP 150/61; PULSE 83; RESP 18; TEMP 36.6; O2SAT 91
[2025-01-28 05:22] LABS: Hematocrit 39.9 % (37.0-47.0); Hemoglobin 12.8 g/dL (12.0-15.0); Immature Platelet Fraction Pct 2.6 % (0.9-11.2); Mean Corpuscular HGB Conc 32.1 g/dl (32-36); Mean Corpuscular Hemoglobin 30.7 pg (26-34); Mean Corpuscular Volume 95.7 fl (80-100); Platelet Count Result 132 k/mm3 (150-375); Red Blood Count 4.17 M/mm3 (4.2-5.4); White Blood Count 9.0 K/mm3 (4.5-10.0)
[2025-01-28 05:32] LABS: Anion Gap 8 mmol/L (4-12); Blood Urea Nitrogen 19 mg/dL (7-17); Calcium 8.7 mg/dL (8.4-10.2); Carbon Dioxide 29 mmol/L (22-30); Chloride 98 mmol/L (98-107); Estimated CRCL calculation 39 ml/min; Estimated Glomerular Filt Rate > 60; Glucose 135 mg/dL (65-110); Potassium 3.7 mmol/L (3.4-5.0); Sodium 135 mmol/L (137-145)
[2025-01-28 09:11] VITALS: PULSE 86
[2025-01-28] MEDS: ASPIRIN 81 MG ENTERIC TABLET PO (09:11)
[2025-01-28] MEDS: cycloSPORINE 0.4 ML OPHTH SOLUTION 1 DROP EACH EYE (09:11)
[2025-01-28] MEDS: VENLAFAXINE HCL 75 MG TABLET PO (09:11)
[2025-01-28] MEDS: ESCITALOPRAM OXALATE 10 MG TABLET PO (09:11)
[2025-01-28] MEDS: guaiFENesin 12 HR 600 MG TABCR PO (09:11)
[2025-01-28] MEDS: ATORVASTATIN 10 MG TABLET PO (09:11)
[2025-01-28] MEDS: MULTIVITAMINS /C LUTEIN (CENTRUM SILVER) TABLET *BKC 1 TAB PO (09:11)
[2025-01-28] MEDS: FUROSEMIDE 20 MG TABLET PO (09:11)
[2025-01-28] MEDS: SACUBITRIL/VALSARTAN 49-51 MG TABLET 1 TABLET PO (09:11)
[2025-01-28] MEDS: MONTELUKAST SODIUM 10 MG TABLET PO (09:11)
[2025-01-28] MEDS: METHENAMINE HIPPURATE 1 GM PO (09:13)
[2025-01-28] MEDS: [UNRECOGNIZED DRUG - OTHER] PO (09:13)
--- NOTE | 2025-01-28 09:50 | P.PNIM_ITS ---
Progress Note: A&P Assessment and Plan (1) Pneumonia: Qualifiers: Laterality: bilateral Lung location: unspecified part of lung Pneumonia type: due to unspecified organism Qualified Code(s): J18.9 - Pneumonia, unspecified organism Code(s): J18.9 - Pneumonia, unspecified organism Status: Acute Assessment and Plan: Chest x-ray reveals early bilateral pneumonia. No hypoxia on admission. Meets SIRS criteria. Blood cultures drawn -azithromycin 500 mg IVPB daily and ceftriaxone 1 g IVPB daily started in ED -encourage incentive spirometry -supportive care: Mucinex 600 mg q.12 hours scheduled, DuoNeb q.6 hours p.r.n., Tylenol p.r.n. (2) Combined systolic and diastolic congestive heart failure: Qualifiers: Heart failure chronicity: chronic Qualified Code(s): I50.42 - Chronic combined systolic (congestive) and diastolic (congestive) heart failure Code(s): I50.40 - Unspecified combined systolic (congestive) and diastolic (congestive) heart failure Status: Chronic Assessment and Plan: Intermittent shortness of breath x1 week with orthopnea. Increasing symptoms since 1 day prior to admission. BNP markedly elevated at 15,700. 40 mg IV push Lasix given in the ED. takes p.o. 20 mg Lasix daily at home. Most recent documented echo (2021) with EF 25-30%. Pt looks euvolemic on exam. Chest x-ray does not show evidence of fluid overload. -resume home 20 mg Lasix -trend renal function -request most recent echo from Dr. 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 ECG the ED read normal sinus rhythm with rate of 84 and chronic left bundle-branch block. (5) Hypertension: Qualifiers: Hypertension type: primary hypertension Qualified Code(s): I10 - Essential (primary) hypertension Code(s): I10 - Essential (primary) hypertension Status: Chronic Assessment and Plan: Chronic: Currently 154/90 -continue home regimen of choroidal Plan Diet: Heart healthy GI prophylaxis: NA DVT prophylaxis: SCD lines/drains: 1 PIV Fluids: None given-diuresing Code status: Full code Subjective Date/time seen: 01/28/25 09:50 Interval history: July 12, [address] Valdivia's office, LVEF 32% Review of Systems Review of Systems: All systems reviewed & are unremarkable except as noted in HPI and below Exam Narrative: GENERAL: non-toxic appearing, in no acute distress. HEAD: Normocephalic, atraumatic. EYES: PERRLA. Conjunctivae clear. EARS: NOSE: Normal no drainage. THROAT: Pharynx clear, no exudate. NECK: Trachea midline. Thyroid not palpable. No adenopathy, no masses. RESPIRATORY: Airway patent, respirations nonlabored. CTA. CARDIOVASCULAR: Regular rate and rhythm without murmurs, rubs, or gallops. BREASTS: Defer GASTROINTESTINAL: Abdomen is soft and nontender. No organomegaly. Bowel sounds normal in all quadrants. GENITOURINARY: Defer MUSCULOSKELETAL: Moves all extremities. No gross deformities. Moves all extremities well. No calf tenderness. SKIN: Warm, dry, normal color. NEURO: A&O X4. Speech clear PSYCHIATRIC: Normal interaction Objective Data Vital Signs Vital Signs: Vital Signs - 24 hr 01/27/25 09:51 01/27/25 09:58 01/27/25 10:06 Temperature 98.1 F Pulse Rate 92 85 84 Respiratory Rate 21 H 20 Blood Pressure 162/90 H 150/80 H Pulse Oximetry 97 98 Oxygen Delivery Room Air 01/27/25 10:51 01/27/25 10:52 01/27/25 12:03 Temperature Pulse Rate 82 82 84 Respiratory Rate 20 15 Blood Pressure 143/76 H 171/86 H Pulse Oximetry 96 95 Oxygen Delivery 01/27/25 13:29 01/27/25 13:31 01/27/25 14:00 Temperature 97.9 F Pulse Rate 87 88 94 Respiratory Rate 16 18 18 Blood Pressure 176/75 H 176/75 H 154/90 H Pulse Oximetry 97 94 93 Oxygen Delivery 01/27/25 14:10 01/27/25 20:00 01/27/25 20:54 Temperature 97.9 F Pulse Rate 90 Respiratory Rate 20 Blood Pressure 152/88 H Pulse Oximetry 91 Oxygen Delivery Room Air Room Air 01/27/25 21:01 01/28/25 03:24 01/28/25 09:11 Temperature 97.9 F Pulse Rate 90 83 86 Respiratory Rate 18 Blood Pressure 150/61 H Pulse Oximetry 91 Oxygen Delivery Intake/Output Intake/Output: Intake & Output 01/25/25 01/26/25 01/27/25 01/28/25 23:59 23:59 23:59 23:59 Intake Total 790 890 Output Total 300 300 Balance 490 590 Meds/Results Medications: Active Medications Generic Name Dose Route Start Last Admin Trade Name Freq PRN Reason Stop Dose Admin Acetaminophen 650 mg 01/27/25 12:37 Acetaminophen 325 Mg Tablet PO Q4H PRN Mild Pain (1-3) or Fever Albuterol/Ipratropium 3 ml 01/27/25 17:21 Ipratropium 0.5 Mg/Albuterol Sulfate 2.5 Mg (Base) Ampul.Neb 3 Ml INHALATION Q6HRT PRN Shortness Of Breath Or Wheezing Aspirin 81 mg 01/28/25 09:00 01/28/25 09:11 Aspirin 81 Mg Enteric Tablet PO 81 mg DAILY JENNY Administration Atorvastatin Calcium 10 mg 01/28/25 09:00 01/28/25 09:11 Atorvastatin 10 Mg Tablet PO 10 mg DAILY JENNY Administration Benzonatate 100 mg 01/27/25 17:26 Benzonatate 100 Mg Capsule PO TID PRN Cough Carvedilol 25 mg 01/27/25 21:00 01/28/25 09:11 Carvedilol 25 Mg Tablet PO 25 mg Q12HR JENNY Administration Cyclosporine 1 drop 01/27/25 21:00 01/28/25 09:11 Cyclosporine 0.4 Ml Ophth Solution EACH EYE 1 drop Q12HR JENNY Administration Dextrose 12.5 gm 01/27/25 15:02 Dextrose 50% 25 Gm/50 Ml Syringe IV PUSH PRN PRN Hypoglycemia Protocol Escitalopram Oxalate 10 mg 01/28/25 09:00 01/28/25 09:11 Escitalopram Oxalate 10 Mg Tablet PO 10 mg DAILY JENNY Administration Furosemide 20 mg 01/28/25 09:00 01/28/25 09:11 Furosemide 20 Mg Tablet PO 20 mg DAILY JENNY Administration Glucagon 1 mg 01/27/25 15:02 Glucagon For Inj 1 Mg Vial IM PRN PRN Hypoglycemia Protocol Glucose 15 gm 01/27/25 15:02 Glucose Oral Gel 15 Gm Of Glucse In 37.5 Gm Tube PO PRN PRN Hypoglycemia Protocol Guaifenesin 600 mg 01/27/25 21:00 01/28/25 09:11 Guaifenesin 12 Hr 600 Mg Tabcr PO 600 mg Q12HR JENNY Administration Ceftriaxone Sodium 1 gm/ 50 mls @ 100 mls/hr 01/28/25 12:00 Sodium Chloride IVPB Q24H JENNY Azithromycin 500 mg/ Sodium 250 mls @ 250 mls/hr 01/27/25 13:00 01/27/25 15:33 Chloride IVPB 01/30/25 13:59 Not Given Q24H JENNY Dextrose 1,000 mls @ 100 mls/hr 01/27/25 15:02 Dextrose 5% 1,000 Ml IVPB PRN PRN Hypoglycemia Protocol Insulin Aspart 2 - 5 units 01/27/25 17:00 01/28/25 08:05 Insulin Aspart (*Bkc) 100 Units/Ml SUB-Q Not Given TIDWM JENNY Protocol Loratadine 10 mg 01/28/25 21:00 Loratadine 10 Mg Tablet PO HS JENNY Montelukast Sodium 10 mg 01/28/25 09:00 01/28/25 09:11 Montelukast Sodium 10 Mg Tablet PO 10 mg DAILY JENNY Administration Multivitamins/Minerals 1 tab 01/28/25 09:00 01/28/25 09:11 Multivitamins /C Lutein (Centrum Silver) Tablet *Bkc PO 1 tab QAM JENNY Administration Nonformulary Drug 1 gm 01/27/25 09:00 01/28/25 09:13 Methenamine PO 02/26/25 08:59 1 gm Hippurate 1 Gram Q12HR JENNY Administration Tablet Ondansetron HCl 4 mg 01/27/25 12:37 Ondansetron Inj 4 Mg/2 Ml Vial IV PUSH Q4H PRN Nausea Oxycodone/Acetaminophen 1 tab 01/27/25 17:30 01/28/25 09:11 Oxycodone/Acetaminophen (*Crx) 10-325 Mg Tablet PO 1 tab Q8H PRN Administration Pain 7-10 Sacubitril/Valsartan 1 tablet 01/27/25 21:00 01/28/25 09:11 Sacubitril/Valsartan 49-51 Mg Tablet PO 1 tablet Q12HR JENNY Administration Trazodone HCl 100 mg 01/27/25 21:00 01/27/25 21:00 Trazodone Hcl 50 Mg Tablet PO 100 mg QHS JENNY Administration Venlafaxine HCl 75 mg 01/28/25 09:00 01/28/25 09:11 Venlafaxine Hcl 75 Mg Tablet PO 75 mg DAILY JENNY Administration Radiology Results: ITS Impressions Chest X-Ray 01/27/25 10:35 Impression: Early bilateral pneumonia Labs Labs: Laboratory Results - last 24 hr 01/27/25 01/27/25 01/27/25 09:56 10:04 13:08 WBC 6.5 RBC 4.24 Hgb 13.0 Hct 41.1 MCV 96.9 MCH 30.7 MCHC 31.6 L RDW 12.7 Plt Count 125 L MPV 11.3 H Immature Gran % (Auto) 0.2 Neut % (Auto) 62.6 Lymph % (Auto) 24.5 Graham % (Auto) 9.9 H Eos % (Auto) 2.3 Baso % (Auto) 0.5 Lymph # (Auto) 1.59 Graham # (Auto) 0.6 Eos # (Auto) 0.2 Baso # (Auto) 0.0 Abs Immat Gran (auto) 0.01 Absolute Neuts (auto) 4.1 Absolute Nucleated RBC 0.000 Nucleated RBC % 0.0 % Immature Plt Fraction 6.0 PT 14.4 INR 1.1 APTT 29.2 D-Dimer 0.70 H Sodium 139 Potassium 4.0 Chloride 100 Carbon Dioxide 33 H Anion Gap 6 BUN 22 H Creatinine 0.89 Estim Creat Clear Calc 38 Estimated GFR 60 Glucose 106 POC Capillary Glucose Calcium 8.8 Total Bilirubin 0.6 AST 35 ALT 27 Alkaline Phosphatase 67 Troponin I 0.016 0.018 NT-Pro-B Natriuret Pep 76703 H Total Protein 6.7 Albumin 4.1 Urine Color Urine Appearance Urine pH Ur Specific Ozan Urine Protein Urine Glucose (UA) Urine Ketones Ur Blood (Man) Urine Nitrate Urine Bilirubin Urine Urobilinogen Leukocyte Esterase Rfl Urine RBC Urine WBC Ur Squamous Epith Cells Urine Bacteria Urine Casts Influenza A (RT-PCR) Negative Influenza B (RT-PCR) Negative RSV (RT-PCR) Negative SARS-CoV-2 RNA (RT-PCR) Negative 01/27/25 01/27/25 01/27/25 15:42 15:57 16:51 WBC RBC Hgb Hct MCV MCH MCHC RDW Plt Count MPV Immature Gran % (Auto) Neut % (Auto) Lymph % (Auto) Graham % (Auto) Eos % (Auto) Baso % (Auto) Lymph # (Auto) Graham # (Auto) Eos # (Auto) Baso # (Auto) Abs Immat Gran (auto) Absolute Neuts (auto) Absolute Nucleated RBC Nucleated RBC % % Immature Plt Fraction PT INR APTT D-Dimer Sodium Potassium Chloride Carbon Dioxide Anion Gap BUN Creatinine Estim Creat Clear Calc Estimated GFR Glucose POC Capillary Glucose 139 H Calcium Total Bilirubin AST ALT Alkaline Phosphatase Troponin I 0.025 D NT-Pro-B Natriuret Pep Total Protein Albumin Urine Color Yellow Urine Appearance Clear Urine pH 7.0 Ur Specific Ozan 1.006 Urine Protein Negative Urine Glucose (UA) Trace H Urine Ketones Negative Ur Blood (Man) Negative Urine Nitrate Negative Urine Bilirubin Negative Urine Urobilinogen 0.2 Leukocyte Esterase Rfl 1+ H Urine RBC 0-2 Urine WBC 11-20 H Ur Squamous Epith Cells None seen Urine Bacteria None seen Urine Casts 0-2 Influenza A (RT-PCR) Influenza B (RT-PCR) RSV (RT-PCR) SARS-CoV-2 RNA (RT-PCR) 01/27/25 01/28/25 01/28/25 20:58 05:12 07:42 WBC 9.0 RBC 4.17 L Hgb 12.8 Hct 39.9 MCV 95.7 MCH 30.7 MCHC 32.1 RDW 13.0 Plt Count 132 L MPV 10.4 Immature Gran % (Auto) Neut % (Auto) Lymph % (Auto) Graham % (Auto) Eos % (Auto) Baso % (Auto) Lymph # (Auto) Graham # (Auto) Eos # (Auto) Baso # (Auto) Abs Immat Gran (auto) Absolute Neuts (auto) Absolute Nucleated RBC Nucleated RBC % % Immature Plt Fraction 2.6 PT INR APTT D-Dimer Sodium 135 L Potassium 3.7 Chloride 98 Carbon Dioxide 29 Anion Gap 8 BUN 19 H Creatinine 0.87 Estim Creat Clear Calc 39 Estimated GFR > 60 Glucose 135 H POC Capillary Glucose 160 H 136 H Calcium 8.7 Total Bilirubin AST ALT Alkaline Phosphatase Troponin I NT-Pro-B Natriuret Pep Total Protein Albumin Urine Color Urine Appearance Urine pH Ur Specific Ozan Urine Protein Urine Glucose (UA) Urine Ketones Ur Blood (Man) Urine Nitrate Urine Bilirubin Urine Urobilinogen Leukocyte Esterase Rfl Urine RBC Urine WBC Ur Squamous Epith Cells Urine Bacteria Urine Casts Influenza A (RT-PCR) Influenza B (RT-PCR) RSV (RT-PCR) SARS-CoV-2 RNA (RT-PCR)
[2025-01-28] MEDS: cefTRIAXone 1 GM in SODIUM CHLORIDE 0.9% IV 50 ML 100 ML IVPB (12:34)
[2025-01-28] MEDS: AZITHROMYCIN IV 500 MG in SODIUM CHLORIDE 0.9% IV 250 ML IVPB (13:04)
[2025-01-28 14:00] VITALS: BP 124/66; PULSE 82; RESP 14; TEMP 36.7; O2SAT 95
--- NOTE | 2025-01-28 16:56 | P.DS_ITS ---
DS: Admitting Diagnosis Discharge Date 01/28/2025 Admitting Diagnosis Pneumonia DS: Discharge Diagnosis Discharge Diagnosis (1) Combined systolic and diastolic congestive heart failure: Qualifiers: Heart failure chronicity: chronic Qualified Code(s): I50.42 - Chronic combined systolic (congestive) and diastolic (congestive) heart failure Code(s): I50.40 - Unspecified combined systolic (congestive) and diastolic (congestive) heart failure Status: Chronic (2) Pneumonia: Qualifiers: Laterality: bilateral Lung location: unspecified part of lung Pneumonia type: due to unspecified organism Qualified Code(s): J18.9 - Pneumonia, unspecified organism Code(s): J18.9 - Pneumonia, unspecified organism Status: Acute (3) Asymptomatic bacteriuria: Code(s): R82.71 - Bacteriuria Status: Acute DS: Summary Hospital Course Reason for hospitalization: Copied from [facility] 01/27: 84-year-old female with a PMH of HTN, afib (not on anticoagulation), RA, hyperlipidemia, DMII, HFrEF (25-30%) presented to the ED on 01/27/2025 with complaints of intermittent shortness of breath for the past week but started getting worse last night (01/26/25). States dyspnea is worse when lying flat but is unsure if it is worse with exertion. Endorses a mild non-productive cough recently but denies congestion, fevers, chest pain, weight gain, or peripheral edema. She further states she has had increased pain with her arthritis over the past week and has had multiple x-rays recently at [facility]. ED course: Initial VS 162/90, HR 92, 98.1 F, O2 97% on RA. Thromocytopenia at baseline, ECG NSR with known LBBB. Initial troponin 0.016. CBC with no leukocytosis. BUN 22, BNP 28959. Viral PCR negative. Chest x-ray with early bilateral pneumonia. UA added due to hx of frequent UTI's. Lasix 40 mg IVP given. Hospital Course: Ms Zamarripa presented for for acute onset of shortness of breath and was treated for pneumonia and a mild CHF exacerbation. Favor CHF exacerbation since recently missed a dose of lasix and had taken a low dose of prednisone for RA flare. No recent fevers or cough. WBC normal. NT-proBNP was elevated 18413 and she reported feeling short of breath lying flat prior to admission Combined systolic and diastolic congestive heart failure: Intermittent shortness of breath x1 week with orthopnea. Increasing symptoms s addie 1 day prior to admission. BNP markedly elevated at 15,700. 40 mg IV push Lasix given in the ED. takes p.o. 20 mg Lasix daily at home. Most recent documented echo (2021) with EF 25-30%. Pt euvolemic on exam. Chest x-ray does not show evidence of fluid overload. 06/2024 TTE (Requested from Dr. Delgado's office) LVEF 30-35%, severe LVH, mild mitral regurg, trace aortic & pulmonic regurg. -resumed home 20 mg Lasix, added an additional dose of lasix 20mg prn -follow renal function -Monitor weights 71.5kg Pneumonia: Chest x-ray reported early bilateral pneumonia. No hypoxia on admission. Met SIRS criteria. Blood cultures drawn and were negative at 48 hours. Final results pending. Azithromycin 500 mg IVPB and ceftriaxone 1 g IVPB daily started in ED. Disc harged with Augmentin BID x4 more days since Mucinex 600 mg q.12 hours scheduled, DuoNeb q.6 hours p.r.n., Tylenol p.r.n. Asymptomatic Bacteriuria No dysuria. Urine culture not clean catch Grew Ecoli. Was discharged with 4 days of augmentin to treat pneumonia Diabetes: Home medication: Farxiga 5 mg daily, glipizide 2.5 BID Continued Tresiba 6 units daily Added SSI during admission Paroxysmal atrial fibrillation: Not on anticoagulation or rate control medication. ECG the ED read normal sinus rhythm with rate of 84 and chronic left bundle-branch block. Hypertension: Chronic, stable -continue home meds Status at Discharge Cognitive/behavioral status at discharge: A&OX4 Time Spent with Patient Time attestation: Total time spent providing and/or coordinating discharge services: Exam Narrative: General - Awake and alert. No acute distress Eyes - PERRLA, EOM intact ENT - No thrush, No erythema Neck - No noticeable or palpable swelling Lymph Nodes - No lymphadenopathy Cardiovascular - RRR no m/r/g, no JVD Lungs: Rare crackles, No wheezing, use of accessory muscles Skin - Skin warm and dry, no wounds or rashes Abdomen - Normal bowel sounds, abdomen soft and nontender Extremities - No edema, cyanosis or clubbing Musculoskeletal - 5/5 strength, normal range of motion, no swollen or erythematous joints. Neurological ? Alert and oriented x 3, CN 2-12 grossly intact. Psych: Normal mood and affect DS: Data Data Completed and Pending Labs on day of discharge: Labs from last 24 hours 01/28/25 01/28/25 01/28/25 16:51 11:26 07:42 WBC RBC Hgb Hct MCV MCH MCHC RDW Plt Count MPV % Immature Plt Fraction Sodium Potassium Chloride Carbon Dioxide Anion Gap BUN Creatinine Estim Creat Clear Calc Estimated GFR Glucose POC Capillary Glucose Pending 138 H 136 H Calcium 01/28/25 01/27/25 05:12 20:58 WBC 9.0 RBC 4.17 L Hgb 12.8 Hct 39.9 MCV 95.7 MCH 30.7 MCHC 32.1 RDW 13.0 Plt Count 132 L MPV 10.4 % Immature Plt Fraction 2.6 Sodium 135 L Potassium 3.7 Chloride 98 Carbon Dioxide 29 Anion Gap 8 BUN 19 H Creatinine 0.87 Estim Creat Clear Calc 39 Estimated GFR > 60 Glucose 135 H POC Capillary Glucose 160 H Calcium 8.7 Preliminary micro results at discharge 01/27/25 13:08 Blood Culture - Preliminary Blood 01/27/25 13:02 Blood Culture - Preliminary Blood Discharge Plan Discharge Attending physician on discharge: Danielle Galeano Consulting providers: Flynn Batres; Campbell Zuniga; Alexandra Ugarte; Shad Melchor Discharging Clinician: Danielle Galeano Anticipated Discharge Date/Time: 01/28/25 16:53 Patient Disposition: Home Activity: may shower Diet: low sodium Discharge Instructions: Check your weight daily. Likely fluid if 2-3 pounds in a day or 5-7 pounds in a week. Call your doctor if you have new symptoms. Continue 20mg furosemide daily. You may take another 20mg furosemide as needed (to total 40mg in a day) for shortness of breath with activity or when lying flat. Come to the ED for racing heart beat, chest pain or new symptoms. Monitor for dizziness (call your doctor or go to the ER if significant) Took prednisone off your medication list for now. No other medication changes Your urine test was low probability for a UTI Follow up with your PCP in 1-2 weeks. Follow up with cardiology Patient Instructions: Antibiotic Form, Heart Failure (DC) Patient Language: Slovak Stand Alone Forms: General Discharge Information Follow-up/Referrals: Carol,Nando Fernandez MD [Primary Care Provider, Unknown] - 2 Weeks Discharge Medications: New amoxicillin-pot clavulanate 875-125 mg tablet 1 tablet PO Q12H Qty: 6 0RF Rx Instructions: Start 01/29. Take twice a day for 6 doses Continued escitalopram oxalate 10 mg tablet 10 mg PO DAILY dapagliflozin propanediol [Farxiga] 5 mg tablet 5 mg PO DAILY glipizide 2.5 mg tablet 2.5 mg PO BID insulin degludec [Tresiba FlexTouch U-100] 100 unit/mL (3 mL) insulin pen 6 unit subcut DAILY alendronate 70 mg tablet 70 mg PO WEEKLY cyclosporine [Restasis] 0.05 % dropperette 1 drp EACH EYE Q12H oxycodone-acetaminophen 10-325 mg tablet 1 tablet PO Q8H PRN (Reason: pain) Movantik 25 mg tablet 25 mg PO QAM Rx Instructions: must be taken on empty stomach; no food 1 hr after or 2-3 hrs before dose multivit with min-folic acid [Centrum Adult 50 Fresh-Fruity] 120 mcg tablet,chewable 1 tablet PO DAILY aspirin 81 mg tablet,delayed release (DR/EC) 81 mg PO DAILY atorvastatin 10 mg tablet 10 mg PO DAILY montelukast 10 mg tablet 10 mg PO DAILY venlafaxine 75 mg tablet 75 mg PO DAILY trazodone 50 mg tablet 100 mg PO QHS sacubitril-valsartan [Entresto] 49-51 mg Tablet 1 tablet PO Q12HR Qty: 60 2RF loratadine [Claritin] 10 mg Tablet 10 mg PO DAILY carvedilol [Coreg] 25 mg tablet 25 mg PO Q12H methenamine hippurate 1 gram tablet 1 g PO Q12H Changed furosemide 20 mg tablet 20 mg PO BID Qty: 60 0RF Rx Instructions: Take 20mg every morning. You may take a second 20mg in the afternoon as needed if you are having shortness of breath when lying flat or if you have swelling Discontinued prednisone 2.5 mg tablet 7.5 mg PO Q12H Patient Comments: pt started taking 01/25/2025 states she has a standing order with PMD Date of admission: 01/28/25 08:35 Primary Care Provider: Carol,Nando Fernandez Admitting Provider: Missy Polo Attending physician on admission: Danielle Galeano Condition: Stable Quality VTE Prophylaxis VTE prophylaxis: mechanical ordered Hospitalist MIPS Heart Failure (Exclusion) Patient has history of Heart Transplant or Left Ventricular Assistive Device?: No IF YES, STOP HERE Heart Failure (Qualifier) Patient has current or prior documentation of LVEF less than or equal to 40%, or mod/servere depressed LVSF?: No IF NO, STOP HERE
== END 2025-01-28 17:30 | disposition home or self-care (01) | DRG 291 ==
LOC: ANHED 13:02 → ANH2MED 13:09
PROVIDERS: Nurse Practitioner Adult Health; Admitting Provider Internal Medicine; Emergency Provider Physician Assistant; PCP Internal Medicine; Visit Provider Nurse Practitioner Acute Care
DX: I11.0 Hypertensive heart disease with heart failure (principal); I50.43 Acute on chronic combined systolic (congestive) and diastolic (congestive) heart failure; J18.9 Pneumonia, unspecified organism; I48.0 Paroxysmal atrial fibrillation; E11.9 Type 2 diabetes mellitus without complications; E78.5 Hyperlipidemia, unspecified; R82.71 Bacteriuria; M06.9 Rheumatoid arthritis, unspecified; G89.4 Chronic pain syndrome; Z20.822 Contact with and (suspected) exposure to COVID-19; Z79.82 Long term (current) use of aspirin; Z79.4 Long term (current) use of insulin; Z87.891 Personal history of nicotine dependence
CPT/HCPCS: 36415; 71046; 80048; 80053; 81001; 82948; 83880; 84484; 85025; 85027; 85055; 85380; 85610; 85730; 87040; 87086; 87186; 87637; 93005; 96374; 99285; A9270; J0456; J0696; J1938; J7050